=== PATIENT | female | born 1940 | race Caucasian/White ===

== ENCOUNTER 2016-03-08 14:07 | Emergency (ER) | payer OTHER, MEDICARE ==
[2016-03-08 14:13] VITALS: TEMP 97.4; BMI 22.3
--- NOTE | 2016-03-08 14:39 | PDOC ---
History of Present Illness - General History Source: Spouse, Old Records, Primary Care Provider Exam Limitations: Dementia - History of Present Illness Initial Comments: 03/08/16 17:55 The patient is a 76 year old female, with a significant past medical history of HTN, hyperlipidemia, CAD s/p stents and dementia, who presents to the emergency department sent in by Dr. Blas with abdominal pain and constipation for the past 3 days. The patients is with her in the ED. The patients reports that the patient started a new medication Rivastigmine approximately 10 days ago. states that her doctor reduced the dose of Rivastigmine due to the abdominal pain and constipation the patient was experiencing. reports that the patient took Miralax today, with no relief. reports a bowel movement yesterday which was particularly painful. reports that over the past couple of months, the patients dementia has progressed significantly. HPI is entirely provided by due to patients baseline dementia. Allergies: Aspirin, Penicillins Past Surgical History: Defibrillator, Stents Social History: Former smoker. Denies alcohol or drug use. PCP: Dr. Blas <Mariel Yao - Last Filed: 03/08/16 17:58> <Raji Markham - Last Filed: 03/08/16 18:38> - General Chief Complaint: Constipation Stated Complaint: PAIN Time Seen by Provider: 03/08/16 14:34 Past History <Mariel Yao - Last Filed: 03/08/16 17:58> - Past Medical History Anemia: No Asthma: No Cancer: No Cardiac Disorders: Yes COPD: No CHF: No Dementia: Yes HTN: Yes Hypercholesterolemia: Yes - Surgical History Cardiac Surgery: Yes (STENTS, DEFIB) - Immunization History Immunization Up to Date: No - Psycho/Social/Smoking Cessation Hx Anxiety: No Suicidal Ideation: No Smoking History: Former smoker Have you smoked in the past 12 months: No Information on smoking cessation initiated: No Hx Alcohol Use: No Drug/Substance Use Hx: No Substance Use Type: None <Raji Markham - Last Filed: 03/08/16 18:38> - Past Medical History Allergies/Adverse Reactions: Allergies Allergy/AdvReac Type Severity Reaction Status Date / Time aspirin Allergy Verified 03/08/16 14:09 Penicillins Allergy Verified 03/08/16 14:09 Home Medications: Ambulatory Orders Atorvastatin Ca [Lipitor] 20 mg PO HS 03/08/16 Clopidogrel Bisulfate [Plavix -] 75 mg PO DAILY 03/08/16 Metoprolol Succinate [Toprol Xl -] 25 mg PO DAILY 03/08/16 Psyllium Husk [Metamucil] 660 gm PO BID #1 bottle 03/08/16 Quetiapine Fumarate "Xr" [Seroquel Xr -] 150 mg PO HS 03/08/16 Quetiapine Fumarate [Seroquel -] 50 mg PO AM 03/08/16 Quetiapine Fumarate [Seroquel] 100 mg PO DAILY 03/08/16 Rivastigmine Tartrate [Rivastigmine] 1.5 mg PO DAILY 03/08/16 Valsartan [Diovan] 160 mg PO DAILY 03/08/16 Review of Systems - Review of Systems Able to Perform ROS?: No Comments:: 03/08/16 17:57 Unable to perform ROS due to patients baseline dementia. <Mariel Yao - Last Filed: 03/08/16 17:58> *Physical Exam - Vital Signs Last Vital Signs Temp Pulse Resp BP Pulse Ox 97.4 F L 99 H 19 152/95 98 03/08/16 14:09 03/08/16 14:09 03/08/16 14:09 03/08/16 14:09 03/08/16 14:09 - Physical Exam Comments: 03/08/16 17:58 GENERAL: The patient is awake, alert, and but confused/demented, nontoxic - in no acute distress. HEAD: Normocephalic, atraumatic. EYES: Extraocular movements intact, sclera anicteric, conjunctiva clear. ENT: Normal voice, moist mucous membranes. NECK: Normal range of motion, supple. LUNGS: Breath sounds equal, clear to auscultation bilaterally. No wheezes, no rhonchi, no rales. HEART: Regular rate and rhythm, without murmur, rub or gallop. ABDOMEN: Soft, nontender, normoactive bowel sounds. No guarding, no rebound. No CVA tenderness. EXTREMITIES: Normal range of motion, no edema. No clubbing or cyanosis. No cords , erythema, or tenderness. NEUROLOGICAL: No facial asymmetry. Normal speech. PSYCH: Normal mood, normal affect. SKIN: Warm, dry, normal turgor. <Mariel Yao - Last Filed: 03/08/16 17:58> - Vital Signs Last Vital Signs Temp Pulse Resp BP Pulse Ox 97.4 F L 99 H 19 152/95 98 03/08/16 14:09 03/08/16 14:09 03/08/16 14:09 03/08/16 14:09 03/08/16 14:09 <Raji Markham - Last Filed: 03/08/16 18:38> ED Treatment Course - LABORATORY CBC & Chemistry Diagram: 03/08/16 15:40 03/08/16 15:40 <Mariel Yao - Last Filed: 03/08/16 17:58> - LABORATORY CBC & Chemistry Diagram: 03/08/16 15:40 03/08/16 15:40 <Raji Markham - Last Filed: 03/08/16 18:38> Medical Decision Making - Medical Decision Making 03/08/16 15:44 EXAM: RAD/ABDOMEN FLAT & UPRIGHT Reviewed By: Dr. Andry Harkins IMPRESSION: No evidence of intestinal obstruction, or pneumoperitoneum. <Mariel Yao - Last Filed: 03/08/16 17:58> - Medical Decision Making 03/08/16 18:34 76y F hx of dementia presents with intermittent abd pain and difficulty with BM that is painful exam unremarkable pt in no distress, abd soft nontender. labs reviewed unreamrakble ua inconsistent with uti abd xray shows some stool in colon pt feeling improved after enema and had a large BM will dc with metamucil returnprecautions were discussed I discussed the physical exam findings, ancillary test results and final diagnoses with the patient. I answered all of the patient's questions. The patient was satisfied with the care received and felt comfortable with the discharge plan and treatment plan. The patient will call their primary care physician within 24 hours to arrange follow-up and will return to the Emergency Department with any new, persistent or worsening symptoms. A portion of this note was documented by scribe services under my direction. I have reviewed the details of the note, within reason, and agree with the documentation with the following case summary and management plan written by me <Raji Markham - Last Filed: 03/08/16 18:38> *DC/Admit/Observation/Transfer - Attestations Scribe Attestion: 03/08/16 15:43 Documentation prepared by Mariel Yao, acting as senior medical billing specialist for Raji Markham MD. <Mariel Yao - Last Filed: 03/08/16 17:58> - Discharge Dispostion Admit: No <Raji Markham - Last Filed: 03/08/16 18:38> Diagnosis at time of Disposition: Constipation Qualifiers: Constipation type: other constipation type Qualified Code(s): K59.09 - Other constipation Dementia Qualifiers: Dementia type: Alzheimer's disease Alzheimer's disease onset: other onset Dementia behavioral disturbance: without behavioral disturbance Qualified Code(s ): G30.8 - Other Alzheimer's disease - Discharge Dispostion Disposition: HOME Condition at time of disposition: Improved - Prescriptions Prescriptions: Psyllium Husk [Metamucil] 660 gm PO BID #1 bottle - Referrals Referrals: Ashish Blas MD [Primary Care Provider] - - Patient Instructions Printed Discharge Instructions: DI for Constipation Additional Instructions: Return to the emergency department immediately with ANY new, persistent or worsening symptoms including worsening abdominal pain, fevers, chills, inability to tolerate oral intake or any other concerns. Please increase your water intake, increasing physical activity and increase her fiber intake You MUST call and follow up with your doctor tomorrow for further evaluation of your symptoms. Results were discussed with you. Please make sure your doctor reviews the results of your emergency evaluation. Print Language: SAMOAN
[2016-03-08] MEDS ORDERED: SODIUM PHOSPHATE/NA BIPHOS 133 ML ENEMA PR ONE (15:42)
[2016-03-08 16:20] LABS: BASOPHIL 0.7 % (0-2.0); EOSINOPHIL 1.1 % (0-4.5); MCH 30.7 pg (25.7-33.7); MCHC 33.4 g/dl (32.0-36.0); MEAN CELL VOLUME 91.8 fl (80-96); MEAN PLT VOLUME 9.1 fl (7.5-11.1); NEUTROPHILS 77.6 % (42.8-82.8); PLATELET COUNT 279 K/MM3 (134-434); RDW 13.9 % (11.6-15.6); WHITE BLOOD COUNT 8.1 K/mm3 (4.0-10.0)
[2016-03-08 16:47] LABS: ALBUMIN 3.5 g/dl (3.4-5.0); BILIRUBIN,TOTAL 0.5 mg/dL (0.2-1.0); CALCIUM 9.2 mg/dL (8.5-10.1); TOT PROT 7.1 g/dl (6.4-8.2)
[2016-03-08 18:21] LABS: URINE APPEARANCE CLEAR; URINE BILIRUBIN NEGATIVE (NEGATIVE); URINE BLOOD 2+ (NEGATIVE); URINE COLOR DKYELLOW; URINE GLUCOSE (UA) NEGATIVE (NEGATIVE); URINE KETONE NEGATIVE (NEGATIVE); URINE LEUK ESTERASE NEGATIVE (NEGATIVE); URINE NITRITE NEGATIVE (NEGATIVE); URINE PROTEIN 1+ (NEGATIVE); URINE UROBILINOGEN 2.0 E.U/dl E.U./dl (0.2-1.0)
[2016-03-08 18:22] LABS: GRANULAR CASTS 1 /lpf; URINE HYALINE CAST 6 /lpf; URINE MUCUS RARE; URINE RBC 2 /hpf (0-3); URINE WBC 4 /hpf (3-5)
[2016-03-08 19:16] VITALS: BP 156/80; PULSE 78
== END 2016-03-08 19:14 | disposition home or self-care (01) ==
LOC: JER 14:07
DX: K59.09 Other constipation (principal); G30.8 Other Alzheimer's disease; F02.80 Dementia in other diseases classified elsewhere, unspecified severity, without behavioral disturbance, psychotic disturbance, mood disturbance, and anxiety; I10 Essential (primary) hypertension; E78.00 Pure hypercholesterolemia, unspecified; I25.10 Atherosclerotic heart disease of native coronary artery without angina pectoris; Z95.5 Presence of coronary angioplasty implant and graft; Z95.810 Presence of automatic (implantable) cardiac defibrillator
CPT/HCPCS: 36415; 74020-TC; 80053; 81003; 81015; 83690; 85025; 99283-25

== ENCOUNTER 2016-08-02 08:54 | Emergency (ER) | payer OTHER ==
[2016-08-02 09:16] VITALS: BMI 24.0
--- NOTE | 2016-08-02 09:19 | PDOC ---
History of Present Illness - General History Source: Patient Exam Limitations: Dementia - History of Present Illness Initial Comments: CHIEF COMPLAINT: 76 y/o afebrile female with PMH HTN, HLD, Alzheimer's, defibrillator on Plavix BIB for complaints of low back and left leg pain. HISTORY OF PRESENT ILLNESS: The patient's states every morning he has to give the patient tylenol because of her left leg pain. He states it's starting from her low back. She has had xrays of her back and leg which are negative. The patient is related to Dr. Mauro, who also informs me she has recurrent UTIs and he would like to make sure she does not have a UTI. The patient's denies f/c, n/v/d, CP, SOB, abd pain, change in mental status. Vital signs on arrival are BP of 171/101. REVIEW OF SYSTEMS: (provided by ) GENERAL/CONSTITUTIONAL: No fever/chills. CARDIOVASCULAR: No chest pain or shortness of breath. RESPIRATORY: No cough, wheezing, or hemoptysis. GASTROINTESTINAL: No vomiting, diarrhea, constipation. GENITOURINARY: No change in urination. MUSCULOSKELETAL: +left low back pain and left leg pain. SKIN: No rash or easy bruising. NEUROLOGIC: No headache. PHYSICAL EXAM: VITAL_SIGNS: within normal limits GENERAL_APPEARANCE: alert, cooperative, no obvious discomfort. MENTAL_STATUS: speech clear, oriented to person, does not answer questions appropriately. Appears to be speaking about events that happened many many years ago. The patient's states this is her baseline. NEURO: motor intact and sensory intact in injured extremity. BACK: No midline lumbar spine TTP or step offs. Pain elicited with palpation of b/l lumbar paravertebral muscles. EXTREMITIES: No pain with palpation of b/l hips or pelvis. No LE edema. No warmth, cyanosis, erythema, edema or TTP of b/l LEs. No calf pain with palpation b/l. SKIN: warm, dry, good color. <Amparo Amezcua - Last Filed: 08/02/16 13:05> <Jazmyne Kelley - Last Filed: 08/04/16 14:17> - General Chief Complaint: Pain Stated Complaint: LEFT LEG PAIN Time Seen by Provider: 08/02/16 09:15 Past History - Past Medical History Anemia: No Asthma: No Cancer: No Cardiac Disorders: Yes COPD: No CHF: No Dementia: Yes HTN: Yes Hypercholesterolemia: Yes - Surgical History Cardiac Surgery: Yes (STENTS, DEFIB) - Immunization History Immunization Up to Date: No - Psycho/Social/Smoking Cessation Hx Anxiety: No Suicidal Ideation: No Smoking History: Former smoker Have you smoked in the past 12 months: No Hx Alcohol Use: No Drug/Substance Use Hx: No Substance Use Type: None <Amparo Amezcua - Last Filed: 08/02/16 13:05> <Jazmyne Kelley - Last Filed: 08/04/16 14:17> - Past Medical History Allergies/Adverse Reactions: Allergies Allergy/AdvReac Type Severity Reaction Status Date / Time aspirin Allergy Verified 08/02/16 09:16 Penicillins Allergy Verified 08/02/16 09:16 Home Medications: Ambulatory Orders Atorvastatin Ca [Lipitor] 20 mg PO HS 03/08/16 Clopidogrel Bisulfate [Plavix -] 75 mg PO DAILY 03/08/16 Metoprolol Succinate [Toprol Xl -] 25 mg PO DAILY 03/08/16 Psyllium Husk [Metamucil] 660 gm PO BID #1 bottle 03/08/16 Quetiapine Fumarate "Xr" [Seroquel Xr -] 150 mg PO HS 03/08/16 Quetiapine Fumarate [Seroquel -] 50 mg PO AM 03/08/16 Quetiapine Fumarate [Seroquel] 100 mg PO DAILY 03/08/16 Rivastigmine Tartrate [Rivastigmine] 1.5 mg PO DAILY 03/08/16 Valsartan [Diovan] 160 mg PO DAILY 03/08/16 *Physical Exam - Vital Signs Last Vital Signs Temp Pulse Resp BP Pulse Ox 97.9 F 63 14 159/89 100 08/02/16 13:25 08/02/16 13:25 08/02/16 13:25 08/02/16 13:25 08/02/16 13:25 <Jazmyne Kelley - Last Filed: 08/04/16 14:17> ED Treatment Course - ADDITIONAL ORDERS Additional order review: 08/02/16 10:24 Urine Culture - Final Urine - Urine Clean Catch NO GROWTH OBTAINED <Jazmyne Kelley - Last Filed: 08/04/16 14:17> Medical Decision Making - Medical Decision Making A/P: 76 y/o female with low back pain and left leg pain who has had negative xrays. Plan is as follows: 1. UA/culture 2. CT scan lumbar spine and left LE CT lumbar spine IMPRESSION: No significant interval change in comparison to xrays of lumbosacral spine of February 20, 2015. CT left LE IMPRESSION: Normal CT of left lower leg. UA negative for UTI. Explained all results to the family. Will discharge to home with instructions to f/u with her PCP and return to the ER with any worsening or concerning symptoms. The patient's verbalizes understanding of all instructions, has no further questions and is awaiting discharge. <Amparo Amezcua - Last Filed: 08/02/16 13:05> - Medical Decision Making 08/04/16 14:16 Pt seen and examined by me. Agree with above history and physical, assessment and plan. Patient presents to the ED with exacerbation of her chronic leg pain. CT shows chronic spinal stenosis. Will discharge. <Jazmyne Kelley - Last Filed: 08/04/16 14:17> *DC/Admit/Observation/Transfer <Amparo Amezcua - Last Filed: 08/02/16 13:05> <Jazmyne Kelley - Last Filed: 08/04/16 14:17> Diagnosis at time of Disposition: Low back pain, Leg pain, left, Spinal stenosis - Discharge Dispostion Disposition: HOME Condition at time of disposition: Good - Referrals Referrals: Ashish Blas MD [Primary Care Provider] - Eduardo Dye MD [Staff Physician] - - Patient Instructions Printed Discharge Instructions: Spinal Stenosis, DI for Leg Pain, DI for Low Back Pain Additional Instructions: Discharge instructions: -The CT scans of your lower back and left leg showed spinal stenosis, worse on the left side -Please follow up with Dr. Dye for possible physical therapy for spinal stenosis. -You can continue taking Tylenol for pain -Please follow up with your primary care physican within 1 week. -Return to the ER with any worsening or concerning symptoms
[2016-08-02 10:35] LABS: URINE APPEARANCE CLEAR; URINE BILIRUBIN NEGATIVE (NEGATIVE); URINE COLOR LTYELLOW; URINE GLUCOSE (UA) NEGATIVE (NEGATIVE); URINE KETONE NEGATIVE (NEGATIVE); URINE NITRITE NEGATIVE (NEGATIVE); URINE PROTEIN NEGATIVE (NEGATIVE); URINE UROBILINOGEN NEGATIVE E.U./dl (0.2-1.0)
[2016-08-02 11:14] LABS: URINE BLOOD 1+ (NEGATIVE); URINE LEUK ESTERASE TRACE (NEGATIVE)
[2016-08-02 11:22] LABS: URINE MUCUS RARE; URINE RBC 4 /hpf (0-3); URINE WBC 4 /hpf (3-5)
[2016-08-02 13:28] VITALS: BP 159/89; PULSE 63; TEMP 97.9
== END 2016-08-02 13:28 | disposition home or self-care (01) ==
LOC: JER 08:54
DX: M48.06 Spinal stenosis, lumbar region (principal); I25.10 Atherosclerotic heart disease of native coronary artery without angina pectoris; I25.83 Coronary atherosclerosis due to lipid rich plaque; I10 Essential (primary) hypertension; Z95.5 Presence of coronary angioplasty implant and graft; Z95.810 Presence of automatic (implantable) cardiac defibrillator; E78.00 Pure hypercholesterolemia, unspecified; G30.9 Alzheimer's disease, unspecified; F02.80 Dementia in other diseases classified elsewhere, unspecified severity, without behavioral disturbance, psychotic disturbance, mood disturbance, and anxiety
CPT/HCPCS: 72131-TC; 73700-TC-RT; 81003; 81015; 87086; 99284-25

== ENCOUNTER 2016-09-25 11:08 | Emergency (ER) | payer OTHER ==
--- NOTE | 2016-09-25 11:17 | PDOC ---
History of Present Illness - General Chief Complaint: Chest Pain Stated Complaint: LEFT CHEST PAIN Time Seen by Provider: 09/25/16 11:17 History Source: Patient, Care Provider Exam Limitations: Dementia - History of Present Illness Initial Comments: 09/25/16 12:18 Pt presents to the ED because she was reporting pain in her left axilla and chest wall to her . Patient now denies pain. Denies shortness of breath , nausea or vomiting or diaphoresis. History is very limited secondary to the patient's dementia. Past History - Past Medical History Allergies/Adverse Reactions: Allergies Allergy/AdvReac Type Severity Reaction Status Date / Time aspirin Allergy Verified 09/25/16 11:09 Penicillins Allergy Verified 09/25/16 11:09 Home Medications: Ambulatory Orders Atorvastatin Ca [Lipitor] 20 mg PO HS 03/08/16 Clopidogrel Bisulfate [Plavix -] 75 mg PO DAILY 03/08/16 Metoprolol Succinate [Toprol Xl -] 25 mg PO DAILY 03/08/16 Quetiapine Fumarate "Xr" [Seroquel Xr -] 200 mg PO HS 03/08/16 Quetiapine Fumarate [Seroquel -] 100 mg PO AM 03/08/16 Quetiapine Fumarate [Seroquel] 150 mg PO ASDIR 03/08/16 Rivastigmine Tartrate [Rivastigmine] 3 mg PO DAILY 03/08/16 Valsartan [Diovan] 160 mg PO DAILY 03/08/16 Nitroglycerin [Nitrostat] 0.4 mg SL PRN PRN 09/25/16 Quetiapine Fumarate [Seroquel] 100 mg PO PRN PRN 09/25/16 Anemia: No Asthma: No Cancer: No Cardiac Disorders: Yes COPD: No CHF: No Dementia: Yes HTN: Yes Hypercholesterolemia: Yes Comment:: 09/25/16 12:30 history of A fib with pacer/defibrilator and HTN - Surgical History Cardiac Surgery: Yes (STENTS, DEFIB) - Immunization History Immunization Up to Date: No - Psycho/Social/Smoking Cessation Hx Anxiety: No Suicidal Ideation: No Smoking History: Former smoker Have you smoked in the past 12 months: No Hx Alcohol Use: No Drug/Substance Use Hx: No Substance Use Type: None Review of Systems - Review of Systems Able to Perform ROS?: Yes Is the patient limited Swedish proficient: No Constitutional: No: Symptoms Reported, See HPI, Chills, Diaphoresis, Fever Respiratory: No: Orthopnea, Shortness of Breath Cardiac (ROS): Yes: Symptoms Reported, Chest Pain. No: See HPI, Edema, Irregular Heart Rate, Lightheadedness, Palpitations, Syncope, Chest Tightness ABD/GI: No: Symptoms Reported, See HPI, Constipated, Diarrhea, Nausea, Vomiting , Indigestion, Abdominal cramping All Other Systems: Reviewed and Negative *Physical Exam - Physical Exam General Appearance: Yes: Nourished, Appropriately Dressed. No: Apparent Distress HEENT: positive: EOMI, Normal ENT Inspection Neck: positive: Trachea midline, Supple Respiratory/Chest: positive: Lungs Clear, Normal Breath Sounds, Paradoxal Breathing. negative: Chest Tender, Respiratory Distress, Accessory Muscle Use, Rales, Wheezing Cardiovascular: positive: Regular Rhythm, Regular Rate Gastrointestinal/Abdominal: positive: Normal Bowel Sounds, Flat, Soft, Pulsatile Mass. negative: Tender, Distended, Guarding, Rebound, Tenderness Musculoskeletal: positive: Normal Inspection Extremity: positive: Normal Capillary Refill Integumentary: positive: Normal Color Neurologic: positive: rehabilitation therapy aide II-XII NML intact, Alert, Normal Mood/Affect ED Treatment Course - LABORATORY CBC & Chemistry Diagram: 09/25/16 11:55 09/25/16 11:55 Medical Decision Making - Medical Decision Making 09/25/16 12:41 Pt presents to the ED with a vague complaint of chest pain. Patient is demented and unable to give complete history. Currently denies complaints. EKG shows a fib with slight ST depression in v 5 and V 6. Will check labs and reassess, likely discharge home if labs are negative. 09/25/16 13:17 First troponin is consistent with prior troponins in the past. Patient remains pain free. Medical Center Director advises that patient can go home and he will evaluate her this week. Will discharge home. *DC/Admit/Observation/Transfer Diagnosis at time of Disposition: Chest pain in adult - Discharge Dispostion Disposition: HOME Condition at time of disposition: Good Admit: No - Patient Instructions Printed Discharge Instructions: DI for Atypical Chest Pain Additional Instructions: return immediately to the ED for severe chest pain or shortness of breath, passing out, nausea and vomiting or fever, other new or worsening symptoms.
[2016-09-25 11:24] VITALS: BP 145/87; PULSE 85; TEMP 98.1; BMI 22.2
[2016-09-25 12:03] LABS: BASOPHIL 1.1 % (0-2.0); EOSINOPHIL 3.4 % (0-4.5); MCH 31.1 pg (25.7-33.7); MCHC 34.2 g/dl (32.0-36.0); MEAN CELL VOLUME 90.9 fl (80-96); MEAN PLT VOLUME 8.3 fl (7.5-11.1); NEUTROPHILS 65.6 % (42.8-82.8); PLATELET COUNT 303 K/MM3 (134-434); WHITE BLOOD COUNT 4.8 K/mm3 (4.0-10.8)
[2016-09-25 12:15] LABS: ALBUMIN 3.6 g/dl (3.5-5.0); ALK PHOS 124 U/L (32-92); ANION GAP 9 (8-16); BILIRUBIN,TOTAL 0.5 mg/dl (0.2-1.0); CALCIUM 9.1 mg/dl (8.4-10.2); CO2 24 mmol/L (22-28); CPK 42 IU/L (26-192); GLUCOSE,RANDOM 112 mg/dl (74-106); SGOT/AST 26 U/L (10-42); SGPT/ALT 19 U/L (10-40); TOT PROT 7.5 g/dl (6.4-8.3)
[2016-09-25 12:36] LABS: TROPONIN I (DFP) 0.13 ng/ml (0.03-0.50)
[2016-09-25] MEDS ORDERED: POTASSIUM CHLORIDE TABS 20 MEQ TABLET.ER (FP) PO ONE ×2 (12:47→13:34)
--- NOTE | 2016-09-28 14:14 | EKG ---
Test Reason : Blood Pressure : / mmHG Vent. Rate : 084 BPM Atrial Rate : 111 BPM P-R Int : 000 ms QRS Dur : 092 ms QT Int : 376 ms P-R-T Axes : 000 009 187 degrees QTc Int : 444 ms ATRIAL FIBRILLATION WITH CONTROLLED VENTRICULAR RESPONSE INFERIOR INFARCT (CITED ON OR BEFORE 23-OCT-1999) ABNORMAL ECG WHEN COMPARED WITH ECG OF 04-JAN-2016 15:16, PREMATURE VENTRICULAR AND FUSION COMPLEXES ARE NO LONGER PRESENT NONSPECIFIC T WAVE ABNORMALITY HAS REPLACED INVERTED T WAVES IN INFERIOR LEADS BASE LINE ARTIFACTS,CLINICAL CORRELATION AND REPEAT INDICATED Confirmed by LISS RIVERA MD ([id number]) on 09/28/2016 2:14:16 PM Referred By: TEO Confirmed By:LISS RIVERA MD
== END 2016-09-25 13:56 | disposition home or self-care (01) ==
LOC: FER 11:08
DX: R07.89 Other chest pain (principal); I48.91 Unspecified atrial fibrillation; I10 Essential (primary) hypertension; Z95.5 Presence of coronary angioplasty implant and graft; Z95.810 Presence of automatic (implantable) cardiac defibrillator; F03.90 Unspecified dementia, unspecified severity, without behavioral disturbance, psychotic disturbance, mood disturbance, and anxiety
CPT/HCPCS: 36415; 80053; 84484; 85025; 93005; 93010; 99282-25

== ENCOUNTER 2016-11-08 13:44 | Emergency (ER) | payer OTHER ==
--- NOTE | 2016-11-08 14:24 | PDOC ---
History of Present Illness - General Stated Complaint: WEAKNESS Time Seen by Provider: 11/08/16 14:23 History Source: Family - History of Present Illness Initial Comments: 11/08/16 14:42 CC: Isolated episode of non-responsiveness, resolved HPI obtained from patient's @ bedside as patient has dementia @ baseline Patient is a 76 y.o. female with a PMH of Afib (not on AC), VT arrest (s/p AICD) , HLD, and Dementia who presents today with after patient became unresponsive for 1-2 minutes. As per patient's , patient was at baseline today (ambulating, completing ADL's with assistance) when patient complained of being tired, patient's placed patient in chair after which time she closed her eyes and did not respond to 's voice or gentle slapping. Patient instantaneously became alert while being evaluated by EMS and as per patient became alert and immediately was @ baseline mental status. Patient's notes patient is followed by Dr. Nunez for her dementia and he recently (10 days previous) increased patient's Seroquel dose from 250 mg QD to 450 mg QD. ROS is unable to be obtained given patient's baseline dementia. Past History - Past Medical History Allergies/Adverse Reactions: Allergies Allergy/AdvReac Type Severity Reaction Status Date / Time aspirin Allergy Verified 11/08/16 14:19 Penicillins Allergy Verified 11/08/16 14:19 Home Medications: Ambulatory Orders Atorvastatin Ca [Lipitor] 20 mg PO HS 03/08/16 Clopidogrel Bisulfate [Plavix -] 75 mg PO DAILY 03/08/16 Metoprolol Succinate [Toprol Xl -] 25 mg PO DAILY 03/08/16 Quetiapine Fumarate "Xr" [Seroquel Xr -] 200 mg PO HS 03/08/16 Quetiapine Fumarate [Seroquel -] 100 mg PO AM 03/08/16 Quetiapine Fumarate [Seroquel] 150 mg PO ASDIR 03/08/16 Rivastigmine Tartrate [Rivastigmine] 3 mg PO DAILY 03/08/16 Valsartan [Diovan] 160 mg PO DAILY 03/08/16 Nitroglycerin [Nitrostat] 0.4 mg SL PRN PRN 09/25/16 Quetiapine Fumarate [Seroquel] 100 mg PO PRN PRN 09/25/16 Anemia: No Asthma: No Cancer: No Cardiac Disorders: Yes COPD: No CHF: No Dementia: Yes HTN: Yes Hypercholesterolemia: Yes - Surgical History Cardiac Surgery: Yes (STENTS, DEFIB) - Immunization History Immunization Up to Date: No - Suicide/Smoking/Psychosocial Hx Smoking History: Former smoker Have you smoked in the past 12 months: No Hx Alcohol Use: No Drug/Substance Use Hx: No Substance Use Type: None Review of Systems - Review of Systems Able to Perform ROS?: No *Physical Exam - Physical Exam General Appearance: Yes: Appropriately Dressed, Thin HEENT: positive: EOMI, IVA Neck: positive: Trachea midline, Supple Respiratory/Chest: positive: Lungs Clear, Normal Breath Sounds Cardiovascular: positive: Regular Rhythm, Regular Rate, S1, S2 Gastrointestinal/Abdominal: positive: Normal Bowel Sounds, Soft Extremity: positive: Normal Capillary Refill, Normal Inspection Integumentary: positive: Normal Color, Dry, Warm Neurologic: positive: Alert (Patient is oriented x1 - can self-identify, is unable to identify location or date), Confused, Disoriented ED Treatment Course - LABORATORY CBC & Chemistry Diagram: 11/08/16 15:05 11/08/16 15:05 Medical Decision Making - Medical Decision Making 11/08/16 14:54 Patient is a 76 y.o. female with a PMH of dementia, AFib (not on A/C 2/2 to GI bleed) VT arrest, and DLD who presents with an isolated episode of unresponsiveness. Immediate DDx is cardiac vs. infectious vs. pharmacologic ( patient recently had an increase in her Seroquel dosage). PLAN: 1. EKG 2. CBC, CMP 3. UA 11/08/16 15:[address] Nunez who advises outpatient follow-up for Seroquel dosing readjustment. 11/08/16 17:35 UA showed 1+ blood and 1+ protein, nitrite (-) and leukocyte esterase (-). Patient's counseled on proper follow-up care and affirmed desire for discharge. Patient discharged home with instruction to follow-up with Dr. Nunez. *DC/Admit/Observation/Transfer Diagnosis at time of Disposition: Weakness - Discharge Dispostion Disposition: HOME Condition at time of disposition: Fair Admit: No - Referrals Referrals: Ashish Blas MD [Primary Care Provider] - Jackson Nunez MD [Staff Physician] - - Patient Instructions Printed Discharge Instructions: DI for Syncope in Adults (Fainting) Additional Instructions: Please follow-up with Dr. Nunez in the next 2-3 days for adjustment of Seroquel dosing. Please return to the Emergency Department should patient experience repeat episode of non-responsiveness or severe discomfort.
--- NOTE | 2016-11-08 14:24 | PDOC ---
Attending Attestation - Resident Resident Name: Hermila Carmona - HPI HPI: 11/12/16 00:48 Pt presents to the ED after found in a chair by her , not responding to voice. Patient never fell from the chair. Patient was awake and responding to voice on arrival of EMS. Of note, her seroquel dose was recently increased. - Physicial Exam PE: 11/12/16 00:49 agree with resident's exam. PAtient is mildly confused but otherwise neurologically intact and is at baseline as per . - Medical Decision Making 11/12/16 00:54 Pt presents to the Ed after found by her not responsive to voice. Now is neurologically intact with normal blood work. Case discussed with Dr. Nunez, who feels that the patient may just have been overly sleepy secondary to her increased seroquel dose. Will discharge home with medical follow up;
[2016-11-08 15:05] VITALS: TEMP 98.1; BMI 20.9
[2016-11-08 15:21] LABS: BASOPHIL 0.8 % (0-2.0); EOSINOPHIL 2.2 % (0-4.5); MCH 31.7 pg (25.7-33.7); MCHC 33.7 g/dl (32.0-36.0); MEAN CELL VOLUME 93.9 fl (80-96); MEAN PLT VOLUME 9.4 fl (7.5-11.1); NEUTROPHILS 67.3 % (42.8-82.8); PLATELET COUNT 231 K/MM3 (134-434); WHITE BLOOD COUNT 5.2 K/mm3 (4.0-10.0)
[2016-11-08 15:34] LABS: ALBUMIN 3.2 g/dl (3.4-5.0); ALK PHOS 124 U/L (45-117); ANION GAP 5 (8-16); BILIRUBIN,TOTAL 0.4 mg/dL (0.2-1.0); CALCIUM 8.9 mg/dL (8.5-10.1); CO2 27 mmol/L (21-32); CREATININE 1.1 mg/dL (0.55-1.02); GLUCOSE,RANDOM 109 mg/dL (74-106); SGPT/ALT 17 U/L (12-78); TOT PROT 7.4 g/dl (6.4-8.2)
[2016-11-08 15:42] LABS: SGOT/AST 31 U/L (15-37)
[2016-11-08 15:54] LABS: URINE APPEARANCE SLCLOUDY; URINE BILIRUBIN NEGATIVE (NEGATIVE); URINE BLOOD 1+ (NEGATIVE); URINE COLOR YELLOW; URINE GLUCOSE (UA) NEGATIVE (NEGATIVE); URINE KETONE NEGATIVE (NEGATIVE); URINE NITRITE NEGATIVE (NEGATIVE); URINE UROBILINOGEN NEGATIVE mg/dL (0.2-1.0)
[2016-11-08 15:55] LABS: URINE LEUK ESTERASE 1+ (NEGATIVE); URINE PROTEIN 1+ (NEGATIVE)
[2016-11-08 15:58] LABS: URINE HYALINE CAST 25 /lpf; URINE MUCUS MANY; URINE RBC 2 /hpf (0-3); URINE WBC 8 /hpf (3-5)
[2016-11-08 16:39] VITALS: BP 101/58; PULSE 72
--- NOTE | 2016-11-09 09:37 | EKG ---
Test Reason : Blood Pressure : / mmHG Vent. Rate : 080 BPM Atrial Rate : 326 BPM P-R Int : 000 ms QRS Dur : 102 ms QT Int : 374 ms P-R-T Axes : 000 005 179 degrees QTc Int : 431 ms ATRIAL FIBRILLATION POSSIBLE INFERIOR INFARCT (CITED ON OR BEFORE 23-OCT-1999) ABNORMAL ECG WHEN COMPARED WITH ECG OF 25-SEP-2016 10:55, NO SIGNIFICANT CHANGE WAS FOUND Confirmed by GARY VILLAVICENCIO MD ([id number]) on 11/09/2016 9:37:28 AM Referred By: Confirmed By:GARY VILLAVICENCIO MD
== END 2016-11-08 16:41 | disposition home or self-care (01) ==
LOC: JER 13:44
DX: R53.1 Weakness (principal); I48.91 Unspecified atrial fibrillation; I10 Essential (primary) hypertension; Z95.5 Presence of coronary angioplasty implant and graft; F03.90 Unspecified dementia, unspecified severity, without behavioral disturbance, psychotic disturbance, mood disturbance, and anxiety; Z95.810 Presence of automatic (implantable) cardiac defibrillator; Z87.891 Personal history of nicotine dependence
CPT/HCPCS: 36415; 80053; 81003; 81015; 85025; 93005; 93010; 99283-25

== ENCOUNTER 2017-01-04 09:02 | Emergency (ER) | payer OTHER ==
[2017-01-04 09:10] VITALS: BP 114/77; PULSE 91; TEMP 98; BMI 21.6
[2017-01-04] MEDS ORDERED: CLINDAMYCIN 600MG PREMIX IVPB 600 MG/50 ML BAG IVPB ONE (09:14)
[2017-01-04] MEDS ORDERED: CLINDAMYCIN PHOSPHATE 600 MG/4 ML VIAL ONE (09:39)
--- NOTE | 2017-01-04 09:42 | PDOC ---
History of Present Illness - General Chief Complaint: Redness To Affected Area Stated Complaint: RT HAND REDNESS, R/T CAT SCRATCH Time Seen by Provider: 01/04/17 09:05 History Source: Care Provider, Family Exam Limitations: Dementia - History of Present Illness Initial Comments: 01/04/17 09:37 77-year-old female history of Alzheimer's dementia here with her family for a recent cat bite. Patient states she was bit by a cat on Tuesday, and started on antibiotics yesterday. Had been started on azithromycin however pain and swelling in her hand is gotten worse no fevers or chills. felt redness was worsening. no exudate from wound. No moderating factors. 01/04/17 10:25 Past History - Past Medical History Allergies/Adverse Reactions: Allergies Allergy/AdvReac Type Severity Reaction Status Date / Time aspirin Allergy Verified 01/04/17 09:04 Penicillins Allergy Verified 01/04/17 09:04 Home Medications: Ambulatory Orders Atorvastatin Ca [Lipitor] 20 mg PO HS 03/08/16 Clopidogrel Bisulfate [Plavix -] 75 mg PO DAILY 03/08/16 Metoprolol Succinate [Toprol Xl -] 25 mg PO DAILY 03/08/16 Quetiapine Fumarate "Xr" [Seroquel Xr -] 200 mg PO HS 03/08/16 Quetiapine Fumarate [Seroquel -] 100 mg PO AM 03/08/16 Quetiapine Fumarate [Seroquel] 100 mg PO ASDIR 03/08/16 Rivastigmine Tartrate [Rivastigmine] 3 mg PO DAILY 03/08/16 Valsartan [Diovan] 160 mg PO DAILY 03/08/16 Nitroglycerin [Nitrostat] 0.4 mg SL PRN PRN 09/25/16 Quetiapine Fumarate [Seroquel] 100 mg PO PRN PRN 09/25/16 Clindamycin [Cleocin -] 450 mg PO Q8H #63 capsule 01/04/17 Doxycycline Hyclate 100 mg PO BID #14 capsule 01/04/17 Anemia: No Asthma: No Cancer: No Cardiac Disorders: Yes COPD: No CHF: No Dementia: Yes HTN: Yes Hypercholesterolemia: Yes - Surgical History Cardiac Surgery: Yes (STENTS, DEFIB) - Immunization History Immunization Up to Date: No - Suicide/Smoking/Psychosocial Hx Smoking History: Unknown if ever smoked Have you smoked in the past 12 months: No Information on smoking cessation initiated: No Hx Alcohol Use: No Drug/Substance Use Hx: No Substance Use Type: None Review of Systems - Review of Systems Constitutional: No: Chills, Diaphoresis HEENTM: No: Eye Pain Respiratory: No: Cough, Orthopnea Cardiac (ROS): No: Chest Pain, Edema ABD/GI: No: Abdominal Distended : No: Burning Musculoskeletal: No: Back Pain, Gout Integumentary: Yes: Rash, Other (redness). No: Bruising Neurological: No: Headache, Numbness Endocrine: No: Excessive Sweating All Other Systems: Reviewed and Negative *Physical Exam - Vital Signs Last Vital Signs Temp Pulse Resp BP Pulse Ox 98 F 91 H 18 114/77 98 01/04/17 09:02 01/04/17 09:02 01/04/17 09:02 01/04/17 09:02 01/04/17 09:02 - Physical Exam General Appearance: No: Appropriately Dressed, Apparent Distress HEENT: negative: Normal ENT Inspection Respiratory/Chest: positive: Lungs Clear, Normal Breath Sounds Cardiovascular: positive: Regular Rhythm, Regular Rate, S1, S2 Gastrointestinal/Abdominal: positive: Normal Bowel Sounds, Soft Musculoskeletal: positive: Normal Inspection Extremity: positive: Swelling, Erythema, Other (Right hand swelling, erythema, and warmth. No crepitus. No streaking. Small punctate wound 2 on the dorsum of the hand. No exudate) Integumentary: positive: Erythema Neurologic: positive: Alert, Normal Mood/Affect ED Treatment Course - LABORATORY CBC & Chemistry Diagram: 01/04/17 09:30 01/04/17 09:59 - RADIOLOGY Radiology Studies Ordered: Category Date Time Status HAND- RIGHT [RAD] Stat Radiology 01/04/17 09:10 Ordered Medical Decision Making - Medical Decision Making 01/04/17 09:41 77-year-old female with current Bite to the right hand, has been on azithromycin for 24 hours no response. At this point will switch antibiotics for coverage of Pasteurella multocida, and staff. Discussion with patient's and primary care physician Dr. Blas patient is better treated as an outpatient due to severe dementia. After an IV dose requesting patient be discharged home and will follow up with PCP tomorrow. Should they have any problems with follow-up patient will be encouraged to return to the ED for repeat evaluation on the day following workup will include x-ray of the hand to rule out foreign body, CBC, CMP, blood cultures, ESR and CRP *DC/Admit/Observation/Transfer Diagnosis at time of Disposition: Cat bite - Discharge Dispostion Condition at time of disposition: Improved - Prescriptions Prescriptions: Clindamycin [Cleocin -] 450 mg PO Q8H #63 capsule Doxycycline Hyclate 100 mg PO BID #14 capsule - Referrals Referrals: Ashish Blas MD [Primary Care Provider] - - Patient Instructions Printed Discharge Instructions: DI for Animal Bites Additional Instructions: Take clindamycin 450 mg (or 3150 mg capsules (3 times a day for 7 days. Capsules can be emptied into food. Take doxycycline 100 mg capsule, also emptied into food twice daily 7 days. He should follow-up with your primary doctor tomorrow. Any inability to follow-up he should return to the ER for repeat evaluation. For worsening redness high fevers or any concerns return immediately. He can take Tylenol 500 mg every 6 hours as needed for pain - Post Discharge Activity
[2017-01-04 09:45] LABS: BASOPHIL 3.7 % (0-2.0); EOSINOPHIL 0.7 % (0-4.5); MCH 31.3 pg (25.7-33.7); MEAN CELL VOLUME 94.8 fl (80-96); NEUTROPHILS 73.6 % (42.8-82.8); PLATELET COUNT 245 K/MM3 (134-434); RDW 14.1 % (11.6-15.6); WHITE BLOOD COUNT 9.5 K/mm3 (4.0-10.8)
[2017-01-04] MEDS ORDERED: DOXYCYCLINE INJECTION 100 MG in DEXTROSE 5%-WATER - 100 ML IVPB ONE (09:51)
[2017-01-04] MEDS ORDERED: DOXYCYCLINE HYCLATE 100 MG VIAL ONE (10:01)
[2017-01-04 10:22] LABS: ALBUMIN 3.2 g/dl (3.5-5.0); ALK PHOS 114 U/L (32-92); ANION GAP 9 (8-16); BILIRUBIN,TOTAL 0.6 mg/dl (0.2-1.0); CALCIUM 8.9 mg/dl (8.4-10.2); CO2 21 mmol/L (22-28); GLUCOSE,RANDOM 104 mg/dl (74-106); SGOT/AST 18 U/L (10-42); SGPT/ALT 10 U/L (10-40); TOT PROT 6.8 g/dl (6.4-8.3)
[2017-01-04 12:29] LABS: C-REACTIVE PROTEIN 8.2 MG/DL (0.00-0.3)
--- NOTE | 2017-01-05 19:02 | PDOC ---
Patient Follow-up (Call Back) - Post ED Follow - Up Condition at time of discharge: Improved Disposition at time of original discharge: HOME Reason for Call Back: Abnwl. Microbiology Signs/Symptoms Improved: Yes (spoke to Dr. Blas and her ) - Disposition Rx Needed: No Additional Instructions/Notes: reeceived call from micro-today that patient had a positive blood culture in her anaerobic bottle for cocci in clusters from 12/25/2016. Patient had been discharged on doxycycline 100 mg twice a day and clindamycin 453 times a day for 7 days. Patient was followed by today and results were given to him. I also spoke with patient's and he reports that her right hand is less swollen and she is feeling slightly better.Dr. Blas will follow up with pt, he had seen here today.
== END 2017-01-04 11:35 | disposition home or self-care (01) ==
LOC: FER 09:02
DX: S60.571A Other superficial bite of hand of right hand, initial encounter (principal); I10 Essential (primary) hypertension; E78.00 Pure hypercholesterolemia, unspecified; I51.9 Heart disease, unspecified; F03.90 Unspecified dementia, unspecified severity, without behavioral disturbance, psychotic disturbance, mood disturbance, and anxiety; Z95.5 Presence of coronary angioplasty implant and graft
CPT/HCPCS: 36415; 73130-TC-RT; 80053; 85025; 85651; 86140; 87040; 87186; 96365; 96367; 99284-25

== ENCOUNTER 2017-03-08 08:57 | Observation (INO) | payer OTHER ==
--- NOTE | 2017-03-08 09:34 | PDOC ---
History of Present Illness - General Chief Complaint: Injury Stated Complaint: FALL Time Seen by Provider: 03/08/17 09:05 History Source: Care Provider, Family - History of Present Illness Initial Comments: 03/08/17 10:07 76 y.o. female PMH of Afib (not on AC), VT arrest (s/p AICD), HTN, HLD, and Dementia BIBEMS who presents following a fall and subsequent 5-15 minute period of unresponsiveness without any seizure activity. As per patient's and camp head counselor @ bedside patient had just walked down a flight of 5 stairs when she suddenly fell backward and hit head and was unresponsive for 5 minutes as per camp head counselor and 20 minutes as per . Patient's family denies any loss of bladder control or tongue biting. Patient is limited historian 2/2 to dementia however denies any pre syncopal chest pain, shortness of breath. Family notes patient has had multiple episodes of falls this month, however LOC < 1 minute and no head trauma. Allergy (as per EMR): ASA, Pencillin Surgical: s/p Stent PMD: Dr. Blas (family member - first leveler who provides primary care) Past History - Past Medical History Allergies/Adverse Reactions: Allergies Allergy/AdvReac Type Severity Reaction Status Date / Time aspirin Allergy Verified 03/08/17 09:13 Penicillins Allergy Verified 03/08/17 09:13 Home Medications: Ambulatory Orders Atorvastatin Ca [Lipitor] 20 mg PO HS 03/08/16 Clopidogrel Bisulfate [Plavix -] 75 mg PO DAILY 03/08/16 Metoprolol Succinate [Toprol Xl -] 25 mg PO DAILY 03/08/16 Quetiapine Fumarate "Xr" [Seroquel Xr -] 200 mg PO HS 03/08/16 Quetiapine Fumarate [Seroquel -] 100 mg PO TID 03/08/16 Rivastigmine Tartrate [Rivastigmine] 3 mg PO DAILY 03/08/16 Valsartan [Diovan] 160 mg PO DAILY 03/08/16 Nitroglycerin [Nitrostat] 0.4 mg SL PRN PRN 09/25/16 Clindamycin [Cleocin -] 450 mg PO Q8H #63 capsule 01/04/17 Doxycycline Hyclate 100 mg PO BID #14 capsule 01/04/17 Anemia: No Asthma: No Cancer: No Cardiac Disorders: Yes COPD: No CHF: No Dementia: Yes HTN: Yes Hypercholesterolemia: Yes - Surgical History Cardiac Surgery: Yes (STENTS, DEFIB) - Immunization History Immunization Up to Date: No - Suicide/Smoking/Psychosocial Hx Smoking History: Unknown if ever smoked Have you smoked in the past 12 months: No Information on smoking cessation initiated: No Hx Alcohol Use: No Drug/Substance Use Hx: No Substance Use Type: None Review of Systems - Review of Systems Able to Perform ROS?: No *Physical Exam - Vital Signs Last Vital Signs Temp Pulse Resp BP Pulse Ox 97 F L 102 H 18 169/78 100 03/08/17 09:01 03/08/17 09:01 03/08/17 09:01 03/08/17 09:01 03/08/17 09:01 - Physical Exam General Appearance: Yes: Appropriately Dressed, Thin HEENT: positive: EOMI, Other ((-) Peralta sign, (-) Head laceration, ) Respiratory/Chest: positive: Lungs Clear Cardiovascular: positive: S1, S2 Gastrointestinal/Abdominal: positive: Normal Bowel Sounds, Soft Musculoskeletal: negative: CVA Tenderness (R), CVA Tenderness (L) Extremity: positive: Normal Capillary Refill, Normal Inspection, Pelvis Stable Integumentary: positive: Normal Color, Dry, Warm. negative: Ecchymosis, Bruising Neurologic: positive: Fully Oriented, Alert ED Treatment Course - LABORATORY CBC & Chemistry Diagram: 03/08/17 10:59 03/08/17 10:59 - RADIOLOGY Radiology Studies Ordered: Category Date Time Status CERVICAL SPINE CT W/O CONTR [CT] Stat CT Scan 03/08/17 09:[address] WITHOUT CONTRAST [CT] Stat CT Scan 03/08/17 09:06 Taken Medical Decision Making - Medical Decision Making 03/08/17 14:25 76 y.o. female with a h/o AFib (not on A/C), V Tach (s/p arrest in 2016, AICD), CAD (s/p stent x3) and advanced Alzheimer who presents with witnessed syncope. At presentation patient tachycardic, moving all 4 extremities, no visible head laceration/hematoma and A&O x2 (baseline). Patient's cardiac history most suggestive of syncope 2/2 arrhythmia - less likely PE (non-tachcycardic, no dyspnea, no prolonged immobilization) or seizure (no bladder/bowel incontinence , tongue biting). Trauma work-up including CT head/C-spine, CXR as well as EKG. Pacemaker interrogation ([employer]) pending. CT Head/C-spine negative. Patient resisting therapeutic intervention including EKG, blood draws, will place soft restraints + Seroquel. Twelve-lead EKG shows Atrial Fibrillation (HR 85), normal axis, no ST elevations , T wave inversion in Leads II. III, avF, and T wave flattening in V4-V6. No changes from EKG dated 11/2016. Pacemaker interrogation - last event 02/25/2018, sustained VTach. Will admit patient for further evaluation under Dr. Stein. Will continue to monitor patient while in ED. *DC/Admit/Observation/Transfer Diagnosis at time of Disposition: Syncope - Discharge Dispostion Admit: Yes - Referrals - Patient Instructions - Post Discharge Activity
--- NOTE | 2017-03-08 10:10 | CON.CARD ---
Consult Consult Specialty:: Cardiology Referred by:: Dr. Carmona Reason for Consultation:: Syncope - History of Present Illness Chief Complaint: "Blacked out for 20 minutes" History of Present Illness: History obtained from family, cannot obtain from patient due to dementia. 77F HTN, HL, CAD s/p PCI s/p AZ '87, PCI x 3, ICM, moderate LV systolic dysfx, sustained VT 05/2015 requiring cardioversion, AF not on AC due to falls and rectal bleeding. +Alzheimers disease. Today presents to ER after syncopal episode at home. As per report of aid, she walked down the stairs and passed out. No complaints of chest pain, SOB or palps prior. According to family member Lon Bower she was "out for like 20 minutes." Stat head CT in ER: no acute pathology. - History Source History Provided By: Family Member - Past Medical History DISTILLERY MANAGER: Yes: Dementia Cardio/Vascular: Yes: AFIB, CAD, CHF, HTN, Hyperlipdemia, AZ, Other (episode of sustained ventricular tachycardia requiring cardioversion, s/p ICD) Gastrointestinal: Yes: Diverticulosis - Past Surgical History Past Surgical History: Yes: AICD, - Alcohol/Substance Use Hx Alcohol Use: No - Smoking History Smoking history: Unknown if ever smoked Have you smoked in the past 12 months: No - Social History ADL: Family Assistance History of Recent Travel: No Home Medications - Allergies Allergies/Adverse Reactions: Allergies Allergy/AdvReac Type Severity Reaction Status Date / Time aspirin Allergy Verified 03/08/17 09:13 Penicillins Allergy Verified 03/08/17 09:13 - Home Medications Home Medications: Ambulatory Orders Atorvastatin Ca [Lipitor] 20 mg PO HS 03/08/16 Clopidogrel Bisulfate [Plavix -] 75 mg PO DAILY 03/08/16 Metoprolol Succinate [Toprol Xl -] 25 mg PO DAILY 03/08/16 Quetiapine Fumarate "Xr" [Seroquel Xr -] 200 mg PO HS 03/08/16 Quetiapine Fumarate [Seroquel -] 100 mg PO AM 03/08/16 Rivastigmine Tartrate [Rivastigmine] 3 mg PO DAILY 03/08/16 Valsartan [Diovan] 160 mg PO DAILY 03/08/16 Nitroglycerin [Nitrostat] 0.4 mg SL PRN PRN 09/25/16 Clindamycin [Cleocin -] 450 mg PO Q8H #63 capsule 01/04/17 Doxycycline Hyclate 100 mg PO BID #14 capsule 01/04/17 Family Disease History - Family Disease History Family History: Unremarkable (no known h/o AZ or SCD) Review of Systems Findings/Remarks: see HPI - Review of Systems Constitutional: reports: No Symptoms Eyes: reports: No Symptoms HENT: reports: No Symptoms Neck: reports: No Symptoms Cardiovascular: reports: No Symptoms Respiratory: reports: No Symptoms Gastrointestinal: reports: No Symptoms Genitourinary: reports: No Symptoms Breasts: reports: No Symptoms Reported Musculoskeletal: reports: No Symptoms Integumentary: reports: No Symptoms Neurological: reports: No Symptoms Endocrine: reports: No Symptoms Hematology/Lymphatic: reports: No Symptoms Psychiatric: reports: No Symptoms - Risk Factors Known Risk Factors: Yes: Hypercholesterolemia, Hypertension, Prior AZ /Emb Stroke Vital Signs: Vital Signs Temperature 97 F L 03/08/17 09:01 Pulse Rate 102 H 03/08/17 09:01 Respiratory Rate 18 03/08/17 09:01 Blood Pressure 169/78 03/08/17 09:01 O2 Sat by Pulse Oximetry (%) 100 03/08/17 09:01 Constitutional: Yes: No Distress, Calm Eyes: Yes: Conjunctiva Clear Respiratory: Yes: CTA Bilaterally Cardiovascular: Yes: Pulse Irregular JVD: No Carotid Bruit: No PMI: Non-Displaced Edema: No Neurological: Yes: Confusion ...Motor Strength: WNL - Other Data PENDING Echo: Report Reviewed Prior Cardiac Procedures: PTCA, PTCA with Stent Imaging - Results Cat Scan: Image Reviewed EKG: Pending Problem List - Problems (1) Syncope and collapse Code(s): R55 - SYNCOPE AND COLLAPSE (2) ICD (implantable cardioverter-defibrillator) in place Code(s): Z95.810 - PRESENCE OF AUTOMATIC (IMPLANTABLE) CARDIAC DEFIBRILLATOR (3) Ischemic cardiomyopathy Code(s): I25.5 - ISCHEMIC CARDIOMYOPATHY (4) Paroxysmal atrial fibrillation Code(s): I48.0 - PAROXYSMAL ATRIAL FIBRILLATION (5) Ventricular tachyarrhythmia Code(s): I47.2 - VENTRICULAR TACHYCARDIA Assessment/Plan IMP: 77F with ICM s/p [employer] ICD, prior VT requiring cardioversion, AF, h/o AZ presents to ER with syncope. History of dementia. REC: 1. Stat bloodwork including cardiac enzymes 2. Will call [employer] to interrogate device. 3. As per family member, this has happened before and she will almost certainly refuse to be admitted. After labs and interrogation, will make further reccomendations.
[2017-03-08 11:13] LABS: BASO % 0.8 % (0-2.0); EOS % 1.3 % (0-4.5); HEMATOCRIT 37.5 % (32.4-45.2); HEMOGLOBIN 12.1 GM/dL (10.7-15.3); LYMPH % 11.9 % (8-40); MCH 31.1 pg (25.7-33.7); MCHC 32.3 g/dl (32.0-36.0); MEAN CELL VOLUME 96.1 fl (80-96); MEAN PLT VOLUME 8.6 fl (7.5-11.1); MONO % 7.1 % (3.8-10.2); NEUT % 78.9 % (42.8-82.8); PLATELET COUNT 276 K/MM3 (134-434); RDW 13.9 % (11.6-15.6); WHITE BLOOD COUNT 9.1 K/mm3 (4.0-10.0)
--- NOTE | 2017-03-08 11:17 | PDOC ---
Attending Attestation - HPI HPI: 03/08/17 11:26 The patient is a 77 year old female with a significant PMH of dementia, Alzheimers, CAD (s/p stents and defibrillator), AFIB, VT arrest, HTN, and hyperlipidemia who presents to the emergency department s/p witnessed fall at home. The patients supervisor home energy consultant and report they witnessed the patient walk down a flight of 5 stairs, then hold her head and collapse backwards from her feet at the foot of the stairs. They report the patient hit her head and was unresponsive and pale afterwards for about 5-15 minutes. The patient is a limited historian secondary to her dementia. Allergies: Aspirin, Penicillins PCP/Aircraft Engine Specialist: Dr. Blas (Dannie) #: - Physicial Exam PE: 03/08/17 11:29 GENERAL: Awake, alert, oriented to name only, in no acute distress HEAD: No signs of trauma EYES: PERRLA, EOMI, sclera anicteric, conjunctiva clear ENT: Auricles normal inspection, nares patent, Moist mucosa NECK: C-collar in place LUNGS: Breath sounds equal, clear to auscultation bilaterally. No wheezes, and no crackles HEART: irregularly irregular, rate 83 normal S1 and S2, no murmurs, rubs or gallops ABDOMEN: Soft, nontender, normoactive bowel sounds. No guarding, no rebound. No masses EXTREMITIES: Stable pelvis. Normal range of motion, no edema. No clubbing or cyanosis. No cords, erythema, or tenderness BACK: No midline spinal tenderness in cervical/thoracic/lumbar region. No step offs. NEUROLOGICAL: Normal speech, cranial nerves grossly intact, not cooperative with remainder of exam but moving all 4 extremities spontaneously SKIN: Warm, Dry, normal turgor, no rashes or lesions noted. - Medical Decision Making 03/08/17 14:01 Paged [employer] at 9:45 AM and at 1:30PM regarding interrogation of the patient 's pacemaker. Base Filler Estuardo Bragg will do. 03/08/17 15:38 [employer] ict sales representative Estuardo Bragg arrived to interrogate device. <Irineo Boss - Last Filed: 03/08/17 15:38> - Resident Resident Name: Hermila Carmona - ED Attending Attestation I have performed the following: I have examined & evaluated the patient, The case was reviewed & discussed with the resident, I agree w/resident's findings & plan, Exceptions are as noted - Medical Decision Making 03/08/17 11:13 77-year-old female with a history of V. tach arrest one year ago status post AICD, atrial fibrillation (not on anticoagulation), coronary artery disease, Alzheimer's dementia presents with a witnessed collapse 30 minutes prior to arrival in the emergency department. Vitals initially with tachycardia at 104 but otherwise unremarkable. Exam remarkable for irregularly irregular rate, but does not appear to have any traumatic injury from the fall. We'll do a full trauma workup including CT head, cervical spine and chest x-ray as well as pelvis x-ray. We'll also order labs including cardiac enzymes and keep the patient on telemetry for monitoring. We'll also interrogate the patient's pacemaker to see if she had a cardiac event. Story is highly concerning for an arrhythmia as patient was still unresponsive for a period of time. Patient will likely require admission to the hospital, will discuss with the patient's . 03/08/17 14:20 Labs unremarkable. No events in the emergency department. Chest x-ray is clear. CT head and cervical spine are negative for acute pathology. Pacemaker was interrogated by [employer] and no events were found, the last event was noted to be on February 25 and was nonsustained ventricular tachycardia. Patient has been admitted to Dr. Stein for further management. Case discussed in detail with admitting physician including history, physical exam and ancillary studies. Admitting physician has assumed care for the patient, will follow all pending diagnostics and will complete the evaluation and treatment. <Brandon Estrada - Last Filed: 03/08/17 16:12> Heart Score/ECG Review #1 03/08/17 11:15 Twelve-lead EKG was performed and reviewed by me. Atrial fibrillation, rate 85. Normal axis. No ST elevations. T wave inversions in leads 2, 3, aVF, and V4 through V6. When compared to previous EKG for 11/2016, no significant change is seen. <Brandon Estrada - Last Filed: 03/08/17 16:12>
[2017-03-08 11:23] LABS: INR 1.04 (0.82-1.09); PROTHROMBIN TIME (PATIENT) 11.8 SEC (9.98-11.88)
[2017-03-08] MEDS ORDERED: QUEtiapine FUMARATE 100 MG TABLET (FP) ONE ×2 (11:30→11:55)
[2017-03-08 11:37] LABS: ALK PHOS 166 U/L (45-117); ANION GAP 8 (8-16); BILIRUBIN,TOTAL 0.5 mg/dL (0.2-1.0); BLOOD UREA NITROGEN 14 mg/dL (7-18); CALCIUM 8.2 mg/dL (8.5-10.1); CHLORIDE 105 mmol/L (98-107); CO2 26 mmol/L (21-32); CREATININE 0.9 mg/dL (0.55-1.02); GLUCOSE,RANDOM 91 mg/dL (74-106); MAGNESIUM 2.2 mg/dL (1.8-2.4); POTASSIUM 4.1 mmol/L (3.5-5.1); SGOT/AST 22 U/L (15-37); SGPT/ALT 18 U/L (12-78); SODIUM 139 mmol/L (136-145); TOT PROT 7.3 g/dl (6.4-8.2)
--- NOTE | 2017-03-08 13:38 | EKG ---
Test Reason : Blood Pressure : / mmHG Vent. Rate : 085 BPM Atrial Rate : 073 BPM P-R Int : 000 ms QRS Dur : 098 ms QT Int : 356 ms P-R-T Axes : 000 023 -60 degrees QTc Int : 423 ms ATRIAL FIBRILLATION POSSIBLE INFERIOR INFARCT (CITED ON OR BEFORE 23-OCT-1999) ABNORMAL ECG WHEN COMPARED WITH ECG OF 08-NOV-2016 14:40, NON-SPECIFIC CHANGE IN ST SEGMENT IN LATERAL LEADS Confirmed by MD ELOISE, QI ([id number]) on 03/08/2017 1:37:36 PM Referred By: Confirmed By:QI NAVAS MD
--- NOTE | 2017-03-08 14:46 | HP ---
CHIEF COMPLAINT: "she passed out and fell" PCP: Dr Blas HISTORY OF PRESENT ILLNESS: This is a 77 yo F with PMH of AFib not on AC (falls and GI hemorrhage), sustained VT 05/2015 s/p cardioversion, ICM, HTN, HL, CAD s/p PCI s/p [place] (1986), PCI x 3, moderate LV systolic disfunction, Alzheimers dementia, who presents due to witnessed syncope/fall at 10 am today. Patient has suffered 5 syncopal episodes over the past 3 weeks, usually associated with abrupt positional change and lasting less than 1 min. Today however, she was walking across the room when she syncopized, hitting the back of her head, and was unresponsive for 20 min. At that time, she was motionless, pale with labored breathing. She woke up when EMS came and currently is at mental status baseline (occasionally answers yes/no questions, makes eye contact , ambulatory at baseline). She did not lose control of bowels or bite her tongue. She has not had pacemaker interrogation or new cardiac imaging recently. Family denies noticing evidence of infection, f/c, n/v, diarrhea, dysuria,incontinence and report that patient has been eating and drinking well. She is occasionally constipated. History obtained from family due to patients advanced dementia. ER course was notable for: (1)labs (2)EKG: no change from prior, no evidence of ACS (3)Head, cervical spine ct; no acute process (4)CXR LLL atelectasis (5)seroquel Recent Travel: denies PAST MEDICAL HISTORY: as above PAST SURGICAL HISTORY: as above Social History: lives with , has an aid Smoking: denies Alcohol:denies Drugs: denies Family History: noncontributory Allergies aspirin Allergy (Verified 03/08/17 09:13) Penicillins Allergy (Verified 03/08/17 09:13) HOME MEDICATIONS: Home Medications Medication Instructions Recorded Atorvastatin Ca [Lipitor] 20 mg PO HS 03/08/16 Clopidogrel Bisulfate [Plavix -] 75 mg PO DAILY 03/08/16 Metoprolol Succinate [Toprol Xl -] 25 mg PO DAILY 03/08/16 Quetiapine Fumarate "Xr" [Seroquel 200 mg PO HS 03/08/16 Xr -] Quetiapine Fumarate [Seroquel -] 100 mg PO AM 03/08/16 Rivastigmine Tartrate 3 mg PO DAILY 03/08/16 [Rivastigmine] Valsartan [Diovan] 160 mg PO DAILY 03/08/16 Nitroglycerin [Nitrostat] 0.4 mg SL PRN PRN 09/25/16 Clindamycin [Cleocin -] 450 mg PO Q8H #63 capsule 01/04/17 Doxycycline Hyclate 100 mg PO BID #14 capsule 01/04/17 REVIEW OF SYSTEMS unable to obtain PHYSICAL EXAMINATION Vital Signs - 24 hr 03/08/17 09:01 Temperature 97 F L Pulse Rate 102 H Respiratory 18 Rate Blood Pressure 169/78 O2 Sat by Pulse 100 Oximetry (%) GENERAL: Awake, alert, not oriented, in no acute distress. HEAD: Normal with no signs of trauma. EYES: Pupils equal, round and reactive to light, extraocular movements intact, sclera anicteric, conjunctiva clear. No lid lag. EARS, NOSE, THROAT: Moist mucous membranes. NECK: supple without JVD, or masses. b/l tender scalene muscles LUNGS: Breath sounds equal, clear to auscultation bilaterally. HEART: Regular rate and irregularly irregular rhythm, normal S1 and S2 without murmur ABDOMEN: Soft, nontender, not distended, normoactive bowel sounds, no guarding, no rebound, no masses. MUSCULOSKELETAL: No CVA tenderness. UPPER EXTREMITIES: 2+ pulses, warm, well-perfused. No peripheral edema. LOWER EXTREMITIES: 1+ pulses, warm, well-perfused. b/l calf tenderness. No peripheral edema. NEUROLOGICAL: Cranial nerves II-XII grossly intact. Normal speech. PSYCHIATRIC: calm, consused SKIN: Warm, dry, normal turgor Laboratory Results - last 24 hr 03/08/17 03/08/17 03/08/17 10:59 10:59 10:59 WBC 9.1 D RBC 3.90 Hgb 12.1 Hct 37.5 MCV 96.1 H MCH 31.1 MCHC 32.3 RDW 13.9 Plt Count 276 MPV 8.6 Neutrophils % 78.9 Lymphocytes % 11.9 D Monocytes % 7.1 Eosinophils % 1.3 Basophils % 0.8 PT with INR 11.80 INR 1.04 Sodium Potassium Chloride Carbon Dioxide Anion Gap BUN Creatinine Creat Clearance w eGFR Random Glucose Calcium Magnesium Total Bilirubin AST ALT Alkaline Phosphatase Creatine Kinase 70 Troponin I 0.13 H Total Protein Albumin Blood Type Antibody Screen 03/08/17 03/08/17 10:59 11:30 WBC RBC Hgb Hct MCV MCH MCHC RDW Plt Count MPV Neutrophils % Lymphocytes % Monocytes % Eosinophils % Basophils % PT with INR INR Sodium 139 Potassium 4.1 Chloride 105 Carbon Dioxide 26 Anion Gap 8 BUN 14 Creatinine 0.9 Creat Clearance w eGFR > 60 Random Glucose 91 Calcium 8.2 L Magnesium 2.2 Total Bilirubin 0.5 D AST 22 ALT 18 Alkaline Phosphatase 166 H Creatine Kinase Troponin I Total Protein 7.3 Albumin 3.0 L Blood Type O POSITIVE Antibody Screen Negative ASSESSMENT/PLAN: This is a 77 yo F with PMH of AFib not on AC (falls and GI hemorrhage), sustained VT 05/2015 s/p cardioversion, ICM, HTN, HL, CAD s/p PCI s/p [place] (1986), PCI x 3, moderate LV systolic disfunction, Alzheimers dementia, who presents due to witnessed syncope/fall at 10 am today. Syncope -cardiogenic vs vasovagal -EKG rate controlled a fib, no change from baseline -trop chronically elevated 0.13 -cardiac monitoring -ICM interrogation -continue home meds including beta arlene -orthostatic vitals -TTE -cardio consult -if found to have recurrent v tach, consider adding amiodarone Dispo: obs tele Problem List - Problem (1) A-fib Code(s): I48.91 - UNSPECIFIED ATRIAL FIBRILLATION (2) ICD (implantable cardioverter-defibrillator) in place Code(s): Z95.810 - PRESENCE OF AUTOMATIC (IMPLANTABLE) CARDIAC DEFIBRILLATOR (3) Ischemic cardiomyopathy Code(s): I25.5 - ISCHEMIC CARDIOMYOPATHY (4) Syncope and collapse Code(s): R55 - SYNCOPE AND COLLAPSE (5) Arrhythmia Code(s): I49.9 - CARDIAC ARRHYTHMIA, UNSPECIFIED Qualifiers: Arrhythmia type: ventricular tachycardia Qualified Code(s): I47.2 - Ventricular tachycardia (6) Chronic systolic (congestive) heart failure Code(s): I50.22 - CHRONIC SYSTOLIC (CONGESTIVE) HEART FAILURE (7) Constipation Code(s): K59.00 - CONSTIPATION, UNSPECIFIED Qualifiers: Constipation type: other constipation type Qualified Code(s): K59.09 - Other constipation (8) Dementia Code(s): F03.90 - UNSPECIFIED DEMENTIA WITHOUT BEHAVIORAL DISTURBANCE Qualifiers: Dementia type: Alzheimer's disease Alzheimer's disease onset: other onset Dementia behavioral disturbance: without behavioral disturbance Qualified Code(s): G30.8 - Other Alzheimer's disease (9) Spinal stenosis Code(s): M48.00 - SPINAL STENOSIS, SITE UNSPECIFIED Visit type - Emergency Visit Emergency Visit: Yes ED Registration Date: 03/08/17 Care time: The patient presented to the Emergency Department on the above date and was hospitalized for further evaluation of their emergent condition. - New Patient This patient is new to me today: Yes Date on this admission: 03/08/17 - Critical Care Critical Care patient: No
[2017-03-08] MEDS ORDERED: NITROGLYCERIN SUBLINGUAL 1/150 0.4 MG TAB SL PRN (14:47)
--- NOTE | 2017-03-08 15:36 | HP ---
CHIEF COMPLAINT: syncope PCP: Dr. Blas HISTORY OF PRESENT ILLNESS: History obtained from chart and career technical counselor. Patient is a 77 yo F with a PMHx of V-tach arrest (1 year ago requiring cardioversion), s/p AICD, A-fib (not on AG, GI hemmorhage and falls), CAD, alzheimers, presented to the ED after witnessed collapse at the house at 10am while going down 5 flights of stairs. As per career technical counselor, patient syncopized prior to falling. Patient fell backwards, denies head trauma. Patient lost consciousness for 5-15 minutes with LE shaking movements as per career technical counselor. Patient has experienced 5 syncopal episodes over the past 3 weeks, usually associated with abrupt positional change and lasting less than 1 min. Quality Assurance Qa Lab Analyst denies loss of bladder control, tongue biting, nausea, vomiting, fevers, diarrhea, dysuria. She has not had her pacemaker interrogated or new cardiac imaging. ER course was notable for: (1) EKG- Irregularly irregular, no st elevations, normal axis (2) Head, C-spine CT with no acute process (3) CXR with LLL atelectasis Recent Travel: n/a PAST MEDICAL HISTORY: as above PAST SURGICAL HISTORY: as above Social History: Smoking: denies Alcohol: denies Drugs: denies Family History: Allergies aspirin Allergy (Verified 03/08/17 09:13) Penicillins Allergy (Verified 03/08/17 09:13) HOME MEDICATIONS: Home Medications Medication Instructions Recorded Atorvastatin Ca [Lipitor] 20 mg PO HS 03/08/16 Clopidogrel Bisulfate [Plavix -] 75 mg PO DAILY 03/08/16 Metoprolol Succinate [Toprol Xl -] 25 mg PO DAILY 03/08/16 Quetiapine Fumarate "Xr" [Seroquel 200 mg PO HS 03/08/16 Xr -] Quetiapine Fumarate [Seroquel -] 100 mg PO AM 03/08/16 Rivastigmine Tartrate 3 mg PO DAILY 03/08/16 [Rivastigmine] Valsartan [Diovan] 160 mg PO DAILY 03/08/16 Nitroglycerin [Nitrostat] 0.4 mg SL PRN PRN 09/25/16 Clindamycin [Cleocin -] 450 mg PO Q8H #63 capsule 01/04/17 Doxycycline Hyclate 100 mg PO BID #14 capsule 01/04/17 REVIEW OF SYSTEMS unable to obtain due to advanced dementia PHYSICAL EXAMINATION Vital Signs - 24 hr 03/08/17 09:01 Temperature 97 F L Pulse Rate 102 H Respiratory 18 Rate Blood Pressure 169/78 O2 Sat by Pulse 100 Oximetry (%) GENERAL: A/o x 1, confused, demented at baseline HEAD: Normal with no signs of trauma. EYES: Pupils equal, round and reactive to light, sclera anicteric, conjunctiva clear. EARS, NOSE, THROAT: oropharynx clear without exudates. Moist mucous membranes. NECK: supple without lymphadenopathy, JVD, or masses. LUNGS: Breath sounds equal, clear to auscultation bilaterally. No wheezes, and no crackles. No accessory muscle use. HEART: Irregularly irregular. Regular rhythm ABDOMEN: Soft, nontender, not distended, normoactive bowel sounds, no guarding, no rebound, no masses. UPPER EXTREMITIES: 2+ pulses, warm, well-perfused. No cyanosis. No clubbing. No peripheral edema. LOWER EXTREMITIES: 2+ pulses, warm, well-perfused. No calf tenderness. No peripheral edema. NEUROLOGICAL: Limited neuro, uncooperative, Cn 2-12 grossly intact Laboratory Results - last 24 hr 03/08/17 03/08/17 03/08/17 10:59 10:59 10:59 WBC 9.1 D RBC 3.90 Hgb 12.1 Hct 37.5 MCV 96.1 H MCH 31.1 MCHC 32.3 RDW 13.9 Plt Count 276 MPV 8.6 Neutrophils % 78.9 Lymphocytes % 11.9 D Monocytes % 7.1 Eosinophils % 1.3 Basophils % 0.8 PT with INR 11.80 INR 1.04 Sodium Potassium Chloride Carbon Dioxide Anion Gap BUN Creatinine Creat Clearance w eGFR Random Glucose Calcium Magnesium Total Bilirubin AST ALT Alkaline Phosphatase Creatine Kinase 70 Troponin I 0.13 H Total Protein Albumin Blood Type Antibody Screen 03/08/17 03/08/17 10:59 11:30 WBC RBC Hgb Hct MCV MCH MCHC RDW Plt Count MPV Neutrophils % Lymphocytes % Monocytes % Eosinophils % Basophils % PT with INR INR Sodium 139 Potassium 4.1 Chloride 105 Carbon Dioxide 26 Anion Gap 8 BUN 14 Creatinine 0.9 Creat Clearance w eGFR > 60 Random Glucose 91 Calcium 8.2 L Magnesium 2.2 Total Bilirubin 0.5 D AST 22 ALT 18 Alkaline Phosphatase 166 H Creatine Kinase Troponin I Total Protein 7.3 Albumin 3.0 L Blood Type O POSITIVE Antibody Screen Negative ASSESSMENT/PLAN: This is a 77 yo F with PMH of AFib not on AC (falls and GI hemorrhage), sustained VT 05/2015 s/p cardioversion, HTN, HL, CAD s/p PCI s/p [place] (1986), PCI x 3, moderate LV systolic disfunction, Alzheimers dementia, who presents due to witnessed syncope/fall. #Syncope -likely secondary to Arrhythmia -History of V-tach -Hx of A-fib -cardiac monitoring -cardio on board, FU reccs -FU Echo -Trops chronically elevated, Currently .13 -Interrogate defibrillator -orthostatic vital signs -TTE -Fu AM labs, UA #Permanent A-fib -not on AG -Rate control with Metoprolol 25mg #CAD/HTN -continue Home meds -Metoprolol 25mg -Valsartan 160mg #HLD -Cont. Lipitor 20mg #Alzheimers Dementia -at baseline #FEN -No fluids at this time -WNL -Low sodium diet #PPX -SCD's Dispo: Obs-Tele Visit type - Emergency Visit Emergency Visit: Yes ED Registration Date: 03/08/17 Care time: The patient presented to the Emergency Department on the above date and was hospitalized for further evaluation of their emergent condition. - New Patient This patient is new to me today: Yes Date on this admission: 03/08/17 - Critical Care Critical Care patient: No
--- NOTE | 2017-03-08 16:14 | PN ---
Teaching Attending Note Name of Resident: Teresa Vargas ATTENDING PHYSICIAN STATEMENT I saw and evaluated the patient. I reviewed the resident's note and discussed the case with the resident. I agree with the resident's findings and plan as documented. SUBJECTIVE: This is a 77 year old woman with a history of atrial fibrillation, ventricular tachycardia, AICD, HTN, hyperlipidemia, CAD, OH, ischemic cardiomyopathy, chronic systolic heart failure, Alzheimer dementia who comes to the ER after passing out. According to family, she has passed out multiple times in the past month. These episodes seemed to occur with change in position and loss of consciousness was less than 1 minute each time. Today, after walking down a flight of stairs, she was witnessed to pass out at the bottom of the stairs, falling backwards and hitting the back of her head. Loss of consciousness lasted up to 20 minutes. There was no seizure activity, tongue biting, or incontinence. The patient is unable to provide any history secondary to dementia. OBJECTIVE: Vital Signs Period Temp Pulse Resp BP Sys/Bundy Pulse Ox Last 24 Hr 97 F 102 18 169/78 100 HEART: Irregular LUNGS: Clear ABDOMEN: Soft, non-tender, non-distended, normal BS EXTREMITIES: No edema NEUROLOGICAL: Unable to cooperate with exam Laboratory Tests 03/08/17 03/08/17 03/08/17 10:59 10:59 10:59 WBC 9.1 D RBC 3.90 Hgb 12.1 Hct 37.5 MCV 96.1 H MCH 31.1 MCHC 32.3 RDW 13.9 Plt Count 276 MPV 8.6 Neutrophils % 78.9 Lymphocytes % 11.9 D Monocytes % 7.1 Eosinophils % 1.3 Basophils % 0.8 PT with INR 11.80 INR 1.04 Sodium Potassium Chloride Carbon Dioxide Anion Gap BUN Creatinine Creat Clearance w eGFR Random Glucose Calcium Magnesium Total Bilirubin AST ALT Alkaline Phosphatase Creatine Kinase 70 Troponin I 0.13 H Total Protein Albumin Blood Type Antibody Screen 03/08/17 03/08/17 10:59 11:30 WBC RBC Hgb Hct MCV MCH MCHC RDW Plt Count MPV Neutrophils % Lymphocytes % Monocytes % Eosinophils % Basophils % PT with INR INR Sodium 139 Potassium 4.1 Chloride 105 Carbon Dioxide 26 Anion Gap 8 BUN 14 Creatinine 0.9 Creat Clearance w eGFR > 60 Random Glucose 91 Calcium 8.2 L Magnesium 2.2 Total Bilirubin 0.5 D AST 22 ALT 18 Alkaline Phosphatase 166 H Creatine Kinase Troponin I Total Protein 7.3 Albumin 3.0 L Blood Type O POSITIVE Antibody Screen Negative Home Medications Medication Instructions Recorded Atorvastatin Ca [Lipitor] 20 mg PO HS 03/08/16 Clopidogrel Bisulfate [Plavix -] 75 mg PO DAILY 03/08/16 Metoprolol Succinate [Toprol Xl -] 25 mg PO DAILY 03/08/16 Quetiapine Fumarate "Xr" [Seroquel 200 mg PO HS 03/08/16 Xr -] Quetiapine Fumarate [Seroquel -] 100 mg PO AM 03/08/16 Rivastigmine Tartrate 3 mg PO DAILY 03/08/16 [Rivastigmine] Valsartan [Diovan] 160 mg PO DAILY 03/08/16 Nitroglycerin [Nitrostat] 0.4 mg SL PRN PRN 09/25/16 Clindamycin [Cleocin -] 450 mg PO Q8H #63 capsule 01/04/17 Doxycycline Hyclate 100 mg PO BID #14 capsule 01/04/17 ASSESSMENT AND PLAN: This is a 77 year old woman with a history of atrial fibrillation, ventricular tachycardia, AICD, HTN, hyperlipidemia, CAD, OH, ischemic cardiomyopathy, chronic systolic heart failure, Alzheimer dementia who presents to the ER today after passing out after walking down a flight of stairs at home. 1. Syncope 2. History of ventricular tachycardia 3. Permanent atrial fibrillation 4. CAD, history of OH, PCI, with ischemic cardiomyopathy0 5. Chronic systolic heart failure 6. Hypertension 7. Hyperlipidemia 8. Alzheimer dementia
[2017-03-08] MEDS ORDERED: ACETAMINOPHEN 1000 MG/100 ML VIAL (NON FORMULARY) IVPB ONE (16:30)
[2017-03-08 17:41] VITALS: BMI 21.6
[2017-03-08] MEDS ORDERED: ACETAMINOPHEN INJECTION 100 ML IVPB ONE (17:48)
--- NOTE | 2017-03-08 20:41 | CONSULT ---
Consult - text type - Consultation Consultation Note: NEUROLOGY CONSULTATION is greatly appreciated: This 77 yo RH woman with h/o Chol, CHF, cardiomyopathy, V-tach and A Fib has an implanted defibrillator. On atorvastatin, clopidogrel, metoprolol, valsartan. Well-known to me with advanced Alzheimer's disease (AD) and paranoia/agitation. On Rivastigmine (3 mg BID) and Quetiapine (100m g in AM and 200 mg In PM) Her describes unsteady gait and Pt's refusal to use a walker. She has Home health aides 24x7. Over the last 4 weeks Pt has fallen 3 or 4 times. Dannie describes her "knees buckling." Saw oim architect each time and no cardiac etiology was found. Yesterday she fell at base of steps striking her head with prolonged (LOC 5-20 mins.) Dannie attributes it to the "Aide not getting there fast enough." CT of head (reviewed) severe, diffuse, atrophy without traumatic lesions. CT of C-Spine spondylytic changes without fractures or dislocations. KASIA: No external head trauma. Confused. Gibberish speech. Follows occ. simple commands. Moving all fours well and symmetrically. IMP: Non-focal exam sig for severe B/L cerebral dysfuction c/w advanced Alzheimer's Disease (AD). Recurrent fall possible due to senile gait apraxia, this last one with head trauma and LOC. Cannot r/o syncope or seizure but not fully necessary to explain the presentation. SUGGEST: Check orthostatic BP's PT to evaluate gait stability D/C exelon (rivastigmine) as it can predispose to syncope and is unlikely to be efficacious in advanced disease. May need to increase quetiapine if agitation recurs (was on 300 mg /day at home and is written for 100 qd here). Thank you very much, Jackson Nunez MD
[2017-03-08] MEDS: ATORVASTATIN CA 20 MG TABLET (FP) PO SCH (22:00)
[2017-03-09] MEDS ORDERED: QUEtiapine FUMARATE 50 MG TABLET PO SCH (07:00)
[2017-03-09 07:17] LABS: BASO % 1.1 % (0-2.0); HEMATOCRIT 37.9 % (32.4-45.2); HEMOGLOBIN 12.5 GM/dL (10.7-15.3); LYMPH % 20.2 % (8-40); MCH 31.8 pg (25.7-33.7); MEAN CELL VOLUME 96.1 fl (80-96); MONO % 9.3 % (3.8-10.2); NEUT % 65.4 % (42.8-82.8); PLATELET COUNT 273 K/MM3 (134-434); RBC 3.95 M/mm3 (3.60-5.2); WHITE BLOOD COUNT 6.7 K/mm3 (4.0-10.0)
[2017-03-09 07:34] LABS: INR 1.02 (0.82-1.09); PROTHROMBIN TIME (PATIENT) 11.5 SEC (9.98-11.88)
[2017-03-09 07:48] LABS: ALBUMIN 2.9 g/dl (3.4-5.0); ANION GAP 9 (8-16); BLOOD UREA NITROGEN 11 mg/dL (7-18); CALCIUM 8.6 mg/dL (8.5-10.1); CHLORIDE 103 mmol/L (98-107); CO2 26 mmol/L (21-32); GLUCOSE,RANDOM 101 mg/dL (74-106); PHOSPHOROUS 3.1 mg/dL (2.5-4.9); POTASSIUM 3.8 mmol/L (3.5-5.1); SODIUM 138 mmol/L (136-145)
[2017-03-09 07:50] LABS: ALK PHOS 159 U/L (45-117); BILIRUBIN,TOTAL 0.8 mg/dL (0.2-1.0); CREATININE 0.9 mg/dL (0.55-1.02); MAGNESIUM 2.3 mg/dL (1.8-2.4); SGOT/AST 25 U/L (15-37); SGPT/ALT 17 U/L (12-78); TOT PROT 7.3 g/dl (6.4-8.2)
--- NOTE | 2017-03-09 09:24 | PN ---
Progress Note, Physician Chief Complaint: TELE: AF, no V ectopy ICD inter, no VT Appreciate Neuro eval. She is more alert today and wishes to go home. History of Present Illness: Orthostatics are pending, but as outlined by neuro are not necessary as presentation can be explained by gait apraxia - Current Medication List Current Medications: Active Medications Atorvastatin Calcium (Lipitor -) 20 mg PO HS PENG Last Admin: 03/08/17 22:00 Dose: Not Given Metoprolol Succinate (Toprol Xl -) 25 mg PO DAILY PENG Nitroglycerin (Nitrostat -) 0.4 mg SL PRN PRN PRN Reason: CHEST PAIN Quetiapine Fumarate (Seroquel Xr -) 200 mg PO DAILY PENG Valsartan (Diovan -) 160 mg PO DAILY PENG - Objective Vital Signs: Vital Signs Temperature 97.5 F L 03/09/17 06:00 Pulse Rate 74 03/09/17 06:00 Respiratory Rate 18 03/09/17 06:00 Blood Pressure 134/71 03/09/17 06:00 O2 Sat by Pulse Oximetry (%) 98 03/08/17 21:00 Constitutional: Yes: Calm Eyes: Yes: Conjunctiva Clear Cardiovascular: Yes: Regular Rate and Rhythm Respiratory: Yes: CTA Bilaterally Gastrointestinal: Yes: Soft Edema: No Labs: CBC, BMP 03/09/17 06:55 03/09/17 06:55 INR, PTT INR 1.02 (0.82-1.09) 03/09/17 06:55 - ....Imaging EKG: Image Reviewed Problem List - Problems (1) Syncope and collapse Code(s): R55 - SYNCOPE AND COLLAPSE (2) ICD (implantable cardioverter-defibrillator) in place Code(s): Z95.810 - PRESENCE OF AUTOMATIC (IMPLANTABLE) CARDIAC DEFIBRILLATOR (3) Ischemic cardiomyopathy Code(s): I25.5 - ISCHEMIC CARDIOMYOPATHY (4) Paroxysmal atrial fibrillation Code(s): I48.0 - PAROXYSMAL ATRIAL FIBRILLATION (5) Ventricular tachyarrhythmia Code(s): I47.2 - VENTRICULAR TACHYCARDIA Assessment/Plan 77F with ICM s/p [employer] ICD, prior VT requiring cardioversion, AF, h/o [place] presents to ER with syncope. History of dementia. REC: ICD interrogation WNL except for known AF; head CT negative. Falls likely related to gait apraxia due to advanced Alzheimer's disease. Can check orthostatics. Plan for D/C home today.
[2017-03-09] MEDS ORDERED: RIVASTIGMINE TARTRATE 1.5 MG CAPSULE PO SCH (10:00)
[2017-03-09] MEDS ORDERED: METOPROLOL SUCCINATE 25 MG TAB.SR.24H (FP) PO SCH (10:00)
[2017-03-09] MEDS ORDERED: VALSARTAN 160 MG TABLET (UD) PO SCH (10:00)
[2017-03-09] MEDS ORDERED: PT OWN MED DRAWER 7, Y5N ONE (10:10)
[2017-03-09] MEDS ORDERED: ACETAMINOPHEN 325 MG TABLET (FP) PO ONE (12:49)
--- NOTE | 2017-03-09 13:27 | PN ---
Teaching Attending Note Name of Resident: Teresa Vargas ATTENDING PHYSICIAN STATEMENT Time of evaluation: 10:15 AM I saw and evaluated the patient. I reviewed the resident's note and discussed the case with the resident. I agree with the resident's findings and plan as documented. SUBJECTIVE: Patient seen and examined. Was awake and sitting in bed when seen. no complaints , Oriented to self only, limited ROS. OBJECTIVE: Vital Signs Period Temp Pulse Resp BP Sys/Bundy Pulse Ox Last 24 Hr 97.5 F-98.6 F 73-88 18-20 122-134/71-86 97-98 Intake & Output 03/06/17 03/07/17 03/08/17 03/09/17 23:59 23:59 23:59 23:59 Intake Total 220 310 Output Total 500 Balance 220 -190 Weight 130 lb General: sitting in bed in no acute distress CVS:S1S2 irregular Chest: CTAB, no rales or wheezing abdomen: soft, NT Extremities: no edema Neuro AAOx1, facial symmetry, moves all extremities freely, PERRLA, does not follow commands Home Medication List Medication Instructions Recorded Confirmed Type Atorvastatin Ca [Lipitor] 20 mg PO HS 03/08/16 03/08/17 History Metoprolol Succinate [Toprol XL -] 25 mg PO DAILY 03/08/16 03/08/17 History Nitroglycerin [Nitrostat] 0.4 mg SL PRN PRN 09/25/16 03/08/17 History Active Medications Generic Name Dose Route Start Last Admin Trade Name Freq PRN Reason Stop Dose Admin Atorvastatin Calcium 20 mg 03/08/17 22:00 03/08/17 22:00 Lipitor - PO Not Given HS PENG Sodium Chloride 500 mls @ 500 mls/hr 03/09/17 13:41 Normal Saline - IV 03/09/17 14:40 ASDIR STA Metoprolol Succinate 25 mg 03/09/17 10:00 03/09/17 10:17 Toprol Xl - PO 25 mg DAILY PENG Administration Nitroglycerin 0.4 mg 03/08/17 14:47 Nitrostat - SL PRN PRN CHEST PAIN Quetiapine Fumarate 200 mg 03/09/17 10:00 03/09/17 11:53 Seroquel Xr - PO 200 mg DAILY PENG Administration Valsartan 160 mg 03/09/17 10:00 03/09/17 10:16 Diovan - PO 160 mg DAILY PENG Administration Laboratory Results - last 24 hr 03/09/17 03/09/17 03/09/17 06:55 06:55 06:55 WBC 6.7 RBC 3.95 Hgb 12.5 Hct 37.9 MCV 96.1 H MCH 31.8 MCHC 33.0 RDW 14.0 Plt Count 273 MPV 9.0 Neutrophils % 65.4 Lymphocytes % 20.2 D Monocytes % 9.3 Eosinophils % 4.0 D Basophils % 1.1 PT with INR 11.50 INR 1.02 Sodium 138 Potassium 3.8 Chloride 103 Carbon Dioxide 26 Anion Gap 9 BUN 11 Creatinine 0.9 Creat Clearance w eGFR > 60 Random Glucose 101 Calcium 8.6 Phosphorus 3.1 Magnesium 2.3 Total Bilirubin 0.8 D AST 25 ALT 17 Alkaline Phosphatase 159 H Troponin I 0.15 H Total Protein 7.3 Albumin 2.9 L TSH 1.03 Free T4 0.86 03/09/17 03/09/17 06:55 06:55 WBC RBC Hgb Hct MCV MCH MCHC RDW Plt Count MPV Neutrophils % Lymphocytes % Monocytes % Eosinophils % Basophils % PT with INR INR Sodium Potassium Chloride Carbon Dioxide Anion Gap BUN Creatinine Creat Clearance w eGFR Random Glucose Calcium Phosphorus Magnesium Total Bilirubin AST ALT Alkaline Phosphatase Troponin I Cancelled Total Protein Albumin TSH Free T4 Cancelled ASSESSMENT AND PLAN: 77 yof with PMHx of Vfib Arrest s/p AICD, HTN, CAD, Afib not on AC given GI haemorrhage/Falls, severe Alzheimer's dementia admitted with syncope vs unwitnessed fall followed by LOC. -Syncope vs unwitnessed fall followed by LOC -Orthostatic hypotension -Atrial fibrillation rate controlled -Severe Alzheimer's dementia Plan: No events overnight, telemetry uneventful. ICD interrogated with no events. Refused 2D echo, Borderline tropnin elevation , known from prior, refused 2D echo, discussed with Dr. Blas, no need for additional inpatient intervention. Patient was planned for dc today, was dressed. However, got dressed, sat in chair and passed out. BP 66/41, unresponsive, was laid down in bed and SBP increased to 150s with spontaneous return of consciousness. Suggests severe orthostatic hypotension that was compounded by her anti-hypertensives and anti-psychotics. Patient likely has underlying autonomic dysfuction. Also review of records suggests her prior events likely in the setting of positional change or prolonged standing. Likely responsible for her presentation on admission as well. Will d/c valsartan, decreased toprol XL to 12.5 mg daily, 500 ml IVF bolus. Advise family to avoid sudden postural changes for patient and avoid prolonged standing. Plan was discussed with Dr. Blas. Also discussed with Dr. Nunez, will keep seroquel at her home regimen with 75 mg at 11 AM, 75 mg at 2 pm and 150 mg hs. Hold off on d/c for today. PT eval if patient agreable and dispo planning in 24 hours if no further events.
--- NOTE | 2017-03-09 13:38 | DS ---
Physical Exam: SUBJECTIVE: Patient seen and examined. No acute events overnight. Offers no new complaints. Denies chest pain, dizziness, SOB, abdominal pain, diarrhea. OBJECTIVE: Vital Signs Period Temp Pulse Resp BP Sys/Bundy Pulse Ox Last 24 Hr 97.5 F-98.6 F 73-88 18-20 122-134/71-86 97-98 PHYSICAL EXAM GENERAL: A/o x 1, confused, demented at baseline HEAD: Normal with no signs of trauma. EYES: Pupils equal, round and reactive to light, sclera anicteric, conjunctiva clear. EARS, NOSE, THROAT: oropharynx clear without exudates. Moist mucous membranes. NECK: supple without lymphadenopathy, JVD, or masses. LUNGS: Breath sounds equal, clear to auscultation bilaterally. No wheezes, and no crackles. No accessory muscle use. HEART: Irregularly irregular. Regular rhythm ABDOMEN: Soft, nontender, not distended, normoactive bowel sounds, no guarding, no rebound, no masses. UPPER EXTREMITIES: 2+ pulses, warm, well-perfused. No cyanosis. No clubbing. No peripheral edema. LOWER EXTREMITIES: 2+ pulses, warm, well-perfused. No calf tenderness. No peripheral edema. NEUROLOGICAL: Limited neuro, uncooperative, Cn 2-12 grossly intact LABS Laboratory Results - last 24 hr 03/09/17 03/09/17 03/09/17 06:55 06:55 06:55 WBC 6.7 RBC 3.95 Hgb 12.5 Hct 37.9 MCV 96.1 H MCH 31.8 MCHC 33.0 RDW 14.0 Plt Count 273 MPV 9.0 Neutrophils % 65.4 Lymphocytes % 20.2 D Monocytes % 9.3 Eosinophils % 4.0 D Basophils % 1.1 PT with INR 11.50 INR 1.02 Sodium 138 Potassium 3.8 Chloride 103 Carbon Dioxide 26 Anion Gap 9 BUN 11 Creatinine 0.9 Creat Clearance w eGFR > 60 Random Glucose 101 Calcium 8.6 Phosphorus 3.1 Magnesium 2.3 Total Bilirubin 0.8 D AST 25 ALT 17 Alkaline Phosphatase 159 H Troponin I 0.15 H Total Protein 7.3 Albumin 2.9 L TSH 1.03 Free T4 0.86 03/09/17 03/09/17 06:55 06:55 WBC RBC Hgb Hct MCV MCH MCHC RDW Plt Count MPV Neutrophils % Lymphocytes % Monocytes % Eosinophils % Basophils % PT with INR INR Sodium Potassium Chloride Carbon Dioxide Anion Gap BUN Creatinine Creat Clearance w eGFR Random Glucose Calcium Phosphorus Magnesium Total Bilirubin AST ALT Alkaline Phosphatase Troponin I Cancelled Total Protein Albumin TSH Free T4 Cancelled HOSPITAL COURSE: Date of Admission:03/08/17 This is a 77 yo F with PMH of AFib not on AC (falls and GI hemorrhage), sustained VT 05/2015 s/p cardioversion, HTN, HL, CAD s/p PCI s/p [place] (1986), PCI x 3, moderate LV systolic disfunction, Alzheimers dementia, who presents due to witnessed syncope/fall. Patient was under cardiac monitoring, labs were trended , and cardiology/neurology were consulted. ICD interrogation WNL except for known AF; head CT negative. Patient did not have another episode and remained stable throughout hospital stay. Falls likely related to gait apraxia due to advanced Alzheimer's disease. Patient medically cleared for discharge. She is to continue all home meds except rivastigmine since it may cause syncope as a side effect. Date of Discharge: 03/09/17 Discharge Summary Reason For Visit: SYNCOPE AND COLLAPSE Current Active Problems Syncope (Acute) Syncope and collapse (Acute) A-fib (Chronic) DANNA (acute kidney injury) (Chronic) Arrhythmia (Chronic) CAD (coronary artery disease) (Chronic) Chest pain (Chronic) Dementia (Chronic) Elbow pain, right (Chronic) ICD (implantable cardioverter-defibrillator) in place (Chronic) Ischemic cardiomyopathy (Chronic) Low back pain (Chronic) UTI (urinary tract infection) (Chronic) Viral URI (Chronic) Condition: Stable - Instructions Diet, Activity, Other Instructions: You will need to follow up with your primary care physician in 1 week. 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 We have made changes to your home medications. Stop your Rivastigmine as it may cause you to go unconscious. Continue everything else. If you feel your symptoms are worsening please call your doctor and go to your nearest emergency room. Referrals: Ashish Blas MD [Primary Care Provider] - 1 Week Disposition: HOME - Home Medications Comprehensive Discharge Medication List: Ambulatory Orders Atorvastatin Ca [Lipitor] 20 mg PO HS 03/08/16 Metoprolol Succinate [Toprol XL -] 25 mg PO DAILY 03/08/16 Nitroglycerin [Nitrostat] 0.4 mg SL PRN PRN 08/19/17 Haloperidol 0.5 mg PO HS #30 tablet 03/09/17 Neomycin/Polymyxn/Hc [Cortisporin *Otic Solution*-] 3 drop AD Q8H #1 drops 03/09 Quetiapine Fumarate [Seroquel -] 25 mg PO HS #30 tablet 03/09/17 Quetiapine Fumarate [Seroquel -] 50 mg PO HS #30 tablet 03/09/17
[2017-03-09] MEDS ORDERED: SODIUM CHLORIDE 500 ML IV STA (13:41)
--- NOTE | 2017-03-09 14:34 | HOSP ---
Physical Examination Vital Signs: Vital Signs Temperature 97.5 F L 03/09/17 10:00 Pulse Rate 88 03/09/17 10:00 Respiratory Rate 20 03/09/17 10:00 Blood Pressure 131/82 03/09/17 10:00 O2 Sat by Pulse Oximetry (%) 97 03/09/17 09:00 Labs: CBC, BMP 03/09/17 06:55 03/09/17 06:55 Hospitalist Encounter Assessment: Was informed that patient is unconscious this afternoon. Immediately went to assess the patient in room 418-1. Patient was sitting on a chair, sleeping , arousable. Took her vitals stat: BP was 61/41mm Hg ; HR 89 bpm, SpO2-96 %. Noticed she had some apenic episodes while she was sleeping and her saturation dropped to 88 % in RA during that time. Patient was transferred to her bed, on lying down her BP increased to 150/69 mmHg. Patient woke up as soon as she layed down. Patient had received her morning dose of Seroquel and a dose of Valsartan. Informed Dr. Blas and Dr. Nunez. A/P: Orthostatic hypotension Has h/o positional syncope. Discussed with Dr. Nunez (Will continue liquid Seroquel- 75mg at 11am, 75 mg at 2pm and 150 mg at night) Plan is to d/c her Valsartan Tele monitor Hold discharge tonight. Case discussed with Dr. Jalloh and Dr. Blas. Critical care time: 35 mins. Visit type - Emergency Visit Emergency Visit: Yes ED Registration Date: 03/08/17 Care time: The patient presented to the Emergency Department on the above date and was hospitalized for further evaluation of their emergent condition. - New Patient This patient is new to me today: No - Critical Care Critical Care patient: No
--- NOTE | 2017-03-09 14:39 | PN ---
Physical Exam: SUBJECTIVE: Patient seen and examined. No acute events overnight. Offers no new complaints. Denies chest pain, dizziness, SOB, abdominal pain, diarrhea. OBJECTIVE: Vital Signs Period Temp Pulse Resp BP Sys/Bundy Pulse Ox Last 24 Hr 97.5 F-98.6 F 73-88 18-20 122-134/71-86 97-98 GENERAL: A/o x 1, confused, demented at baseline HEAD: Normal with no signs of trauma. EYES: Pupils equal, round and reactive to light, sclera anicteric, conjunctiva clear. EARS, NOSE, THROAT: oropharynx clear without exudates. Moist mucous membranes. NECK: supple without lymphadenopathy, JVD, or masses. LUNGS: Breath sounds equal, clear to auscultation bilaterally. No wheezes, and no crackles. No accessory muscle use. HEART: Irregularly irregular. Regular rhythm ABDOMEN: Soft, nontender, not distended, normoactive bowel sounds, no guarding, no rebound, no masses. UPPER EXTREMITIES: 2+ pulses, warm, well-perfused. No cyanosis. No clubbing. No peripheral edema. LOWER EXTREMITIES: 2+ pulses, warm, well-perfused. No calf tenderness. No peripheral edema. NEUROLOGICAL: Limited neuro, uncooperative, Cn 2-12 grossly intact Laboratory Results - last 24 hr 03/09/17 03/09/17 03/09/17 06:55 06:55 06:55 WBC 6.7 RBC 3.95 Hgb 12.5 Hct 37.9 MCV 96.1 H MCH 31.8 MCHC 33.0 RDW 14.0 Plt Count 273 MPV 9.0 Neutrophils % 65.4 Lymphocytes % 20.2 D Monocytes % 9.3 Eosinophils % 4.0 D Basophils % 1.1 PT with INR 11.50 INR 1.02 Sodium 138 Potassium 3.8 Chloride 103 Carbon Dioxide 26 Anion Gap 9 BUN 11 Creatinine 0.9 Creat Clearance w eGFR > 60 Random Glucose 101 Calcium 8.6 Phosphorus 3.1 Magnesium 2.3 Total Bilirubin 0.8 D AST 25 ALT 17 Alkaline Phosphatase 159 H Troponin I 0.15 H Total Protein 7.3 Albumin 2.9 L TSH 1.03 Free T4 0.86 03/09/17 03/09/17 06:55 06:55 WBC RBC Hgb Hct MCV MCH MCHC RDW Plt Count MPV Neutrophils % Lymphocytes % Monocytes % Eosinophils % Basophils % PT with INR INR Sodium Potassium Chloride Carbon Dioxide Anion Gap BUN Creatinine Creat Clearance w eGFR Random Glucose Calcium Phosphorus Magnesium Total Bilirubin AST ALT Alkaline Phosphatase Troponin I Cancelled Total Protein Albumin TSH Free T4 Cancelled Active Medications Generic Name Dose Route Start Last Admin Trade Name Freq PRN Reason Stop Dose Admin Atorvastatin Calcium 20 mg 03/08/17 22:00 03/08/17 22:00 Lipitor - PO Not Given HS PENG Sodium Chloride 500 mls @ 500 mls/hr 03/09/17 13:41 Normal Saline - IV 03/09/17 14:40 ASDIR STA Metoprolol Succinate 12.5 mg 03/10/17 10:00 Toprol Xl - PO DAILY PENG Nitroglycerin 0.4 mg 03/08/17 14:47 Nitrostat - SL PRN PRN CHEST PAIN Quetiapine Fumarate 200 mg 03/09/17 10:00 03/09/17 11:53 Seroquel Xr - PO 200 mg DAILY PENG Administration ASSESSMENT/PLAN: This is a 77 yo F with PMH of AFib not on AC (falls and GI hemorrhage), sustained VT 05/2015 s/p cardioversion, HTN, HL, CAD s/p PCI s/p [place] (1986), PCI x 3, moderate LV systolic disfunction, Alzheimers dementia, who presents due to witnessed syncope/fall. #Syncope vs. Unwitnessed fall followed by LOC -History of V-tach -Refused echo -Discussed with Dr. Blas, no need for additional inpatient intervention. -cardiac monitoring -no events overnight. -Trops chronically elevated -ICD was interrogated with no events. -orthostatic vital signs -Fu AM labs #Orthostatic Hypotension -Patient lost conciousness today when standing up. -BP 66/41, unresponsive, was laid down in bed and SBP increased to 150s with spontaneous return of consciousness. -Likely provoked by her anti-hypertensive and anti-psychotics. -Patient likely has underlying autonomic dysfunction. -Previous records suggests history of multiple syncope in setting of positional change or prolonged standing. #Permanent A-fib -not on AG -Rate control with Metoprolol 25mg #CAD/HTN -continue Home meds -Metoprolol 25mg -d/c Valsartan 160mg #HLD -Cont. Lipitor 20mg #Alzheimers Dementia -at baseline -cont home dose of seroquel 75mg 11am, 75mg 2pm and 150 at night. #FEN -No fluids at this time -WNL -Low sodium diet #PPX -SCD's PT eval. Will likely d/c tomorrow if no further events occur. Visit type - Emergency Visit Emergency Visit: Yes ED Registration Date: 03/08/17 Care time: The patient presented to the Emergency Department on the above date and was hospitalized for further evaluation of their emergent condition. - New Patient This patient is new to me today: No - Critical Care Critical Care patient: No
[2017-03-09] MEDS: ATORVASTATIN CA 20 MG TABLET (FP) PO SCH (21:10)
[2017-03-09] MEDS ORDERED: QUEtiapine FUMARATE 50 MG TABLET PO ONE (22:00)
--- NOTE | 2017-03-10 08:56 | PN ---
Teaching Attending Note Name of Resident: Teresa Vargas ATTENDING PHYSICIAN STATEMENT Time of evaluation: I saw and evaluated the patient. I reviewed the resident's note and discussed the case with the resident. I agree with the resident's findings and plan as documented. SUBJECTIVE: Patient seen and examined. OBJECTIVE: Vital Signs Period Temp Pulse Resp BP Sys/Bundy Pulse Ox Last 24 Hr 97.5 F-99.5 F 70-92 16-20 78-145/52-98 95-97 Intake & Output 03/07/17 03/08/17 03/09/17 03/10/17 23:59 23:59 23:59 23:59 Intake Total 220 870 Output Total 500 Balance 220 370 Weight 130 lb General: Chest: Abdomen: extremities: Home Medication List Medication Instructions Recorded Confirmed Type Atorvastatin Ca [Lipitor] 20 mg PO HS 03/08/16 03/08/17 History Metoprolol Succinate [Toprol XL -] 25 mg PO DAILY 03/08/16 03/08/17 History Nitroglycerin [Nitrostat] 0.4 mg SL PRN PRN 09/25/16 03/08/17 History Active Medications Generic Name Dose Route Start Last Admin Trade Name Freq PRN Reason Stop Dose Admin Atorvastatin Calcium 20 mg 03/08/17 22:00 03/09/17 21:10 Lipitor - PO 20 mg HS [facility] Administration Metoprolol Succinate 12.5 mg 03/10/17 10:00 Toprol Xl - PO DAILY PENG Nitroglycerin 0.4 mg 03/08/17 14:47 Nitrostat - SL PRN PRN CHEST PAIN Quetiapine Fumarate 150 mg 03/10/17 22:00 Seroquel - PO HS [facility] Quetiapine Fumarate 25 mg/ 75 mg 03/10/17 11:00 Quetiapine Fumarate 50 mg PO 1100,1400 [facility] ASSESSMENT AND PLAN: 77 yof with PMHx of Vfib Arrest s/p AICD, HTN, CAD, Afib not on AC given GI haemorrhage/Falls, severe Alzheimer's dementia admitted with syncope vs unwitnessed fall followed by LOC. -Syncope vs unwitnessed fall followed by LOC -Orthostatic hypotension -Atrial fibrillation rate controlled -Severe Alzheimer's dementia Plan: No events overnight,Patient non co-operative with telemetry. ICD interrogated with no events. 2D echo noted, Borderline tropnin elevation , known from prior, discussed with Dr. Blas, no need for additional inpatient intervention. Yesterday got dressed, sat in chair and passed out. BP 66/41, unresponsive, was laid down in bed and SBP increased to 150s with spontaneous return of consciousness. Suggests severe orthostatic hypotension that was compounded by her anti-hypertensives and anti-psychotics. Patient likely has underlying autonomic dysfuction. Also review of records suggests her prior events likely in the setting of positional change or prolonged standing. Likely responsible for her presentation on admission as well. OVerall stable, toprol XL decreased. Family advised to avoid sudden postural changes and regular salt in diet. Eventually may need to address midodrine and alternative treatment if recurrent orthostatic syncope. Discussed with Dr. Nunez, patient on high doses of seroquel at home likely contributory to her current presentation, decrease to 100 mg morning,afternoon and 200 mg bedtime. Avoid prn doses. wants to take patient home. d/c home with 24 hour aide and services today. PLan discussed with Dr. Blas and Dr. Nunez.
--- NOTE | 2017-03-10 09:04 | PN ---
Progress Note, Physician Chief Complaint: orthostatic yesterday, d/c postponed TELE: some periods of LONNIE to 140s yesterda - Current Medication List Current Medications: Active Medications Atorvastatin Calcium (Lipitor -) 20 mg PO HS [facility] Last Admin: 03/09/17 21:10 Dose: 20 mg Metoprolol Succinate (Toprol Xl -) 12.5 mg PO DAILY [facility] Nitroglycerin (Nitrostat -) 0.4 mg SL PRN PRN PRN Reason: CHEST PAIN Quetiapine Fumarate (Seroquel -) 150 mg PO HS [facility] Quetiapine Fumarate 25 mg/ (Quetiapine Fumarate 50 mg) 75 mg PO 1100,1400 [facility] - Objective Vital Signs: Vital Signs Temperature 99.5 F 03/10/17 05:00 Pulse Rate 92 H 03/10/17 05:00 Respiratory Rate 16 03/10/17 05:00 Blood Pressure 128/78 03/10/17 05:00 O2 Sat by Pulse Oximetry (%) 95 03/09/17 21:00 Constitutional: Yes: No Distress Cardiovascular: Yes: Pulse Irregular Respiratory: Yes: CTA Bilaterally Gastrointestinal: Yes: Soft Edema: No ...Motor Strength: WNL Labs: CBC, BMP 03/09/17 06:55 03/09/17 06:55 INR, PTT INR 1.02 (0.82-1.09) 03/09/17 06:55 Problem List - Problems (1) Syncope and collapse Code(s): R55 - SYNCOPE AND COLLAPSE (2) ICD (implantable cardioverter-defibrillator) in place Code(s): Z95.810 - PRESENCE OF AUTOMATIC (IMPLANTABLE) CARDIAC DEFIBRILLATOR (3) Ischemic cardiomyopathy Code(s): I25.5 - ISCHEMIC CARDIOMYOPATHY (4) Paroxysmal atrial fibrillation Code(s): I48.0 - PAROXYSMAL ATRIAL FIBRILLATION (5) Ventricular tachyarrhythmia Code(s): I47.2 - VENTRICULAR TACHYCARDIA Assessment/Plan Assessment/Plan 77F with ICM s/p [employer] ICD, prior VT requiring cardioversion, AF, h/o VT presents to ER with syncope. History of dementia. REC: ICD interrogation WNL except for known AF; head CT negative. Falls likely related to gait apraxia due to advanced Alzheimer's disease, orthostasis as well. Hydration encouraged. To consider digoxin for adjunct rate control as it will not impact BP-Will d/w Dr. Blas.
[2017-03-10] MEDS: METOPROLOL SUCCINATE 25 MG TAB.SR.24H (FP) PO SCH ×2 (09:39→10:01)
[2017-03-10 10:26] VITALS: BP 110/60; PULSE 74; TEMP 98.6
[2017-03-10] MEDS ORDERED: QUETIAPINE FUMARATE 25 MG, QUETIAPINE FUMARATE 50 MG PO SCH (11:00)
[2017-03-10] MEDS ORDERED: QUEtiapine FUMARATE 50 MG TABLET PO SCH ×3 (11:00→22:00)
[2017-03-10] MEDS ORDERED: QUEtiapine FUMARATE 25 MG TABLET (FP) ONE (11:24)
[2017-03-10] MEDS ORDERED: QUEtiapine FUMARATE 50 MG TABLET ONE (11:24)
--- NOTE | 2017-03-10 12:55 | PN ---
Progress Note (short form) - Note Progress Note: NEUDROLOGY FOLLOW-UP: Events reviewed and discussed with Caridad Blas and Nikos. Pt. given 300 mg of quetiapine yesterday AM and became lethargic and hypotensive. Identified by her as "just what happens at home." Then, he produced her bottle of liquid quetiapine (50 mg/5cc) and notes that she receives 100 mg TID and 200 qHS PLUS PRN doses for agitation. Now Pt is at baseline with confusion and a non-focal exam. She is, however, unsteady on her feet, especially with turns. IMP: Lethargy and hypotension due to quetiapine. Severe OMS with senile gait dysfunction. SUGGEST: Reduce Seroquel to [id number] q 8 hrs and avoid PRN use. Observe off metoprolol as per cardiology. Do NOT resume rivastigmine at home. Walk with walker and assist. Neuro F/u as out patient. Thank you very, Jackson Nunez MD
--- NOTE | 2017-03-10 17:15 | DS ---
Physical Exam: SUBJECTIVE: Patient seen and examined. No acute events overnight. Offers no new complaints. Denies chest pain, dizziness, SOB, abdominal pain, diarrhea. OBJECTIVE: Vital Signs Period Temp Pulse Resp BP Sys/Bundy Pulse Ox Last 24 Hr 98.0 F-99.5 F 74-92 16-20 106-145/60-98 95-98 PHYSICAL EXAM GENERAL: A/o x 1, confused, demented at baseline HEAD: Normal with no signs of trauma. EYES: Pupils equal, round and reactive to light, sclera anicteric, conjunctiva clear. EARS, NOSE, THROAT: oropharynx clear without exudates. Moist mucous membranes. NECK: supple without lymphadenopathy, JVD, or masses. LUNGS: Breath sounds equal, clear to auscultation bilaterally. No wheezes, and no crackles. No accessory muscle use. HEART: Irregularly irregular. Regular rhythm ABDOMEN: Soft, nontender, not distended, normoactive bowel sounds, no guarding, no rebound, no masses. UPPER EXTREMITIES: 2+ pulses, warm, well-perfused. No cyanosis. No clubbing. No peripheral edema. LOWER EXTREMITIES: 2+ pulses, warm, well-perfused. No calf tenderness. No peripheral edema. NEUROLOGICAL: Limited neuro, uncooperative, Cn 2-12 grossly intact LABS HOSPITAL COURSE: Date of Admission:03/08/17 This is a 77 yo F with PMH of AFib not on AC (falls and GI hemorrhage), sustained VT 05/2015 s/p cardioversion, HTN, HL, CAD s/p PCI s/p [place] (1986), PCI x 3, moderate LV systolic disfunction, Alzheimers dementia, who presents due to witnessed syncope/fall. Patient was under cardiac monitoring, labs were trended , and cardiology/neurology were consulted. ICD interrogation WNL except for known AF; head CT negative. Patient did not have another episode and remained stable throughout hospital stay. Falls likely related to gait apraxia due to advanced Alzheimer's disease. Patient medically cleared for discharge. She is to continue all home meds except rivastigmine since it may cause syncope as a side effect. Seroquel was adjusted to 100mg at 8am, 100mg at 4pm, and 200mg at bedtime. Date of Discharge: 03/10/17 Minutes to complete discharge: 35 Discharge Summary Reason For Visit: SYNCOPE AND COLLAPSE Condition: Improved - Instructions Diet, Activity, Other Instructions: You will need to follow up with your primary care physician in 1 week. 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 We have made changes to your home medications. We decreased Metoprolol 25 mg PO Daily to 12.5 mg PO daily. Stop your Rivastigmine as it may cause you to go unconscious. Take 100mg of Seroquel at 8am, 100mg at 4pm, and 200mg at bedtime. NO MORE THAN 8 TEASPOONS IN A DAY IF YOU ARE TAKING IN A LIQUID FORM. Needs a strict 24 hour supervision. NO EXTRA DOSES OF SEROQUEL IN BETWEEN. Follow up with your primary care physician for dosage adjustments. Avoid sudden positional changes. If you feel your symptoms are worsening please call your doctor or go to your nearest emergency room. Referrals: Jackson Nunez MD [Staff Physician] - 1 Week Ashish Blas MD [Primary Care Provider] - 1 Week Disposition: VNS/HOME HEALTH CARE - Home Medications Comprehensive Discharge Medication List: Ambulatory Orders Atorvastatin Ca [Lipitor] 20 mg PO HS 03/08/16 Nitroglycerin [Nitrostat] 0.4 mg SL PRN PRN 09/25/16 Neomycin/Polymyxn/Hc [Cortisporin *Otic Solution*-] 3 drop AD Q8H #1 drops 03/09 Metoprolol Succinate 12.5 mg PO DAILY #30 tab.er.24h 03/10/17 Quetiapine Fumarate [Seroquel -] 200 mg PO HS #30 tab 03/10/17 Quetiapine Fumarate [Seroquel] 100 mg PO DAILY #30 tablet 03/10/17 Quetiapine Fumarate [Seroquel] 100 tab PO DAILY #30 tablet 03/10/17 This patient is new to me today: No Emergency Visit: No Critical Care patient: No - Discharge Referral Referred to [facility] No
== END 2017-03-10 13:23 | disposition home health service (06) ==
LOC: JER 08:57 → JERBED 14:17 → J4W 17:55
PROVIDERS: ADMIT Internal Medicine; ATTEND Hospitalist
PROC: 3E033GC Introduction of Other Therapeutic Substance into Peripheral Vein, Percutaneous Approach (ICD-10-PCS; principal; 2017-03-08)
DX: R55 Syncope and collapse (principal); I10 Essential (primary) hypertension; I48.2 Chronic atrial fibrillation; I25.10 Atherosclerotic heart disease of native coronary artery without angina pectoris; I50.22 Chronic systolic (congestive) heart failure; I25.2 Old myocardial infarction; I25.5 Ischemic cardiomyopathy; I47.2 Ventricular tachycardia; G30.9 Alzheimer's disease, unspecified; F02.80 Dementia in other diseases classified elsewhere, unspecified severity, without behavioral disturbance, psychotic disturbance, mood disturbance, and anxiety; E78.5 Hyperlipidemia, unspecified; K59.00 Constipation, unspecified; M48.00 Spinal stenosis, site unspecified; Z86.74 Personal history of sudden cardiac arrest; Z88.0 Allergy status to penicillin; Z88.6 Allergy status to analgesic agent; Z95.810 Presence of automatic (implantable) cardiac defibrillator; Z95.5 Presence of coronary angioplasty implant and graft; I95.1 Orthostatic hypotension; S09.90XA Unspecified injury of head, initial encounter; W18.39XA Other fall on same level, initial encounter; Z91.81 History of falling; Y93.89 Activity, other specified; Y92.008 Other place in unspecified non-institutional (private) residence as the place of occurrence of the external cause
CPT/HCPCS: 36415; 70450-TC; 71045-TC; 72125-TC; 80053; 82550; 83735; 84100; 84439; 84443; 84484; 85025; 85610; 86850; 86900; 86901; 87086; 93005; 93010; 93306-TC; 96374; 99285-25; G0378

== ENCOUNTER 2017-05-15 16:14 | Emergency (ER) | payer OTHER ==
[2017-05-15 16:34] VITALS: BP 155/87; PULSE 78; TEMP 97.9; BMI 21.2
--- NOTE | 2017-05-15 17:08 | PDOC ---
History of Present Illness <Raji Markham - Last Filed: 05/15/17 17:12> - General History Source: Spouse Exam Limitations: No Limitations - History of Present Illness Initial Comments: 05/15/17 19:15 The patient is a 77 year old female, with a significant past medical history of Afib (not on AC), VT arrest (s/p AICD), HTN, HLD, and Dementia, CAD (s/p stents) , who presents to the emergency department via EMS with, constipation. The patient is a poor historian due to her dementia. As per patients , she went to the bathroom and could not have a bowel movement for an hour then tried for another 3 hours. He reports giving her 1/4 bottle of magnesium citrate mixed with diet cola and after her bowels moved slightly. He she had a large big block of a bowel movement just before EMS showed up. He reports she moves her bowels every 3 days to once a week. Secondary to her constipation, he reports she felt pain from her rectal area describing it as a fire-like feeling when she was in the bathroom. She has taken various fiber supplements in the past, however, is not currently on one. Pt is not on any narcotic like medications. The patient is currently on Azithromycin for a UTI diagnosed last week. notes pt has been eating very well otherwise. She denies recent fevers, chills, headache or dizziness. She denies recent nausea, vomit, or diarrhea. She denies recent dysuria, frequency, urgency or hematuria. She denies recent chest pain or shortness of breath. Allergies: Aspirin, Penicillins Past Surgical History: Defibrillator, Stents Social History: Former smoker.Denies EtOH use and recreational drug use. Primary Care Physician: Dr. Blas <Verena Feliciano - Last Filed: 05/15/17 19:16> - General Chief Complaint: Constipation Stated Complaint: CONSTIPATION Time Seen by Provider: 05/15/17 16:16 Past History - Past Medical History Anemia: No Asthma: No Cancer: No Cardiac Disorders: Yes (A-FIB) COPD: No CHF: No Dementia: Yes Disorders: Yes HTN: Yes Hypercholesterolemia: Yes Other medical history: SPINAL STENOSIS - Surgical History Cardiac Surgery: Yes (STENTS, DEFIB) - Immunization History Immunization Up to Date: No - Suicide/Smoking/Psychosocial Hx Smoking History: Unknown if ever smoked Have you smoked in the past 12 months: No Hx Alcohol Use: No Drug/Substance Use Hx: No Substance Use Type: None <Raji Markham - Last Filed: 05/15/17 17:12> <Verena Feliciano - Last Filed: 05/15/17 19:16> - Past Medical History Allergies/Adverse Reactions: Allergies Allergy/AdvReac Type Severity Reaction Status Date / Time aspirin Allergy Verified 03/08/17 09:13 Penicillins Allergy Verified 03/08/17 09:13 Home Medications: Ambulatory Orders Nitroglycerin [Nitrostat] 0.4 mg SL PRN PRN 09/25/16 Metoprolol Succinate 12.5 mg PO DAILY #30 tab.er.24h 03/10/17 Quetiapine Fumarate [Seroquel -] 200 mg PO HS #30 tab 03/10/17 Quetiapine Fumarate [Seroquel] 100 mg PO DAILY #30 tablet 03/10/17 Quetiapine Fumarate [Seroquel] 100 tab PO DAILY #30 tablet 03/10/17 Azithromycin Suspension [Zithromax 200Mg/5Ml Suspension -] 400 mg PO ASDIR 05/15 Review of Systems - Review of Systems Able to Perform ROS?: Yes Comments:: 05/15/17 19:15 CONSTITUTIONAL: No reported: Fever, Chills, Diaphoresis, Generalized Weakness, Malaise, Loss of Appetite HEENT: No reported: Rhinorrhea, Nasal Congestion, Throat Pain, Throat Swelling, Difficulty Swallowing, Mouth Swelling, Ear Pain, Eye Pain, Visual Changes CARDIOVASCULAR: No reported: Chest Pain, Syncope, Palpitations, Irregular Heart Rate, Lightheadedness, Peripheral Edema RESPIRATORY: No reported: Cough, Shortness of Breath, SOB with Exertion, Orthopnea, Wheezing , Stridor, Hemoptysis GASTROINTESTINAL: +Constipation. Rectal pain. No reported: Abdominal pain, Abdominal Distension, Nausea, Vomiting, Diarrhea, Melena, Hematochezia GENITOURINARY: No reported: Dysuria, Frequency, Urgency, Hesitancy, Flank Pain, Genital Pain MUSCULOSKELETAL: No reported: Myalgia, Arthralgia, Joint Swelling, Back pain, Neck Pain SKIN: No reported: Rash, Itching, Pallor HEMEATOLOGIC/IMMUNOLOGIC: No reported: Easy Bleeding, Easy Bruising, Lymphadenopathy, Frequent infections ENDOCRINE: No reported: Unexplained Weight Gain, Unexplained Weight Loss, Heat Intolerance , Cold Intolerance NEUROLOGIC: No reported: Headache, Focal Weakness, Paresthesias, Vertigo, Lightheadedness, Unsteady Gait, Seizure, Mental Status Changes, Incontinence PSYCHIATRIC: No reported: Anxiety, Depression All Other Systems: Reviewed and Negative <Verena Feliciano - Last Filed: 05/15/17 19:16> *Physical Exam - Vital Signs Last Vital Signs Temp Pulse Resp BP Pulse Ox 97.9 F 78 18 155/87 98 05/15/17 16:15 05/15/17 16:15 05/15/17 16:15 05/15/17 16:15 05/15/17 16:15 <Raji Markham - Last Filed: 05/15/17 17:12> - Vital Signs Last Vital Signs Temp Pulse Resp BP Pulse Ox 97.9 F 78 18 155/87 98 05/15/17 16:15 05/15/17 16:15 05/15/17 16:15 05/15/17 16:15 05/15/17 16:15 - Physical Exam Comments: 05/15/17 19:16 GENERAL: The patient is awake and alert, Nontoxic - in no acute distress. HEAD: Normocephalic, atraumatic. EYES: extraocular movements intact, sclera anicteric, conjunctiva clear. ENT: Normal voice, Moist mucous membranes. NECK: Normal range of motion, supple LUNGS: Breath sounds equal, clear to auscultation bilaterally. No wheezes, no rhonchi, no rales. HEART: slightly irregular, ABDOMEN: Soft, nontender, No guarding, no rebound.No CVA tenderness RECTAL: Large stool ball within the rectal vault without any sign of bleeding. EXTREMITIES: Normal range of motion, no edema. No cyanosis. No erythema, or tenderness. NEUROLOGICAL: No facial asymmetry, Normal speech, PSYCH: Normal mood, normal affect. SKIN: Warm, Dry, normal turgor, <Verena Feliciano - Last Filed: 05/15/17 19:16> Medical Decision Making - Medical Decision Making 05/15/17 17:02 77y hx of dementia, constipation presents discomfort, constipation. Patient had a large stool balls in the rectum that was manually disempacted. pts abd soft nontender recommendatin for constipation management given return precautions were disussed <Raji Markham - Last Filed: 05/15/17 17:12> *DC/Admit/Observation/Transfer - Discharge Dispostion Admit: No <Raji Markham - Last Filed: 05/15/17 17:12> - Attestations Scribe Attestion: 05/15/17 19:16 Documentation prepared by Verena Feliciano, acting as medical staff physician for Raji Markham MD. <Verena Feliciano - Last Filed: 05/15/17 19:16> Diagnosis at time of Disposition: Constipation Qualifiers: Constipation type: slow transit constipation Qualified Code(s): K59.01 - Slow transit constipation - Discharge Dispostion Disposition: HOME Condition at time of disposition: Improved - Referrals Referrals: Ashish Blas MD [Primary Care Provider] - - Patient Instructions Printed Discharge Instructions: DI for Constipation Additional Instructions: To prevent further constipation - Increase fiber in your diet (metamucil, prune juice) Increase hydration Decrease the use of soda/caffeine as this has a dehdrating effect Return to the emergency department if you have further fever/chills, vomiting, blood in your stool, abdominal pain or other concerns. Follow up with dr. Blas in 4-5 days. Print Language: MONGOLIAN - Post Discharge Activity
== END 2017-05-15 17:18 | disposition home or self-care (01) ==
LOC: FER 16:14
DX: K59.01 Slow transit constipation (principal); I10 Essential (primary) hypertension; E78.00 Pure hypercholesterolemia, unspecified; I48.91 Unspecified atrial fibrillation; Z95.810 Presence of automatic (implantable) cardiac defibrillator
CPT/HCPCS: 99282-25

== ENCOUNTER 2017-06-23 07:44 | Inpatient (IN) | payer OTHER ==
--- NOTE | 2017-06-23 08:16 | PDOC ---
History of Present Illness - General Chief Complaint: Cold Symptoms Stated Complaint: weakness Time Seen by Provider: 06/23/17 07:55 History Source: Patient, Family, Primary Care Provider Exam Limitations: No Limitations - History of Present Illness Initial Comments: This is a 77 YOF with h/o Alzheimers, UTI, paroxysmal A-fib, CAD, AICD use, and spinal stenosis, who was BIBA for failure to thrive for the past two days at home, along with URI symptoms. Her catalyst manufacturing operator Dr. Blas called ahead to express concern about her failure to thrive and instructed the family to bring her in. The and caregiver note that she has had a URI for the past 10 days, as well as strong-smelling concentrated urine for the past several days. She has been complaining of upper and umbilical abdominal pain, has not been eating or taking any medications for the past 2-3 days, and has been vomiting brown liquid since yesterday (about 6 episodes). She additionally had one black bowel movement this morning. Over the past few days she has had episodes of collapsing while walking and generally has been having more difficulty ambulating than normal. She has not taken any medications for the symptoms. The patient lives at home with her , and they receive daily home health care. Past History - Past Medical History Allergies/Adverse Reactions: Allergies Allergy/AdvReac Type Severity Reaction Status Date / Time aspirin Allergy Verified 03/08/17 09:13 Penicillins Allergy Verified 03/08/17 09:13 Home Medications: Ambulatory Orders Nitroglycerin [Nitrostat] 0.4 mg SL PRN PRN 09/25/16 Metoprolol Succinate 12.5 mg PO DAILY #30 tab.er.24h 03/10/17 Quetiapine Fumarate [Seroquel -] 200 mg PO HS #30 tab 03/10/17 Quetiapine Fumarate [Seroquel] 100 mg PO DAILY #30 tablet 03/10/17 Quetiapine Fumarate [Seroquel] 100 tab PO DAILY #30 tablet 03/10/17 Azithromycin Suspension [Zithromax 200Mg/5Ml Suspension -] 400 mg PO ASDIR 05/15 Anemia: No Asthma: No Cancer: No Cardiac Disorders: Yes (A-FIB) COPD: No CHF: No Dementia: Yes Disorders: Yes HTN: Yes Hypercholesterolemia: Yes - Surgical History Cardiac Surgery: Yes (STENTS, DEFIB) - Immunization History Immunization Up to Date: No - Suicide/Smoking/Psychosocial Hx Smoking History: Unknown if ever smoked Have you smoked in the past 12 months: No Information on smoking cessation initiated: No Hx Alcohol Use: No Drug/Substance Use Hx: No Substance Use Type: None Review of Systems - Review of Systems Able to Perform ROS?: No (dementia) *Physical Exam - Vital Signs Last Vital Signs Temp Pulse Resp BP Pulse Ox 98.7 F 87 20 129/80 96 06/23/17 07:52 06/23/17 07:52 06/23/17 07:52 06/23/17 07:52 06/23/17 07:52 - Physical Exam General Appearance: Yes: Nourished. No: Apparent Distress HEENT: positive: EOMI, Normal Voice, Hearing Grossly Normal. negative: Scleral Icterus (R), Scleral Icterus (L), Nasal Congestion Neck: positive: Trachea midline, Supple. negative: Tender, Rigid Respiratory/Chest: positive: Lungs Clear, Normal Breath Sounds. negative: Respiratory Distress, Crackles, Rhonchi, Stridor, Wheezing Cardiovascular: positive: Tachycardia, Irregularly Irregular. negative: Edema, Murmur Gastrointestinal/Abdominal: positive: Normal Bowel Sounds, Soft. negative: Tender, Organomegaly, Pulsatile Mass, Guarding Musculoskeletal: positive: Normal Inspection. negative: Decreased Range of Motion, Vertebral Tenderness Extremity: positive: Normal Capillary Refill, Normal Inspection, Normal Range of Motion. negative: Tender, Cyanosis Integumentary: positive: Normal Color, Dry, Warm. negative: Erythema, Rash, Bruising Neurologic: positive: cap sewer II-XII NML intact, Fully Oriented, Alert, Normal Mood/ Affect, Normal Response, Motor Strength 5/5 Heart Score/ECG Review #1 A-fib with RVR, rate 107, lateral T-wave inversions, otherwise no ST-T changes. ED Treatment Course - LABORATORY CBC & Chemistry Diagram: 06/23/17 08:40 06/23/17 08:40 Medical Decision Making - Medical Decision Making Elderly female patient p/w failure to thrive. VS notable for: Exam notable for: DDX IBNLT: infection (e.g. UTI or PNA), anemia (e.g. from hemorrhage such as GIB or AAA), metabolic/electrolyte derangement, critical , PE, AD, SAH, CVA/ TIA, ACS, medication effect or toxicity, HOCM, etc W/U ordered: CBCD CMP Mg Phos Cardiac panel BNP Lactate BCx UA UCx EKG CXR FOBT Monitor TX ordered: IV, O2, NS bolus EKG: A-fib with RVR, rate 107, lateral T-wave inversions, otherwise no ST-T changes. CXR: No acute cardiopulmonary process; dilated loops of bowel. Laboratory Tests 06/23/17 06/23/17 06/23/17 08:40 08:40 08:40 WBC 9.7 D RBC 4.29 Hgb 13.2 Hct 40.0 MCV 93.2 MCH 30.7 MCHC 33.0 RDW 12.9 Plt Count 297 MPV 8.0 D Neutrophils % 89.6 H D Lymphocytes % 5.1 L D Monocytes % 5.0 Eosinophils % 0.0 D Basophils % 0.3 PT with INR Cancelled INR Cancelled PTT (Actin FS) Cancelled VBG pH 7.49 H POC VBG pCO2 30.4 L POC VBG pO2 49.6 H Mixed VBG HCO3 23.3 Sodium Potassium Chloride Carbon Dioxide Anion Gap BUN Creatinine Creat Clearance w eGFR Random Glucose Lactic Acid Calcium Total Bilirubin AST ALT Alkaline Phosphatase Creatine Kinase CK-MB (CK-2) Total Protein Albumin 06/23/17 06/23/17 08:40 08:40 WBC RBC Hgb Hct MCV MCH MCHC RDW Plt Count MPV Neutrophils % Lymphocytes % Monocytes % Eosinophils % Basophils % PT with INR INR PTT (Actin FS) VBG pH POC VBG pCO2 POC VBG pO2 Mixed VBG HCO3 Sodium 133 L Potassium 4.3 Chloride 100 Carbon Dioxide 22 Anion Gap 11 BUN 24 H Creatinine 0.9 Creat Clearance w eGFR > 60 Random Glucose 147 H Lactic Acid 1.5 Calcium 8.8 Total Bilirubin 0.6 D AST 20 ALT 14 Alkaline Phosphatase 132 H Creatine Kinase 55 CK-MB (CK-2) 1.656 Total Protein 7.6 Albumin 3.1 L notes that the patient is becoming increasingly agitated. We do not carry IM Zyprexa and thus a dose of PO seroquel will be ordered. Head CT: Generalized volume loss with moderate to marked ventricular dilatation again seen. The lateral and third ventricles remain relatively more prominent than the fourth that may be due to central atrophy. Differential diagnosis includes normal pressure hydrocephalus and aqueduct of Sylvius narrowing/stenosis. Correlate clinically for further evaluation. Otherwise, no acute intracranial pathology is seen. Chest/Ab/Pel CTA: No CT evidence of dissection or aneurysm involving the thoracic or abdominal aorta. Atherosclerotic stenoses are noted involving the right brachiocephalic artery and left subclavian artery which are probably at least moderate. If clinically indicated correlate with nonemergent dedicated CT angiography of those vessels. Cardiomegaly which has increased in comparison to a prior CT study of 05/27/2004. Probable mild interstitial pulmonary vascular congestion. Trace left pleural effusion. Possible interval left upper chest postsurgical changes. Mild to moderate centrilobular emphysema. Mild diffuse small bowel dilatation - ? mild ileus and probably less likely representing a early/ developing distal small bowel obstruction. Correlate clinically and with follow- up imaging. Large hiatal hernia. Vital Signs Temperature 98.8 F 06/23/17 08:40 Pulse Rate 89 06/23/17 08:40 Respiratory Rate 18 06/23/17 08:40 Blood Pressure 156/113 06/23/17 08:40 O2 Sat by Pulse Oximetry (%) 98 06/23/17 08:40 The patient is unsafe for discharge at this time. They require further hospital observation, workup, and treatment. Microblog sent to [facility] for admission. Spoke with [facility], in agreement patient to be admitted to: Inpatient Med/Surg. Decision to Admit order placed to [facility] covering attending Dr. Islas. *DC/Admit/Observation/Transfer Diagnosis at time of Disposition: Ileus Dementia Qualifiers: Dementia type: unspecified type Dementia behavioral disturbance: without behavioral disturbance Qualified Code(s): F03.90 - Unspecified dementia without behavioral disturbance Failure to thrive Qualifiers: Failure to thrive age range: in adult Qualified Code(s): R62.7 - Adult failure to thrive - Discharge Dispostion Condition at time of disposition: Guarded Decision to Admit order: Yes - Referrals Referrals: Ashish Blas MD [Primary Care Provider] - - Patient Instructions - Post Discharge Activity
[2017-06-23] MEDS ORDERED: SODIUM CHLORIDE 0.9% 1000 ML INFUS.BAG IV STA (08:17)
[2017-06-23] MEDS ORDERED: SODIUM CHLORIDE 0.9% 500 ML INFUS.BAG IV ONE (08:30)
[2017-06-23 08:55] LABS: VENOUS PC02 30.4 mmHg (38-52); VENOUS PH 7.49 (7.32-7.42); VENOUS PO2 49.6 mmHg (28-48)
[2017-06-23 08:56] LABS: BASO % 0.3 % (0-2.0); HEMOGLOBIN 13.2 GM/dL (10.7-15.3); LYMPH % 5.1 % (8-40); MCH 30.7 pg (25.7-33.7); MEAN CELL VOLUME 93.2 fl (80-96); NEUT % 89.6 % (42.8-82.8); PLATELET COUNT 297 K/MM3 (134-434); RBC 4.29 M/mm3 (3.60-5.2); RDW 12.9 % (11.6-15.6); WHITE BLOOD COUNT 9.7 K/mm3 (4.0-10.0)
[2017-06-23 09:18] LABS: ALBUMIN 3.1 g/dl (3.4-5.0); ANION GAP 11 (8-16); BLOOD UREA NITROGEN 24 mg/dL (7-18); CALCIUM 8.8 mg/dL (8.5-10.1); CHLORIDE 100 mmol/L (98-107); CO2 22 mmol/L (21-32); GLUCOSE,RANDOM 147 mg/dL (74-106); POTASSIUM 4.3 mmol/L (3.5-5.1); SODIUM 133 mmol/L (136-145)
[2017-06-23 09:24] LABS: ALK PHOS 132 U/L (45-117); BILIRUBIN,TOTAL 0.6 mg/dL (0.2-1.0); CREATININE 0.9 mg/dL (0.55-1.02); SGOT/AST 20 U/L (15-37); SGPT/ALT 14 U/L (12-78); TOT PROT 7.6 g/dl (6.4-8.2)
--- NOTE | 2017-06-23 09:43 | PDOC ---
Attending Attestation - Resident Resident Name: Rosangela Gao - ED Attending Attestation I have performed the following: I have examined & evaluated the patient, The case was reviewed & discussed with the resident, I agree w/resident's findings & plan, Exceptions are as noted - HPI HPI: 06/23/17 09:44 "The patient is a 77 year old female, accompanied by , with a significant past medical history CHF, AFib, CAD(s/p stents), DANNA, Alzheimers, who presents to the emergency department with failure to thrive for approximately 3 days. As per the patient has been unable to eat and has not taken her medications for the past 3 days. He reports the patient has had nausea, dark brown emesis (nonbilious), 1 episode of dark brown stool, and upper abdominal pain, but no diarrhea or constipation. He reports the patient was diagnosed with a URI over the past 10 days. He states patient also had malodorous urine, but did not complain of dysuria, hematuria, frequency, or urgency. Per , patient is usually able to ambulate with assistance, but has not been ambulatory due to generalized weakness over the past 3 days. Per , patient had recent cough, but no fever or chills. No recent travel or sick contacts. Pt denies CP/SOB. " - Physicial Exam PE: 06/23/17 09:59 "GENERAL: Awake, alert, in no acute distress. HEAD: No signs of trauma EYES: PERRLA, EOMI, sclera anicteric, conjunctiva clear ENT: Auricles normal inspection, hearing grossly normal, nares patent, oropharynx clear without exudates. Moist mucosa NECK: Nontender, no stepoffs, Normal ROM, supple, no lymphadenopathy, JVD, or masses LUNGS: Breath sounds equal, clear to auscultation bilaterally. No wheezes, and no crackles HEART: Regular rate and rhythm, normal S1 and S2, no murmurs, rubs or gallops ABDOMEN:+ epigastric TTP, normoactive bowel sounds. No guarding, no rebound. No masses EXTREMITIES: Normal range of motion, no edema. No clubbing or cyanosis. No cords, erythema, or tenderness NEUROLOGICAL: Cranial nerves II through XII intact. 5/5 strength and sensation in all extremities, Normal speech, normal gait, normal cerebellar function SKIN: Warm, Dry, normal turgor, no rashes or lesions noted. " - Medical Decision Making 06/23/17 10:00 77 F with weakness, abdominal pain, vomiting, and dark stools. Pt with epigastric tenderness on exam. Also notable was unequal BPs in each arm. 180s systolic RUE and 150s systolic LUE. Given epigastric pain, will need to r/o aortic dissection. - Labs - CXR - CTA chest/abd/pelvis
--- NOTE | 2017-06-23 11:55 | EKG ---
Test Reason : Blood Pressure : / mmHG Vent. Rate : 107 BPM Atrial Rate : 388 BPM P-R Int : 000 ms QRS Dur : 100 ms QT Int : 320 ms P-R-T Axes : 000 021 211 degrees QTc Int : 427 ms ATRIAL FLUTTER WITH VARIABLE A-V BLOCK WITH PREMATURE VENTRICULAR OR ABERRANTLY CONDUCTED COMPLEXES POSSIBLE INFERIOR INFARCT (CITED ON OR BEFORE 23-OCT-1999) CANNOT RULE OUT ANTERIOR INFARCT (CITED ON OR BEFORE 04-JAN-2016) ABNORMAL ECG WHEN COMPARED WITH ECG OF 08-MAR-2017 10:50, ATRIAL FLUTTER HAS REPLACED ATRIAL FIBRILLATION NONSPECIFIC T WAVE ABNORMALITY NO LONGER EVIDENT IN ANTERIOR LEADS Confirmed by CYRIL VELASCO MD ([id number]) on 06/23/2017 11:55:00 AM Referred By: Confirmed By:CYRIL VELASCO MD
[2017-06-23] MEDS ORDERED: QUEtiapine FUMARATE 100 MG TABLET (FP) PO ONE (11:58)
[2017-06-23] MEDS ORDERED: QUEtiapine FUMARATE 100 MG TABLET (FP) ONE (12:00)
--- NOTE | 2017-06-23 15:30 | PN ---
Progress Note (short form) - Note Progress Note: Serene is my office patient and I have been in communication with her multiple times over the past week regarding her progressively worsening alzheimers dementia. For the past 3 days Serene has been increasingly confused and essentially bedbound. She has had urinary and fecal incontinence for the past few weeks. We discussed that it was no longer safe to care for her at home and that she should be brought to the ER for evaluation, admission, and plan for chcf placement. Serene has chronic constipation. She also has known CAD prior stents, cardiomyopathy h/o VT and ICD placement. She often complains of atypical symptoms. A troponin was done in the ER and came back slightly elevated. Would not pursue any further work up for this. Would not continue to check cardiac enzymes. Would not admit to telemetry. A cardiology consult (from myself) does not need to be placed at this time. I am fully aware of her condition and will assist as needed. Please call with any questions.
[2017-06-23 16:16] LABS: URINE APPEARANCE CLEAR; URINE BILIRUBIN NEGATIVE (<2.0 mg/dL); URINE COLOR LTYELLOW; URINE GLUCOSE (UA) 2+ (NEGATIVE); URINE KETONE 1+ (NEGATIVE); URINE NITRITE NEGATIVE (NEGATIVE); URINE UROBILINOGEN NEGATIVE mg/dL (0.2-1.0)
--- NOTE | 2017-06-23 16:18 | HP ---
Admitting History and Physical - Admission Chief Complaint: failure to thrive History of Present Illness: HPI Briefly, 77 year old female with pmhx of Alzheimer's, UTI, paroxysmal A-fib, CAD , AICD use, and spinal stenosis presented to the ED for failure to thrive. Per at the bedside, in the last week he has seen a decline in her functional status requiring increased help in the home. For one week she has become incontinent, unable to tell them when she has gone until after, decreased appetite, having hard bowel movements with pain on defecation. Stopped taking seroquel this past Tuesday due to AMS. Per ED record states she c/o upper abdominal pain, now none, and hasn't been taking her medications with vomiting of brown vomitus since yesterday. She was sent in by PCP Dr. Blas, pt stated he is no longer able to care for her with aid assist. History Source: Family Member, Medical Record Limitations to Obtaining History: Clinical Condition, Dementia - Past Medical History [employer]: Yes: Dementia Cardiovascular: Yes: AFIB, CAD, CHF, HTN, Hyperlipdemia, RI, Other (episode of sustained ventricular tachycardia requiring cardioversion, s/p ICD) Gastrointestinal: Yes: Diverticulosis - Past Surgical History Past Surgical History: Yes: AICD, - Smoking History Smoking history: Unknown if ever smoked Have you smoked in the past 12 months: No - Alcohol/Substance Use Hx Alcohol Use: No - Social History Usual Living Arrangement: Yes: With Spouse ADL: Support Services History of Recent Travel: No Home Medications - Allergies Allergies/Adverse Reactions: Allergies Allergy/AdvReac Type Severity Reaction Status Date / Time aspirin Allergy Verified 03/08/17 09:13 Penicillins Allergy Verified 03/08/17 09:13 - Home Medications Home Medications: Ambulatory Orders Nitroglycerin [Nitrostat] 0.4 mg SL PRN PRN 09/25/16 Metoprolol Succinate 12.5 mg PO DAILY #30 tab.er.24h 03/10/17 Quetiapine Fumarate [Seroquel -] 200 mg PO HS #30 tab 03/10/17 Quetiapine Fumarate [Seroquel] 100 mg PO DAILY #30 tablet 03/10/17 Quetiapine Fumarate [Seroquel] 100 tab PO DAILY #30 tablet 03/10/17 Azithromycin Suspension [Zithromax 200Mg/5Ml Suspension -] 400 mg PO ASDIR 05/15 Review of Systems - Review of Systems Constitutional: reports: Lethargy, Loss of Appetite, Weakness Eyes: reports: No Symptoms HENT: reports: No Symptoms Neck: reports: No Symptoms Cardiovascular: reports: No Symptoms Respiratory: reports: No Symptoms Gastrointestinal: reports: Abdominal Pain, Vomiting Genitourinary: reports: Incontinence Integumentary: reports: No Symptoms Neurological: reports: Unsteady Gait, Weakness Endocrine: reports: No Symptoms Hematology/Lymphatic: reports: No Symptoms Psychiatric: reports: No Symptoms Physical Examination Vital Signs: Vital Signs Temperature 98.8 F 06/23/17 08:40 Pulse Rate 89 06/23/17 08:40 Respiratory Rate 18 06/23/17 08:40 Blood Pressure 156/113 06/23/17 08:40 O2 Sat by Pulse Oximetry (%) 98 06/23/17 08:40 Constitutional: Yes: Calm Eyes: Yes: Conjunctiva Clear Neck: Yes: Supple Cardiovascular: Yes: Regular Rate and Rhythm, S1, S2 Respiratory: Yes: Regular, Diminished Gastrointestinal: Yes: Normal Bowel Sounds, Soft Renal/: Yes: Incontinence Edema: No Integumentary: Yes: WNL Neurological: Yes: Alert, Pre-Existing Deficit Psychiatric: Yes: Alert, Oriented Labs: CBC, BMP 06/23/17 08:40 06/23/17 08:40 Imaging - Results Cat Scan: Report Reviewed (mild diffuse bowel distention, ?mild ileus, large hiatal hernia) Problem List - Problems (1) Failure to thrive Code(s): [id number] - Qualifiers: Failure to thrive age range: in adult Qualified Code(s): R62.7 - Adult failure to thrive (2) Ileus Code(s): K56.7 - ILEUS, UNSPECIFIED (3) Dementia Code(s): F03.90 - UNSPECIFIED DEMENTIA WITHOUT BEHAVIORAL DISTURBANCE Qualifiers: Dementia type: unspecified type Dementia behavioral disturbance: without behavioral disturbance Qualified Code(s): F03.90 - Unspecified dementia without behavioral disturbance (4) Chronic systolic (congestive) heart failure Code(s): I50.22 - CHRONIC SYSTOLIC (CONGESTIVE) HEART FAILURE (5) Paroxysmal atrial fibrillation Code(s): I48.0 - PAROXYSMAL ATRIAL FIBRILLATION (6) Weakness Code(s): R53.1 - WEAKNESS (7) CAD (coronary artery disease) Code(s): I25.10 - ATHSCL HEART DISEASE OF [place] CORONARY ARTERY W/O ANG PCTRS (8) ICD (implantable cardioverter-defibrillator) in place Code(s): Z95.810 - PRESENCE OF AUTOMATIC (IMPLANTABLE) CARDIAC DEFIBRILLATOR (9) UTI (urinary tract infection) Code(s): N39.0 - URINARY TRACT INFECTION, SITE NOT SPECIFIED Qualifiers: Urinary tract infection type: site unspecified Hematuria presence: without hematuria Qualified Code(s): N39.0 - Urinary tract infection, site not specified Assessment/Plan Assessment: 77 year old female with pmhx of Alzheimer's/dementia, UTI, paroxysmal A-fib, CAD, AICD use, and spinal stenosis presented to the ED for failure to thrive. Plan: 1. UTI - Start levaquin (day1) - Urine cx pending 2. Elevated trop - Per my discussion w cards/pcp Dr. Blas will not cycle enzymes, acs work up not needed at this time 3. Abdominal pain - Mild ileus seen on CT - NPO for now - Start gentle hydration - Abd xray in AM 4. Failure to thrive - Social work consult for NH placement - PT eval 5. Alzheimer/dementia - Seroquel recently stopped Tuesday due to AMS - x1 dose given in ED for restlessness - Can give PRN - 1:1 ordered, per pt she wanders and can propensity to fall from bed 6. Afib - Continue lopressor 7. DVT - Heparin sq Visit type - Emergency Visit Emergency Visit: Yes ED Registration Date: 06/23/17 Care time: The patient presented to the Emergency Department on the above date and was hospitalized for further evaluation of their emergent condition. - New Patient This patient is new to me today: Yes Date on this admission: 06/23/17 - Critical Care Critical Care patient: No Hospitalist Screening - Colonoscopy Questionnaire Colonoscopy Questionnaire: Colonoscopy Questionnaire - Patient: 50 - 75 years old and never had a screening colonoscopy: Unknown History of colon or rectal polyps, or CA: Unknown History of IBD, Crohn's disease or UC: Unknown History of abdominal radiation therapy as a child: Unknown - Relative: 1 with colon or rectal CA, or polyps at age 60 or younger: Unknown Colon or rectal CA diagnosed at age 45 or younger: Unknown Multiple relatives with colon or rectal CA: Unknown - Outcome: Screening Result: Negative Screen
[2017-06-23 16:20] LABS: URINE LEUK ESTERASE 2+ (NEGATIVE); URINE PROTEIN 1+ (NEGATIVE)
[2017-06-23 16:25] LABS: EPI CELLS RARE /HPF (FEW); YEAST RARE
[2017-06-23] MEDS ORDERED: morphine SULFATE 4 MG/ML VIAL IVPUSH PRN (16:28)
[2017-06-23] MEDS: SODIUM CHLORIDE 1,000 ML IV SCH ×2 (16:40→21:19)
[2017-06-23 20:25] VITALS: BMI 23.3
[2017-06-23] MEDS: HEPARIN NA (PORCINE) 5,000 UNITS/ML 1ML VIAL SQ SCH (21:17)
[2017-06-24 08:58] LABS: BASO % 0.5 % (0-2.0); HEMATOCRIT 34.2 % (32.4-45.2); HEMOGLOBIN 11.8 GM/dL (10.7-15.3); MCH 32.1 pg (25.7-33.7); MCHC 34.4 g/dl (32.0-36.0); MEAN CELL VOLUME 93.2 fl (80-96); MEAN PLT VOLUME 7.9 fl (7.5-11.1); MONO % 9.5 % (3.8-10.2); PLATELET COUNT 260 K/MM3 (134-434); RBC 3.67 M/mm3 (3.60-5.2); RDW 13.2 % (11.6-15.6); WHITE BLOOD COUNT 8.9 K/mm3 (4.0-10.0)
[2017-06-24 09:29] LABS: ALBUMIN 2.7 g/dl (3.4-5.0); ANION GAP 12 (8-16); BLOOD UREA NITROGEN 13 mg/dL (7-18); CALCIUM 8.1 mg/dL (8.5-10.1); CHLORIDE 101 mmol/L (98-107); CO2 21 mmol/L (21-32); GLUCOSE,RANDOM 95 mg/dL (74-106); MAGNESIUM 1.9 mg/dL (1.8-2.4); PHOSPHOROUS 2.3 mg/dL (2.5-4.9); POTASSIUM 3.4 mmol/L (3.5-5.1); SGOT/AST 26 U/L (15-37); SGPT/ALT 14 U/L (12-78); SODIUM 134 mmol/L (136-145)
[2017-06-24 09:32] LABS: ALK PHOS 105 U/L (45-117); BILIRUBIN,TOTAL 1.1 mg/dL (0.2-1.0); CREATININE 0.7 mg/dL (0.55-1.02); TOT PROT 6.6 g/dl (6.4-8.2)
[2017-06-24] MEDS ORDERED: metoPROLOL SUCCINATE 25 MG TAB.SR.24H (FP) PO SCH (10:00)
[2017-06-24] MEDS ORDERED: POTASSIUM CHLORIDE ORAL LIQUID 20 MEQ/15 ML PO ONE (10:15)
[2017-06-24] MEDS: HEPARIN NA (PORCINE) 5,000 UNITS/ML 1ML VIAL SQ SCH ×2 (10:30→21:14)
[2017-06-24] MEDS ORDERED: metoPROLOL SUCCINATE 25 MG TAB.SR.24H (FP) PO ONE (11:00)
--- NOTE | 2017-06-24 14:30 | PN ---
Physical Exam: SUBJECTIVE: Patient seen and examined. She denies abdominal pain, no reports of vomiting. OBJECTIVE: Vital Signs Period Temp Pulse Resp BP Sys/Bundy Pulse Ox Last 24 Hr 98 F-99.3 F 90-117 16-20 140-168/72-116 98 PE Neuro: alert, awake, oriented to self, confused Pulm: CTA anteriorly CV: s1 s2 rrr Abd: s nt nd + bs Ext: no le edema, warm Laboratory Results - last 24 hr 06/24/17 06/24/17 08:40 08:40 WBC 8.9 RBC 3.67 Hgb 11.8 D Hct 34.2 MCV 93.2 MCH 32.1 MCHC 34.4 RDW 13.2 Plt Count 260 MPV 7.9 Neutrophils % 82.0 Lymphocytes % 8.0 D Monocytes % 9.5 D Eosinophils % 0.0 Basophils % 0.5 VBG pH POC VBG pCO2 POC VBG pO2 Mixed VBG HCO3 Sodium 134 L Potassium 3.4 L Chloride 101 Carbon Dioxide 21 Anion Gap 12 BUN 13 Creatinine 0.7 Creat Clearance w eGFR > 60 Random Glucose 95 Lactic Acid Calcium 8.1 L Phosphorus 2.3 L Magnesium 1.9 Total Bilirubin 1.1 H D AST 26 ALT 14 Alkaline Phosphatase 105 Total Protein 6.6 Albumin 2.7 L Urine Color Urine Appearance Urine pH Ur Specific [place] Urine Protein Urine Glucose (UA) Urine Ketones Urine Blood Urine Nitrite Urine Bilirubin Urine Urobilinogen Ur Leukocyte Esterase Urine WBC (Auto) Urine RBC (Auto) Ur Epithelial Cells Urine Yeast Active Medications Generic Name Dose Route Start Last Admin Trade Name Freq PRN Reason Stop Dose Admin Heparin Sodium (Porcine) 5,000 unit 06/23/17 22:00 06/24/17 10:30 Heparin - SQ 5,000 unit BID PENG Administration Sodium Chloride 1,000 mls @ 50 mls/hr 06/23/17 16:30 06/23/17 21:19 Normal Saline - IV 06/24/17 16:34 50 mls/hr ASDIR PENG Administration Levofloxacin 500 mg in 100 mls @ 100 mls/hr 06/24/17 10:00 06/24/17 10:30 Levaquin 500 Mg Premixed Ivpb - IVPB 100 mls/hr DAILY PENG Administration Protocol Metoprolol Succinate 12.5 mg 06/24/17 10:00 06/24/17 10:30 Toprol Xl - PO Not Given DAILY PENG Morphine Sulfate 1 mg 06/23/17 16:28 Morphine Sulfate IVPUSH Q4H PRN PAIN LEVEL 1-5 Imaging: - Mild ileus seen on CT Assessment: 77 year old female with pmhx of Alzheimer's/dementia, UTI, paroxysmal A-fib, CAD, AICD use, and spinal stenosis admitted with failure to thrive. Plan: 1. UTI - Continue Llevaquin (day 2) - Urine cx pending 2. Elevated trop - Per my discussion w cards/pcp Dr. Blas will not cycle enzymes, acs work up not needed at this time 3. Abdominal pain - No further vomiting - Abd xray noted - Will start clears, observe 4. Failure to thrive - For [place] jennifer, possibly Tuesday discharge 5. Alzheimer/dementia - Seroquel recently stopped Tuesday due to AMS - x1 dose given in ED for restlessness - Can give PRN - 1:1 ordered, per pt she wanders and can propensity to fall from bed 6. Afib - Continue lopressor 12.5mg xl 7. HTN - Increase toprol 25mg x1 with appropriate effect 8. Hypokalemia - Replete potassium 40meq x1 9. DVT - Heparin sq Problem List - Problems (1) Failure to thrive Code(s): [id number] - Qualifiers: Failure to thrive age range: in adult Qualified Code(s): R62.7 - Adult failure to thrive (2) Ileus Code(s): K56.7 - ILEUS, UNSPECIFIED (3) Dementia Code(s): F03.90 - UNSPECIFIED DEMENTIA WITHOUT BEHAVIORAL DISTURBANCE Qualifiers: Dementia type: unspecified type Dementia behavioral disturbance: without behavioral disturbance Qualified Code(s): F03.90 - Unspecified dementia without behavioral disturbance (4) Chronic systolic (congestive) heart failure Code(s): I50.22 - CHRONIC SYSTOLIC (CONGESTIVE) HEART FAILURE (5) Paroxysmal atrial fibrillation Code(s): I48.0 - PAROXYSMAL ATRIAL FIBRILLATION (6) Weakness Code(s): R53.1 - WEAKNESS (7) CAD (coronary artery disease) Code(s): I25.10 - ATHSCL HEART DISEASE OF [place] CORONARY ARTERY W/O ANG PCTRS (8) ICD (implantable cardioverter-defibrillator) in place Code(s): Z95.810 - PRESENCE OF AUTOMATIC (IMPLANTABLE) CARDIAC DEFIBRILLATOR (9) UTI (urinary tract infection) Code(s): N39.0 - URINARY TRACT INFECTION, SITE NOT SPECIFIED Qualifiers: Urinary tract infection type: site unspecified Hematuria presence: without hematuria Qualified Code(s): N39.0 - Urinary tract infection, site not specified Visit type - Emergency Visit Emergency Visit: Yes ED Registration Date: 06/23/17 Care time: The patient presented to the Emergency Department on the above date and was hospitalized for further evaluation of their emergent condition. - New Patient This patient is new to me today: No - Critical Care Critical Care patient: No
[2017-06-24] MEDS ORDERED: QUEtiapine FUMARATE 25 MG TABLET (FP) PO ONE (19:15)
[2017-06-24] MEDS: SODIUM CHLORIDE 1,000 ML IV SCH ×2 (19:25→21:15)
[2017-06-25 08:37] LABS: ANION GAP 7 (8-16); BLOOD UREA NITROGEN 11 mg/dL (7-18); CALCIUM 7.7 mg/dL (8.5-10.1); CHLORIDE 100 mmol/L (98-107); CO2 24 mmol/L (21-32); CREATININE 0.7 mg/dL (0.55-1.02); GLUCOSE,RANDOM 90 mg/dL (74-106); POTASSIUM 3.3 mmol/L (3.5-5.1); SODIUM 131 mmol/L (136-145)
[2017-06-25] MEDS ORDERED: POTASSIUM CHLORIDE ORAL LIQUID 20 MEQ/15 ML PO ONE (09:01)
[2017-06-25] MEDS: SODIUM CHLORIDE 1,000 ML IV SCH ×2 (09:29→19:40)
[2017-06-25] MEDS: HEPARIN NA (PORCINE) 5,000 UNITS/ML 1ML VIAL SQ SCH ×2 (09:30→21:34)
[2017-06-25] MEDS: metoPROLOL SUCCINATE 25 MG TAB.SR.24H (FP) PO SCH (09:31)
--- NOTE | 2017-06-25 11:44 | PN ---
Physical Exam: SUBJECTIVE: Patient seen and examined. She ate all of her breakfast. No issues noted overnight OBJECTIVE: Vital Signs Period Temp Pulse Resp BP Sys/Bundy Pulse Ox Last 24 Hr 97.6 F-99.4 F 88-90 20-126 115-140/66-87 PE Neuro: alert, awake, oriented to self, confused Pulm: CTA anteriorly CV: s1 s2 rrr Abd: s nt nd + bs Ext: no le edema, warm Laboratory Results - last 24 hr 06/25/17 07:30 Sodium 131 L Potassium 3.3 L Chloride 100 Carbon Dioxide 24 Anion Gap 7 L BUN 11 Creatinine 0.7 Random Glucose 90 Calcium 7.7 L Active Medications Generic Name Dose Route Start Last Admin Trade Name Freq PRN Reason Stop Dose Admin Heparin Sodium (Porcine) 5,000 unit 06/23/17 22:00 06/25/17 09:30 Heparin - SQ 5,000 unit BID PENG Administration Levofloxacin 500 mg in 100 mls @ 100 mls/hr 06/24/17 10:00 06/25/17 09:30 Levaquin 500 Mg Premixed Ivpb - IVPB 100 mls/hr DAILY PENG Administration Protocol Sodium Chloride 1,000 mls @ 50 mls/hr 06/25/17 09:15 06/25/17 09:29 Normal Saline - IV 06/26/17 09:06 50 mls/hr ASDIR PENG Administration Metoprolol Succinate 25 mg 06/24/17 14:36 06/25/17 09:31 Toprol Xl - PO 25 mg DAILY PENG Administration Morphine Sulfate 1 mg 06/23/17 16:28 Morphine Sulfate IVPUSH Q4H PRN PAIN LEVEL 1-5 Imaging: - Mild ileus seen on CT Assessment: 77 year old female with pmhx of Alzheimer's/dementia, UTI, paroxysmal A-fib, CAD, AICD use, and spinal stenosis admitted with failure to thrive. Plan: 1. UTI - Continue levaquin (day 3) - Urine cx pending 2. Elevated trop - Per my discussion w cards/pcp Dr. Blas will not cycle enzymes, acs work up not needed at this time 3. Abdominal pain - No further vomiting - Advance to soft diet, ensure 4. Failure to thrive - For [place] jennifer, possibly Tuesday discharge 5. Alzheimer/dementia - Seroquel recently stopped Tuesday due to AMS - x1 dose given in ED for restlessness - Can give PRN - 1:1 ordered, per pt she wanders and can propensity to fall from bed 6. Afib - toprol 25mg xl 7. HTN - Improved with increased toprol 25mg 8. Hypokalemia - Replete potassium 40meq x1 9. Hyponatremia - IVF NS 50cc/hr x24hr 10. DVT - Heparin sq Problem List - Problems (1) Failure to thrive Code(s): [id number] - Qualifiers: Failure to thrive age range: in adult Qualified Code(s): R62.7 - Adult failure to thrive (2) Ileus Code(s): K56.7 - ILEUS, UNSPECIFIED (3) Dementia Code(s): F03.90 - UNSPECIFIED DEMENTIA WITHOUT BEHAVIORAL DISTURBANCE Qualifiers: Dementia type: unspecified type Dementia behavioral disturbance: without behavioral disturbance Qualified Code(s): F03.90 - Unspecified dementia without behavioral disturbance (4) Chronic systolic (congestive) heart failure Code(s): I50.22 - CHRONIC SYSTOLIC (CONGESTIVE) HEART FAILURE (5) Paroxysmal atrial fibrillation Code(s): I48.0 - PAROXYSMAL ATRIAL FIBRILLATION (6) Weakness Code(s): R53.1 - WEAKNESS (7) CAD (coronary artery disease) Code(s): I25.10 - ATHSCL HEART DISEASE OF [place] CORONARY ARTERY W/O ANG PCTRS (8) ICD (implantable cardioverter-defibrillator) in place Code(s): Z95.810 - PRESENCE OF AUTOMATIC (IMPLANTABLE) CARDIAC DEFIBRILLATOR (9) UTI (urinary tract infection) Code(s): N39.0 - URINARY TRACT INFECTION, SITE NOT SPECIFIED Qualifiers: Urinary tract infection type: site unspecified Hematuria presence: without hematuria Qualified Code(s): N39.0 - Urinary tract infection, site not specified Visit type - Emergency Visit Emergency Visit: Yes ED Registration Date: 06/23/17 Care time: The patient presented to the Emergency Department on the above date and was hospitalized for further evaluation of their emergent condition. - New Patient This patient is new to me today: No - Critical Care Critical Care patient: No
[2017-06-26 07:51] LABS: ANION GAP 7 (8-16); BLOOD UREA NITROGEN 11 mg/dL (7-18); CALCIUM 7.8 mg/dL (8.5-10.1); CHLORIDE 102 mmol/L (98-107); CO2 24 mmol/L (21-32); GLUCOSE,RANDOM 85 mg/dL (74-106); POTASSIUM 3.7 mmol/L (3.5-5.1); SODIUM 133 mmol/L (136-145)
[2017-06-26 07:52] LABS: CREATININE 0.8 mg/dL (0.55-1.02)
[2017-06-26] MEDS: metoPROLOL SUCCINATE 25 MG TAB.SR.24H (FP) PO SCH (10:23)
[2017-06-26] MEDS: HEPARIN NA (PORCINE) 5,000 UNITS/ML 1ML VIAL SQ SCH ×2 (10:23→21:18)
--- NOTE | 2017-06-26 10:43 | PN ---
Physical Exam: SUBJECTIVE: Patient seen and examined. No acute issues, small BM yesterday per staff OBJECTIVE: Vital Signs Period Temp Pulse Resp BP Sys/Bundy Pulse Ox Last 24 Hr 98.3 F-99.0 F 76-88 18-20 116-122/70-92 PE Neuro: alert, awake, oriented to self, confused Pulm: CTA anteriorly CV: s1 s2 rrr Abd: s nt nd + bs Ext: no le edema, warm Laboratory Results - last 24 hr 06/26/17 06:00 Sodium 133 L Potassium 3.7 Chloride 102 Carbon Dioxide 24 Anion Gap 7 L BUN 11 Creatinine 0.8 Random Glucose 85 Calcium 7.8 L Active Medications Generic Name Dose Route Start Last Admin Trade Name Freq PRN Reason Stop Dose Admin Heparin Sodium (Porcine) 5,000 unit 06/23/17 22:00 06/26/17 10:23 Heparin - SQ 5,000 unit BID PENG Administration Levofloxacin 500 mg in 100 mls @ 100 mls/hr 06/24/17 10:00 06/26/17 09:31 Levaquin 500 Mg Premixed Ivpb - IVPB 100 mls/hr DAILY PENG Administration Protocol Metoprolol Succinate 25 mg 06/24/17 14:36 06/26/17 10:23 Toprol Xl - PO 25 mg DAILY PENG Administration Morphine Sulfate 1 mg 06/23/17 16:28 06/25/17 23:29 Morphine Sulfate IVPUSH 1 mg Q4H PRN Administration PAIN LEVEL 1-5 Quetiapine Fumarate 100 mg 06/26/17 22:00 Seroquel - PO HS PENG Microbiology 06/23/17 08:40 Blood Culture - Preliminary Blood - Peripheral Venous NO GROWTH OBTAINED AFTER 72 HOURS, INCUBATION TO CONTINUE FOR 2 DAYS. 06/23/17 08:40 Blood Culture - Preliminary Blood - Peripheral Venous NO GROWTH OBTAINED AFTER 72 HOURS, INCUBATION TO CONTINUE FOR 2 DAYS. 06/23/17 15:51 Urine Culture - Preliminary Urine - Urine Clean Catch Proteus Species Imaging: - Mild ileus seen on CT Assessment: 77 year old female with pmhx of Alzheimer's/dementia, UTI, paroxysmal A-fib, CAD, AICD use, and spinal stenosis admitted with failure to thrive. Plan: 1. UTI - Continue levaquin (day 4) - Urine cx pre garcia prteus 2. Elevated trop - Per my discussion w cards/pcp Dr. Blas will not cycle enzymes, acs work up not needed at this time 3. Abdominal pain - Resolved - Soft diet 4. Failure to thrive - For NH jennifer vs cabrini 5. Alzheimer/dementia - Seroquel 100mg HS - NH will not take pt d/t 1:1 sitter, will discontinue today and monitor closely 6. Afib - Toprol 25mg xl 7. HTN - Improved with increased toprol 25mg 8. Hypokalemia - Resolved 9. Hyponatremia - Improved, can stop fluids 10. DVT - Heparin sq Problem List - Problems (1) Failure to thrive Code(s): [id number] - Qualifiers: Failure to thrive age range: in adult Qualified Code(s): R62.7 - Adult failure to thrive (2) Ileus Code(s): K56.7 - ILEUS, UNSPECIFIED (3) Dementia Code(s): F03.90 - UNSPECIFIED DEMENTIA WITHOUT BEHAVIORAL DISTURBANCE Qualifiers: Dementia type: unspecified type Dementia behavioral disturbance: without behavioral disturbance Qualified Code(s): F03.90 - Unspecified dementia without behavioral disturbance (4) Chronic systolic (congestive) heart failure Code(s): I50.22 - CHRONIC SYSTOLIC (CONGESTIVE) HEART FAILURE (5) Paroxysmal atrial fibrillation Code(s): I48.0 - PAROXYSMAL ATRIAL FIBRILLATION (6) Weakness Code(s): R53.1 - WEAKNESS (7) CAD (coronary artery disease) Code(s): I25.10 - ATHSCL HEART DISEASE OF [place] CORONARY ARTERY W/O ANG PCTRS (8) ICD (implantable cardioverter-defibrillator) in place Code(s): Z95.810 - PRESENCE OF AUTOMATIC (IMPLANTABLE) CARDIAC DEFIBRILLATOR (9) UTI (urinary tract infection) Code(s): N39.0 - URINARY TRACT INFECTION, SITE NOT SPECIFIED Qualifiers: Urinary tract infection type: site unspecified Hematuria presence: without hematuria Qualified Code(s): N39.0 - Urinary tract infection, site not specified Visit type - Emergency Visit Emergency Visit: Yes ED Registration Date: 06/23/17 Care time: The patient presented to the Emergency Department on the above date and was hospitalized for further evaluation of their emergent condition. - New Patient This patient is new to me today: No - Critical Care Critical Care patient: No
[2017-06-26] MEDS: QUEtiapine FUMARATE 100 MG TABLET (FP) PO SCH (13:16)
[2017-06-26] MEDS ORDERED: PT OWN MED DRAWER 7, Y5N ONE (13:23)
[2017-06-26] MEDS ORDERED: QUEtiapine FUMARATE 100 MG TABLET (FP) PO SCH (22:00)
[2017-06-27] MEDS: QUEtiapine FUMARATE 100 MG TABLET (FP) PO SCH (10:00)
[2017-06-27] MEDS ORDERED: PT OWN MED DRAWER 7, Y5N ONE (11:32)
[2017-06-27] MEDS: HEPARIN NA (PORCINE) 5,000 UNITS/ML 1ML VIAL SQ SCH (11:35)
[2017-06-27] MEDS: metoPROLOL SUCCINATE 25 MG TAB.SR.24H (FP) PO SCH (11:37)
--- NOTE | 2017-06-27 12:19 | DS ---
Physical Examination Vital Signs: Vital Signs Temperature 98.8 F 06/27/17 06:00 Pulse Rate 84 06/27/17 06:00 Respiratory Rate 18 06/27/17 02:00 Blood Pressure 102/73 06/27/17 06:00 O2 Sat by Pulse Oximetry (%) 98 06/23/17 18:34 Labs: CBC, BMP 06/24/17 08:40 06/26/17 06:00 Discharge Summary Reason For Visit: DEMENTIA,FAILURE TO THRIVE,ILEUS Current Active Problems Failure to thrive (Acute) Ileus (Acute) Dementia (Chronic) Condition: Improved - Instructions Diet, Activity, Other Instructions: Please return to the ED with new, persistent, or worsening symptoms. Please follow-up with your primary care provider within 1 week for further management of your high blood pressure and to have your sodium level checked. Referrals: Ashish Blas MD [Primary Care Provider] - 1 Week Disposition: ALF FACILITY - Home Medications Comprehensive Discharge Medication List: Ambulatory Orders Nitroglycerin [Nitrostat] 0.4 mg SL PRN PRN 09/25/16 Metoprolol Succinate 12.5 mg PO DAILY #30 tab.er.24h 03/10/17 Quetiapine Fumarate [Seroquel] 100 mg PO DAILY #30 tablet 03/10/17 Quetiapine Fumarate [Seroquel -] 100 mg PO HS #30 tab 06/27/17
[2017-06-27 14:45] VITALS: BP 112/74; PULSE 81; TEMP 98.4
== END 2017-06-27 14:52 | DRG 690 ==
LOC: JER 07:44 → JERBED 15:00 → J6S 18:55
PROVIDERS: ADMIT Internal Medicine; ATTEND Registered Nurse
DX: N39.0 Urinary tract infection, site not specified (principal); I42.8 Other cardiomyopathies; I50.22 Chronic systolic (congestive) heart failure; K56.7 Ileus, unspecified; E87.1 Hypo-osmolality and hyponatremia; R62.7 Adult failure to thrive; I11.0 Hypertensive heart disease with heart failure; G30.9 Alzheimer's disease, unspecified; F02.80 Dementia in other diseases classified elsewhere, unspecified severity, without behavioral disturbance, psychotic disturbance, mood disturbance, and anxiety; I25.10 Atherosclerotic heart disease of native coronary artery without angina pectoris; I48.0 Paroxysmal atrial fibrillation; E87.6 Hypokalemia; B96.4 Proteus (mirabilis) (morganii) as the cause of diseases classified elsewhere; E78.00 Pure hypercholesterolemia, unspecified; R32 Unspecified urinary incontinence; R15.9 Full incontinence of feces; M48.00 Spinal stenosis, site unspecified; I25.2 Old myocardial infarction; K44.9 Diaphragmatic hernia without obstruction or gangrene; Z74.01 Bed confinement status; Z95.5 Presence of coronary angioplasty implant and graft; Z95.810 Presence of automatic (implantable) cardiac defibrillator; Z88.0 Allergy status to penicillin
CPT/HCPCS: 36415; 70450-TC; 71045-TC-FY; 71275-TC; 74018-TC-FY; 74174-TC; 80048; 80053; 81003; 81015; 82272; 82550; 82553; 82803; 83605; 83735; 84100; 84484; 85025; 86850; 86900; 86901; 87040; 87086; 87186; 93005; 93010; 97116-GP; 97161-GP; 99285-25; J1644; J7030

== ENCOUNTER 2017-06-28 11:46 | Inpatient (IN) | payer OTHER ==
[2017-06-28] MEDS ORDERED: SODIUM CHLORIDE 1,000 ML IV ONE (12:07)
[2017-06-28 12:23] VITALS: BMI 22.3
--- NOTE | 2017-06-28 12:33 | PDOC ---
History of Present Illness - General Chief Complaint: Overdose Stated Complaint: possible overdose? Time Seen by Provider: 06/28/17 12:02 History Source: Spouse, Old Records Exam Limitations: Dementia - History of Present Illness Initial Comments: 06/28/17 12:23 77y/o F with advanced dementia, p-afib recently discharged to [facility] after admission for UTI, electrolyte abnormalities, and elevated trops now presents with somnolence/altered mental status. Pt was apparently ambulating and talking this morning en route to the dining area, next reported to be found by her alone and asleep in the chair, borderline unresponsive. They moved her to a bed and noted she was hypotensive to 70s, EMS activated and brought to ED. no falls, somnolent but intermittently mentating per at her usual baseline. Per [place] records, pt was given seroquel last night and apparently again this morning(?), she has been given her toprol 25mg which was recently started 2 /2 rapid afib. pt is able to follow commands and answer some yes/no questions. she is denying any pain. Past History - Past Medical History Allergies/Adverse Reactions: Allergies Allergy/AdvReac Type Severity Reaction Status Date / Time aspirin Allergy Verified 06/28/17 12:55 Penicillins Allergy Verified 06/28/17 12:55 Home Medications: Ambulatory Orders Quetiapine Fumarate [Seroquel] 100 mg PO DAILY #30 tablet 03/10/17 Quetiapine Fumarate [Seroquel -] 100 mg PO HS #30 tab 06/27/17 Metoprolol Succinate 25 mg PO DAILY 06/28/17 Sennosides [Senna] 8.6 mg PO HS 06/28/17 Anemia: No Asthma: No Cancer: No Cardiac Disorders: Yes (A-FIB) COPD: No CHF: No Dementia: Yes Disorders: Yes HTN: Yes Hypercholesterolemia: Yes - Surgical History Cardiac Surgery: Yes (STENTS, DEFIB) - Immunization History Immunization Up to Date: No - Suicide/Smoking/Psychosocial Hx Smoking History: Unknown if ever smoked Have you smoked in the past 12 months: No Hx Alcohol Use: No Drug/Substance Use Hx: No Substance Use Type: None Hx Substance Use Treatment: No Review of Systems - Review of Systems Able to Perform ROS?: No (dementia) *Physical Exam - Physical Exam Comments: 06/28/17 12:33 hypotensive at 75 systolic, improved to 96 systolic after about 500cc fluid resuscitation. somnolent but arousable to voice and touch, following commands quite easily and moving all 4 extremities purposefully. GENERAL: The patient is asleep and baseline demented, generally weak appearing. HEAD: Normal with no signs of trauma. EYES: PERRL, EOMI, sclera anicteric, conjunctiva clear with no pallor. ENT: oropharynx clear without exudates. edentulous but facial muscles symmetric , dry mucous membranes. NECK: Normal range of motion, supple without lymphadenopathy, JVD, or masses. LUNGS: Breath sounds equal, clear to auscultation bilaterally. No wheeze/ crackles. HEART: irregular with normal rare. ABDOMEN: Soft/nontender/nondistended. BS wnl. No guarding or rebound. No palpable masses. No hepatosplenomegaly. EXTREMITIES: Normal range of motion, no edema. 2+ distal pulses. No cords, erythema, or tenderness. NEUROLOGICAL: Cranial nerves II through XII grossly intact. Normal speech, gait deferred. PSYCH: UTO SKIN: Warm, Dry, no rashes or lesions noted. Heart Score/ECG Review #1 06/28/17 12:40 afib at 87, QRS 94, QTC 442, poor baseline lateral leads but no acute ST changes ED Treatment Course - LABORATORY CBC & Chemistry Diagram: 06/28/17 12:28 06/28/17 12:28 - RADIOLOGY Radiology Studies Ordered: Category Date Time Status CHEST X-RAY PORTABLE* [RAD] Stat Radiology 06/28/17 12:07 Ordered Medical Decision Making - Critical Care Time Total Critical Care Time (minutes): 65 Critical Care Statement: The care of this patient involved high complexity decision making to prevent further life threatening deterioration of the patient 's condition and/or to evaluate & treat vital organ system(s) failure or risk of failure. - Medical Decision Making 06/28/17 12:41 77y/o F advanced dementia, afib with pacemaker, recent hospitalization for UTI/ abnormal electrolytes and discharged to [place] yesterday now p/w acute generalized weakness/AMS with hypotension. shock ddx, ? sepsis, ? polypharmacy or additional seroquel, new b-arlene but HR regular/tachy so unlikely BB overdose. no evidence for focal aviation consultant process. sepsis protocol initiated pt BP responded to initial IV fluid resuscitation. will continue ekg without acute ischemia labs, ua cxr reassess and readmit. 06/28/17 13:03 markedly improved mental status after 1.5L IV fluids. now alert, smiling, and still without complaints. cbc wnl, wbc 11.5 with normal diff, no bands. Temp 97.8 rectally. pending chemistries. will discuss dispo plan with PCP Dr. Blas. 06/28/17 13:23 mild hypoNa, hypoK, hypoCa. Ca repleted, receiving IVF. Trop 0.04. T 97.8 CXR, on my prelim read, appears unchanged. BP returning to 90s systolic so fluids restarted. Discussed with Dr. Blas, we 'll watch overnight in hospital given borderline BP. 06/28/17 13:40 Accepted for obs tele by Dr. Jalloh. Awaiting UA, but has been on levaquin for proteus UTI. *DC/Admit/Observation/Transfer Diagnosis at time of Disposition: Weakness Hypotension Qualifiers: Hypotension type: unspecified hypotension type Qualified Code(s): I95.9 - Hypotension, unspecified - Discharge Dispostion Condition at time of disposition: Guarded Decision to Admit order: Yes - Referrals - Patient Instructions - Post Discharge Activity
[2017-06-28 12:47] LABS: BASO % 3.5 % (0-2.0); EOS % 0.2 % (0-4.5); HEMATOCRIT 32.7 % (32.4-45.2); HEMOGLOBIN 10.9 GM/dl (10.7-15.3); LYMPH % 6.3 % (8-40); MCH 30.9 pg (25.7-33.7); MCHC 33.3 g/dl (32.0-36.0); MEAN CELL VOLUME 92.7 fl (80-96); MEAN PLT VOLUME 7.4 fl (7.5-11.1); MONO % 10.6 % (3.8-10.2); NEUT % 79.4 % (42.8-82.8); PLATELET COUNT 306 K/MM3 (134-434); RBC 3.52 M/mm3 (3.60-5.2); RDW 12.4 % (11.6-15.6); WHITE BLOOD COUNT 11.5 K/mm3 (4.0-10.8)
[2017-06-28 13:08] LABS: ALBUMIN 2.3 g/dl (3.5-5.0); ALK PHOS 81 U/L (32-92); ANION GAP 10 (8-16); BILIRUBIN,TOTAL 0.5 mg/dl (0.2-1.0); BLOOD UREA NITROGEN 15 mg/dl (7-18); CALCIUM 7.3 mg/dl (8.4-10.2); CHLORIDE 97 mmol/L (98-107); CO2 23 mmol/L (22-28); GLUCOSE,RANDOM 106 mg/dl (74-106); POTASSIUM 3.4 mmol/L (3.5-5.1); SGOT/AST 35 U/L (10-42); SGPT/ALT 28 U/L (10-40); SODIUM 130 mmol/L (136-145); TOT PROT 5.3 g/dl (6.4-8.3)
[2017-06-28] MEDS ORDERED: CALCIUM GLUCONATE 10% - 1,000 MG/10 ML VIAL IVPB ONE (13:18)
[2017-06-28 13:23] LABS: ACTIVATED PTT 26.1 SECONDS (24.0-38.9)
[2017-06-28 13:27] LABS: VENOUS PC02 44.9 mmHg (38-52); VENOUS PH 7.38 (7.32-7.42); VENOUS PO2 22.2 mmHg (28-48)
[2017-06-28] MEDS ORDERED: CALCIUM GLUCONATE 10% - 1,000 MG/10 ML VIAL ONE (13:28)
[2017-06-28 13:31] LABS: INR 1.26 (0.82-1.09)
[2017-06-28 14:56] LABS: URINE APPEARANCE Clear; URINE BILIRUBIN Negative (NEGATIVE); URINE COLOR AMBER; URINE GLUCOSE (UA) Negative (NEGATIVE); URINE KETONE Negative (NEGATIVE); URINE LEUK ESTERASE 2+ (NEGATIVE); URINE NITRITE Negative (NEGATIVE); URINE PROTEIN Trace (NEGATIVE); URINE UROBILINOGEN 0.2 (0.2-1.0)
[2017-06-28] MEDS ORDERED: SODIUM CHLORIDE 0.9% 500 ML INFUS.BAG IV ONE (14:57)
[2017-06-28] MEDS ORDERED: SODIUM CHLORIDE 1,000 ML IV STA (15:00)
[2017-06-28 15:12] LABS: EPI CELLS FEW /HPF
--- NOTE | 2017-06-28 16:20 | EKG ---
Test Reason : Blood Pressure : / mmHG Vent. Rate : 090 BPM Atrial Rate : 144 BPM P-R Int : 000 ms QRS Dur : 104 ms QT Int : 372 ms P-R-T Axes : 000 003 139 degrees QTc Int : 455 ms ATRIAL FIBRILLATION INFERIOR INFARCT (CITED ON OR BEFORE 23-OCT-1999) ABNORMAL ECG WHEN COMPARED WITH ECG OF 23-JUN-2017 07:51, ATRIAL FIBRILLATION HAS REPLACED ATRIAL FLUTTER Confirmed by MD Prabhjot, Uvaldo ([id number]) on 06/28/2017 4:20:24 PM Referred By: HANK RITCHIE Confirmed By:Uvaldo Rick MD
[2017-06-28] MEDS ORDERED: TOBRAMYCIN SULFATE 120 MG in SODIUM CHLORIDE 100 ML IVPB ONE (16:31)
[2017-06-28] MEDS ORDERED: POTASSIUM CHLORIDE TABS 20 MEQ TABLET.ER (FP) PO ONE ×2 (16:34→17:05)
--- NOTE | 2017-06-28 17:13 | PDOC ---
*Physical Exam - Vital Signs Last Vital Signs Temp Pulse Resp BP Pulse Ox 97.8 F 85 18 106/70 97 06/28/17 12:44 06/28/17 16:55 06/28/17 16:13 06/28/17 16:55 06/28/17 16:13 <Danish Gay - Last Filed: 06/28/17 17:31> - Vital Signs Last Vital Signs Temp Pulse Resp BP Pulse Ox 97.8 F 85 18 106/70 97 06/28/17 12:44 06/28/17 16:55 06/28/17 16:13 06/28/17 16:55 06/28/17 16:13 <Umberto Russell - Last Filed: 06/28/17 19:25> ED Treatment Course - LABORATORY CBC & Chemistry Diagram: 06/28/17 12:28 06/28/17 12:28 - ADDITIONAL ORDERS Additional order review: Laboratory Results 06/28/17 06/28/17 06/28/17 14:28 12:50 12:30 PT with INR INR PTT (Actin FS) VBG pH 7.38 POC VBG pCO2 44.9 D POC VBG pO2 22.2 L D Mixed VBG HCO3 26.1 H Sodium Potassium Chloride Carbon Dioxide Anion Gap BUN Creatinine Creat Clearance w eGFR Random Glucose Lactic Acid Calcium Total Bilirubin AST ALT Alkaline Phosphatase Troponin I 0.04 Total Protein Albumin Urine Color [place] Urine Appearance Clear Urine pH 7.0 Ur Specific [place] 1.010 Urine Protein Trace Urine Glucose (UA) Negative Urine Ketones Negative Urine Blood 2+ H Urine Nitrite Negative Urine Bilirubin Negative Urine Urobilinogen 0.2 Ur Leukocyte Esterase 2+ H Urine RBC 5-8 Urine WBC 10-20 Ur Epithelial Cells Few 06/28/17 06/28/17 06/28/17 12:28 12:28 12:28 PT with INR INR PTT (Actin FS) VBG pH POC VBG pCO2 POC VBG pO2 Mixed VBG HCO3 Sodium 130 L Potassium 3.4 L Chloride 97 L Carbon Dioxide 23 Anion Gap 10 BUN 15 D Creatinine 1.0 Creat Clearance w eGFR 53.48 Random Glucose 106 Lactic Acid 1.5 Calcium 7.3 L Total Bilirubin 0.5 AST 35 D ALT 28 D Alkaline Phosphatase 81 D Troponin I Cancelled Total Protein 5.3 L D Albumin 2.3 L D Urine Color Urine Appearance Urine pH Ur Specific [place] Urine Protein Urine Glucose (UA) Urine Ketones Urine Blood Urine Nitrite Urine Bilirubin Urine Urobilinogen Ur Leukocyte Esterase Urine RBC Urine WBC Ur Epithelial Cells 06/28/17 12:28 PT with INR 14.0 H INR 1.26 H PTT (Actin FS) 26.1 L VBG pH POC VBG pCO2 POC VBG pO2 Mixed VBG HCO3 Sodium Potassium Chloride Carbon Dioxide Anion Gap BUN Creatinine Creat Clearance w eGFR Random Glucose Lactic Acid Calcium Total Bilirubin AST ALT Alkaline Phosphatase Troponin I Total Protein Albumin Urine Color Urine Appearance Urine pH Ur Specific [place] Urine Protein Urine Glucose (UA) Urine Ketones Urine Blood Urine Nitrite Urine Bilirubin Urine Urobilinogen Ur Leukocyte Esterase Urine RBC Urine WBC Ur Epithelial Cells 06/28/17 12:28 RBC 3.52 L MCV 92.7 MCHC 33.3 RDW 12.4 D MPV 7.4 L Neutrophils % 79.4 Lymphocytes % 6.3 L Monocytes % 10.6 H Eosinophils % 0.2 Basophils % 3.5 H - Medications Given in the ED: ED Medications Discontinued Medications Generic Name Dose Route Start Last Admin Trade Name Freq PRN Reason Stop Dose Admin Calcium Gluconate 1,000 mg 06/28/17 13:18 06/28/17 13:37 Calcium Gluconate 10% - IVPB 06/28/17 13:19 1,000 mg ONCE ONE Administration Sodium Chloride 1,000 mls @ 1,000 mls/hr 06/28/17 12:07 06/28/17 12:08 Normal Saline - IV 06/28/17 13:06 1,000 mls/hr ONCE ONE Administration Sodium Chloride 1,000 mls @ 1,000 mls/hr 06/28/17 15:00 06/28/17 15:05 Normal Saline - IV 06/28/17 15:59 1,000 mls/hr ASDIR STA Administration Levofloxacin 750 mg in 150 mls @ 100 mls/hr 06/28/17 15:53 06/28/17 15:57 Levaquin 750 Mg Premixed Ivpb - IVPB 06/28/17 17:22 100 mls/hr ONCE ONE Administration Protocol Tobramycin Sulfate 120 mg/ 103 mls @ 100 mls/hr 06/28/17 16:31 06/28/17 17:18 Sodium Chloride IVPB 06/28/17 17:30 100 mls/hr ONCE ONE Administration Protocol Potassium Chloride 20 meq 06/28/17 16:34 06/28/17 17:26 K-Dur - PO 06/28/17 16:35 20 meq ONCE ONE Administration Sodium Chloride 1,000 ml 06/28/17 14:57 06/28/17 12:45 Normal Saline - IV 06/28/17 14:58 1,000 ml NOW ONE Administration <Danish Gay - Last Filed: 06/28/17 17:31> - LABORATORY CBC & Chemistry Diagram: 06/28/17 12:28 06/28/17 12:28 - ADDITIONAL ORDERS Additional order review: Laboratory Results 06/28/17 06/28/17 06/28/17 14:28 12:50 12:30 PT with INR INR PTT (Actin FS) VBG pH 7.38 POC VBG pCO2 44.9 D POC VBG pO2 22.2 L D Mixed VBG HCO3 26.1 H Sodium Potassium Chloride Carbon Dioxide Anion Gap BUN Creatinine Creat Clearance w eGFR Random Glucose Lactic Acid Calcium Total Bilirubin AST ALT Alkaline Phosphatase Troponin I 0.04 Total Protein Albumin Urine Color [place] Urine Appearance Clear Urine pH 7.0 Ur Specific [place] 1.010 Urine Protein Trace Urine Glucose (UA) Negative Urine Ketones Negative Urine Blood 2+ H Urine Nitrite Negative Urine Bilirubin Negative Urine Urobilinogen 0.2 Ur Leukocyte Esterase 2+ H Urine RBC 5-8 Urine WBC 10-20 Ur Epithelial Cells Few 06/28/17 06/28/17 06/28/17 12:28 12:28 12:28 PT with INR INR PTT (Actin FS) VBG pH POC VBG pCO2 POC VBG pO2 Mixed VBG HCO3 Sodium 130 L Potassium 3.4 L Chloride 97 L Carbon Dioxide 23 Anion Gap 10 BUN 15 D Creatinine 1.0 Creat Clearance w eGFR 53.48 Random Glucose 106 Lactic Acid 1.5 Calcium 7.3 L Total Bilirubin 0.5 AST 35 D ALT 28 D Alkaline Phosphatase 81 D Troponin I Cancelled Total Protein 5.3 L D Albumin 2.3 L D Urine Color Urine Appearance Urine pH Ur Specific [place] Urine Protein Urine Glucose (UA) Urine Ketones Urine Blood Urine Nitrite Urine Bilirubin Urine Urobilinogen Ur Leukocyte Esterase Urine RBC Urine WBC Ur Epithelial Cells 06/28/17 12:28 PT with INR 14.0 H INR 1.26 H PTT (Actin FS) 26.1 L VBG pH POC VBG pCO2 POC VBG pO2 Mixed VBG HCO3 Sodium Potassium Chloride Carbon Dioxide Anion Gap BUN Creatinine Creat Clearance w eGFR Random Glucose Lactic Acid Calcium Total Bilirubin AST ALT Alkaline Phosphatase Troponin I Total Protein Albumin Urine Color Urine Appearance Urine pH Ur Specific [place] Urine Protein Urine Glucose (UA) Urine Ketones Urine Blood Urine Nitrite Urine Bilirubin Urine Urobilinogen Ur Leukocyte Esterase Urine RBC Urine WBC Ur Epithelial Cells 06/28/17 12:28 RBC 3.52 L MCV 92.7 MCHC 33.3 RDW 12.4 D MPV 7.4 L Neutrophils % 79.4 Lymphocytes % 6.3 L Monocytes % 10.6 H Eosinophils % 0.2 Basophils % 3.5 H - Medications Given in the ED: ED Medications Discontinued Medications Generic Name Dose Route Start Last Admin Trade Name Jorgeq PRN Reason Stop Dose Admin Calcium Gluconate 1,000 mg 06/28/17 13:18 06/28/17 13:37 Calcium Gluconate 10% - IVPB 06/28/17 13:19 1,000 mg ONCE ONE Administration Sodium Chloride 1,000 mls @ 1,000 mls/hr 06/28/17 12:07 06/28/17 12:08 Normal Saline - IV 06/28/17 13:06 1,000 mls/hr ONCE ONE Administration Sodium Chloride 1,000 mls @ 1,000 mls/hr 06/28/17 15:00 06/28/17 15:05 Normal Saline - IV 06/28/17 15:59 1,000 mls/hr ASDIR STA Administration Sodium Chloride 1,000 ml 06/28/17 14:57 06/28/17 12:45 Normal Saline - IV 06/28/17 14:58 1,000 ml NOW ONE Administration <Umberto Russell - Last Filed: 06/28/17 19:25> Medical Decision Making - Medical Decision Making 06/28/17 17:08 Patient presented with altered mental status and hypotension. She got 3 L of normal saline. She responded well to each liter, but then again had transient mild hypotension after completing the liter. Most recently, her blood pressure dropped to 89/60 with a map of 70. She remains awake and responsive. She appears well. Her lactate was 1.5. Her troponin was negative. Her chest x- ray was clear. Her white blood cell count was mildly elevated to 11. Her urinalysis shows positive leukocyte esterase and modest pyuria. Differential diagnosis of her mild hypotension is possible urinary tract infection with sepsis, but more likely dehydration. Given the recurrent episodes of hypotension, patient will be monitored in the ICU. ICU admission has been approved by Dr. Giorgi Kaur. Patient had been on Levaquin in the hospital for several days for Proteus urinary tract infection. She was restarted on Levaquin here today given her hypotension and abnormal urinalysis. However, the possibility of resistance also exists. Given her penicillin ALLERGY of unknown severity, a single dose of tobramycin, 2 mg/kg was given. Impression: Hypotension, possibly dehydration, possibly urosepsis. Admit to ICU Continue hydration, no signs of volume overload and no edema on physical examination including legs, arms, flanks, and buttocks. Potassium repleted. Calcium repleted. Mild hyponatremia treated with normal saline. 06/28/17 17:30 Patient was presented to [facility], [facility] hospitalist team, endorsed for admission. Patient going to ICU given episodes of hypotension, although now it has resolved. Vital Signs - 24 hr 06/28/17 06/28/17 06/28/17 11:55 12:06 12:07 Temperature Pulse Rate 93 H Pulse Rate [ 88 95 H Right] Respiratory 17 Rate Blood Pressure 79/45 Blood Pressure 84/56 97/69 [Left Arm] O2 Sat by Pulse 95 Oximetry (%) 06/28/17 06/28/17 06/28/17 12:44 12:46 14:56 Temperature 97.8 F Pulse Rate Pulse Rate [ 90 73 Right] Respiratory 18 Rate Blood Pressure Blood Pressure 110/76 83/56 [Left Arm] O2 Sat by Pulse Oximetry (%) 06/28/17 06/28/17 06/28/17 15:31 16:13 16:34 Temperature Pulse Rate Pulse Rate [ 88 79 82 Right] Respiratory 18 18 Rate Blood Pressure Blood Pressure 122/70 83/53 89/60 [Left Arm] O2 Sat by Pulse 99 97 Oximetry (%) 06/28/17 16:55 Temperature Pulse Rate Pulse Rate [ 85 Right] Respiratory Rate Blood Pressure Blood Pressure 106/70 [Left Arm] O2 Sat by Pulse Oximetry (%) 06/28/17 19:23 Patient transferred to [place] ICU at 7 PM with stable vital signs. Last Vital Signs Temp Pulse Resp BP Pulse Ox 97.8 F 102 H 17 105/58 97 06/28/17 12:44 06/28/17 19:03 06/28/17 17:56 06/28/17 19:03 06/28/17 17:56 <Umberto Russell - Last Filed: 06/28/17 19:25> *DC/Admit/Observation/Transfer - Attestations Scribe Attestion: 06/28/17 17:32 Documentation prepared by Danish Gay, acting as medical illustrator for Umberto Russell MD. <Danish Gay - Last Filed: 06/28/17 17:31> - Discharge Dispostion Decision to Admit order: Yes <Umberto Russell - Last Filed: 06/28/17 19:25> Diagnosis at time of Disposition: Weakness Hypotension Qualifiers: Hypotension type: unspecified hypotension type Qualified Code(s): I95.9 - Hypotension, unspecified UTI (urinary tract infection) Qualifiers: Urinary tract infection type: acute cystitis Hematuria presence: without hematuria Qualified Code(s): N30.00 - Acute cystitis without hematuria - Discharge Dispostion Condition at time of disposition: Guarded
[2017-06-28] MEDS ORDERED: SODIUM CHLORIDE 1,000 ML IV SCH (19:45)
--- NOTE | 2017-06-28 19:53 | PN ---
Teaching Attending Note Name of Resident: Edmond Jones ATTENDING PHYSICIAN STATEMENT I saw and evaluated the patient. I reviewed the resident's note and discussed the case with the resident. I agree with the resident's findings and plan as documented. SUBJECTIVE: Patient is a 77 year old woman with chief complaint of altered mental status and unresponsiveness. She has history of advanced dementia, paroxysmal Afib and was recently discharged to [facility] after admission for Proteus mirabilis. [facility] the jail was sudden and there was associated severe hypotension - which responded to 3 liters of IV NS. jail records a high dose of seroquel which may be contributing to her AMS. She has been given one dose of Levaquin and oned dose of tobramycin. OBJECTIVE: Alert and in no acute distress. Unable to follow commands. Confused. Vital Signs Period Temp Pulse Resp BP Sys/Bundy Pulse Ox Last 24 Hr 97.8 F 73-102 17-18 79-122/45-76 95-99 HEENT: No Jaundice, eye redness or discharge, PERRLA, EOMI. Edentulous and doesnt like to use her dentures. External ears are normal and hearing is grossly intact. No nasal discharge. Neck: Supple, nontender. No palpable adenopathy or thyromegaly. No JVD Chest: Good effort. Clear to auscultation and percussion. Heart: Regular with ectopics. No S3, rub or murmur Abdomen: Not distended, soft, nontender and no HSM. No rebound or guarding. Normoactive bowel sounds. Ext: Peripheral pulses intact. No leg edema. Skin: Warm and dry. No petechiae, rash or ecchymosis. Neuro: Alert. Oriented to person, but confused and unable to follow commands. Moves all limbs. No over focal deficits. Current Medications Generic Name Dose Route Start Last Admin Trade Name Freq PRN Reason Stop Dose Admin Chlorhexidine Gluconate 1 applic 06/28/17 22:00 Hibiclens For Decolonization - TP HS PENG Heparin Sodium (Porcine) 5,000 unit 06/28/17 22:00 Heparin - SQ TID PENG Sodium Chloride 1,000 mls @ 50 mls/hr 06/28/17 19:45 Normal Saline - IV 06/29/17 19:36 ASDIR PENG Mupirocin 1 applic 06/28/17 22:00 Bactroban Ointment (For Decolonization) - NS 07/03/17 21:59 BID [facility] Senna 1 tab 06/28/17 22:00 Senna - PO [facility] Home Medications Medication Instructions Recorded Quetiapine Fumarate [Seroquel] 100 mg PO DAILY #30 tablet 03/10/17 Quetiapine Fumarate [Seroquel -] 100 mg PO HS #30 tab 06/27/17 Metoprolol Succinate 25 mg PO DAILY 06/28/17 Sennosides [Senna] 8.6 mg PO HS 06/28/17 Laboratory Results - last 24 hr 06/28/17 06/28/17 06/28/17 12:28 12:28 12:28 WBC 11.5 H RBC 3.52 L Hgb 10.9 D Hct 32.7 D MCV 92.7 MCH 30.9 MCHC 33.3 RDW 12.4 D Plt Count 306 MPV 7.4 L Neutrophils % 79.4 Lymphocytes % 6.3 L Monocytes % 10.6 H Eosinophils % 0.2 Basophils % 3.5 H PT with INR 14.0 H INR 1.26 H PTT (Actin FS) 26.1 L VBG pH POC VBG pCO2 POC VBG pO2 Mixed VBG HCO3 Sodium 130 L Potassium 3.4 L Chloride 97 L Carbon Dioxide 23 Anion Gap 10 BUN 15 D Creatinine 1.0 Creat Clearance w eGFR 53.48 Random Glucose 106 Lactic Acid Calcium 7.3 L Total Bilirubin 0.5 AST 35 D ALT 28 D Alkaline Phosphatase 81 D Troponin I Total Protein 5.3 L D Albumin 2.3 L D Urine Color Urine Appearance Urine pH Ur Specific [place] Urine Protein Urine Glucose (UA) Urine Ketones Urine Blood Urine Nitrite Urine Bilirubin Urine Urobilinogen Ur Leukocyte Esterase Urine RBC Urine WBC Ur Epithelial Cells 06/28/17 06/28/17 06/28/17 12:28 12:28 12:30 WBC RBC Hgb Hct MCV MCH MCHC RDW Plt Count MPV Neutrophils % Lymphocytes % Monocytes % Eosinophils % Basophils % PT with INR INR PTT (Actin FS) VBG pH 7.38 POC VBG pCO2 44.9 D POC VBG pO2 22.2 L D Mixed VBG HCO3 26.1 H Sodium Potassium Chloride Carbon Dioxide Anion Gap BUN Creatinine Creat Clearance w eGFR Random Glucose Lactic Acid 1.5 Calcium Total Bilirubin AST ALT Alkaline Phosphatase Troponin I Cancelled Total Protein Albumin Urine Color Urine Appearance Urine pH Ur Specific [place] Urine Protein Urine Glucose (UA) Urine Ketones Urine Blood Urine Nitrite Urine Bilirubin Urine Urobilinogen Ur Leukocyte Esterase Urine RBC Urine WBC Ur Epithelial Cells 06/28/17 06/28/17 12:50 14:28 WBC RBC Hgb Hct MCV MCH MCHC RDW Plt Count MPV Neutrophils % Lymphocytes % Monocytes % Eosinophils % Basophils % PT with INR INR PTT (Actin FS) VBG pH POC VBG pCO2 POC VBG pO2 Mixed VBG HCO3 Sodium Potassium Chloride Carbon Dioxide Anion Gap BUN Creatinine Creat Clearance w eGFR Random Glucose Lactic Acid Calcium Total Bilirubin AST ALT Alkaline Phosphatase Troponin I 0.04 Total Protein Albumin Urine Color [place] Urine Appearance Clear Urine pH 7.0 Ur Specific [place] 1.010 Urine Protein Trace Urine Glucose (UA) Negative Urine Ketones Negative Urine Blood 2+ H Urine Nitrite Negative Urine Bilirubin Negative Urine Urobilinogen 0.2 Ur Leukocyte Esterase 2+ H Urine RBC 5-8 Urine WBC 10-20 Ur Epithelial Cells Few ASSESSMENT AND PLAN: 1. AMS/Incompletely treated UTI/Hypotension - Patient has been admitted to the ICU as an inpatient and is currently being managed as a case of severe sepsis. Will continue IV levaquin and IV NS, hold seroquel and consult ID about need to continue tobramycin pending repeat urine culture. Her head CT scan does not show any acute pathology but CXR shows possible left base atelectasis/ infiltrate. Will repeat CXR in 24 hours since she is at risk for aspiration - depending on result, may get chest CT scan. 2. Hypokalemia - Likely due to poor intake with ongoing losses. Will check magnesium level and give IV KCL. 3. Afib - Not on anticoagulation. Will hold metoprolol for now in view of hypotension. 4. Nutrition - Low albumin is concerning. Needs intense nutritional support - takes puree diet. 5. Dementia - Continue comprehensive care, fall precautions and frequent repositioning. 6. DVT prophylaxis - Heparin 5000u sq tid 7. Advance directives - Full code
--- NOTE | 2017-06-28 19:57 | CONSULT ---
Consult - text type - Consultation Consultation Note: [facility] Pt seen and examined in ICU CC: weakness HPI: (obtained from medical record) Mrs Shaffer is a 77 y/o woman with advanced dementia, resides in NH, paroxysmal afib, recent admission for UTI now admitted for same. Pt was more somulent and altered, with generalized weakness, poorly responsive in NH, Systolic BP in [facility] was 70s prompting 911 activation. Pt unable to provide localizing symptoms but no reported new cough, no fevers, no sick contacts, no chest pain or SOB. She was recently started on toprol 25 but has tolerated it prior to today. Pt was seen in ED, was borderline hypotensive but responded well to fluids. UA was + LE, 10-20 wbc. She was given IV levaquin and tobramycin. She has hx of proteus UTI but no significant resistance. Pt was transferred to ICU for further care. On arrival in ICU pt normtensive 130/80, HR 80s in afib, and without distress. Plan had been for observation but was tx to ICU. 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 Dementia Cardio/Vascular AFIB,CAD,CHF,HTN,Hyperlipdemia,AL,Other Gastrointestinal Diverticulosis Past Surgical History Past Surgical History AICD, Smoking History Smoking history Unknown if ever smoked Alcohol/Substance Use Hx Alcohol Use No Social History ADL Support Services History of Recent Travel No Ambulatory Orders Quetiapine Fumarate [Seroquel] 100 mg PO DAILY #30 tablet 03/10/17 Quetiapine Fumarate [Seroquel -] 100 mg PO HS #30 tab 06/27/17 Metoprolol Succinate 25 mg PO DAILY 06/28/17 Sennosides [Senna] 8.6 mg PO HS 06/28/17 Active Medications Chlorhexidine Gluconate (Hibiclens For Decolonization -) 1 applic TP HS PENG Heparin Sodium (Porcine) (Heparin -) 5,000 unit SQ TID PENG Sodium Chloride (Normal Saline -) 1,000 mls @ 50 mls/hr IV ASDIR PENG Stop: 06/29/17 19:36 Levofloxacin (Levaquin) 750 mg PO DAILY PENG Mupirocin (Bactroban Ointment (For Decolonization) -) 1 applic NS BID PENG Stop: 07/03/17 21:59 Senna (Senna -) 1 tab PO HS [facility] Vital Signs Temp 97.8 F 06/28/17 12:44 Pulse 102 H 06/28/17 19:03 Resp 17 06/28/17 17:56 BP 105/58 06/28/17 19:03 Pulse Ox 97 06/28/17 17:56 Intake & Output 06/27/17 06/28/17 06/28/17 23:59 11:59 23:59 Intake Total 1999 Balance 1999 Weight 58.967 kg Intake: IV 2000 Normal Saline - 1,000 ml 2000 @ 1000 mls/hr IV ONCE ONE Rx#:[id number] Other: Height 5 ft 4 in Body Mass Index (BMI) 22.3 Weight Measurement Method Estimated by Staff WBC 11.5 K/mm3 (4.0-10.8) H 06/28/17 12:28 RBC 3.52 M/mm3 (3.60-5.2) L 06/28/17 12:28 Hgb 10.9 GM/dl (10.7-15.3) D 06/28/17 12:28 Hct 32.7 % (32.4-45.2) D 06/28/17 12:28 MCV 92.7 fl (80-96) 06/28/17 12:28 MCHC 33.3 g/dl (32.0-36.0) 06/28/17 12:28 RDW 12.4 % (11.6-15.6) D 06/28/17 12:28 Plt Count 306 K/MM3 (134-434) 06/28/17 12:28 MPV 7.4 fl (7.5-11.1) L 06/28/17 12:28 CMP Sodium 130 mmol/L (136-145) L 06/28/17 12:28 Potassium 3.4 mmol/L (3.5-5.1) L 06/28/17 12:28 Chloride 97 mmol/L (98-107) L 06/28/17 12:28 Carbon Dioxide 23 mmol/L (22-28) 06/28/17 12:28 Anion Gap 10 (8-16) 06/28/17 12:28 BUN 15 mg/dl (7-18) D 06/28/17 12:28 Creatinine 1.0 mg/dl (0.6-1.3) 06/28/17 12:28 Creat Clearance w eGFR 53.48 (>60) 06/28/17 12:28 Random Glucose 106 mg/dl (74-106) 06/28/17 12:28 Calcium 7.3 mg/dl (8.4-10.2) L 06/28/17 12:28 Total Bilirubin 0.5 mg/dl (0.2-1.0) 06/28/17 12:28 AST 35 U/L (10-42) D 06/28/17 12:28 ALT 28 U/L (10-40) D 06/28/17 12:28 Alkaline Phosphatase 81 U/L (32-92) D 06/28/17 12:28 Total Protein 5.3 g/dl (6.4-8.3) L D 06/28/17 12:28 Albumin 2.3 g/dl (3.5-5.0) L D 06/28/17 12:28 CARDIAC ENZYMES Troponin I 0.04 ng/ml (0.00-0.06) 06/28/17 12:50 Urine Test Results Urine Color [place] 06/28/17 14:28 Urine Appearance Clear 06/28/17 14:28 Urine pH 7.0 (4.5-8) 06/28/17 14:28 Ur Specific [place] 1.010 (1.005-1.025) 06/28/17 14:28 Urine Protein Trace (NEGATIVE) 06/28/17 14:28 Urine Glucose (UA) Negative (NEGATIVE) 06/28/17 14:28 Urine Ketones Negative (NEGATIVE) 06/28/17 14:28 Urine Blood 2+ (NEGATIVE) H 06/28/17 14:28 Urine Nitrite Negative (NEGATIVE) 06/28/17 14:28 Urine Bilirubin Negative (NEGATIVE) 06/28/17 14:28 Ur Leukocyte Esterase 2+ (NEGATIVE) H 06/28/17 14:28 Urine RBC 5-8 /hpf (0-3) 06/28/17 14:28 Urine WBC 10-20 (0-5) 06/28/17 14:28 Ur Epithelial Cells Few /HPF 06/28/17 14:28 ROS: unable due to pt condition/dementia PE: Gen: non toxic appearing eld woman HENT: NCAT, PERRL PULM: clear anterior, no wheezes CV: irreg, non displaced pmi, CANDIE ABD; Soft, NT, ND EXT; trace edema Neuro: confused, responds to questions intermittently, non focal exam A/ 77 y/o woman with advanced dementia, recent UTI, now returning with sepsis s/ s UTI P/ -cont LVQ daily (would monitor qTC daily given seroquel) -can d/c tobra as no hx of pseudomas -hold BB today, can restart tomorrow if stable -minimize seroquel dosing as able -SQH, no indication for GI prophy -Ok for floor vs d/c directly to [facility] ACNP
--- NOTE | 2017-06-28 20:26 | HP ---
CHIEF COMPLAINT: altered mental status HISTORY OF PRESENT ILLNESS: 77 year old female with a history of advanced dementia, atrial fibrillation ( not on anticoagulation) presented to the ED for somnolence and altered mental status. The patient's states that she was discharged yesterday from the hospital to [facility] after a stay for sepsis 2/2 UTI (proteus in urine) for which she was on levaquin. He states that he found her slouched on her wheelchair and not responding to commands like he normally does. They called EMS, who found her hypotensive and brought her to the emergency department. She was transferred to the ICU for intense BP monitoring. Her blood pressure improved after 3L NS administration. On my examination, patient is awake, not alert or oriented, and the reports that she appears much better than when she was first in the emergency department. ER course was notable for: (1)Na 130 (2)K 3.4 (3)UA 2+ LE, 10-20 WBC PAST MEDICAL HISTORY: as stated above Social History: Smoking: none Alcohol: none Drugs: none Allergies aspirin Allergy (Verified 06/28/17 12:55) Penicillins Allergy (Verified 06/28/17 12:55) HOME MEDICATIONS: Home Medications Medication Instructions Recorded Quetiapine Fumarate [Seroquel] 100 mg PO DAILY #30 tablet 03/10/17 Quetiapine Fumarate [Seroquel -] 100 mg PO HS #30 tab 06/27/17 Metoprolol Succinate 25 mg PO DAILY 06/28/17 Sennosides [Senna] 8.6 mg PO HS 06/28/17 REVIEW OF SYSTEMS CONSTITUTIONAL: Absent: fever, chills, diaphoresis, generalized weakness, malaise, loss of appetite, weight change HEENT: Absent: rhinorrhea, nasal congestion, throat pain, throat swelling, difficulty swallowing, mouth swelling, ear pain, eye pain, visual changes CARDIOVASCULAR: Absent: chest pain, syncope, palpitations, irregular heart rate, lightheadedness , peripheral edema RESPIRATORY: Absent: cough, shortness of breath, dyspnea with exertion, orthopnea, wheezing, stridor, hemoptysis GASTROINTESTINAL: Absent: abdominal pain, abdominal distension, nausea, vomiting, diarrhea, constipation, melena, hematochezia GENITOURINARY: Absent: dysuria, frequency, urgency, hesitancy, hematuria, flank pain, genital pain MUSCULOSKELETAL: Absent: myalgia, arthralgia, joint swelling, back pain, neck pain SKIN: Absent: rash, itching, pallor HEMATOLOGIC/IMMUNOLOGIC: Absent: easy bleeding, easy bruising, lymphadenopathy, frequent infections ENDOCRINE: Absent: unexplained weight gain, unexplained weight loss, heat intolerance, cold intolerance NEUROLOGIC: Absent: headache, focal weakness or paresthesias, dizziness, unsteady gait, seizure, mental status changes, bladder or bowel incontinence PSYCHIATRIC: Absent: anxiety, depression, suicidal or homicidal ideation, hallucinations. PHYSICAL EXAMINATION Vital Signs - 24 hr 06/28/17 06/28/17 06/28/17 11:55 12:06 12:07 Temperature Pulse Rate 93 H Pulse Rate [ 88 95 H Right] Respiratory 17 Rate Blood Pressure 79/45 Blood Pressure 84/56 97/69 [Left Arm] O2 Sat by Pulse 95 Oximetry (%) 06/28/17 06/28/17 06/28/17 12:44 12:46 14:56 Temperature 97.8 F Pulse Rate Pulse Rate [ 90 73 Right] Respiratory 18 Rate Blood Pressure Blood Pressure 110/76 83/56 [Left Arm] O2 Sat by Pulse Oximetry (%) 06/28/17 06/28/17 06/28/17 15:31 16:13 16:34 Temperature Pulse Rate Pulse Rate [ 88 79 82 Right] Respiratory 18 18 Rate Blood Pressure Blood Pressure 122/70 83/53 89/60 [Left Arm] O2 Sat by Pulse 99 97 Oximetry (%) 06/28/17 06/28/17 06/28/17 16:55 17:56 19:03 Temperature Pulse Rate Pulse Rate [ 85 83 102 H Right] Respiratory 17 Rate Blood Pressure Blood Pressure 106/70 106/59 105/58 [Left Arm] O2 Sat by Pulse 97 Oximetry (%) GENERAL: Alert but NOT oriented, no acute distress but patient is agitated EYES: PERRLA, EOMI ENT: Moist mucus membranes NECK: No JVD LUNGS: CTA, no wheezes HEART: irregularly irregular rate, no murmurs ABDOMEN: Soft, nontender, BS present MUSCULOSKELETAL: No CVA Tenderness EXTREMITIES: 2+ pulses, no edema. NEUROLOGICAL: Unable to assess due to mental status Laboratory Results - last 24 hr 06/28/17 06/28/17 06/28/17 12:28 12:28 12:28 WBC 11.5 H RBC 3.52 L Hgb 10.9 D Hct 32.7 D MCV 92.7 MCH 30.9 MCHC 33.3 RDW 12.4 D Plt Count 306 MPV 7.4 L Neutrophils % 79.4 Lymphocytes % 6.3 L Monocytes % 10.6 H Eosinophils % 0.2 Basophils % 3.5 H PT with INR 14.0 H INR 1.26 H PTT (Actin FS) 26.1 L VBG pH POC VBG pCO2 POC VBG pO2 Mixed VBG HCO3 Sodium 130 L Potassium 3.4 L Chloride 97 L Carbon Dioxide 23 Anion Gap 10 BUN 15 D Creatinine 1.0 Creat Clearance w eGFR 53.48 Random Glucose 106 Lactic Acid Calcium 7.3 L Total Bilirubin 0.5 AST 35 D ALT 28 D Alkaline Phosphatase 81 D Troponin I Total Protein 5.3 L D Albumin 2.3 L D Urine Color Urine Appearance Urine pH Ur Specific [place] Urine Protein Urine Glucose (UA) Urine Ketones Urine Blood Urine Nitrite Urine Bilirubin Urine Urobilinogen Ur Leukocyte Esterase Urine RBC Urine WBC Ur Epithelial Cells 06/28/17 06/28/17 06/28/17 12:28 12:28 12:30 WBC RBC Hgb Hct MCV MCH MCHC RDW Plt Count MPV Neutrophils % Lymphocytes % Monocytes % Eosinophils % Basophils % PT with INR INR PTT (Actin FS) VBG pH 7.38 POC VBG pCO2 44.9 D POC VBG pO2 22.2 L D Mixed VBG HCO3 26.1 H Sodium Potassium Chloride Carbon Dioxide Anion Gap BUN Creatinine Creat Clearance w eGFR Random Glucose Lactic Acid 1.5 Calcium Total Bilirubin AST ALT Alkaline Phosphatase Troponin I Cancelled Total Protein Albumin Urine Color Urine Appearance Urine pH Ur Specific [place] Urine Protein Urine Glucose (UA) Urine Ketones Urine Blood Urine Nitrite Urine Bilirubin Urine Urobilinogen Ur Leukocyte Esterase Urine RBC Urine WBC Ur Epithelial Cells 06/28/17 06/28/17 12:50 14:28 WBC RBC Hgb Hct MCV MCH MCHC RDW Plt Count MPV Neutrophils % Lymphocytes % Monocytes % Eosinophils % Basophils % PT with INR INR PTT (Actin FS) VBG pH POC VBG pCO2 POC VBG pO2 Mixed VBG HCO3 Sodium Potassium Chloride Carbon Dioxide Anion Gap BUN Creatinine Creat Clearance w eGFR Random Glucose Lactic Acid Calcium Total Bilirubin AST ALT Alkaline Phosphatase Troponin I 0.04 Total Protein Albumin Urine Color [place] Urine Appearance Clear Urine pH 7.0 Ur Specific [place] 1.010 Urine Protein Trace Urine Glucose (UA) Negative Urine Ketones Negative Urine Blood 2+ H Urine Nitrite Negative Urine Bilirubin Negative Urine Urobilinogen 0.2 Ur Leukocyte Esterase 2+ H Urine RBC 5-8 Urine WBC 10-20 Ur Epithelial Cells Few ASSESSMENT/PLAN: 77 year old female with a history of advanced dementia, atrial fibrillation ( not on anticoagulation) presents to the hospital for altered mental status possibly 2/2 urinary tract infection #Altered Mental Status: likely 2/2 sepsis/UTI vs electrolyte imbalances -UA positive for LE and WBCs -blood culture sent -EKG shows afib, 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 Nunez appreciated -hold seroquel for now -levaquin and tobramycin given by ED -continue levaquin for now -physical therapy #Hyponatremia: sodium 130 -continue NS @ 50cc/hr -repeat BMP in AM #Hypokalemia: potassium 3.4 -give a dose of Kdur, repeat BMP in AM #Atrial Fibrillation: patient is rate controlled but not on anticoagulation -Dr. Blas consult appreciated -hold metoprolol for now in the setting of hypotension -once hypotension resolves, can resume metoprolol in AM #FEN -NS @ 50cc/hr -replete lytes as necessary in AM -low sodium diet #Prophylaxis -heparin subq 5000 TID #Disposition -Admit to ICU, can likely be transferred to med-surg tomorrow Visit type - Emergency Visit Emergency Visit: Yes ED Registration Date: 06/28/17 Care time: The patient presented to the Emergency Department on the above date and was hospitalized for further evaluation of their emergent condition. - New Patient This patient is new to me today: Yes Date on this admission: 06/28/17 - Critical Care Critical Care patient: Yes Total Critical Care Time (in minutes): 35 Critical Care Statement: The care of this patient involved high complexity decision making to prevent further life threatening deterioration of the patient 's condition and/or to evaluate & treat vital organ system(s) failure or risk of failure. Hospitalist Screening - Colonoscopy Questionnaire Colonoscopy Questionnaire: Colonoscopy Questionnaire - Patient: 50 - 75 years old and never had a screening colonoscopy: Unknown History of colon or rectal polyps, or CA: Unknown History of IBD, Crohn's disease or UC: Unknown History of abdominal radiation therapy as a child: Unknown - Relative: 1 with colon or rectal CA, or polyps at age 60 or younger: Unknown Colon or rectal CA diagnosed at age 45 or younger: Unknown Multiple relatives with colon or rectal CA: Unknown - Outcome: Screening Result: Negative Screen
--- NOTE | 2017-06-28 22:14 | CONSULT ---
Consult - text type - Consultation Consultation Note: NEUROLOGY CONSULTATION is greatly appreciated: This 77 yo woman with h/o tachyarrythmia and advanced dementia with behavioral disturbance is well-known to me. On metoprolol for tachycardia and quetiapine (100 mg BID) for agitation. S/P PPM /defibrillator Two recent [facility] admissions: the first was for recurrent hypotension attributed to high-doses of quetiapine administered by her . More recently here for UTI transferred to [facility]. Now returns with depressed LOC (found sleeping in chair, poorly responsive) with hypotension, leukocytosis (11k) and UTI (WBC=10-20). CT of head (reviewed): severe atrophy and ex vacuo hydocephalus. Now on Levaquin. KASIA: No evidence of external head trauma. No bruits. Neck supple. S/P PPM NEURO: Awake, alert, cooperative but confused. Cannot give her age, , SJ, month or year. Speech sl dysarthric but fluent. CN: Full chakraborty, full EOM's, No facial. Gag OK Moves al fours well. Sl increased tone. Normal reflexes. Toes downgoing No obvious dystaxia. Withdraws all 4's. IMP: Severe, B/L, cerebral dysfunction (OMS/Chronic) most consistent with advanced Alzheimer's Disease (AD). Syncope due to hypotension Toxic-metabolic encephalopathy (TME) due to UTI. SUGGEST: Agree completely with current management: Continue antibiotics, fluids, cardiac monitoring. Try not to exceed 200mg/day of quetiapine Thank you very much, Jackson Nunez MD
[2017-06-28] MEDS: MUPIROCIN 2% TOPICAL OINTMENT FOR DECOLONIZATION NS SCH (22:31)
[2017-06-28] MEDS: CHLORHEXIDINE GLUCONATE 4% CLEANSER FOR DECOLONIZATION TP SCH (22:32)
[2017-06-28] MEDS: HEPARIN NA (PORCINE) 5,000 UNITS/ML 1ML VIAL SQ SCH (22:38)
[2017-06-28] MEDS: SENNOSIDES 8.6MG TABLET (FP) PO SCH (22:40)
[2017-06-29 06:39] LABS: HEMOGLOBIN 10.9 GM/dL (10.7-15.3); MCH 31.8 pg (25.7-33.7); MCHC 34.2 g/dl (32.0-36.0); MEAN CELL VOLUME 93.1 fl (80-96); RBC 3.43 M/mm3 (3.60-5.2); WHITE BLOOD COUNT 8.5 K/mm3 (4.0-10.0)
[2017-06-29 06:40] LABS: BASO % 0.3 % (0-2.0); EOS % 0.7 % (0-4.5); INR 1.17 (0.82-1.09); LYMPH % 12.4 % (8-40); MEAN PLT VOLUME 7.8 fl (7.5-11.1); MONO % 11.8 % (3.8-10.2); NEUT % 74.8 % (42.8-82.8); PLATELET COUNT 296 K/MM3 (134-434); PROTHROMBIN TIME (PATIENT) 13.2 SEC (9.7-13.0); RDW 13.5 % (11.6-15.6)
[2017-06-29] MEDS: HEPARIN NA (PORCINE) 5,000 UNITS/ML 1ML VIAL SQ SCH ×3 (07:00→22:13)
[2017-06-29 07:20] LABS: ALBUMIN 2.3 g/dl (3.4-5.0); ALK PHOS 97 U/L (45-117); ANION GAP 8 (8-16); BILIRUBIN,TOTAL 0.6 mg/dL (0.2-1.0); BLOOD UREA NITROGEN 13 mg/dL (7-18); CALCIUM 7.6 mg/dL (8.5-10.1); CHLORIDE 104 mmol/L (98-107); CO2 24 mmol/L (21-32); CREATININE 0.7 mg/dL (0.55-1.02); GLUCOSE,RANDOM 92 mg/dL (74-106); MAGNESIUM 1.9 mg/dL (1.8-2.4); PHOSPHOROUS 2.5 mg/dL (2.5-4.9); POTASSIUM 3.7 mmol/L (3.5-5.1); SGOT/AST 32 U/L (15-37); SGPT/ALT 26 U/L (12-78); SODIUM 136 mmol/L (136-145); TOT PROT 5.8 g/dl (6.4-8.2)
--- NOTE | 2017-06-29 09:25 | CON.CARD ---
Consult Consult Specialty:: Cardiology Referred by:: Hospitalist Reason for Consultation:: cad, afib, cardiomyopathy - History of Present Illness Chief Complaint: unresponsiveness, hypotension History of Present Illness: 77 year old woman with a history of CAD s/p AK 1986 s/p PCI x 3 in past (RCA) likely ischemic cardiomyopathy, progressive Alzheimers dementia, h/o sustained VT that required Cardioversion by EMS, then transferred to [facility] where she underwent a cardiac cath showing diffuse RCA disease that did not require revascularization and moderate mLAD disease that was not significant on FFR thus no revascularization was performed. She was felt to have Vt from old inferior scar and due to sustained VT and moderate LV dysfunction underwent ICD implantation (medtronic). Also, after cardioversion for her VT she was in atrial fibrillation thus underwent an elective cardioversion after cardiac cath that restored NSR. She was thus discharged on eliquis. She subsequently went back into afib which has been chronic now and she was taken off anticoagulation in the past due to GI and bleeding. At this point the main issue has been the progression of her Alzheimers and proper medication dosing. She has been on seroquel as outpatient but has had a recent admission with unresponsiveness and hypotension in setting of too much seroquel in addition to Toprol 25. She was admitted last week due to progression of dementia and inability for her to be cared for at home. she went to rehab 2 days ago and while there developed again unresponsiveness and hypotension after receiving 100mg seroquel and Toprol 25, now readmitted. seen and examined today in nad. calm, awake, alert, confused. - History Source History Provided By: Patient, Family Member Limitations to Obtaining History: Dementia - Past Medical History UNDERWRITING SPECIALIST: Yes: Dementia Cardio/Vascular: Yes: AFIB, CAD, CHF, HTN, Hyperlipdemia, AK, Other (episode of sustained ventricular tachycardia requiring cardioversion, s/p ICD) Gastrointestinal: Yes: Diverticulosis - Past Surgical History Past Surgical History: Yes: AICD, - Alcohol/Substance Use Hx Alcohol Use: No - Smoking History Smoking history: Unknown if ever smoked Have you smoked in the past 12 months: No - Social History ADL: Support Services History of Recent Travel: No Home Medications - Allergies Allergies/Adverse Reactions: Allergies Allergy/AdvReac Type Severity Reaction Status Date / Time aspirin Allergy Verified 05/22/18 12:55 Penicillins Allergy Verified 06/28/17 12:55 - Home Medications Home Medications: Ambulatory Orders Quetiapine Fumarate [Seroquel] 100 mg PO DAILY #30 tablet 03/10/17 Quetiapine Fumarate [Seroquel -] 100 mg PO HS #30 tab 06/27/17 Metoprolol Succinate 25 mg PO DAILY 06/28/17 Sennosides [Senna] 8.6 mg PO HS 06/28/17 Family Disease History - Family Disease History Family History: Denies Review of Systems - Review of Systems Constitutional: reports: Loss of Appetite, Weakness. denies: No Symptoms, Chills, Diaphoresis, Fever, Lethargy, Malaise, Night Sweats, Unintentional Wgt. Loss, Other Eyes: denies: No Symptoms, Blind Spots, Blurred Vision, Double Vision, Eye Pain , Floaters, Photophobia, Recent Change in Vision, Other HENT: denies: No Symptoms, Difficult Swallowing, Ear Discharge, Ear Pain, Epistaxis, Gingival Bleeding, Hearing Loss, Mouth Swelling, Nasal Congestion, Ocular Prosthesis, Throat Pain, Toothache, Ringing in Ears, Other Neck: denies: No Symptoms, Decreased ROM, Lumps, Pain on Movement, Stiffness, Swollen Glands, Tenderness, Other Cardiovascular: denies: No Symptoms, Chest Pain, Edema, Palpitations, Shortness of Breath, Other Respiratory: denies: No Symptoms, Cough, Exercise Intolerance, Hemoptysis, Orthopnea, PND, Snoring, SOB, SOB on Exertion, Wheezing, Other Gastrointestinal: denies: No Symptoms, Abdominal Pain, Bloating, Constipation, Diarrhea, Dysphagia, Indigestion, Melena, Nausea, Rectal Bleeding, Vomiting, Vomiting Blood, Other Genitourinary: denies: No Symptoms, Burning, Discharge, Dysuria, Flank Pain, Frequency, Hematuria, Incontinence, Lesions, Menses, Pain, Testicular Mass, Testicular Pain, Testicular Swelling, Urgency, Vaginal Bleeding, Other Breasts: denies: No Symptoms Reported, See HPI, Breast Implants, Discharge from Nipple, Lumps, Pain, Skin Changes, Other Musculoskeletal: reports: Extremity Pain, Muscle Weakness. denies: No Symptoms , Back Pain, Crepitus, Decreased ROM, Joint Pain, Joint Swelling, Muscle Pain, Muscle Cramps, Other Integumentary: denies: No Symptoms, Blister, Bruising, Change in Color, Eczema, Erythema, Incision, Lesions, Lump, Pallor, Pruritis, Rash, Wound, Other Neurological: reports: Change in LOC, Confusion, Pre-Existing Deficit, Weakness. denies: No Symptoms, Change in Speech, Dizziness, Headache, Incoordination, Numbness, Parasthesia, Seizure, Syncope, Tremors, Unsteady Gait , Other Endocrine: denies: No Symptoms, Excessive Sweating, Flushing, Increased Hunger, Increased Thirst, Intolerance to Cold, Intolerance to Heat, Unexplained Weight Gain, Unexplained Weight Loss, Other Hematology/Lymphatic: denies: No Symptoms, Easily Bruised, Excessive Bleeding, Swollen Glands, Other Psychiatric: reports: Altered Sleep Pattern, Anxiety, Hallucinations, Paranoia. denies: No Symptoms, Depression, Panic, Suicidal, Other - Risk Factors Known Risk Factors: Yes: Age, Hypercholesterolemia, Hypertension, Prior AK /Emb Stroke, Smoking Vital Signs: Vital Signs Temperature 97.5 F L 06/29/17 02:00 Pulse Rate 91 H 06/29/17 08:00 Respiratory Rate 20 06/29/17 08:00 Blood Pressure 142/79 06/29/17 08:00 O2 Sat by Pulse Oximetry (%) 97 06/29/17 00:00 Constitutional: Yes: Well Nourished, No Distress, Calm Eyes: Yes: WNL, Conjunctiva Clear, EOM Intact, PERRL HENT: Yes: WNL, Atraumatic, Normocephalic Neck: Yes: WNL, Supple, Trachea Midline Respiratory: Yes: Regular, CTA Bilaterally. No: Rales, Rhonchi, Wheezes Gastrointestinal: Yes: WNL, Normal Bowel Sounds, Soft. No: Distention, Tenderness Renal/: Yes: WNL Cardiovascular: Yes: Pulse Irregular. No: Regular Rate and Rhythm, Bradycardia , Tachycardia, Gallop, Rub, Varicosities JVD: No Carotid Bruit: No PMI: Non-Displaced Heart Sounds: Yes: S1, S2. No: Split S2, S3, S4, Clicks, Gallop, Rub, Bruit Murmur: Yes: Systolic Murmur. No: Diastolic Murmur Musculoskeletal: Yes: Muscle Weakness Extremities: Yes: WNL Edema: No Peripheral Pulses WNL: Yes Neurological: Yes: Alert. No: Oriented Psychiatric: Yes: Alert. No: Oriented - Other Data Labs, Other Data: CBC, BMP 06/29/17 05:00 06/29/17 05:00 INR, PTT INR 1.17 (0.82-1.09) H 06/29/17 05:00 Troponin, BNP 06/28/17 06/28/17 12:28 12:50 Troponin I Cancelled 0.04 Troponin, BNP 06/28/17 06/28/17 12:28 12:50 Troponin I Cancelled 0.04 ekg-afib no sig changes Echo: Report Reviewed Prior Cardiac Procedures: PTCA Imaging - Results Chest X-ray: Report Reviewed, Image Reviewed EKG: Report Reviewed, Image Reviewed Other: Report Reviewed, Image Reviewed (tele-afib hr controlled) Assessment/Plan 77 year old woman with a history of CAD s/p AK 1987 s/p PCI x 3 in past (RCA) likely ischemic cardiomyopathy, progressive Alzheimers dementia, h/o sustained VT that required Cardioversion by EMS, then transferred to [facility] where she underwent a cardiac cath showing diffuse RCA disease that did not require revascularization and moderate mLAD disease that was not significant on FFR thus no revascularization was performed. She was felt to have Vt from old inferior scar and due to sustained VT and moderate LV dysfunction underwent ICD implantation (medtronic). Also, after cardioversion for her VT she was in atrial fibrillation thus underwent an elective cardioversion after cardiac cath that restored NSR. She was thus discharged on eliquis. She subsequently went back into afib which has been chronic now and she was taken off anticoagulation in the past due to GI and bleeding. At this point the main issue has been the progression of her Alzheimers and proper medication dosing. She has been on seroquel as outpatient but has had a recent admission with unresponsiveness and hypotension in setting of too much seroquel in addition to Toprol 25. She was admitted last week due to progression of dementia and inability for her to be cared for at home. she went to rehab 2 days ago and while there developed again unresponsiveness and hypotension after receiving 100mg seroquel and Toprol 25, now readmitted. seen and examined today in nad. calm, awake, alert, confused. Unresponsiveness/hypotension -likely secondary to seroquel and toprol 25 -will change seroquel to lower dose 25mg prn tid and stop standing dose -will change to zyprexa 2.5mg qhs -hopefully will not require seroquel if controlled with zyprexa -d/w Dr. Nunez -reduce Toprol to 12.5mg daily -monitor overnight and if stable on this regimen can go back to rehab -on Abx for recurrent UTI Afib-HR adequate -toprol as above -not on AC due to bleeding CAD/VT ICD cardiomyopathy -d/w pts , would recc DNR status and to turn off ICD shock therapy at this point as the benefit is low and would lead to further discomfort. He wishes to think about this further. Pt can be transferred out of ICU from medical standpoing
[2017-06-29] MEDS: MUPIROCIN 2% TOPICAL OINTMENT FOR DECOLONIZATION NS SCH (10:00)
[2017-06-29] MEDS ORDERED: QUEtiapine FUMARATE 25 MG TABLET (FP) PO PRN ×2 (11:07→12:03)
[2017-06-29] MEDS ORDERED: metoPROLOL SUCCINATE 25 MG TAB.SR.24H (FP) PO SCH (11:15)
--- NOTE | 2017-06-29 11:48 | PN ---
Teaching Attending Note Name of Resident: Liss Song ATTENDING PHYSICIAN STATEMENT I saw and evaluated the patient. I reviewed the resident's note and discussed the case with the resident. I agree with the resident's findings and plan as documented. SUBJECTIVE: Pt seen and examined in the ICU. Confused but without complaints. No fevers recorded. OBJECTIVE: Last Vital Signs Temp Pulse Resp BP Pulse Ox 98.3 F 88 22 137/82 97 06/29/17 10:00 06/29/17 10:00 06/29/17 10:00 06/29/17 10:00 06/29/17 00:00 Intake & Output 06/26/17 06/27/17 06/28/17 06/29/17 23:59 23:59 23:59 23:59 Intake Total 2200 600 Balance 2200 600 Weight 58.967 kg Gen: NAD at rest Heart: RRR Lung: decreased breath sounds at the bases Abd: soft, nontender Ext: no edema CBC, BMP 06/29/17 05:00 06/29/17 05:00 Active Medications Chlorhexidine Gluconate (Hibiclens For Decolonization -) 1 applic TP HS [facility] Last Admin: 06/28/17 22:32 Dose: 1 applic Heparin Sodium (Porcine) (Heparin -) 5,000 unit SQ TID [facility] Last Admin: 06/28/17 22:38 Dose: 5,000 unit Levofloxacin (Levaquin -) 750 mg PO DAILY@0600 [facility] Metoprolol Succinate (Toprol Xl -) 12.5 mg PO DAILY [facility] Mupirocin (Bactroban Ointment (For Decolonization) -) 1 applic NS BID [facility] Stop: 07/03/17 21:59 Last Admin: 06/28/17 22:31 Dose: 1 applic Quetiapine Fumarate (Seroquel -) 100 mg PO [facility] Quetiapine Fumarate (Seroquel -) 25 mg PO Q6H PRN PRN Reason: AGITATION Last Admin: 06/29/17 11:46 Dose: 25 mg Senna (Senna -) 1 tab PO [facility] Last Admin: 06/28/17 22:40 Dose: 1 tab ASSESSMENT AND PLAN: UTI Paroxysmal Atrial Fibrillation Hyponatremia resolving Advanced Dementia - continue antibiotics - f/u cultures - PO as tolerated - DVT prophylaxis - can monitor on floor
--- NOTE | 2017-06-29 14:23 | EKG ---
Test Reason : Blood Pressure : / mmHG Vent. Rate : 096 BPM Atrial Rate : 108 BPM P-R Int : 000 ms QRS Dur : 102 ms QT Int : 348 ms P-R-T Axes : 000 014 157 degrees QTc Int : 439 ms ATRIAL FIBRILLATION WITH PREMATURE VENTRICULAR OR ABERRANTLY CONDUCTED COMPLEXES CANNOT RULE OUT INFERIOR INFARCT (CITED ON OR BEFORE 23-OCT-1999) ABNORMAL ECG WHEN COMPARED WITH ECG OF 28-JUN-2017 12:05, NO SIGNIFICANT CHANGE WAS FOUND Confirmed by ANGELIKA ARELLANO MD ([id number]) on 06/29/2017 2:23:38 PM Referred By: YUDITH SHULTZ DR Confirmed By:ANGELIKA ARELLANO MD
--- NOTE | 2017-06-29 15:20 | PN ---
Physical Exam: SUBJECTIVE: Patient seen and examined ; pleasantly confused OBJECTIVE: Vital Signs Period Temp Pulse Resp BP Sys/Bundy Pulse Ox Last 24 Hr 97.2 F-98.3 F 79-102 17-22 83-154/53-99 97-99 GENERAL: The patient is awake, alert, not oriented; pleasantly confused LUNGS: Breath sounds equal, clear to auscultation bilaterally, no wheezes, no crackles, no accessory muscle use. HEART: Regular rate and rhythm, S1, S2 without murmur, rub or gallop. ABDOMEN: Soft, nontender, nondistended, normoactive bowel sounds, no guarding, no rebound, no hepatosplenomegaly, no masses. EXTREMITIES: 2+ pulses, warm, well-perfused, no edema. NEUROLOGICAL:confused Laboratory Results - last 24 hr 06/29/17 06/29/17 06/29/17 05:00 05:00 05:00 WBC 8.5 RBC 3.43 L Hgb 10.9 Hct 32.0 L MCV 93.1 MCH 31.8 MCHC 34.2 RDW 13.5 Plt Count 296 MPV 7.8 Neutrophils % 74.8 Lymphocytes % 12.4 D Monocytes % 11.8 H Eosinophils % 0.7 D Basophils % 0.3 Nucleated RBC % 0 PT with INR 13.20 H INR 1.17 H Sodium 136 Potassium 3.7 Chloride 104 Carbon Dioxide 24 Anion Gap 8 BUN 13 Creatinine 0.7 Creat Clearance w eGFR > 60 Random Glucose 92 Calcium 7.6 L Phosphorus 2.5 Magnesium 1.9 Total Bilirubin 0.6 D AST 32 ALT 26 Alkaline Phosphatase 97 Total Protein 5.8 L Albumin 2.3 L Active Medications Generic Name Dose Route Start Last Admin Trade Name Freq PRN Reason Stop Dose Admin Chlorhexidine Gluconate 1 applic 06/28/17 22:00 06/28/17 22:32 Hibiclens For Decolonization - TP 1 applic HS PENG Administration Heparin Sodium (Porcine) 5,000 unit 06/28/17 22:00 06/29/17 13:36 Heparin - SQ 5,000 unit TID PENG Administration Levofloxacin 750 mg 06/29/17 06:00 06/29/17 07:00 Levaquin - PO Not Given DAILY@0600 PENG Metoprolol Succinate 12.5 mg 06/29/17 11:15 06/29/17 13:00 Toprol Xl - PO 12.5 mg DAILY PENG Administration Mupirocin 1 applic 06/28/17 22:00 06/29/17 10:00 Bactroban Ointment (For Decolonization) - NS 07/03/17 21:59 1 applic BID PENG Administration Olanzapine 2.5 mg 06/29/17 22:00 Zyprexa - PO HS PENG Quetiapine Fumarate 25 mg 06/29/17 12:03 Seroquel - PO Q8H PRN AGITATION Senna 1 tab 06/28/17 22:00 06/28/17 22:40 Senna - PO 1 tab HS PENG Administration ASSESSMENT/PLAN: This is a 77 year old female with severe dementia, with paroxysmal atrial fibrillation, currently being treated for urinary tract infection, on levaquin, who was found hypotensive and lethargic at [facility]. #lethargy;hypotensive; secondary to sepsis from UTI vs polypharmacy -sepsis protocol initiated due to hypotension and UTI; -received 3L fluids before getting to ICU last night; with adequate BP response -continue levaquin for UTI; f/u cultures -decrease metoprolol to 12.5 po daily -as per neuro do not exceed 200mg of seroquel daily; -currently getting 25mg q8h prn ; will calculate 24hr requirement before returning to [place], to not over medicate #UTI -cont levaquin #paraxysmal atrial fibrillation: -rate control with metoprolol 12.5 mg po daily #hyponatremia: resolveing Dvt ppl; sq heparin physical therapy stable to transfer to floors Visit type - Emergency Visit Emergency Visit: Yes ED Registration Date: 06/28/17 Care time: The patient presented to the Emergency Department on the above date and was hospitalized for further evaluation of their emergent condition. - New Patient This patient is new to me today: Yes Date on this admission: 06/29/17 - Critical Care Critical Care patient: Yes Total Critical Care Time (in minutes): 35 Critical Care Statement: The care of this patient involved high complexity decision making to prevent further life threatening deterioration of the patient 's condition and/or to evaluate & treat vital organ system(s) failure or risk of failure.
--- NOTE | 2017-06-29 19:03 | PN ---
Progress Note (short form) - Note Progress Note: Subjective: The patient was seen and examined at the bedside, she is pleasantly confused today. She has no complaints at this time. Current Medications Generic Name Dose Route Start Last Admin Trade Name Freantoinette PRN Reason Stop Dose Admin Chlorhexidine Gluconate 1 applic 06/28/17 22:00 06/28/17 22:32 Hibiclens For Decolonization - TP 1 applic HS PENG Administration Heparin Sodium (Porcine) 5,000 unit 06/28/17 22:00 06/29/17 13:36 Heparin - SQ 5,000 unit TID PENG Administration Levofloxacin 750 mg 06/29/17 06:00 06/29/17 07:00 Levaquin - PO Not Given DAILY@0600 PENG Metoprolol Succinate 12.5 mg 06/29/17 11:15 06/29/17 13:00 Toprol Xl - PO 12.5 mg DAILY PENG Administration Mupirocin 1 applic 06/28/17 22:00 06/29/17 10:00 Bactroban Ointment (For Decolonization) - NS 07/03/17 21:59 1 applic BID PENG Administration Olanzapine 2.5 mg 06/29/17 22:00 Zyprexa - PO HS PENG Quetiapine Fumarate 25 mg 06/29/17 12:03 Seroquel - PO Q8H PRN AGITATION Senna 1 tab 06/28/17 22:00 06/28/17 22:40 Senna - PO 1 tab HS PENG Administration Objective: Vital Signs Period Temp Pulse Resp BP Sys/Bundy Pulse Ox Last 24 Hr 97.2 F-98.3 F 79-102 17-22 105-154/57-99 97-97 Physical Exam: General: NAD Lungs: Decreased breath sounds at the bases Heart: pulse irregular, S1S2 Abd: Soft, non-tender, non-distended. Normoactive bowel sounds Ext: No edema CBCD WBC 8.5 K/mm3 (4.0-10.0) 06/29/17 05:00 RBC 3.43 M/mm3 (3.60-5.2) L 06/29/17 05:00 Hgb 10.9 GM/dL (10.7-15.3) 06/29/17 05:00 Hct 32.0 % (32.4-45.2) L 06/29/17 05:00 MCV 93.1 fl (80-96) 06/29/17 05:00 MCHC 34.2 g/dl (32.0-36.0) 06/29/17 05:00 RDW 13.5 % (11.6-15.6) 06/29/17 05:00 Plt Count 296 K/MM3 (134-434) 06/29/17 05:00 MPV 7.8 fl (7.5-11.1) 06/29/17 05:00 CMP Sodium 136 mmol/L (136-145) 06/29/17 05:00 Potassium 3.7 mmol/L (3.5-5.1) 06/29/17 05:00 Chloride 104 mmol/L (98-107) 06/29/17 05:00 Carbon Dioxide 24 mmol/L (21-32) 06/29/17 05:00 Anion Gap 8 (8-16) 06/29/17 05:00 BUN 13 mg/dL (7-18) 06/29/17 05:00 Creatinine 0.7 mg/dL (0.55-1.02) 06/29/17 05:00 Creat Clearance w eGFR > 60 (>60) 06/29/17 05:00 Random Glucose 92 mg/dL (74-106) 06/29/17 05:00 Calcium 7.6 mg/dL (8.5-10.1) L 06/29/17 05:00 Total Bilirubin 0.6 mg/dL (0.2-1.0) D 06/29/17 05:00 AST 32 U/L (15-37) 06/29/17 05:00 ALT 26 U/L (12-78) 06/29/17 05:00 Alkaline Phosphatase 97 U/L (45-117) 06/29/17 05:00 Total Protein 5.8 g/dl (6.4-8.2) L 06/29/17 05:00 Albumin 2.3 g/dl (3.4-5.0) L 06/29/17 05:00 CARDIAC ENZYMES Troponin I 0.04 ng/ml (0.00-0.06) 06/28/17 12:50 Microbiology 06/28/17 15:05 Blood - Peripheral Venous Blood Culture - Preliminary NO GROWTH OBTAINED AFTER 24 HOURS, INCUBATION TO CONTINUE FOR 4 DAYS. 05/22/18 15:16 Blood - Peripheral Venous Blood Culture - Preliminary NO GROWTH OBTAINED AFTER 24 HOURS, INCUBATION TO CONTINUE FOR 4 DAYS. Assessment: This is a 77 year old female with PMHx of Alzheimer's/dementia, UTI , paroxysmal a.fib, CAD, AICD, spinal stenosis, who presented to the ED with altered mental status after being [facility]. Plan: 1) Altered mental status/hypotension - Likely 2/2 metoprolol and seroquel - Seroquel dose decreased to 25mg po q8h prn - Start Zyprex 2.5mg po qhs - Decreased Toprol XL to 12.5mg po daily - Continue to monitor - No further episodes of hypotension - Appreciate cardiology consult - Appreciate neuro consult 2) UTI - Discharged on 06/27/17 after 5 day treatment with Levaquin for Proteus mirabilis UTI - UA now with 2+ leuks - Continue Levaquin (received 1 dose of Tobramycin in the ED) - F/u urine culture 3) A.fib - Not on anticoagulation 2/2 bleeding - Continue Toprol XL for rate control 4) CAD/VT, ICD, cardiomyopathy 5) F/E/N: - Sodium controlled diet - Monitor electrolytes 6) Prophylaxis: - Heparin 5,000u sq tid 7) Dispo: - Likely dispo back to [facility] tomorrow if remains stable CODE STATUS: FULL CODE Visit type - Emergency Visit Emergency Visit: Yes ED Registration Date: 06/28/17 Care time: The patient presented to the Emergency Department on the above date and was hospitalized for further evaluation of their emergent condition. - New Patient This patient is new to me today: Yes Date on this admission: 06/29/17 - Critical Care Critical Care patient: No
[2017-06-29] MEDS ORDERED: QUEtiapine FUMARATE 100 MG TABLET (FP) PO SCH (22:00)
[2017-06-29] MEDS ORDERED: OLANZapine 2.5 MG TABLET PO SCH (22:00)
[2017-06-29] MEDS: SENNOSIDES 8.6MG TABLET (FP) PO SCH (22:15)
[2017-06-30] MEDS: HEPARIN NA (PORCINE) 5,000 UNITS/ML 1ML VIAL SQ SCH ×3 (06:11→21:49)
[2017-06-30] MEDS: CHLORHEXIDINE GLUCONATE 4% CLEANSER FOR DECOLONIZATION TP SCH (08:16)
[2017-06-30] MEDS: MUPIROCIN 2% TOPICAL OINTMENT FOR DECOLONIZATION NS SCH (08:16)
[2017-06-30 08:38] LABS: BASO % 1.4 % (0-2.0); EOS % 2.4 % (0-4.5); HEMATOCRIT 31.8 % (32.4-45.2); HEMOGLOBIN 10.8 GM/dL (10.7-15.3); LYMPH % 12.3 % (8-40); MCH 31.5 pg (25.7-33.7); MCHC 33.9 g/dl (32.0-36.0); MEAN CELL VOLUME 93.1 fl (80-96); MONO % 15.7 % (3.8-10.2); NEUT % 68.2 % (42.8-82.8); PLATELET COUNT 261 K/MM3 (134-434); RBC 3.41 M/mm3 (3.60-5.2); RDW 13.7 % (11.6-15.6); WHITE BLOOD COUNT 6.8 K/mm3 (4.0-10.0)
[2017-06-30 08:51] LABS: CHLORIDE 99 mmol/L (98-107); POTASSIUM 3.3 mmol/L (3.5-5.1); SODIUM 134 mmol/L (136-145)
[2017-06-30 09:07] LABS: ANION GAP 12 (8-16); BLOOD UREA NITROGEN 8 mg/dL (7-18); CALCIUM 8.1 mg/dL (8.5-10.1); CO2 23 mmol/L (21-32); CREATININE 0.7 mg/dL (0.55-1.02); GLUCOSE,RANDOM 87 mg/dL (74-106)
[2017-06-30] MEDS: QUEtiapine FUMARATE 25 MG TABLET (FP) PO PRN ×2 (10:16→21:51)
[2017-06-30] MEDS: metoPROLOL SUCCINATE 25 MG TAB.SR.24H (FP) PO SCH (10:16)
[2017-06-30 10:48] LABS: MAGNESIUM 1.8 mg/dL (1.8-2.4)
--- NOTE | 2017-06-30 11:09 | PN ---
Physical Exam: SUBJECTIVE: Patient seen and examined at bedside. Very chatty, interactive. OBJECTIVE: Vital Signs Period Temp Pulse Resp BP Sys/Bundy Pulse Ox Last 24 Hr 98.0 F-98.3 F 82-96 20-20 107-157/57-81 96 GENERAL: The patient is awake, alert, oriented x 1. ENT: Edentulous. LUNGS: Mild bibasilar crackles. HEART: Irregular, S1, S2 ABDOMEN: Soft, nontender, nondistended, normoactive bowel sounds, no guarding, no rebound EXTREMITIES: 2+ pulses, warm, well-perfused, no edema. NEUROLOGICAL: Cranial nerves II through XII grossly intact. Speech is fluent but nonsensical. Laboratory Results - last 24 hr 06/30/17 06/30/17 06/30/17 07:51 07:52 07:52 WBC 6.8 RBC 3.41 L Hgb 10.8 Hct 31.8 L MCV 93.1 MCH 31.5 MCHC 33.9 RDW 13.7 Plt Count 261 MPV 8.0 Neutrophils % 68.2 Lymphocytes % 12.3 Monocytes % 15.7 H Eosinophils % 2.4 D Basophils % 1.4 D Nucleated RBC % 0 Sodium 134 L Potassium 3.3 L Chloride 99 Carbon Dioxide 23 Anion Gap 12 BUN 8 Creatinine 0.7 Random Glucose 87 Calcium 8.1 L Magnesium 1.8 Cancelled Active Medications Generic Name Dose Route Start Last Admin Trade Name Freq PRN Reason Stop Dose Admin Heparin Sodium (Porcine) 5,000 unit 06/30/17 14:00 Heparin - SQ TID PENG Levofloxacin 750 mg 07/01/17 06:00 Levaquin - PO DAILY@0600 PENG Metoprolol Succinate 12.5 mg 06/30/17 10:00 06/30/17 10:16 Toprol Xl - PO 12.5 mg DAILY PENG Administration Olanzapine 2.5 mg 06/30/17 22:00 Zyprexa - PO HS PENG Quetiapine Fumarate 25 mg 06/30/17 07:50 06/30/17 10:16 Seroquel - PO 25 mg Q8H PRN Administration AGITATION Senna 1 tab 06/30/17 22:00 Senna - PO HS PENG Imaging 06/28 CXR: unremarkable 06/28 CT head: no acute process; evidence of chronic infarcts 06/29 CXR: unremarkable 06/29 ECG: afib @ 96bpm ASSESSMENT/PLAN 77 year-old female with a PMH significant for CAD s/p stents, cardiomyopathy with h/o VT s/p AICD, paroxysmal afib, recurrent UTIs, and dementia. Admitted -06/27/17 for Proteus UTI. Readmitted 06/28 for AMS and hypotension. Proteus UTI --continue levofloxacin Hypotension --BP is stable Altered mental status Dementia --AMS likely multifactorial: UTI v. low volume state v. psych meds --fluids given, BP stable, meds have been adjusted-->improvment in mental status --continue zyprexa 2.5mg qhs, and seroquel 25mg q8h PRN; per Dr. Nunez try not to exceed 200mg/day of quetiapine --d/c restraints; patient must be restraint free for 24 hours prior to discharge CAD Cardiomyopathy s/p AICD --continue lower dose Toprol XL Paroxysmal afib --continue Toprol XL --not on anti-coagulation due to bleeding history Hypomagnesemia --repleted Hypokalemia --repleted FEN Fluids: PO intake adequate Electrolytes: replete as indicated Nutrition: low sodium DVT prophylaxis: subq heparin Physical therapy Dispo: continues to require inpatient care. Likely discharge to SNF tomorrow. Full code. Visit type - Emergency Visit Emergency Visit: Yes ED Registration Date: 06/28/17 Care time: The patient presented to the Emergency Department on the above date and was hospitalized for further evaluation of their emergent condition. - New Patient This patient is new to me today: Yes Date on this admission: 06/30/17 - Critical Care Critical Care patient: No
[2017-06-30] MEDS ORDERED: MAGNESIUM 2GM/50ML STERILE WATER IVPB IVPB ONE (11:33)
[2017-06-30] MEDS: POTASSIUM CHLORIDE ORAL LIQUID 20 MEQ/15 ML PO SCH ×2 (12:56→17:21)
--- NOTE | 2017-06-30 17:13 | PN ---
Progress Note, Physician History of Present Illness: seen and examined. confused but calm. no new events. - Current Medication List Current Medications: Active Medications Heparin Sodium (Porcine) (Heparin -) 5,000 unit SQ TID [facility] Last Admin: 06/30/17 13:01 Dose: 5,000 unit Levofloxacin (Levaquin -) 750 mg PO DAILY@0600 [facility] Metoprolol Succinate (Toprol Xl -) 12.5 mg PO DAILY [facility] Last Admin: 06/30/17 10:16 Dose: 12.5 mg Olanzapine (Zyprexa -) 2.5 mg PO HS [facility] Potassium Chloride (Potassium Chloride Oral Liquid) 40 meq PO Q6H [facility] Stop: 06/30/17 17:46 Last Admin: 06/30/17 12:56 Dose: 40 meq Quetiapine Fumarate (Seroquel -) 25 mg PO Q8H PRN PRN Reason: AGITATION Last Admin: 06/30/17 10:16 Dose: 25 mg Senna (Senna -) 1 tab PO [facility] - Objective Vital Signs: Vital Signs Temperature 98.1 F 06/30/17 14:52 Pulse Rate 76 06/30/17 14:52 Respiratory Rate 18 06/30/17 14:52 Blood Pressure 109/66 06/30/17 14:52 O2 Sat by Pulse Oximetry (%) 94 L 06/30/17 09:00 Constitutional: Yes: No Distress, Calm Eyes: Yes: Conjunctiva Clear HENT: Yes: Atraumatic Cardiovascular: Yes: Pulse Irregular, Murmur, S1, S2. No: Regular Rate and Rhythm, Bradycardia, Tachycardia, Bruit, JVD, Gallop, Rub, S3, S4, Varicosities Respiratory: Yes: Regular, CTA Bilaterally. No: Rales, Rhonchi, Wheezes Gastrointestinal: Yes: Normal Bowel Sounds Peripheral Pulses WNL: Yes Neurological: Yes: Alert. No: Oriented Psychiatric: Yes: Alert. No: Oriented Labs: CBC, BMP 06/30/17 07:51 06/30/17 07:52 INR, PTT INR 1.17 (0.82-1.09) H 06/29/17 05:00 - ....Imaging Chest X-ray: Report Reviewed, Image Reviewed Assessment/Plan 77 year old woman with a history of CAD s/p [place] 1987 s/p PCI x 3 in past (RCA) likely ischemic cardiomyopathy, progressive Alzheimers dementia, h/o sustained VT that required Cardioversion by EMS, then transferred to [facility] where she underwent a cardiac cath showing diffuse RCA disease that did not require revascularization and moderate mLAD disease that was not significant on FFR thus no revascularization was performed. She was felt to have Vt from old inferior scar and due to sustained VT and moderate LV dysfunction underwent ICD implantation (medtronic). Also, after cardioversion for her VT she was in atrial fibrillation thus underwent an elective cardioversion after cardiac cath that restored NSR. She was thus discharged on eliquis. She subsequently went back into afib which has been chronic now and she was taken off anticoagulation in the past due to GI and bleeding. At this point the main issue has been the progression of her Alzheimers and proper medication dosing. She has been on seroquel as outpatient but has had a recent admission with unresponsiveness and hypotension in setting of too much seroquel in addition to Toprol 25. She was admitted last week due to progression of dementia and inability for her to be cared for at home. she went to rehab 2 days ago and while there developed again unresponsiveness and hypotension after receiving 100mg seroquel and Toprol 25, now readmitted. seen and examined today in nad. calm, awake, alert, confused. Unresponsiveness/hypotension -cont zyprexa 2.5mg qhs and seroquel as ordered and calculate needed dosages of seroquel to make standing order on discharge -monitor overnight and if stable on this regimen can go back to rehab Afib-HR adequate -toprol 12.5mg daily -not on AC due to bleeding CAD/VT ICD cardiomyopathy -d/w pts , would recc DNR status and to turn off ICD shock therapy at this point as the benefit is low and would lead to further discomfort. He wishes to think about this further.
[2017-06-30] MEDS ORDERED: OLANZapine 2.5 MG TABLET PO SCH (22:00)
[2017-06-30] MEDS ORDERED: SENNOSIDES 8.6MG TABLET (FP) PO SCH (22:00)
[2017-07-01 04:16] VITALS: TEMP 98.3
[2017-07-01] MEDS: HEPARIN NA (PORCINE) 5,000 UNITS/ML 1ML VIAL SQ SCH ×2 (06:46→13:20)
--- NOTE | 2017-07-01 09:41 | PN ---
Progress Note, Physician History of Present Illness: seen and examined today nad. confused but calm no new event. - Current Medication List Current Medications: Active Medications Heparin Sodium (Porcine) (Heparin -) 5,000 unit SQ TID [facility] Last Admin: 07/01/17 06:46 Dose: 5,000 unit Levofloxacin (Levaquin -) 750 mg PO DAILY@0600 [facility] Last Admin: 07/01/17 06:52 Dose: 750 mg Metoprolol Succinate (Toprol Xl -) 12.5 mg PO DAILY [facility] Last Admin: 06/30/17 10:16 Dose: 12.5 mg Olanzapine (Zyprexa -) 2.5 mg PO HS [facility] Last Admin: 06/30/17 21:50 Dose: 2.5 mg Quetiapine Fumarate (Seroquel -) 25 mg PO Q8H PRN PRN Reason: AGITATION Last Admin: 06/30/17 21:51 Dose: 25 mg Senna (Senna -) 1 tab PO [facility] Last Admin: 06/30/17 21:50 Dose: 1 tab - Objective Vital Signs: Vital Signs Temperature 98.3 F 07/01/17 06:00 Pulse Rate 82 07/01/17 06:00 Respiratory Rate 18 07/01/17 06:00 Blood Pressure 100/56 07/01/17 06:00 O2 Sat by Pulse Oximetry (%) 94 L 06/30/17 21:00 Constitutional: Yes: No Distress, Calm Eyes: Yes: Conjunctiva Clear HENT: Yes: Atraumatic Cardiovascular: Yes: Pulse Irregular, Murmur, S1, S2. No: Regular Rate and Rhythm, Bradycardia, Tachycardia, Bruit, JVD, Gallop, Rub, S3, S4, Varicosities Respiratory: Yes: Regular. No: Rales, Rhonchi, Wheezes Gastrointestinal: Yes: Normal Bowel Sounds, Soft Edema: No Neurological: Yes: Alert. No: Oriented Psychiatric: Yes: Alert, Oriented Labs: CBC, BMP 06/30/17 07:51 06/30/17 07:52 INR, PTT INR 1.17 (0.82-1.09) H 06/29/17 05:00 - ....Imaging Chest X-ray: Report Reviewed, Image Reviewed Assessment/Plan 77 year old woman with a history of CAD s/p [place] 1987 s/p PCI x 3 in past (RCA) likely ischemic cardiomyopathy, progressive Alzheimers dementia, h/o sustained VT that required Cardioversion by EMS, then transferred to [facility] where she underwent a cardiac cath showing diffuse RCA disease that did not require revascularization and moderate mLAD disease that was not significant on FFR thus no revascularization was performed. She was felt to have Vt from old inferior scar and due to sustained VT and moderate LV dysfunction underwent ICD implantation (medtronic). Also, after cardioversion for her VT she was in atrial fibrillation thus underwent an elective cardioversion after cardiac cath that restored NSR. She was thus discharged on eliquis. She subsequently went back into afib which has been chronic now and she was taken off anticoagulation in the past due to GI and bleeding. At this point the main issue has been the progression of her Alzheimers and proper medication dosing. She has been on seroquel as outpatient but has had a recent admission with unresponsiveness and hypotension in setting of too much seroquel in addition to Toprol 25. She was admitted last week due to progression of dementia and inability for her to be cared for at home. she went to rehab 2 days ago and while there developed again unresponsiveness and hypotension after receiving 100mg seroquel and Toprol 25, now readmitted. seen and examined today in nad. calm, awake, alert, confused. Unresponsiveness/hypotension-now sig improved with adjustment in psych meds -cont zyprexa 2.5mg qhs and seroquel -Ok to dc from cardiac standpoint Afib-HR adequate -toprol 12.5mg daily -not on AC due to bleeding CAD/VT ICD cardiomyopathy -ok to dc from cardiac standpont Please call with any additional questions
[2017-07-01 09:57] VITALS: BP 125/76; PULSE 89
[2017-07-01] MEDS: metoPROLOL SUCCINATE 25 MG TAB.SR.24H (FP) PO SCH (09:58)
--- NOTE | 2017-07-01 11:35 | DS ---
Physical Exam: SUBJECTIVE: Patient seen and examined. Sitting up in bed, smiling. Voices no complaints. present. OBJECTIVE: Vital Signs Period Temp Pulse Resp BP Sys/Bundy Pulse Ox Last 24 Hr 97.8 F-98.3 F 76-98 17-18 100-154/56-85 94 PHYSICAL EXAM GENERAL: The patient is awake, alert, oriented x 1. ENT: Edentulous. LUNGS: CTA HEART: Irregular, S1, S2 ABDOMEN: Soft, nontender, nondistended, normoactive bowel sounds, no guarding, no rebound EXTREMITIES: 2+ pulses, warm, well-perfused, no edema. NEUROLOGICAL: Cranial nerves II through XII grossly intact. Speech is fluent but nonsensical. LABS CBCD WBC 6.8 K/mm3 (4.0-10.0) 06/30/17 07:51 RBC 3.41 M/mm3 (3.60-5.2) L 06/30/17 07:51 Hgb 10.8 GM/dL (10.7-15.3) 06/30/17 07:51 Hct 31.8 % (32.4-45.2) L 06/30/17 07:51 MCV 93.1 fl (80-96) 06/30/17 07:51 MCHC 33.9 g/dl (32.0-36.0) 06/30/17 07:51 RDW 13.7 % (11.6-15.6) 06/30/17 07:51 Plt Count 261 K/MM3 (134-434) 06/30/17 07:51 MPV 8.0 fl (7.5-11.1) 06/30/17 07:51 CMP Sodium 134 mmol/L (136-145) L 06/30/17 07:52 Potassium 3.3 mmol/L (3.5-5.1) L 06/30/17 07:52 Chloride 99 mmol/L (98-107) 06/30/17 07:52 Carbon Dioxide 23 mmol/L (21-32) 06/30/17 07:52 Anion Gap 12 (8-16) 06/30/17 07:52 BUN 8 mg/dL (7-18) 06/30/17 07:52 Creatinine 0.7 mg/dL (0.55-1.02) 06/30/17 07:52 Creat Clearance w eGFR > 60 (>60) 06/29/17 05:00 Calcium 8.1 mg/dL (8.5-10.1) L 06/30/17 07:52 Total Bilirubin 0.6 mg/dL (0.2-1.0) D 06/29/17 05:00 AST 32 U/L (15-37) 06/29/17 05:00 ALT 26 U/L (12-78) 06/29/17 05:00 Alkaline Phosphatase 97 U/L (45-117) 06/29/17 05:00 Total Protein 5.8 g/dl (6.4-8.2) L 06/29/17 05:00 Albumin 2.3 g/dl (3.4-5.0) L 06/29/17 05:00 HOSPITAL COURSE: Date of Admission:06/28/17 Date of Discharge: 07/01/17 Imaging 06/28 CXR: unremarkable 06/28 CT head: no acute process; evidence of chronic infarcts 06/29 CXR: unremarkable 06/29 ECG: afib @ 96bpm ASSESSMENT/PLAN 77 year-old female with a PMH significant for CAD s/p stents, cardiomyopathy with h/o VT s/p AICD, paroxysmal afib, recurrent UTIs, and dementia. Admitted -06/27/17 for Proteus UTI. Readmitted 06/28 for AMS and hypotension. E.coli ESBL UTI --asymptomatic --20-30k colonies --likely colonization Hypotension --BP is stable Altered mental status Dementia --AMS likely multifactorial: UTI v. low volume state v. psych meds --fluids given, BP stable, psych meds and beta arlene have been adjusted--> improvment in mental status --continue zyprexa 2.5mg qhs, and seroquel 25mg q8h PRN; has been on this regimen for >24 hours with no signs of agitation, slept well last night CAD Cardiomyopathy s/p AICD --continue lower dose Toprol XL Paroxysmal afib --continue Toprol XL --not on anti-coagulation due to bleeding history Hypomagnesemia --repleted Hypokalemia --repleted FEN Fluids: PO intake adequate Electrolytes: replete as indicated Nutrition: low sodium Minutes to complete discharge: 35 Discharge Summary Reason For Visit: WEAKNESS; HYPOTENSION Current Active Problems Hypotension (Acute) Weakness (Acute) UTI (urinary tract infection) (Chronic) Condition: Improved - Instructions Diet, Activity, Other Instructions: Patient is being transferred back to your facility with several changes made to her medications. Zyprexa 2.5mg qhs has been added. Toprol XL 12.5mg is the new, lower, dose. Seroquel has been lowered to 25mg q8h PRN for agitation. Disposition: [facility] - Home Medications Comprehensive Discharge Medication List: Ambulatory Orders Quetiapine Fumarate [Seroquel] 100 mg PO DAILY #30 tablet 03/10/17 Quetiapine Fumarate [Seroquel -] 100 mg PO HS #30 tab 06/27/17 Metoprolol Succinate 25 mg PO DAILY 06/28/17 Sennosides [Senna] 8.6 mg PO HS 06/28/17 This patient is new to me today: No Emergency Visit: Yes ED Registration Date: 06/28/17 Care time: The patient presented to the Emergency Department on the above date and was hospitalized for further evaluation of their emergent condition. Critical Care patient: No - Discharge Referral Referred to [facility] No
[2017-07-01] MEDS: QUEtiapine FUMARATE 25 MG TABLET (FP) PO PRN (13:20)
== END 2017-07-01 16:50 | DRG 689 ==
LOC: FER 11:46 → JICU 18:20 → J5S 06-29 19:17
PROVIDERS: ADMIT Hospitalist; ATTEND Nurse Practitioner Acute Care
DX: N39.0 Urinary tract infection, site not specified (principal); G92 Toxic encephalopathy; I42.9 Cardiomyopathy, unspecified; E87.1 Hypo-osmolality and hyponatremia; T43.591A Poisoning by other antipsychotics and neuroleptics, accidental (unintentional), initial encounter; I95.2 Hypotension due to drugs; G30.9 Alzheimer's disease, unspecified; F02.80 Dementia in other diseases classified elsewhere, unspecified severity, without behavioral disturbance, psychotic disturbance, mood disturbance, and anxiety; E86.0 Dehydration; B96.29 Other Escherichia coli [E. coli] as the cause of diseases classified elsewhere; I48.0 Paroxysmal atrial fibrillation; E83.42 Hypomagnesemia; E87.6 Hypokalemia; E83.51 Hypocalcemia; E78.5 Hyperlipidemia, unspecified; Z95.5 Presence of coronary angioplasty implant and graft; Z95.810 Presence of automatic (implantable) cardiac defibrillator; I25.10 Atherosclerotic heart disease of native coronary artery without angina pectoris; I25.2 Old myocardial infarction
CPT/HCPCS: 36415; 70450-TC; 71045-TC-FY; 80048; 80053; 81003; 81015; 82803; 83605; 83735; 84100; 84484; 85025; 85610; 85730; 87040; 87086; 87186; 93005; 93010; 97116-GP; 97161-GP; 99285-25; J1644; J7030

== ENCOUNTER 2017-07-05 16:49 | Inpatient (IN) | payer OTHER ==
[2017-07-05 17:37] VITALS: BMI 21.8
[2017-07-05] MEDS ORDERED: SODIUM CHLORIDE 500 ML IV STA (17:42)
--- NOTE | 2017-07-05 17:45 | PDOC ---
History of Present Illness - General Chief Complaint: Vaginal Bleeding Stated Complaint: VAGINAL BLEED Time Seen by Provider: 07/05/17 17:29 History Source: Family, Residential Records - History of Present Illness Timing/Duration: reports: constant Past History - Past Medical History Allergies/Adverse Reactions: Allergies Allergy/AdvReac Type Severity Reaction Status Date / Time aspirin Allergy Verified 07/05/17 17:27 Penicillins Allergy Verified 07/05/17 17:27 Home Medications: Ambulatory Orders Sennosides [Senna] 8.6 mg PO HS 06/28/17 Metoprolol Succinate [Toprol XL -] 12.5 mg PO DAILY tab.sr.24h 07/01/17 Olanzapine [Zyprexa -] 2.5 mg PO HS tablet 07/01/17 Quetiapine Fumarate [Seroquel -] 25 mg PO Q8H PRN tablet 07/01/17 Anemia: No Asthma: No Cancer: No Cardiac Disorders: Yes (A-FIB) COPD: No CHF: No Dementia: Yes Disorders: Yes HTN: Yes Hypercholesterolemia: Yes - Surgical History Cardiac Surgery: Yes (STENTS, DEFIB) - Immunization History Immunization Up to Date: No - Suicide/Smoking/Psychosocial Hx Smoking History: Unknown if ever smoked Have you smoked in the past 12 months: No Information on smoking cessation initiated: No Hx Alcohol Use: No Drug/Substance Use Hx: No Substance Use Type: None Hx Substance Use Treatment: No Review of Systems - Review of Systems Constitutional: No: Fever ABD/GI: No: Blood Streaked Bowels, Constipated, Diarrhea, Vomiting, Abdominal cramping *Physical Exam - Vital Signs Last Vital Signs Temp Pulse Resp BP Pulse Ox 98.2 F 97 H 18 143/109 99 07/05/17 17:27 07/05/17 17:27 07/05/17 17:27 07/05/17 17:27 07/05/17 17:27 - Physical Exam General Appearance: Yes: Appropriately Dressed. No: Apparent Distress HEENT: positive: Normal Voice Neck: positive: Supple Respiratory/Chest: negative: Respiratory Distress Female Pelvic Exam: positive: other (erythematous macular rash to groin b/l and vulva, ?candidiases +/- atrophic vaginitis, no observation of blood at intraoitis (unable to tolerate finger exam) or in diaper (diaper recently changed)) Gastrointestinal/Abdominal: positive: Soft. negative: Tender Rectal Exam: positive: other (non-cooperative w/ rectal) Integumentary: positive: Dry, Warm Neurologic: positive: Alert, Normal Mood/Affect ED Treatment Course - LABORATORY CBC & Chemistry Diagram: 07/06/17 06:54 07/06/17 06:54 Medical Decision Making - Medical Decision Making 07/05/17 17:43 77-year-old female, history of CAD with stents, cardiomyopathy, history of VT status post AICD, paroxysmal A.fib, not on anticoagulation due to bleeding history, recurrent UTIs, dementia, sent from [place] for vag bleed vs hematuria. As per who is at bedside, for the past 3 days pt has been found to have clumps of bright red blood in her diapers. States patient unable to give history. No vomiting, fever, acute change in BM or observable hematochezia or melena. No known h/o GIB. S/p admission 06/23- for proteus UTI (sen to levaquin ). Discharged to [facility] and returned for admission on 06/28 for AMS/ hypotension w/ ESBL uti on rpt ucx, tx w/ levaquin inhouse (of note resistant on cx) and discharged back to [place] 4 days ago. Not currently on abx per See exam Recurrent UTI vs post menopausal vag bleed, less likely GIB (non-cooperative w/ rectal currently) Stable and in NAD w/ no obvious vag bleed on pelvic exam though limited as unable tolerate finger/speculum S/p recent admission for uti/AMS, tx w/ levaquin inhouse (ESBL ecoli on cx resistant to levaquin, sen to penems and zosyn) Not on abx currently Not on AC -labs -ua -anticipate admission 07/05/17 18:35 Chem hemolyzed. Pt non-cooperative w/ rpt blood draw. Will give dose of ativan and reassess 07/05/17 18:58 Pt will be signed out to JUANY Amezcua pending continued evaluation/admission *DC/Admit/Observation/Transfer Diagnosis at time of Disposition: UTI (urinary tract infection), Hematuria - Discharge Dispostion Condition at time of disposition: Stable - Referrals - Patient Instructions - Post Discharge Activity
[2017-07-05 18:01] LABS: BASO % 0.4 % (0-2.0); HEMATOCRIT 34.7 % (32.4-45.2); HEMOGLOBIN 11.7 GM/dL (10.7-15.3); LYMPH % 9.7 % (8-40); MCH 31.4 pg (25.7-33.7); MCHC 33.7 g/dl (32.0-36.0); MEAN CELL VOLUME 93.2 fl (80-96); MEAN PLT VOLUME 7.3 fl (7.5-11.1); MONO % 8.9 % (3.8-10.2); PLATELET COUNT 403 K/MM3 (134-434); RBC 3.72 M/mm3 (3.60-5.2); RDW 14.1 % (11.6-15.6); WHITE BLOOD COUNT 9.7 K/mm3 (4.0-10.0)
[2017-07-05 18:15] LABS: INR 1.08 (0.82-1.09); PROTHROMBIN TIME (PATIENT) 12.2 SEC (9.7-13.0)
[2017-07-05] MEDS ORDERED: LORazepam 2 MG/ML SDV VIAL ONE (18:59)
[2017-07-05 20:01] LABS: URINE APPEARANCE CLOUDY; URINE BILIRUBIN NEGATIVE (<2.0 mg/dL); URINE BLOOD 2+ (NEGATIVE); URINE COLOR YELLOW; URINE GLUCOSE (UA) NEGATIVE (NEGATIVE); URINE KETONE TRACE (NEGATIVE); URINE NITRITE POSITIVE (NEGATIVE); URINE UROBILINOGEN NEGATIVE mg/dL (0.2-1.0)
[2017-07-05 20:03] LABS: URINE LEUK ESTERASE 2+ (NEGATIVE); URINE PROTEIN 1+ (NEGATIVE)
[2017-07-05 20:05] LABS: EPI CELLS MODERATE /HPF (FEW); URINE BACTERIA MANY /hpf (NONE SEEN); URINE MUCUS FEW
--- NOTE | 2017-07-05 20:10 | PDOC ---
ED Treatment Course - LABORATORY CBC & Chemistry Diagram: 07/05/17 17:44 07/05/17 17:44 - ADDITIONAL ORDERS Additional order review: Laboratory Results 07/05/17 07/05/17 07/05/17 17:44 17:44 17:44 PT with INR 12.20 INR 1.08 Sodium Cancelled Potassium Cancelled Chloride Cancelled Carbon Dioxide Cancelled Anion Gap Cancelled BUN Cancelled Creatinine Cancelled Creat Clearance w eGFR Cancelled Random Glucose Cancelled Calcium Cancelled Total Bilirubin Cancelled AST Cancelled ALT Cancelled Alkaline Phosphatase Cancelled Total Protein Cancelled Albumin Cancelled Blood Type Cancelled Antibody Screen Cancelled 07/05/17 17:44 RBC 3.72 MCV 93.2 MCHC 33.7 RDW 14.1 MPV 7.3 L Neutrophils % 80.0 Lymphocytes % 9.7 D Monocytes % 8.9 Eosinophils % 1.0 Basophils % 0.4 - Medications Given in the ED: ED Medications Discontinued Medications Generic Name Dose Route Start Last Admin Trade Name Freq PRN Reason Stop Dose Admin Sodium Chloride 500 mls @ 500 mls/hr 07/05/17 17:42 07/05/17 18:03 Normal Saline - IV 07/05/17 18:41 500 mls/hr ASDIR STA Administration Lorazepam 1 mg 07/05/17 18:50 07/05/17 19:02 Ativan Injection - IVPUSH 07/05/17 18:51 1 mg ONCE ONE Administration Progress Note - Progress Note Progress Note: I have received report from JUANY Flynn regarding this patient. Pt's initial chief complaint: vaginal bleeding vs hematuria Pt's work up completed prior to sign out: CBC Pt treatment given from prior staff: ativan, IV fluids Pt plan to be completed: UA, CMP Dispo: Admission Medical Decision Making - Medical Decision Making A/P: 77 y/o afebrile female with PMH CAD with stents, cardiomyopathy, history of VT s/p AICD, paroxysmal A fib, not on AC due to bleeding, recurrent UTs, dementia, sent from [place] for vaginal bleed vs hematuria. patient was initially assessed by JUANY Flynn. Patient would not tolerate rectal exam. JUANY Flynn suspects bleeding coming from urine. Awaiting CMP and UA. Will admit to hospitalist. Nitrite positive UTI. Will give IV Meropenem based on prior cultures (patient PCN allergic so will not give Zosyn) Will admit to hospitalist. patient admitted to Dr. Caruso Ordered lactic, CXR for admission *DC/Admit/Observation/Transfer Diagnosis at time of Disposition: UTI (urinary tract infection) Qualifiers: Urinary tract infection type: acute cystitis Hematuria presence: with hematuria Qualified Code(s): N30.01 - Acute cystitis with hematuria Hematuria Qualifiers: Glomerular morphologic changes: unspecified whether glomerular morphologic changes present - Discharge Dispostion Condition at time of disposition: Stable Decision to Admit order: Yes - Referrals Referrals: Ashish Blas MD [Primary Care Provider] - - Patient Instructions - Post Discharge Activity
[2017-07-05] MEDS ORDERED: MEROPENEM 1 GM in DEXTROSE 5%-WATER 100 ML IVPB ONE (20:16)
--- NOTE | 2017-07-05 21:33 | HP ---
CHIEF COMPLAINT: Blood in Diaper PCP: Dr. Mary Edge HISTORY OF PRESENT ILLNESS: 77 y/o woman from [facility] PMH Dementia, HTN, HLD, Afib (no AC), CAD , CHF, OK, Diverticulosis. Who presents to the ED for evaluation of blood noted in her diaper r/o hematuria, vaginal bleed, rectal bleed. Patient has Dementia, her was at bedside and provided HPI. Patient's reports that while his was being changed he noted blood in the diaper and thought she was bleeding from her vagina. ER course was notable for: (1) UTI- +nitrate, +2 blood, +2 leukocyte esterase, 530 WBCs (2) EKG- Afib 91bpm, possible inferior infarct, age undetermined (3) Recent Travel: None PAST MEDICAL HISTORY: See HPI PAST SURGICAL HISTORY: Social History: Smoking: Unknown Alcohol: None Drugs: None Resides at [facility] Family History: Unable to Obtain Allergies aspirin Allergy (Verified 07/05/17 17:27) Penicillins Allergy (Verified 07/05/17 17:27) HOME MEDICATIONS: Home Medications Medication Instructions Recorded Sennosides [Senna] 8.6 mg PO HS 06/28/17 Metoprolol Succinate [Toprol XL -] 12.5 mg PO DAILY tab.sr.24h 07/01/17 Olanzapine [Zyprexa -] 2.5 mg PO HS tablet 07/01/17 Quetiapine Fumarate [Seroquel -] 25 mg PO Q8H PRN tablet 07/01/17 REVIEW OF SYSTEMS Unable to Obtain- Dementia CONSTITUTIONAL: Absent: fever, chills, diaphoresis, generalized weakness, malaise, loss of appetite, weight change HEENT: Absent: rhinorrhea, nasal congestion, throat pain, throat swelling, difficulty swallowing, mouth swelling, ear pain, eye pain, visual changes CARDIOVASCULAR: Absent: chest pain, syncope, palpitations, irregular heart rate, lightheadedness , peripheral edema RESPIRATORY: Absent: cough, shortness of breath, dyspnea with exertion, orthopnea, wheezing, stridor, hemoptysis GASTROINTESTINAL: Absent: abdominal pain, abdominal distension, nausea, vomiting, diarrhea, constipation, melena, hematochezia GENITOURINARY: Absent: dysuria, frequency, urgency, hesitancy, hematuria, flank pain, genital pain MUSCULOSKELETAL: Absent: myalgia, arthralgia, joint swelling, back pain, neck pain SKIN: Absent: rash, itching, pallor HEMATOLOGIC/IMMUNOLOGIC: Absent: easy bleeding, easy bruising, lymphadenopathy, frequent infections ENDOCRINE: Absent: unexplained weight gain, unexplained weight loss, heat intolerance, cold intolerance NEUROLOGIC: Absent: headache, focal weakness or paresthesias, dizziness, unsteady gait, seizure, mental status changes, bladder or bowel incontinence PSYCHIATRIC: Absent: anxiety, depression, suicidal or homicidal ideation, hallucinations. PHYSICAL EXAMINATION Vital Signs - 24 hr 07/05/17 17:27 Temperature 98.2 F Pulse Rate 97 H Respiratory 18 Rate Blood Pressure 143/109 O2 Sat by Pulse 99 Oximetry (%) GENERAL: Asleep but arousable- at baseline, in no acute distress. HEAD: Normal with no signs of trauma. EYES: Pupils equal, round and reactive to light, extraocular movements intact, sclera anicteric, conjunctiva clear. No lid lag. EARS, NOSE, THROAT: Ears normal, nares patent, oropharynx clear without exudates. Moist mucous membranes. NECK: Normal range of motion, supple without lymphadenopathy, JVD, or masses. LUNGS: Breath sounds equal, clear to auscultation bilaterally. No wheezes, and no crackles. No accessory muscle use. HEART: Irregular rate and rhythm, normal S1 and S2 without murmur, rub or gallop. ABDOMEN: Soft, nontender, not distended, normoactive bowel sounds, no guarding, no rebound, no masses. No hepatomegaly or splenomegaly. MUSCULOSKELETAL: Normal range of motion at all joints. No bony deformities or tenderness. No CVA tenderness. UPPER EXTREMITIES: 2+ pulses, warm, well-perfused. No cyanosis. No clubbing. No peripheral edema. LOWER EXTREMITIES: 2+ pulses, warm, well-perfused. No calf tenderness. No peripheral edema. NEUROLOGICAL: Cranial nerves II-XII intact. Normal speech. Gait not observed. PSYCHIATRIC: Dementia- at baseline SKIN: Warm, dry, normal turgor,or lesions noted, normal capillary refill. excoriated rash to perineum and buttock Laboratory Results - last 24 hr 07/05/17 07/05/17 07/05/17 17:44 17:44 17:44 WBC 9.7 D RBC 3.72 Hgb 11.7 Hct 34.7 MCV 93.2 MCH 31.4 MCHC 33.7 RDW 14.1 Plt Count 403 D MPV 7.3 L Neutrophils % 80.0 Lymphocytes % 9.7 D Monocytes % 8.9 Eosinophils % 1.0 Basophils % 0.4 Nucleated RBC % 0 PT with INR 12.20 INR 1.08 Sodium Cancelled Potassium Cancelled Chloride Cancelled Carbon Dioxide Cancelled Anion Gap Cancelled BUN Cancelled Creatinine Cancelled Creat Clearance w eGFR Cancelled Random Glucose Cancelled Calcium Cancelled Total Bilirubin Cancelled AST Cancelled ALT Cancelled Alkaline Phosphatase Cancelled Total Protein Cancelled Albumin Cancelled Urine Color Urine Appearance Urine pH Ur Specific [place] Urine Protein Urine Glucose (UA) Urine Ketones Urine Blood Urine Nitrite Urine Bilirubin Urine Urobilinogen Ur Leukocyte Esterase Urine WBC (Auto) Urine RBC (Auto) Ur Epithelial Cells Urine Bacteria Urine Mucus Blood Type Antibody Screen 07/05/17 07/05/17 17:44 19:49 WBC RBC Hgb Hct MCV MCH MCHC RDW Plt Count MPV Neutrophils % Lymphocytes % Monocytes % Eosinophils % Basophils % Nucleated RBC % PT with INR INR Sodium Potassium Chloride Carbon Dioxide Anion Gap BUN Creatinine Creat Clearance w eGFR Random Glucose Calcium Total Bilirubin AST ALT Alkaline Phosphatase Total Protein Albumin Urine Color Yellow Urine Appearance Cloudy Urine pH 5.0 D Ur Specific [place] 1.019 Urine Protein 1+ H Urine Glucose (UA) Negative Urine Ketones Trace H Urine Blood 2+ H Urine Nitrite Positive Urine Bilirubin Negative Urine Urobilinogen Negative Ur Leukocyte Esterase 2+ H Urine WBC (Auto) 530 Urine RBC (Auto) 16 Ur Epithelial Cells Moderate Urine Bacteria Many Urine Mucus Few Blood Type Cancelled Antibody Screen Cancelled ASSESSMENT/PLAN: This is a 77 y/o woman from [facility] PMHx: Dementia, HTN, HLD, Afib , CHF, CAD, OK, Diverticulosis. Admitted to M/S for UTI, Dehydration secondary to UTI Plan: Admit to M/S Complicated UTI, Dehydration UA showed +2 leukocyte esterase, +2 blood, 530 WBC, +nitrates No leukocytes, afebrile Given Meropenem in ED for coverage ESBL, Proteus Appreciate ID consult for Complicated UTI Urine Culture-pending Chest Xray-pending EKG-pending CMP, Lactic Acid-pending Will repeat CBC, BMP in am Monitor vitals Will continue home meds Functional Quadriplegia- complete immobility due to frailty, end-stage dementia , requires total care, turn Q2h, abi lift as needed, heel protectors, fall precautions DVT ppx- SCDs, Heparin SQ Code Status: Dispo: Requires Inpatient Care Problem List - Problem (1) UTI (urinary tract infection) Code(s): N39.0 - URINARY TRACT INFECTION, SITE NOT SPECIFIED Qualifiers: Urinary tract infection type: acute cystitis Hematuria presence: with hematuria Qualified Code(s): N30.01 - Acute cystitis with hematuria (2) Hematuria Code(s): R31.9 - HEMATURIA, UNSPECIFIED Qualifiers: Glomerular morphologic changes: unspecified whether glomerular morphologic changes present (3) Dementia Code(s): F03.90 - UNSPECIFIED DEMENTIA WITHOUT BEHAVIORAL DISTURBANCE Qualifiers: Dementia type: unspecified type Dementia behavioral disturbance: without behavioral disturbance Qualified Code(s): F03.90 - Unspecified dementia without behavioral disturbance (4) Chronic systolic (congestive) heart failure Code(s): I50.22 - CHRONIC SYSTOLIC (CONGESTIVE) HEART FAILURE (5) A-fib Code(s): I48.91 - UNSPECIFIED ATRIAL FIBRILLATION (6) CAD (coronary artery disease) Code(s): I25.10 - ATHSCL HEART DISEASE OF [place] CORONARY ARTERY W/O ANG PCTRS (7) ICD (implantable cardioverter-defibrillator) in place Code(s): Z95.810 - PRESENCE OF AUTOMATIC (IMPLANTABLE) CARDIAC DEFIBRILLATOR (8) HTN (hypertension) Code(s): I10 - ESSENTIAL (PRIMARY) HYPERTENSION Visit type - Emergency Visit Emergency Visit: Yes ED Registration Date: 07/05/17 Care time: The patient presented to the Emergency Department on the above date and was hospitalized for further evaluation of their emergent condition. - New Patient This patient is new to me today: Yes Date on this admission: 07/06/17 - Critical Care Critical Care patient: No Hospitalist Screening - Colonoscopy Questionnaire Colonoscopy Questionnaire: Colonoscopy Questionnaire - Patient: 50 - 75 years old and never had a screening colonoscopy: Unknown History of colon or rectal polyps, or CA: Unknown History of IBD, Crohn's disease or UC: Unknown History of abdominal radiation therapy as a child: Unknown - Relative: 1 with colon or rectal CA, or polyps at age 60 or younger: Unknown Colon or rectal CA diagnosed at age 45 or younger: Unknown Multiple relatives with colon or rectal CA: Unknown - Outcome: Screening Result: Negative Screen
[2017-07-05 22:36] LABS: ALBUMIN 2.4 g/dl (3.4-5.0); ALK PHOS 97 U/L (45-117); ANION GAP 9 (8-16); BILIRUBIN,TOTAL 0.4 mg/dL (0.2-1.0); BLOOD UREA NITROGEN 15 mg/dL (7-18); CALCIUM 7.9 mg/dL (8.5-10.1); CHLORIDE 102 mmol/L (98-107); CO2 24 mmol/L (21-32); CREATININE 0.8 mg/dL (0.55-1.02); GLUCOSE,RANDOM 86 mg/dL (74-106); POTASSIUM 4.1 mmol/L (3.5-5.1); SGOT/AST 22 U/L (15-37); SGPT/ALT 18 U/L (12-78); SODIUM 135 mmol/L (136-145); TOT PROT 5.9 g/dl (6.4-8.2)
[2017-07-06] MEDS ORDERED: OLANZapine 2.5 MG TABLET PO ONE (01:13)
[2017-07-06] MEDS: QUEtiapine FUMARATE 25 MG TABLET (FP) PO PRN ×2 (01:41→21:39)
[2017-07-06] MEDS ORDERED: LORazepam 2 MG/ML SDV VIAL ONE (01:53)
[2017-07-06 08:29] LABS: HEMATOCRIT 31.5 % (32.4-45.2); HEMOGLOBIN 10.5 GM/dL (10.7-15.3); MCH 31.2 pg (25.7-33.7); MCHC 33.3 g/dl (32.0-36.0); MEAN CELL VOLUME 93.7 fl (80-96); MEAN PLT VOLUME 7.8 fl (7.5-11.1); PLATELET COUNT 371 K/MM3 (134-434); RBC 3.36 M/mm3 (3.60-5.2); RDW 13.5 % (11.6-15.6); WHITE BLOOD COUNT 6.3 K/mm3 (4.0-10.0)
[2017-07-06 09:04] LABS: CHLORIDE 102 mmol/L (98-107); SODIUM 136 mmol/L (136-145)
--- NOTE | 2017-07-06 09:18 | PN ---
Progress Note (short form) - Note Progress Note: ID consult dictated 77 year old female severe dementia sent from [place] with blood in her diaper for last three days- (per prior notes from cardiology she has had bleeding gi/gu??) asked to see for possible UTI no fevers she is unable to give any history extensive fungal rash no signs of gross hematuria possible UTI fungal rash-lotrimin cream I doubt the blood in her diaper was due to UTI- ?gyne, ?gi severe dementia contact isolation prior ESBL Ecoli ertapenem for now pending cultures Problem List - Problems (1) Bleeding Code(s): R58 - HEMORRHAGE, NOT ELSEWHERE CLASSIFIED (2) UTI (urinary tract infection) Code(s): N39.0 - URINARY TRACT INFECTION, SITE NOT SPECIFIED Qualifiers: Urinary tract infection type: acute cystitis Hematuria presence: with hematuria Qualified Code(s): N30.01 - Acute cystitis with hematuria (3) Dementia Code(s): F03.90 - UNSPECIFIED DEMENTIA WITHOUT BEHAVIORAL DISTURBANCE Qualifiers: Dementia type: unspecified type Dementia behavioral disturbance: without behavioral disturbance Qualified Code(s): F03.90 - Unspecified dementia without behavioral disturbance (4) ESBL E. coli carrier Code(s): Z22.39 - CARRIER OF OTHER SPECIFIED BACTERIAL DISEASES (5) Penicillin allergy Code(s): Z88.0 - ALLERGY STATUS TO PENICILLIN
[2017-07-06 09:24] LABS: ANION GAP 9 (8-16); BLOOD UREA NITROGEN 13 mg/dL (7-18); CALCIUM 8.2 mg/dL (8.5-10.1); CO2 25 mmol/L (21-32); CREATININE 0.8 mg/dL (0.55-1.02); GLUCOSE,RANDOM 76 mg/dL (74-106)
[2017-07-06] MEDS ORDERED: ERTAPENEM SODIUM 1 GM/50 ML PRE-DOCKED IVPB SCH (10:00)
[2017-07-06] MEDS ORDERED: MEROPENEM 1 GM in DEXTROSE 5%-WATER 100 ML IVPB SCH (10:00)
[2017-07-06] MEDS ORDERED: LORazepam 2 MG/ML SDV VIAL IVPUSH PRN (10:11)
--- NOTE | 2017-07-06 10:11 | PN ---
Progress Note, Physician Chief Complaint: calm after receiving Seroquel No distress spoke with RN - Current Medication List Current Medications: Active Medications Clotrimazole (Lotrimin 1% Cream -) 1 applic TP BID [facility] Ertapenem (Invanz (Pre-Docked)) 1 gm IVPB DAILY [facility] Nystatin (Nystop Powder -) 1 applic TP DAILY [facility] Olanzapine (Zyprexa -) 2.5 mg PO HS PENG Quetiapine Fumarate (Seroquel -) 25 mg PO Q8H PRN PRN Reason: AGITATION Last Admin: 07/06/17 01:41 Dose: 25 mg - Objective Vital Signs: Vital Signs Temperature 96.2 F L 07/06/17 07:23 Pulse Rate 93 H 07/06/17 07:23 Respiratory Rate 93 H 07/06/17 07:23 Blood Pressure 104/67 07/06/17 07:23 O2 Sat by Pulse Oximetry (%) 99 07/05/17 17:27 Constitutional: Yes: No Distress Cardiovascular: Yes: Pulse Irregular Respiratory: Yes: CTA Bilaterally Gastrointestinal: Yes: Normal Bowel Sounds, Soft. No: Tenderness Edema: No Labs: CBC, BMP 07/06/17 06:54 07/06/17 06:54 INR, PTT INR 1.08 (0.82-1.09) 07/05/17 17:44 Problem List - Problems (1) HTN (hypertension) Code(s): I10 - ESSENTIAL (PRIMARY) HYPERTENSION (2) UTI (urinary tract infection) Code(s): N39.0 - URINARY TRACT INFECTION, SITE NOT SPECIFIED Qualifiers: Urinary tract infection type: acute cystitis Hematuria presence: with hematuria Qualified Code(s): N30.01 - Acute cystitis with hematuria (3) A-fib Code(s): I48.91 - UNSPECIFIED ATRIAL FIBRILLATION (4) Dementia Code(s): F03.90 - UNSPECIFIED DEMENTIA WITHOUT BEHAVIORAL DISTURBANCE Qualifiers: Dementia type: unspecified type Dementia behavioral disturbance: without behavioral disturbance Qualified Code(s): F03.90 - Unspecified dementia without behavioral disturbance Assessment/Plan PLAN IV antibiotics ID eval appreciated cultures pending iv fluids not on anticoagulation for Afib-- fall risk continue with meds
[2017-07-06 10:39] LABS: ACANTHOCYTES 0; ANISOCYTOSIS 0; HELMET CELLS 0; HOWELL-JOLLY BODIES 0; MACROCYTOSIS 0; OVALOCYTE 0; PLATELET ESTIMATE NORMAL; ROULEAU 0; SICKELED CELLS 0; TARGET CELLS 0; TEAR DROP CELLS 0; TOXIC GRANULATION 0
[2017-07-06] MEDS: NYSTATIN POWDER 100,000 UNITS/GM - 15 GM TOPICAL POWDER TP SCH (11:00)
--- NOTE | 2017-07-06 11:13 | EKG ---
Test Reason : Blood Pressure : / mmHG Vent. Rate : 091 BPM Atrial Rate : 067 BPM P-R Int : 000 ms QRS Dur : 098 ms QT Int : 366 ms P-R-T Axes : 000 007 175 degrees QTc Int : 450 ms ATRIAL FIBRILLATION POSSIBLE INFERIOR INFARCT (CITED ON OR BEFORE 23-OCT-1999) ABNORMAL ECG WHEN COMPARED WITH ECG OF 29-JUN-2017 09:04, NO SIGNIFICANT CHANGE WAS FOUND Confirmed by EILEEN HENDERSON, ANGELIKA ([id number]) on 07/06/2017 11:12:56 AM Referred By: Confirmed By:ANGELIKA ARELLANO MD
[2017-07-06] MEDS: CLOTRIMAZOLE 1% CREAM 15 GM TUBE TP SCH ×2 (12:00→22:50)
[2017-07-06] MEDS: ERTAPENEM SODIUM 1 GM in SODIUM CHLORIDE 100 ML IVPB SCH (12:00)
[2017-07-06] MEDS: SODIUM CHLORIDE 0.45% 1,000 ML IV SCH (14:00)
[2017-07-06] MEDS: OLANZapine 2.5 MG TABLET PO SCH (21:39)
[2017-07-06] MEDS ORDERED: SENNOSIDES 8.6MG TABLET (FP) PO SCH (22:00)
[2017-07-06] MEDS: SENNOSIDES 8.6MG TABLET (FP) PO SCH (22:50)
[2017-07-07 08:20] LABS: BASO % 0.9 % (0-2.0); EOS % 2.4 % (0-4.5); HEMATOCRIT 30.7 % (32.4-45.2); HEMOGLOBIN 10.4 GM/dL (10.7-15.3); LYMPH % 13.8 % (8-40); MCHC 34.1 g/dl (32.0-36.0); MEAN CELL VOLUME 93.9 fl (80-96); MEAN PLT VOLUME 6.9 fl (7.5-11.1); MONO % 13.6 % (3.8-10.2); NEUT % 69.3 % (42.8-82.8); PLATELET COUNT 367 K/MM3 (134-434); RBC 3.27 M/mm3 (3.60-5.2); RDW 13.6 % (11.6-15.6); WHITE BLOOD COUNT 6.4 K/mm3 (4.0-10.0)
--- NOTE | 2017-07-07 09:54 | PN ---
Progress Note, Physician Chief Complaint: ID Ertepenem - Current Medication List Current Medications: Active Medications Clotrimazole (Lotrimin 1% Cream -) 1 applic TP BID [facility] Last Admin: 07/06/17 22:50 Dose: 1 applic Ertapenem 1 gm/ Sodium (Chloride) 100 mls @ 200 mls/hr IVPB DAILY [facility] Last Admin: 07/06/17 12:00 Dose: 200 mls/hr Sodium Chloride (1/2 Normal Saline) 1,000 mls @ 75 mls/hr IV ASDIR [facility] Last Admin: 07/06/17 14:00 Dose: 75 mls/hr Lorazepam (Ativan Injection -) 1 mg IVPUSH Q6H PRN PRN Reason: ANXIETY Metoprolol Succinate (Toprol Xl -) 12.5 mg PO DAILY [facility] Nystatin (Nystop Powder -) 1 applic TP DAILY [facility] Last Admin: 07/06/17 11:00 Dose: Not Given Olanzapine (Zyprexa -) 2.5 mg PO HS [facility] Last Admin: 07/06/17 21:39 Dose: 2.5 mg Quetiapine Fumarate (Seroquel -) 25 mg PO Q8H PRN PRN Reason: AGITATION Last Admin: 07/06/17 21:39 Dose: 25 mg Senna (Senna -) 1 tab PO HS [facility] Last Admin: 07/06/17 22:50 Dose: 1 tab - Objective Vital Signs: Vital Signs Temperature 97.8 F 07/07/17 09:00 Pulse Rate 91 H 07/07/17 09:00 Respiratory Rate 20 07/07/17 09:00 Blood Pressure 100/54 07/07/17 09:00 O2 Sat by Pulse Oximetry (%) 97 07/06/17 20:36 Labs: CBC, BMP 07/07/17 08:02 07/06/17 06:54 INR, PTT INR 1.08 (0.82-1.09) 07/05/17 17:44 Assessment/Plan Microbiology 06/28/17 14:28 Urine - Urine - Catheterized Urine Culture - Final Escherichia Coli Esbl Dimensional Inspector 07/05/17 21:51 Blood - Peripheral Venous Blood Culture - Preliminary NO GROWTH OBTAINED AFTER 24 HOURS, INCUBATION TO CONTINUE FOR 4 DAYS. 07/05/17 21:51 Blood - Peripheral Venous Blood Culture - Preliminary NO GROWTH OBTAINED AFTER 24 HOURS, INCUBATION TO CONTINUE FOR 4 DAYS. 07/05/17 21:09 Urine - Urine - Catheterized Urine Culture - Preliminary Lactose Fermenting Neg Bacilli Lactose Fermenting Neg Bacilli#2 Pending Organism Laboratory Tests 07/05/17 07/06/17 07/07/17 19:49 06:54 08:02 WBC 6.4 Hgb 10.4 L Hct 30.7 L Plt Count 367 BUN 13 Creatinine 0.8 Urine Urobilinogen Negative Ur Leukocyte Esterase 2+ H Urine WBC (Auto) 530 Urine RBC (Auto) 16 Assessment UTI MDRO in past Plan Continue current antibiotics Kim HENDERSON
[2017-07-07] MEDS ORDERED: MEROPENEM 1 GM in DEXTROSE 5%-WATER 100 ML IVPB SCH (10:00)
[2017-07-07] MEDS ORDERED: PT OWN MED DRAWER 7, Y5N ONE (10:14)
[2017-07-07] MEDS: metoPROLOL SUCCINATE 25 MG TAB.SR.24H (FP) PO SCH (10:18)
[2017-07-07] MEDS: ERTAPENEM SODIUM 1 GM in SODIUM CHLORIDE 100 ML IVPB SCH (10:18)
[2017-07-07] MEDS: SODIUM CHLORIDE 0.45% 1,000 ML IV SCH (10:18)
[2017-07-07] MEDS: NYSTATIN POWDER 100,000 UNITS/GM - 15 GM TOPICAL POWDER TP SCH (10:18)
[2017-07-07] MEDS: CLOTRIMAZOLE 1% CREAM 15 GM TUBE TP SCH ×2 (10:19→23:15)
--- NOTE | 2017-07-07 11:22 | PN ---
Progress Note, Physician Chief Complaint: calm today spits out meds, not eating well No distress spoke with RN - Current Medication List Current Medications: Active Medications Clotrimazole (Lotrimin 1% Cream -) 1 applic TP BID [facility] Last Admin: 07/07/17 10:19 Dose: 1 applic Ertapenem 1 gm/ Sodium (Chloride) 100 mls @ 200 mls/hr IVPB DAILY [facility] Last Admin: 07/07/17 10:18 Dose: 200 mls/hr Sodium Chloride (1/2 Normal Saline) 1,000 mls @ 75 mls/hr IV ASDIR [facility] Last Admin: 07/07/17 10:18 Dose: 75 mls/hr Lorazepam (Ativan Injection -) 1 mg IVPUSH Q6H PRN PRN Reason: ANXIETY Metoprolol Succinate (Toprol Xl -) 12.5 mg PO DAILY [facility] Last Admin: 07/07/17 10:18 Dose: 12.5 mg Nystatin (Nystop Powder -) 1 applic TP DAILY [facility] Last Admin: 07/07/17 10:18 Dose: 1 applic Olanzapine (Zyprexa -) 2.5 mg PO HS [facility] Last Admin: 07/06/17 21:39 Dose: 2.5 mg Quetiapine Fumarate (Seroquel -) 25 mg PO Q8H PRN PRN Reason: AGITATION Last Admin: 07/06/17 21:39 Dose: 25 mg Senna (Senna -) 1 tab PO HS [facility] Last Admin: 07/06/17 22:50 Dose: 1 tab - Objective Vital Signs: Vital Signs Temperature 97.8 F 07/07/17 09:00 Pulse Rate 91 H 07/07/17 09:00 Respiratory Rate 20 07/07/17 09:00 Blood Pressure 100/54 07/07/17 09:00 O2 Sat by Pulse Oximetry (%) 97 07/06/17 20:36 Constitutional: Yes: No Distress Cardiovascular: Yes: Pulse Irregular Respiratory: Yes: Diminished Gastrointestinal: Yes: Normal Bowel Sounds, Soft. No: Tenderness Edema: No Labs: CBC, BMP 07/07/17 08:02 07/06/17 06:54 INR, PTT INR 1.08 (0.82-1.09) 07/05/17 17:44 Problem List - Problems (1) HTN (hypertension) Code(s): I10 - ESSENTIAL (PRIMARY) HYPERTENSION (2) UTI (urinary tract infection) Code(s): N39.0 - URINARY TRACT INFECTION, SITE NOT SPECIFIED Qualifiers: Urinary tract infection type: acute cystitis Hematuria presence: with hematuria Qualified Code(s): N30.01 - Acute cystitis with hematuria (3) A-fib Code(s): I48.91 - UNSPECIFIED ATRIAL FIBRILLATION (4) Dementia Code(s): F03.90 - UNSPECIFIED DEMENTIA WITHOUT BEHAVIORAL DISTURBANCE Qualifiers: Dementia type: unspecified type Dementia behavioral disturbance: without behavioral disturbance Qualified Code(s): F03.90 - Unspecified dementia without behavioral disturbance Assessment/Plan PLAN IV antibiotics cultures urine noted blood cultures negative iv fluids may give supplements Case discussed with Dr Blas who had evaluated her last admission-- he had spoken with about advanced directives- pt has end stage dementia not on anticoagulation for Afib-- fall risk. s/p AICD continue with meds
[2017-07-07] MEDS: DEXTROSE 5%-NORMAL SALINE 1,000 ML IV SCH (11:38)
--- NOTE | 2017-07-07 12:07 | CON.GI ---
Consult Consult Specialty:: GI Reason for Consultation:: blood in diaper - History of Present Illness History of Present Illness: chart reviewed. Events noted. As per initial intake: 77 y/o woman from [facility] PMH Dementia, HTN, HLD, Afib (no AC), CAD, CHF, RI, Diverticulosis. Who presents to the ED for evaluation of blood noted in her diaper r/o hematuria, vaginal bleed, rectal bleed. Patient has Dementia, her was at bedside and provided HPI. Patient's reports that while his was being changed he noted blood in the diaper and thought she was bleeding from her vagina. Blood work revealed normocytic, normochromic anemia, normal BUN, creatinine, coagulation profile. At the time of this encounter the patient appears comfortable. He cannot provide any feedback due to advanced dementia. No bowel movements, hematochezia , vomiting since admission to the floor. No documented hemodynamic instability. 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 Cardio/Vascular: Yes: AFIB, CAD, CHF, HTN, Hyperlipdemia, RI, Other (episode of sustained ventricular tachycardia requiring cardioversion, s/p ICD) Gastrointestinal: Yes: Diverticulosis - Past Surgical History Past Surgical History: Yes: AICD, - Alcohol/Substance Use Hx Alcohol Use: No - Smoking History Smoking history: Unknown if ever smoked Have you smoked in the past 12 months: No - Social History ADL: Support Services History of Recent Travel: No Home Medications - Allergies Allergies/Adverse Reactions: Allergies Allergy/AdvReac Type Severity Reaction Status Date / Time aspirin Allergy Verified 07/05/17 17:27 Penicillins Allergy Verified 07/05/17 17:27 - Home Medications Home Medications: Ambulatory Orders Sennosides [Senna] 8.6 mg PO HS 06/28/17 Metoprolol Succinate [Toprol XL -] 12.5 mg PO DAILY tab.sr.24h 07/01/17 Olanzapine [Zyprexa -] 2.5 mg PO HS tablet 07/01/17 Quetiapine Fumarate [Seroquel -] 25 mg PO Q8H PRN tablet 07/01/17 Family Disease History - Family Disease History Family History: Unremarkable Review of Systems Unable to obtain ROS, reason: dementia Physical Exam-GI Vital Signs: Vital Signs Temperature 97.8 F 07/07/17 09:00 Pulse Rate 91 H 07/07/17 09:00 Respiratory Rate 20 07/07/17 09:00 Blood Pressure 100/54 07/07/17 09:00 O2 Sat by Pulse Oximetry (%) 97 07/06/17 20:36 Constitutional: Yes: No Distress, Calm. No: Pallor Eyes: Yes: Conjunctiva Clear Gastrointestinal Inspection: No: Distention ...Auscultate: Yes: Normoactive Bowel Sounds ...Palpate: Yes: Soft. No: Firm/Rigid, Guarding, Mass ...Rectal Exam: Yes: Guaiac Positive Labs: CBC, BMP 07/07/17 08:02 07/06/17 06:54 INR, PTT INR 1.08 (0.82-1.09) 07/05/17 17:44 Imaging - Results Ultrasound: Report Reviewed ( pelvic) Problem List - Problems (1) Bleeding Code(s): R58 - HEMORRHAGE, NOT ELSEWHERE CLASSIFIED Assessment/Plan is 77-year-old, frail female with blood in diaper, mild normocytic, normochromic anemia, no hemodynamic changes, or stigmata of ongoing gastrointestinal blood loss. As per patient's nurse of blood tinged vaginal discharge was noted. No BMs this far. Recommend no acute GI intervention at this time. Monitor stools, hemoglobin and vital signs. Treat UTI as per primary team/IBD. Continue supportive care. We will follow
--- NOTE | 2017-07-07 22:35 | PN ---
Progress Note (short form) - Note Progress Note: FISCAL MANAGER patient was examined , no evidence of vaginal bleeding sono normal EM r/o hematuria vs rectal bleeding
[2017-07-07] MEDS: QUEtiapine FUMARATE 25 MG TABLET (FP) PO PRN (23:14)
[2017-07-07] MEDS: SENNOSIDES 8.6MG TABLET (FP) PO SCH (23:15)
[2017-07-07] MEDS: OLANZapine 2.5 MG TABLET PO SCH (23:15)
--- NOTE | 2017-07-07 23:48 | CONS ---
DATE OF CONSULTATION: 07/07/2017 REASON FOR CONSULTATION: Rule out vaginal bleeding. HISTORY OF PRESENT ILLNESS: This patient is a 77-year-old woman, jail resident, with a past medical history of dementia, hypertension, atrial fibrillation, coronary artery disease, and congestive heart failure, and myocardial infarction and diverticulosis who was brought to ER, saw blood on her diapers. History was obtained from the medical record. Patient unable to give any history. PHYSICAL EXAMINATION: ABDOMEN: Soft, nontender. No masses were felt. PELVIC: External genitalia had a rash consistent with diaper rash. External genitalia was normal. No lesion was seen. Vaginal bimanual examination did not show any pelvic masses, and the vagina was dry, no blood was seen. IMPRESSION: No evidence of vaginal bleeding, rule out rectal bleeding, rule out urinary tract infection with hematuria. No gynecological issue. Bartolome [id number]
[2017-07-08] MEDS ORDERED: PT OWN MED DRAWER 7, Y5N ONE (09:12)
[2017-07-08] MEDS: metoPROLOL SUCCINATE 25 MG TAB.SR.24H (FP) PO SCH (09:15)
[2017-07-08] MEDS: ERTAPENEM SODIUM 1 GM in SODIUM CHLORIDE 100 ML IVPB SCH (09:15)
[2017-07-08] MEDS: NYSTATIN POWDER 100,000 UNITS/GM - 15 GM TOPICAL POWDER TP SCH (09:16)
[2017-07-08] MEDS: CLOTRIMAZOLE 1% CREAM 15 GM TUBE TP SCH ×2 (09:17→21:19)
--- NOTE | 2017-07-08 13:12 | PN ---
Progress Note, Physician History of Present Illness: The patient appears to be somewhat more alert. Keeps eye contact. No acute events overnight reported. No BMs. Blood tinged mucus per vaginal again reported by patient's nurse. - Current Medication List Current Medications: Active Medications Clotrimazole (Lotrimin 1% Cream -) 1 applic TP BID [facility] Last Admin: 07/08/17 09:17 Dose: 1 applic Ertapenem 1 gm/ Sodium (Chloride) 100 mls @ 200 mls/hr IVPB DAILY [facility] Last Admin: 07/08/17 09:15 Dose: 200 mls/hr Dextrose/Sodium Chloride (D5-Ns -) 1,000 mls @ 75 mls/hr IV ASDIR [facility] Last Admin: 07/07/17 11:38 Dose: 75 mls/hr Lorazepam (Ativan Injection -) 1 mg IVPUSH Q6H PRN PRN Reason: ANXIETY Metoprolol Succinate (Toprol Xl -) 12.5 mg PO DAILY [facility] Last Admin: 07/08/17 09:15 Dose: 12.5 mg Nystatin (Nystop Powder -) 1 applic TP DAILY [facility] Last Admin: 07/08/17 09:16 Dose: 1 applic Olanzapine (Zyprexa -) 2.5 mg PO HS [facility] Last Admin: 07/07/17 23:15 Dose: 2.5 mg Quetiapine Fumarate (Seroquel -) 25 mg PO Q8H PRN PRN Reason: AGITATION Last Admin: 07/07/17 23:14 Dose: 25 mg Senna (Senna -) 1 tab PO HS [facility] Last Admin: 07/07/17 23:15 Dose: 1 tab - Objective Vital Signs: Vital Signs Temperature 98.6 F 07/08/17 09:00 Pulse Rate 106 H 07/08/17 09:00 Respiratory Rate 20 07/08/17 09:00 Blood Pressure 140/84 07/08/17 09:00 O2 Sat by Pulse Oximetry (%) 97 07/06/17 20:36 Constitutional: Yes: No Distress, Calm Eyes: Yes: Conjunctiva Clear HENT: Yes: Atraumatic Gastrointestinal: Yes: Soft. No: Normal Bowel Sounds, Melena, Rectal Bleeding, Tenderness, Vomiting Labs: CBC, BMP 07/07/17 08:02 07/06/17 06:54 INR, PTT INR 1.08 (0.82-1.09) 07/05/17 17:44 Problem List - Problems (1) Bleeding Code(s): R58 - HEMORRHAGE, NOT ELSEWHERE CLASSIFIED Assessment/Plan More awake and alert. No stigmata of ongoing gastrointestinal blood loss. Recommend no acute GI intervention at this time. Monitor stools, hemoglobin and vital signs. Treat UTI as per primary team/IBD. Continue supportive care. Will follow
--- NOTE | 2017-07-08 13:27 | PN ---
Progress Note (short form) - Note Progress Note: patient seen and examined Comfortable Chart reviewed No distress Poor historian Afebrile All follow-ups and consults noted and appreciated Vital Signs Temp 98.6 F 07/08/17 09:00 Pulse 106 H 07/08/17 09:00 Resp 20 07/08/17 09:00 BP 140/84 07/08/17 09:00 Pulse Ox 97 07/06/17 20:36 Intake & Output 07/07/17 07/08/17 07/08/17 23:59 11:59 23:59 Intake Total 1170 900 Balance 1170 900 Weight 127 lb Intake: IV 750 900 D5-Ns - 1,000 ml @ 75 mls 750 900 /hr IV ASDIR [facility] Rx#: [id number] IVPB 100 Oral 320 Other: Voiding Method Incontinent Incontinent # Unmeasured Voids Void 2 Bowel Movement No # Bowel Movements 0 Height 5 ft 4 in Body Mass Index (BMI) 21.8 Active Medications Clotrimazole (Lotrimin 1% Cream -) 1 applic TP BID [facility] Last Admin: 07/08/17 09:17 Dose: 1 applic Ertapenem 1 gm/ Sodium (Chloride) 100 mls @ 200 mls/hr IVPB DAILY [facility] Last Admin: 07/08/17 09:15 Dose: 200 mls/hr Dextrose/Sodium Chloride (D5-Ns -) 1,000 mls @ 75 mls/hr IV ASDIR [facility] Last Admin: 07/07/17 11:38 Dose: 75 mls/hr Lorazepam (Ativan Injection -) 1 mg IVPUSH Q6H PRN PRN Reason: ANXIETY Metoprolol Succinate (Toprol Xl -) 12.5 mg PO DAILY [facility] Last Admin: 07/08/17 09:15 Dose: 12.5 mg Nystatin (Nystop Powder -) 1 applic TP DAILY [facility] Last Admin: 07/08/17 09:16 Dose: 1 applic Olanzapine (Zyprexa -) 2.5 mg PO HS [facility] Last Admin: 07/07/17 23:15 Dose: 2.5 mg Quetiapine Fumarate (Seroquel -) 25 mg PO Q8H PRN PRN Reason: AGITATION Last Admin: 07/07/17 23:14 Dose: 25 mg Senna (Senna -) 1 tab PO HS [facility] Last Admin: 07/07/17 23:15 Dose: 1 tab CBC, BMP 07/07/17 08:02 07/06/17 06:54 Microbiology 07/05/17 21:09 Urine Culture - Final Urine - Urine - Catheterized Escherichia Coli Esbl Dough Molder Escherichia Coli Esbl Dough Molder#2 07/05/17 21:51 Blood Culture - Preliminary Blood - Peripheral Venous NO GROWTH OBTAINED AFTER 48 HOURS, INCUBATION TO CONTINUE FOR 3 DAYS. 07/05/17 21:51 Blood Culture - Preliminary Blood - Peripheral Venous NO GROWTH OBTAINED AFTER 48 HOURS, INCUBATION TO CONTINUE FOR 3 DAYS. Physical Constitutional: Yes: No Distress. awake Cardiovascular: Yes: Pulse Irregular Respiratory: Yes: Diminished at bases Gastrointestinal: Yes: Normal Bowel Sounds, Soft. No: Tenderness Edema: No Problem List - Problems (1) HTN (hypertension) Code(s): I10 - ESSENTIAL (PRIMARY) HYPERTENSION (2) UTI (urinary tract infection) Code(s): N39.0 - URINARY TRACT INFECTION, SITE NOT SPECIFIED Qualifiers: Urinary tract infection type: acute cystitis Hematuria presence: with hematuria Qualified Code(s): N30.01 - Acute cystitis with hematuria (3) A-fib Code(s): I48.91 - UNSPECIFIED ATRIAL FIBRILLATION (4) Dementia Code(s): F03.90 - UNSPECIFIED DEMENTIA WITHOUT BEHAVIORAL DISTURBANCE Qualifiers: Dementia type: unspecified type Dementia behavioral disturbance: without behavioral disturbance Qualified Code(s): F03.90 - Unspecified dementia without behavioral disturbance Assessment/Plan clinically stable problems as listed Continue present care for precautions Antibiotics Follow-up CBC and electrolytes tomorrow Will follow
[2017-07-08] MEDS ORDERED: ACETAMINOPHEN 325 MG TABLET (FP) PO ONE (20:15)
[2017-07-08] MEDS: DEXTROSE 5%-NORMAL SALINE 1,000 ML IV SCH (20:24)
[2017-07-08] MEDS: OLANZapine 2.5 MG TABLET PO SCH (21:19)
[2017-07-08] MEDS: SENNOSIDES 8.6MG TABLET (FP) PO SCH (21:19)
[2017-07-09 08:50] LABS: BASO % 1.3 % (0-2.0); EOS % 0.1 % (0-4.5); HEMATOCRIT 33.2 % (32.4-45.2); HEMOGLOBIN 11.1 GM/dL (10.7-15.3); LYMPH % 8.1 % (8-40); MCH 31.3 pg (25.7-33.7); MCHC 33.6 g/dl (32.0-36.0); MEAN CELL VOLUME 93.3 fl (80-96); MEAN PLT VOLUME 7.4 fl (7.5-11.1); MONO % 9.5 % (3.8-10.2); PLATELET COUNT 422 K/MM3 (134-434); RBC 3.56 M/mm3 (3.60-5.2); RDW 13.5 % (11.6-15.6); WHITE BLOOD COUNT 10.5 K/mm3 (4.0-10.0)
[2017-07-09] MEDS: metoPROLOL SUCCINATE 25 MG TAB.SR.24H (FP) PO SCH (09:18)
[2017-07-09] MEDS: QUEtiapine FUMARATE 25 MG TABLET (FP) PO PRN ×2 (09:18→21:04)
[2017-07-09] MEDS: NYSTATIN POWDER 100,000 UNITS/GM - 15 GM TOPICAL POWDER TP SCH (09:19)
[2017-07-09 09:21] LABS: ALBUMIN 2.2 g/dl (3.4-5.0); ANION GAP 9 (8-16); BLOOD UREA NITROGEN 15 mg/dL (7-18); CALCIUM 7.8 mg/dL (8.5-10.1); CHLORIDE 103 mmol/L (98-107); CO2 24 mmol/L (21-32); CREATININE 0.6 mg/dL (0.55-1.02); GLUCOSE,RANDOM 120 mg/dL (74-106); POTASSIUM 3.9 mmol/L (3.5-5.1); SGOT/AST 17 U/L (15-37); SGPT/ALT 16 U/L (12-78); SODIUM 136 mmol/L (136-145)
[2017-07-09 09:23] LABS: ALK PHOS 96 U/L (45-117); BILIRUBIN,TOTAL 0.5 mg/dL (0.2-1.0); TOT PROT 5.9 g/dl (6.4-8.2)
[2017-07-09] MEDS: CLOTRIMAZOLE 1% CREAM 15 GM TUBE TP SCH ×2 (09:31→21:04)
[2017-07-09] MEDS: DEXTROSE 5%-NORMAL SALINE 1,000 ML IV SCH ×2 (09:33→21:06)
[2017-07-09] MEDS: ERTAPENEM SODIUM 1 GM in SODIUM CHLORIDE 100 ML IVPB SCH (10:56)
--- NOTE | 2017-07-09 13:58 | PN ---
Progress Note (short form) - Note Progress Note: patient seen and examined Comfortable. overall condition same h/h stable slightly increased wbcs today Vital Signs Temp 98.2 F 07/09/17 07:30 Pulse 107 H 07/09/17 07:30 Resp 18 07/09/17 07:30 BP 146/73 07/09/17 07:30 Pulse Ox 96 07/08/17 22:00 Intake & Output 07/08/17 07/09/17 07/09/17 23:59 11:59 23:59 Intake Total 1080 950 Balance 1080 950 Intake: IV 900 900 D5-Ns - 1,000 ml @ 75 mls 900 900 /hr IV [facility] Rx#: [id number] IVPB 100 Oral 80 50 Other: Voiding Method Incontinent Incontinent # Unmeasured Voids Void 2 1 Bowel Movement No Yes # Bowel Movements 1 Active Medications Clotrimazole (Lotrimin 1% Cream -) 1 applic TP BID [facility] Last Admin: 07/08/17 09:17 Dose: 1 applic Ertapenem 1 gm/ Sodium (Chloride) 100 mls @ 200 mls/hr IVPB DAILY [facility] Last Admin: 07/08/17 09:15 Dose: 200 mls/hr Dextrose/Sodium Chloride (D5-Ns -) 1,000 mls @ 75 mls/hr IV [facility] Last Admin: 07/07/17 11:38 Dose: 75 mls/hr Lorazepam (Ativan Injection -) 1 mg IVPUSH Q6H PRN PRN Reason: ANXIETY Metoprolol Succinate (Toprol Xl -) 12.5 mg PO DAILY [facility] Last Admin: 07/08/17 09:15 Dose: 12.5 mg Nystatin (Nystop Powder -) 1 applic TP DAILY [facility] Last Admin: 07/08/17 09:16 Dose: 1 applic Olanzapine (Zyprexa -) 2.5 mg PO HS [facility] Last Admin: 07/07/17 23:15 Dose: 2.5 mg Quetiapine Fumarate (Seroquel -) 25 mg PO Q8H PRN PRN Reason: AGITATION Last Admin: 07/07/17 23:14 Dose: 25 mg Senna (Senna -) 1 tab PO HS [facility] Last Admin: 07/07/17 23:15 Dose: 1 tab CBC, BMP 07/09/17 08:22 07/09/17 08:22 Microbiology 07/05/17 21:51 Blood Culture - Preliminary Blood - Peripheral Venous NO GROWTH OBTAINED AFTER 72 HOURS, INCUBATION TO CONTINUE FOR 2 DAYS. 07/05/17 21:51 Blood Culture - Preliminary Blood - Peripheral Venous NO GROWTH OBTAINED AFTER 72 HOURS, INCUBATION TO CONTINUE FOR 2 DAYS. 07/05/17 21:09 Urine Culture - Final Urine - Urine - Catheterized Escherichia Coli Esbl Acquisition Consultant Escherichia Coli Esbl Acquisition Consultant#2 Physical Constitutional: Yes: No Distress. awake. Poor historian. Cardiovascular: Yes: Pulse Irregular Respiratory: Yes: Diminished at bases Gastrointestinal: Yes: Normal Bowel Sounds, Soft. No: Tenderness Edema: No Problem List - Problems (1) HTN (hypertension) Code(s): I10 - ESSENTIAL (PRIMARY) HYPERTENSION (2) UTI (urinary tract infection) Code(s): N39.0 - URINARY TRACT INFECTION, SITE NOT SPECIFIED Qualifiers: Urinary tract infection type: acute cystitis Hematuria presence: with hematuria Qualified Code(s): N30.01 - Acute cystitis with hematuria (3) A-fib Code(s): I48.91 - UNSPECIFIED ATRIAL FIBRILLATION (4) Dementia Code(s): F03.90 - UNSPECIFIED DEMENTIA WITHOUT BEHAVIORAL DISTURBANCE Qualifiers: Dementia type: unspecified type Dementia behavioral disturbance: without behavioral disturbance Qualified Code(s): F03.90 - Unspecified dementia without behavioral disturbance Assessment/Plan clinically stable problems as listed Continue present care contact precautions Antibiotics will follow
[2017-07-09] MEDS: SENNOSIDES 8.6MG TABLET (FP) PO SCH (21:04)
[2017-07-09] MEDS: OLANZapine 2.5 MG TABLET PO SCH (21:04)
[2017-07-10] MEDS ORDERED: PT OWN MED DRAWER 7, Y5N ONE (10:39)
[2017-07-10] MEDS: ERTAPENEM SODIUM 1 GM in SODIUM CHLORIDE 100 ML IVPB SCH (10:44)
[2017-07-10] MEDS: metoPROLOL SUCCINATE 25 MG TAB.SR.24H (FP) PO SCH (10:45)
[2017-07-10] MEDS: NYSTATIN POWDER 100,000 UNITS/GM - 15 GM TOPICAL POWDER TP SCH (10:48)
[2017-07-10] MEDS: CLOTRIMAZOLE 1% CREAM 15 GM TUBE TP SCH ×2 (10:49→21:22)
--- NOTE | 2017-07-10 11:39 | PN ---
Progress Note (short form) - Note Progress Note: awake/ comfortable no complains mood is pleasantly confused denies pain afebrile Vital Signs Temp 98.2 F 07/10/17 05:54 Pulse 96 H 07/10/17 05:54 Resp 20 07/10/17 05:54 BP 119/52 07/10/17 05:54 Pulse Ox 97 07/09/17 22:00 Intake & Output 07/09/17 07/09/17 07/10/17 11:59 23:59 11:59 Intake Total 950 1025 900 Balance 950 1025 900 Intake: IV 900 850 900 D5-Ns - 1,000 ml @ 75 mls 900 850 900 /hr IV ASDIR [facility] Rx#: [id number] IVPB 50 Oral 50 125 Other: Voiding Method Incontinent Incontinent Incontinent # Unmeasured Voids Void 1 1 Bowel Movement Yes No # Bowel Movements 1 0 Active Medications Clotrimazole (Lotrimin 1% Cream -) 1 applic TP BID [facility] Last Admin: 07/10/17 10:49 Dose: 1 applic Ertapenem 1 gm/ Sodium (Chloride) 100 mls @ 200 mls/hr IVPB DAILY [facility] Last Admin: 07/10/17 10:44 Dose: 200 mls/hr Dextrose/Sodium Chloride (D5-Ns -) 1,000 mls @ 75 mls/hr IV ASDIR [facility] Last Admin: 07/09/17 21:06 Dose: 75 mls/hr Metoprolol Succinate (Toprol Xl -) 12.5 mg PO DAILY [facility] Last Admin: 07/10/17 10:45 Dose: 12.5 mg Nystatin (Nystop Powder -) 1 applic TP DAILY [facility] Last Admin: 07/10/17 10:48 Dose: 1 applic Olanzapine (Zyprexa -) 2.[address] [facility] Last Admin: 07/09/17 21:04 Dose: 2.5 mg Quetiapine Fumarate (Seroquel -) 25 mg PO Q8H PRN PRN Reason: AGITATION Last Admin: 07/09/17 21:04 Dose: 25 mg Senna (Senna -) 1 tab PO HS [facility] Last Admin: 07/09/17 21:04 Dose: 1 tab CBC, BMP 07/09/17 08:22 07/09/17 08:22 Physical Constitutional: Yes: No Distress. awake. comfortable Cardiovascular: Yes: Pulse Irregular Respiratory: Yes: Diminished at bases Gastrointestinal: Yes: Normal Bowel Sounds, Soft. No: Tenderness Edema: No Problem List - Problems (1) HTN (hypertension) Code(s): I10 - ESSENTIAL (PRIMARY) HYPERTENSION (2) UTI (urinary tract infection) Code(s): N39.0 - URINARY TRACT INFECTION, SITE NOT SPECIFIED Qualifiers: Urinary tract infection type: acute cystitis Hematuria presence: with hematuria Qualified Code(s): N30.01 - Acute cystitis with hematuria (3) A-fib Code(s): I48.91 - UNSPECIFIED ATRIAL FIBRILLATION (4) Dementia Code(s): F03.90 - UNSPECIFIED DEMENTIA WITHOUT BEHAVIORAL DISTURBANCE Qualifiers: Dementia type: unspecified type Dementia behavioral disturbance: without behavioral disturbance Qualified Code(s): F03.90 - Unspecified dementia without behavioral disturbance Assessment/Plan clinically stable problems as listed Continue present care contact precautions Antibiotics chack cbc today i/d to follow d/c planning will follow
[2017-07-10 12:19] LABS: BASO % 0.9 % (0-2.0); EOS % 2.3 % (0-4.5); HEMATOCRIT 28.3 % (32.4-45.2); HEMOGLOBIN 9.5 GM/dL (10.7-15.3); LYMPH % 24.1 % (8-40); MCH 31.4 pg (25.7-33.7); MCHC 33.4 g/dl (32.0-36.0); MEAN PLT VOLUME 7.1 fl (7.5-11.1); MONO % 10.6 % (3.8-10.2); NEUT % 62.1 % (42.8-82.8); PLATELET COUNT 371 K/MM3 (134-434); RBC 3.01 M/mm3 (3.60-5.2); WHITE BLOOD COUNT 8.2 K/mm3 (4.0-10.0)
[2017-07-10] MEDS: SENNOSIDES 8.6MG TABLET (FP) PO SCH (21:20)
[2017-07-10] MEDS: OLANZapine 2.5 MG TABLET PO SCH (21:20)
[2017-07-11] MEDS: DEXTROSE 5%-NORMAL SALINE 1,000 ML IV SCH (06:12)
--- NOTE | 2017-07-11 10:43 | PN ---
Progress Note (short form) - Note Progress Note: nurse reports no bleeding she is alert but confused she is unable to give any history Vital Signs Period Temp Pulse Resp BP Sys/Bundy Pulse Ox Last 24 Hr 97.3 F-99 F 82-145 18-19 111-145/67-75 97 cor-rrr lungs clear abd soft,nt ext no edema CBC, BMP 07/10/17 12:00 07/09/17 08:22 Microbiology 07/05/17 21:51 Blood - Peripheral Venous Blood Culture - Final NO GROWTH AFTER 5 DAYS INCUBATION 07/05/17 21:51 Blood - Peripheral Venous Blood Culture - Final NO GROWTH AFTER 5 DAYS INCUBATION 07/05/17 21:09 Urine - Urine - Catheterized Urine Culture - Final Escherichia Coli Esbl Ent Nurse Escherichia Coli Esbl Ent Nurse#2 a/p bleeding- gyne and gi notes reviewed- possible UTI-ecoli esbl- day #6 ertapenem, can switch to po macrobid and complete total 10 days (another 4 days po) fungal rash-lotrimin cream severe dementia contact isolation prior ESBL Ecoli please call back if needed Problem List - Problems (1) Bleeding Code(s): R58 - HEMORRHAGE, NOT ELSEWHERE CLASSIFIED (2) UTI (urinary tract infection) Code(s): N39.0 - URINARY TRACT INFECTION, SITE NOT SPECIFIED Qualifiers: Urinary tract infection type: acute cystitis Hematuria presence: with hematuria Qualified Code(s): N30.01 - Acute cystitis with hematuria (3) Dementia Code(s): F03.90 - UNSPECIFIED DEMENTIA WITHOUT BEHAVIORAL DISTURBANCE Qualifiers: Dementia type: unspecified type Dementia behavioral disturbance: without behavioral disturbance Qualified Code(s): F03.90 - Unspecified dementia without behavioral disturbance (4) ESBL E. coli carrier Code(s): Z22.39 - CARRIER OF OTHER SPECIFIED BACTERIAL DISEASES (5) Penicillin allergy Code(s): Z88.0 - ALLERGY STATUS TO PENICILLIN
[2017-07-11] MEDS: metoPROLOL SUCCINATE 25 MG TAB.SR.24H (FP) PO SCH (11:15)
[2017-07-11] MEDS: NYSTATIN POWDER 100,000 UNITS/GM - 15 GM TOPICAL POWDER TP SCH (11:15)
[2017-07-11] MEDS: ERTAPENEM SODIUM 1 GM in SODIUM CHLORIDE 100 ML IVPB SCH (11:15)
[2017-07-11] MEDS: CLOTRIMAZOLE 1% CREAM 15 GM TUBE TP SCH ×2 (11:16→21:13)
--- NOTE | 2017-07-11 11:22 | PN ---
Progress Note (short form) - Note Progress Note: Awake/ confused. mood labile today no distress decrease in h/h-- today Dilutional ? Vital Signs Temp 99 F 07/11/17 05:23 Pulse 145 H 07/11/17 05:23 Resp 18 07/11/17 05:23 BP 145/75 07/11/17 05:23 Pulse Ox 97 07/10/17 20:48 Intake & Output 07/10/17 07/10/17 07/11/17 11:59 23:59 11:59 Intake Total 900 50 850 Balance 900 50 850 Intake: IV 900 750 D5-Ns - 1,000 ml @ 75 mls 900 750 /hr IV [facility] Rx#: [id number] Oral 50 100 Other: Voiding Method Incontinent Incontinent Incontinent # Unmeasured Voids Void 2 3 Bowel Movement Yes No # Bowel Movements 1 Active Medications Clotrimazole (Lotrimin 1% Cream -) 1 applic TP BID [facility] Last Admin: 07/11/17 11:16 Dose: 1 applic Ertapenem 1 gm/ Sodium (Chloride) 100 mls @ 200 mls/hr IVPB DAILY [facility] Last Admin: 07/11/17 11:15 Dose: 200 mls/hr Dextrose/Sodium Chloride (D5-Ns -) 1,000 mls @ 75 mls/hr IV ASDIR [facility] Last Admin: 07/11/17 06:12 Dose: 75 mls/hr Metoprolol Succinate (Toprol Xl -) 12.5 mg PO DAILY [facility] Last Admin: 07/11/17 11:15 Dose: 12.5 mg Nystatin (Nystop Powder -) 1 applic TP DAILY [facility] Last Admin: 07/11/17 11:15 Dose: 1 applic Olanzapine (Zyprexa -) 2.5 mg PO [facility] Last Admin: 07/10/17 21:20 Dose: 2.5 mg Quetiapine Fumarate (Seroquel -) 25 mg PO Q8H PRN PRN Reason: AGITATION Last Admin: 07/09/17 21:04 Dose: 25 mg Senna (Senna -) 1 tab PO HS [facility] Last Admin: 07/10/17 21:20 Dose: 1 tab CBC, BMP 07/10/17 12:00 07/09/17 08:22 Microbiology 07/05/17 21:51 Blood Culture - Final Blood - Peripheral Venous NO GROWTH AFTER 5 DAYS INCUBATION 07/05/17 21:51 Blood Culture - Final Blood - Peripheral Venous NO GROWTH AFTER 5 DAYS INCUBATION Physical Constitutional: Yes: No Distress. awake. comfortable Cardiovascular: Yes: Pulse Irregular Respiratory: Yes: Diminished at bases Gastrointestinal: Yes: Normal Bowel Sounds, Soft. No: Tenderness Edema: No Problem List - Problems (1) HTN (hypertension) Code(s): I10 - ESSENTIAL (PRIMARY) HYPERTENSION (2) UTI (urinary tract infection) Code(s): N39.0 - URINARY TRACT INFECTION, SITE NOT SPECIFIED Qualifiers: Urinary tract infection type: acute cystitis Hematuria presence: with hematuria Qualified Code(s): N30.01 - Acute cystitis with hematuria (3) A-fib Code(s): I48.91 - UNSPECIFIED ATRIAL FIBRILLATION (4) Dementia Code(s): F03.90 - UNSPECIFIED DEMENTIA WITHOUT BEHAVIORAL DISTURBANCE Qualifiers: Dementia type: unspecified type Dementia behavioral disturbance: without behavioral disturbance Qualified Code(s): F03.90 - Unspecified dementia without behavioral disturbance Assessment/Plan clinically stable problems as listed Continue present care contact precautions Antibiotics per i/d Discussed Monitor cbc If stable h/h- will d/c tomorrow on po abx Discussed with nursing staff Discussed with pts also will follow
[2017-07-11] MEDS: OLANZapine 2.5 MG TABLET PO SCH (21:12)
[2017-07-11] MEDS: SENNOSIDES 8.6MG TABLET (FP) PO SCH (21:12)
[2017-07-12 08:33] LABS: BASO % 1.1 % (0-2.0); EOS % 2.1 % (0-4.5); HEMATOCRIT 30.3 % (32.4-45.2); HEMOGLOBIN 10.3 GM/dL (10.7-15.3); LYMPH % 15.7 % (8-40); MCH 31.8 pg (25.7-33.7); MEAN CELL VOLUME 93.5 fl (80-96); MEAN PLT VOLUME 8.1 fl (7.5-11.1); MONO % 7.9 % (3.8-10.2); NEUT % 73.2 % (42.8-82.8); PLATELET COUNT 383 K/MM3 (134-434); RBC 3.24 M/mm3 (3.60-5.2); RDW 13.7 % (11.6-15.6); WHITE BLOOD COUNT 7.9 K/mm3 (4.0-10.0)
--- NOTE | 2017-07-12 10:27 | DS ---
Physical Examination Vital Signs: Vital Signs Temperature 97.8 F 07/12/17 06:39 Pulse Rate 82 07/12/17 06:39 Respiratory Rate 20 07/12/17 06:39 Blood Pressure 142/40 07/12/17 06:39 O2 Sat by Pulse Oximetry (%) 97 07/11/17 20:24 Constitutional: Yes: No Distress, Calm Cardiovascular: Yes: Regular Rate and Rhythm Respiratory: Yes: Diminished Gastrointestinal: Yes: Normal Bowel Sounds, Soft. No: Tenderness Edema: No Labs: CBC, BMP 07/12/17 07:30 07/09/17 08:22 Discharge Summary Reason For Visit: URINARY TRACT INFECTION Current Active Problems Bleeding (Acute) ESBL E. coli carrier (Acute) HTN (hypertension) (Acute) Hematuria (Acute) Penicillin allergy (Acute) UTI (urinary tract infection) (Chronic) Hospital Course: Admitted for ?vaginal bleeding vs GI bleeding Found to have UTI - ESBL Seen by SEASONAL PACKAGE HANDLER , GI and ID Pelvic sono- atrophic endometrium H/HCT stable No overt bleeding No acute GI bleeding No GI interventions per Char Filter Operator She was on Ertapenum here Pt to complete Macrobid x 4 days more in [place] Afebrile Stable for dc Condition: Stable - Instructions Referrals: Ashish Blas MD [Primary Care Provider] - - Home Medications Comprehensive Discharge Medication List: Ambulatory Orders Sennosides [Senna] 8.6 mg PO HS 06/28/17 Metoprolol Succinate [Toprol XL -] 12.5 mg PO DAILY tab.sr.24h 07/01/17 Olanzapine [Zyprexa -] 2.5 mg PO HS tablet 07/01/17 Quetiapine Fumarate [Seroquel -] 25 mg PO Q8H PRN tablet 07/01/17
[2017-07-12] MEDS ORDERED: PT OWN MED DRAWER 7, Y5N ONE (10:32)
[2017-07-12] MEDS: metoPROLOL SUCCINATE 25 MG TAB.SR.24H (FP) PO SCH (10:36)
[2017-07-12] MEDS: ERTAPENEM SODIUM 1 GM in SODIUM CHLORIDE 100 ML IVPB SCH (10:37)
[2017-07-12] MEDS: NYSTATIN POWDER 100,000 UNITS/GM - 15 GM TOPICAL POWDER TP SCH (10:42)
[2017-07-12] MEDS: CLOTRIMAZOLE 1% CREAM 15 GM TUBE TP SCH (10:44)
[2017-07-12 10:46] VITALS: PULSE 80
[2017-07-12 16:28] VITALS: BP 132/82; TEMP 98.4
== END 2017-07-12 18:45 | DRG 689 ==
LOC: JER 16:49 → JERBED 21:04 → J6S 07-06 20:05
PROVIDERS: ADMIT Internal Medicine; ATTEND Internal Medicine
DX: N39.0 Urinary tract infection, site not specified (principal); R53.2 Functional quadriplegia; I50.22 Chronic systolic (congestive) heart failure; E86.0 Dehydration; E78.5 Hyperlipidemia, unspecified; Z16.12 Extended spectrum beta lactamase (ESBL) resistance; R31.9 Hematuria, unspecified; Z88.0 Allergy status to penicillin; F03.90 Unspecified dementia, unspecified severity, without behavioral disturbance, psychotic disturbance, mood disturbance, and anxiety; I11.0 Hypertensive heart disease with heart failure; I25.10 Atherosclerotic heart disease of native coronary artery without angina pectoris; I48.0 Paroxysmal atrial fibrillation
CPT/HCPCS: 36415; 71045-TC-FY; 76856-TC; 80048; 80053; 81003; 81015; 82272; 83605; 85025; 85610; 87040; 87086; 87186; 93005; 93010; 99284-25

== ENCOUNTER 2017-11-18 15:32 | Inpatient (IN) | payer OTHER ==
--- NOTE | 2017-11-18 15:54 | PDOC ---
History of Present Illness - General Chief Complaint: Injury Stated Complaint: FALL - History of Present Illness Initial Comments: 11/18/17 15:53 Pt accompanied by . Hx obtained from 77 yo female from [facility] with PMHx of Alzheimer dementia, colon cancer?, CAD with stent and AICD, HTN , HLD, Afib not on any AC due to GIB, multiple UTIs and falls, recent admission 10/09/17 for LOC w/ V-tach presents to ED s/p witnessed mechanical fall on back of head. Pt was eating lunch w/ and stood up and fell on back of her head. was not facing pt when she fell but turned around and saw her awake, thus he does not think she had LOC. No seizure like sxs noticed. Of note pt has had cough for past 1-2 wks Denies fevers, chills, cp, sob, abd pain, n/v/d, urinary sxs Of note had some blood in stools in the past 2 wks. Pt had GI bleed in 10/2017 and was w/u, bleed attributed to colon ca vs hemorrhoids, did not get colonoscopy bec not a candidate for anesthesia. did not want her going to [facility] and elected for continuing at [facility]. PCP: Minesh [place] Conservationist: Wan PAST MEDICAL HISTORY: V-tach arrest (1 year ago requiring cardioversion), s/p AICD, A-fib , CAD, alzheimers, Colon CA, HTN , hx of Fall PAST SURGICAL HISTORY: AICD , Cardiac stent Social History: From [place]; [facility] Family History: No Fhx of any disease Allergies: ASA, PCN Past History - Past Medical History Allergies/Adverse Reactions: Allergies Allergy/AdvReac Type Severity Reaction Status Date / Time aspirin Allergy Verified 10/09/17 13:44 Penicillins Allergy Verified 10/09/17 13:44 Home Medications: Ambulatory Orders Metoprolol Succinate [Toprol XL -] 12.5 mg PO DAILY tab.sr.24h 07/01/17 Olanzapine [Zyprexa -] 2.5 mg PO HS tablet 07/01/17 Citalopram Hydrobromide [Celexa -] 10 mg PO DAILY 10/09/17 Docusate Sodium [Colace] 300 mg PO DAILY 10/09/17 Folic Acid 1 mg PO DAILY 10/09/17 Multivitamin [Poly-Vitamin] 1 each PO DAILY 10/09/17 Amiodarone HCl [Cordarone -] 400 mg PO BID #60 tablet 10/13/17 Cephalexin Monohydrate [Keflex -] 500 mg PO BID #8 capsule 10/13/17 Quetiapine Fumarate [Seroquel -] 12.5 mg PO DAILY #30 tablet 10/13/17 Anemia: No Asthma: No Cancer: No Cardiac Disorders: Yes (A-FIB) COPD: No CHF: No Dementia: Yes Disorders: Yes HTN: Yes Hypercholesterolemia: Yes - Surgical History Cardiac Surgery: Yes (STENTS, DEFIB) - Immunization History Immunization Up to Date: No - Suicide/Smoking/Psychosocial Hx Smoking History: Former smoker Have you smoked in the past 12 months: No If you are a former smoker, when did you quit?: 1986 Hx Alcohol Use: No Drug/Substance Use Hx: No Substance Use Type: None Hx Substance Use Treatment: No Review of Systems - Review of Systems Constitutional: Yes: See HPI HEENTM: Yes: See HPI Respiratory: Yes: See HPI Cardiac (ROS): Yes: See HPI ABD/GI: Yes: See HPI : Yes: See HPI Musculoskeletal: Yes: See HPI Integumentary: Yes: See HPI Neurological: Yes: See HPI Endocrine: Yes: See HPI Hematologic/Lymphatic: Yes: See HPI *Physical Exam - Physical Exam Comments: 11/18/17 16:23 General: Well-nourished, NAD, severely demented, follows commands HEENT: NCAT, MMM Neck: Supple, no lymphadenopathy Respiratory: crackles b/l cardio: RRR S1 S2 no m/r/g Abdomen: +BS , soft, NTND Extremities: radial 2+ b/l. Warm, dry, no cyanosis, edema, clubbing or calf tenderness. Skin: intact. no rashes Neuro: Alert and oriented x1, strength sensation grossly intact. Psych: Normal mood and affect, non coherent thought process ED Treatment Course - LABORATORY CBC & Chemistry Diagram: 11/18/17 16:37 11/18/17 16:37 Medical Decision Making - Medical Decision Making 11/18/17 16:36 Pt accompanied by . Hx obtained from 77 yo female from [facility] with PMHx of Alzheimer dementia, colon cancer?, CAD with stent and AICD, HTN , HLD, Afib not on any AC due to GIB, multiple UTIs and falls, recent admission 10/09/17 for LOC w/ V-tach presents to ED s/p witnessed mechanical fall on back of head. Of note pt has had cough for past 1- 2 wks vitals wnl, crackles on exam Ddx: trauma, SDH, frx, UTI, URI, PNA -CBC, CMP, UA, Ucx, trop, EKG, CXR -Head CT to r/o bleed 11/18/17 17:00 pt is agitated and will give 5mg haldol IM 11/18/17 18:33 zyprexa, pt home dose CBC, CMP unremarkable. H/H at baseline. trop elevated but pt has had recent elevated trop 1 mo ago EKG atrial sensed vent paced rythm. no sig ST-T wave changes. no STEM cxr no acute process waiting for CT scan difficult to obtain urine sample, pt is aggressive, anxious and urinated her diaper. we will try again later and encourage PO liquid *DC/Admit/Observation/Transfer Diagnosis at time of Disposition: Fall Qualifiers: Encounter type: initial encounter Qualified Code(s): W19.XXXA - Unspecified fall, initial encounter - Referrals - Patient Instructions - Post Discharge Activity
--- NOTE | 2017-11-18 16:04 | PDOC ---
Attending Attestation - Resident Resident Name: Karl Almanzar - ED Attending Attestation I have performed the following: I have examined & evaluated the patient, The case was reviewed & discussed with the resident, I agree w/resident's findings & plan, Exceptions are as noted - HPI HPI: 11/18/17 16:01 77 yo F with h/o severe dementia here s/p fall. was in cafe at [facility], with her , had a fall fell backward. hit head. no loc. no c/o pain . no weakness. no c/o joint pain. no c/o hip pain. has ambulated since fall. no other complaints. per pt she has had cough recently and is being worked up for blood in her stool. no recent melena, or other complaints. 11/18/17 16:26 - Physicial Exam PE: 11/18/17 16:02 awake alert. head with posterio occipital ttp. no skin defect. no palp cervical thoracic or lumbar spinal pain. lungs clear bilaterally. heart rrr no mrg. abd soft nt nd. ext wwp. atraumatic. pelvix stable nontender. hips bilat nt from. nuero alert oriented x 1 baseline. - Medical Decision Making 11/18/17 16:03 77 yo f s/p trip and fall. head trauma. plan ekg, ct head. ekg ua r/o uti.
[2017-11-18 16:45] LABS: EOS % 1.6 % (0-4.5); HEMOGLOBIN 10.4 GM/dL (10.7-15.3); LYMPH % 10.2 % (8-40); MCH 28.6 pg (25.7-33.7); MCHC 32.6 g/dl (32.0-36.0); MEAN CELL VOLUME 87.7 fl (80-96); MEAN PLT VOLUME 8.3 fl (7.5-11.1); MONO % 11.9 % (3.8-10.2); NEUT % 75.3 % (42.8-82.8); PLATELET COUNT 336 K/MM3 (134-434); RBC 3.65 M/mm3 (3.60-5.2); RDW 14.6 % (11.6-15.6); WHITE BLOOD COUNT 8.9 K/mm3 (4.0-10.0)
[2017-11-18] MEDS ORDERED: HALOPERIDOL LACTATE 5 MG/ML IM ONE ×2 (16:57→17:02)
[2017-11-18] MEDS ORDERED: HALOPERIDOL LACTATE 5 MG/ML ONE (17:01)
[2017-11-18 17:27] LABS: ALBUMIN 2.8 g/dl (3.4-5.0); ALK PHOS 124 U/L (45-117); BILIRUBIN,TOTAL 0.3 mg/dL (0.2-1); BLOOD UREA NITROGEN 29 mg/dL (7-18); CALCIUM 8.7 mg/dL (8.5-10.1); CHLORIDE 106 mmol/L (98-107); CO2 21 mmol/L (21-32); CREATININE 1.2 mg/dL (0.55-1.3); GLUCOSE,RANDOM 90 mg/dL (74-106); SGPT/ALT 19 U/L (13-61); SODIUM 138 mmol/L (136-145); TOT PROT 7.5 g/dl (6.4-8.2)
[2017-11-18 17:38] LABS: ANION GAP 10 MMOL/L (8-16); POTASSIUM 5.1 mmol/L (3.5-5.1); SGOT/AST 30 U/L (15-37)
[2017-11-18] MEDS ORDERED: OLANZapine 2.5 MG TABLET PO ONE (18:33)
[2017-11-18] MEDS ORDERED: OLANZapine 10 MG TABLET ONE (18:45)
--- NOTE | 2017-11-18 19:15 | PDOC ---
*Physical Exam - Vital Signs Last Vital Signs Temp Pulse Resp BP Pulse Ox 98.3 F 87 20 135/80 99 11/18/17 18:29 11/18/17 18:29 11/18/17 18:29 11/18/17 18:29 11/18/17 18:29 - Physical Exam Comments: 11/18/17 19:15 GENERAL: Awake, alert, in no acute distress HEAD: No signs of trauma, normocephalic, atraumatic EYES: PERRLA, EOMI, sclera anicteric, conjunctiva clear ENT: Hearing grossly normal, nares patent, oropharynx clear without exudates. Moist mucosa NECK: Normal ROM, supple, no lymphadenopathy, JVD, or masses LUNGS: No distress, speaks full sentences, clear to auscultation bilaterally HEART: Regular rate and rhythm, normal S1 and S2, no murmurs, rubs or gallops, peripheral pulses normal and equal bilaterally. EXTREMITIES : Normal inspection, Normal range of motion, no edema. No clubbing or cyanosis. NEUROLOGICAL: Cranial nerves II through XII grossly intact. SKIN: Warm, Dry, normal turgor, no rashes or lesions noted ED Treatment Course - LABORATORY CBC & Chemistry Diagram: 11/18/17 16:37 11/18/17 16:37 - ADDITIONAL ORDERS Additional order review: Laboratory Results 11/18/17 11/18/17 16:37 16:37 Sodium 138 Potassium 5.1 Chloride 106 Carbon Dioxide 21 Anion Gap 10 BUN 29 H Creatinine 1.2 Creat Clearance w eGFR 43.34 Random Glucose 90 Calcium 8.7 Total Bilirubin 0.3 AST 30 ALT 19 Alkaline Phosphatase 124 H Troponin I Cancelled 0.13 H Total Protein 7.5 Albumin 2.8 L 11/18/17 16:37 RBC 3.65 MCV 87.7 MCHC 32.6 RDW 14.6 MPV 8.3 Neutrophils % 75.3 Lymphocytes % 10.2 Monocytes % 11.9 H Eosinophils % 1.6 Basophils % 1.0 - Medications Given in the ED: ED Medications Discontinued Medications Generic Name Dose Route Start Last Admin Trade Name Freq PRN Reason Stop Dose Admin Haloperidol 2.5 mg 11/18/17 16:57 11/18/17 17:02 Haldol Injection (Fast Acting) - IM 11/18/17 16:58 2.5 mg ONCE ONE Administration Haloperidol 2.5 mg 11/18/17 17:02 11/18/17 17:04 Haldol Injection (Fast Acting) - IM 11/18/17 17:03 2.5 mg ONCE ONE Administration Olanzapine 2.5 mg 11/18/17 18:33 11/18/17 18:47 Zyprexa - PO 11/18/17 18:34 2.5 mg ONCE ONE Administration Medical Decision Making - Medical Decision Making 11/18/17 19:08 77 yo F from [facility] with h/o HTN , HLD, A-fib not on any AC due to GIB, CAD s/p stent and AICD, elevated troponin, Alzheimer dementia, colon cancer, multiple UTIs and falls, recent admission 10/09/17 for LOC w/ V-tach presents to ED s/p witnessed mechanical fall on back of head. Receive signout form Dr. Almanzar. VSS, AF. Pending CTH. R/o hemorrhage, fracture, hematoma. EKG is atrial sensed with ventricular paced rhythm. no DRAKE, STD. CBC, CMP are unremarkable. CXR is unremarkable. Received 5 mg Haldol IM, and home dose of Zyprexa d/t agitation/sundowning. ED Course: 11/18/17 19:15 CTH: Acute R frontal cortical infarct, newly developed since prior study () 11/18/17 22:58 Pt. accepted to Tele. Consult Neurology Dr. Nunez. *DC/Admit/Observation/Transfer Diagnosis at time of Disposition: Fall Qualifiers: Encounter type: initial encounter Qualified Code(s): W19.XXXA - Unspecified fall, initial encounter CVA (cerebral vascular accident) Qualifiers: CVA mechanism: unspecified Qualified Code(s): I63.9 - Cerebral infarction, unspecified - Discharge Dispostion Condition at time of disposition: Stable Decision to Admit order: Yes - Referrals - Patient Instructions - Post Discharge Activity
--- NOTE | 2017-11-18 23:07 | HP ---
Admitting History and Physical - Primary Care Physician PCP: Mary Edge - Admission Chief Complaint: S/p Mechincal Fall History of Present Illness: This is a 77 y/o woman from [facility] with a past medical history of Alzheimer 's, Dementia, Colon Cancer?, CAD with Stent, AICD, HTN , HLD, Afib (no AC due to GIB), multiple UTIs and Falls, recent admission 10/09/17 for LOC w/ V-tach. Who presents to the ED s/p witnessed mechanical fall on back of head. Pt was eating lunch w/ and stood up and fell on back of her head. was not facing pt when she fell but turned around and saw her awake, thus he does not think she had LOC. No seizure like sxs noticed. Of note pt has had cough for past 1-2 wks. Unable to get further HPI secondary to Dementia hx and recently medicated with Haldol and Zyprexa for Sundowning and Agitation. Of note had some blood in stools in the past 2 wks. Pt had GI bleed in 10/2017 and was w/u, bleed attributed to colon ca vs hemorrhoids, did not get colonoscopy bec not a candidate for anesthesia. did not want her going to [facility] and elected for continuing at [facility]. PCP: [employer] Field Technician: Wan History Source: Family Member, Medical Record Limitations to Obtaining History: Dementia - Past Medical History [employer]: Yes: Dementia Cardiovascular: Yes: AFIB, CAD, CHF, HTN, Hyperlipdemia, [place], Other (episode of sustained ventricular tachycardia requiring cardioversion, s/p ICD) Gastrointestinal: Yes: Diverticulosis - Past Surgical History Past Surgical History: Yes: AICD, - Smoking History Smoking history: Former smoker Have you smoked in the past 12 months: No If you are a former smoker, when did you quit?: 1986 - Alcohol/Substance Use Hx Alcohol Use: No History of Substance Use: reports: None - Social History Usual Living Arrangement: Yes: Intermediate ADL: Support Services History of Recent Travel: No Home Medications - Allergies Allergies/Adverse Reactions: Allergies Allergy/AdvReac Type Severity Reaction Status Date / Time aspirin Allergy Verified 10/09/17 13:44 Penicillins Allergy Verified 10/09/17 13:44 - Home Medications Home Medications: Ambulatory Orders Metoprolol Succinate [Toprol XL -] 12.5 mg PO DAILY tab.sr.24h 07/01/17 Olanzapine [Zyprexa -] 2.5 mg PO HS tablet 07/01/17 Citalopram Hydrobromide [Celexa -] 10 mg PO DAILY 10/09/17 Docusate Sodium [Colace] 300 mg PO DAILY 10/09/17 Folic Acid 1 mg PO DAILY 10/09/17 Multivitamin [Poly-Vitamin] 1 each PO DAILY 10/09/17 Amiodarone HCl [Cordarone -] 400 mg PO BID #60 tablet 10/13/17 Cephalexin Monohydrate [Keflex -] 500 mg PO BID #8 capsule 10/13/17 Quetiapine Fumarate [Seroquel -] 12.5 mg PO DAILY #30 tablet 10/13/17 Family Disease History - Family Disease History Family History: Unable to Obtain Review of Systems Unable to obtain ROS, reason: Dementia Physical Examination Vital Signs: Vital Signs Temperature 98.3 F 11/18/17 18:29 Pulse Rate 87 11/18/17 18:29 Respiratory Rate 20 11/18/17 18:29 Blood Pressure 135/80 11/18/17 18:29 O2 Sat by Pulse Oximetry (%) 99 11/18/17 18:29 Constitutional: Yes: No Distress, Calm, Thin Eyes: Yes: Conjunctiva Clear, PERRL HENT: Yes: WNL, Atraumatic, Normocephalic Neck: Yes: WNL, Supple, Trachea Midline Cardiovascular: Yes: Regular Rate and Rhythm, S1, S2 Respiratory: Yes: WNL, Regular, CTA Bilaterally Gastrointestinal: Yes: WNL, Normal Bowel Sounds, Soft Breast(s): Yes: WNL Musculoskeletal: Yes: WNL Edema: No Peripheral Pulses WNL: Yes Neurological: Yes: Confusion, Cran Nerves II-XII Intact ...Motor Strength: WNL Labs: CBC, BMP 11/18/17 16:37 11/18/17 16:37 Laboratory Results - last 24 hr 11/18/17 11/18/17 11/18/17 16:37 16:37 16:37 WBC 8.9 RBC 3.65 Hgb 10.4 L Hct 32.0 L MCV 87.7 MCH 28.6 MCHC 32.6 RDW 14.6 Plt Count 336 D MPV 8.3 Absolute Neuts (auto) 6.7 Neutrophils % 75.3 Lymphocytes % 10.2 Monocytes % 11.9 H Eosinophils % 1.6 Basophils % 1.0 Nucleated RBC % 0 Sodium 138 Potassium 5.1 Chloride 106 Carbon Dioxide 21 Anion Gap 10 BUN 29 H Creatinine 1.2 Creat Clearance w eGFR 43.34 Random Glucose 90 Calcium 8.7 Total Bilirubin 0.3 AST 30 ALT 19 Alkaline Phosphatase 124 H Troponin I 0.13 H Cancelled Total Protein 7.5 Albumin 2.8 L 11/19/17 01:00 WBC RBC Hgb Hct MCV MCH MCHC RDW Plt Count MPV Absolute Neuts (auto) Neutrophils % Lymphocytes % Monocytes % Eosinophils % Basophils % Nucleated RBC % Sodium Potassium Chloride Carbon Dioxide Anion Gap BUN Creatinine Creat Clearance w eGFR Random Glucose Calcium Total Bilirubin AST ALT Alkaline Phosphatase Troponin I 0.12 H Total Protein Albumin Intake & Output 11/16/17 11/17/17 11/18/17 11/19/17 23:59 23:59 23:59 23:59 Weight 62.142 kg Imaging - Results Chest X-ray: Report Reviewed, Image Reviewed Cat Scan: Report Reviewed, Image Reviewed EKG: Image Reviewed Problem List - Problems (1) CVA (cerebral vascular accident) Code(s): I63.9 - CEREBRAL INFARCTION, UNSPECIFIED Qualifiers: CVA mechanism: unspecified Qualified Code(s): I63.9 - Cerebral infarction, unspecified (2) Fall Code(s): W19.XXXA - UNSPECIFIED FALL, INITIAL ENCOUNTER Qualifiers: Encounter type: initial encounter Qualified Code(s): W19.XXXA - Unspecified fall, initial encounter (3) HTN (hypertension) Code(s): I10 - ESSENTIAL (PRIMARY) HYPERTENSION (4) A-fib Code(s): I48.91 - UNSPECIFIED ATRIAL FIBRILLATION (5) Dementia Code(s): F03.90 - UNSPECIFIED DEMENTIA WITHOUT BEHAVIORAL DISTURBANCE Qualifiers: (6) ICD (implantable cardioverter-defibrillator) in place Code(s): Z95.810 - PRESENCE OF AUTOMATIC (IMPLANTABLE) CARDIAC DEFIBRILLATOR Assessment/Plan This is a 77 y/o woman with a PMHx of Alzheimer's, Dementia, HTN, HLD, CAD s/p Stent, AICD, Afib (no AC due to GIB hx), recent Admission for LOC with V Tach ( on Amiodarone), Colon Ca?, Multiple UTIs, Falls. Who Presented to the ED s/p fall from NH. Admitted for R- Frontal Cortical Infarct, likely Secondary to Fall from the senior care for further evaluation of their emergent medical condition. Plan: 1. Neuro: Acute R- Frontal Cortical Infarct s/p Fall from NH Head CT showed- no intracranial injury. An acute right frontal cortical infarct. Probable small chronic right temporal cortical infarct without interval change, Small amount fluid with L- Mastoid air cells without definite interval change HOB elevated Appreciate Neurology consult Swallow Eval Neuro Checks Fall Precautions Monitor CBC, BMP Monitor Vitals 2. Cardio: HTN HLD CAD s/p stent Afib [id number] 4 AICD V Tach Continue Cardiac Monitoring Serial Enzymes, Trop 0.13 (baseline) EKG- atrial sensed vent paced rhythm. no significant ST or T wave changes, no STEMI Consider Cardiology consult if Trop I trend up, condition worsens Continue Amiodarone, Metoprolol with parameters (give with thicket) Monitor renal function 3. Psych: Alzheimer's Dementia Likely advance stage of Disease vs Delirium secondary to ?UTI Continue Citalopram, Zyprexa, Seroquel (give with thicket) Fall Precautions Monitor CBC, BMP Monitor vitals UA-pending 4. GI: Hx GIB Stable no active bleed Hgb 10.4 Continue to monitor CBC Monitor vitals FEN PO fluids as tolerated Replete lytes prn Low Na Diet DVT ppx TEDs SCDs Hold AC secondary to Acute R-Frontal Cortical Infarct, GIB hx, Frequent Fall fx Code Status: Full Code Dispo: Requires Inpatient Care Visit type - Emergency Visit Emergency Visit: Yes ED Registration Date: 11/18/17 Care time: The patient presented to the Emergency Department on the above date and was hospitalized for further evaluation of their emergent condition. - New Patient This patient is new to me today: Yes Date on this admission: 11/18/17 - Critical Care Critical Care patient: No
[2017-11-19 07:09] LABS: BASO % 1.3 % (0-2.0); EOS % 5.9 % (0-4.5); HEMATOCRIT 33.4 % (32.4-45.2); HEMOGLOBIN 10.9 GM/dL (10.7-15.3); LYMPH % 17.1 % (8-40); MCH 28.6 pg (25.7-33.7); MCHC 32.8 g/dl (32.0-36.0); MEAN CELL VOLUME 87.4 fl (80-96); MEAN PLT VOLUME 8.2 fl (7.5-11.1); MONO % 16.1 % (3.8-10.2); NEUT % 59.6 % (42.8-82.8); PLATELET COUNT 337 K/MM3 (134-434); RBC 3.82 M/mm3 (3.60-5.2); RDW 14.5 % (11.6-15.6); WHITE BLOOD COUNT 7.9 K/mm3 (4.0-10.0)
[2017-11-19 08:14] LABS: ANION GAP 10 MMOL/L (8-16); BLOOD UREA NITROGEN 24 mg/dL (7-18); CHLORIDE 108 mmol/L (98-107); CO2 20 mmol/L (21-32); CREATININE 0.9 mg/dL (0.55-1.3); GLUCOSE,RANDOM 86 mg/dL (74-106); POTASSIUM 4.4 mmol/L (3.5-5.1); SODIUM 138 mmol/L (136-145)
[2017-11-19] MEDS ORDERED: MULTIVITAMINS (DAILY MVI) TABLET (FP) PO SCH ×3 (10:00→19:30)
[2017-11-19] MEDS ORDERED: AMIODARONE HCL 200 MG TABLET (FP) PO SCH (10:00)
[2017-11-19] MEDS: DOCUSATE SODIUM 100 MG CAPSULE (FP) PO SCH (13:00)
[2017-11-19] MEDS: CITALOPRAM HYDROBROMIDE 10 MG TABLET (FP) PO SCH (13:01)
[2017-11-19] MEDS: QUEtiapine FUMARATE 25 MG TABLET (FP) PO SCH (13:01)
--- NOTE | 2017-11-19 13:01 | PN ---
Progress Note, Physician History of Present Illness: pt seen/ examined chart reviewed. pt awake/ comfortable eating lunch without any difficulty-- feeding denies cp/sob/abd pain afebrile. mood pleasant alert/ awake - Current Medication List Current Medications: Active Medications Amiodarone HCl (Cordarone -) 400 mg PO BID PENG Citalopram Hydrobromide (Celexa -) 10 mg PO DAILY PENG Docusate Sodium (Colace -) 300 mg PO DAILY PENG Folic Acid (Folic Acid -) 1 mg PO DAILY PENG Metoprolol Succinate (Toprol Xl -) 12.5 mg PO DAILY PENG Multivitamins/Minerals/Vitamin C (Tab-A-Vit -) 1 tab PO DAILY PENG Olanzapine (Zyprexa -) 2.5 mg PO HS PENG Quetiapine Fumarate (Seroquel -) 12.5 mg PO DAILY PENG - Objective Vital Signs: Vital Signs Temperature 98.4 F 11/19/17 10:54 Pulse Rate 75 11/19/17 10:54 Respiratory Rate 20 11/19/17 10:54 Blood Pressure 166/79 11/19/17 10:54 O2 Sat by Pulse Oximetry (%) 98 11/19/17 10:54 Constitutional: Yes: No Distress, Calm Eyes: Yes: Conjunctiva Clear, PERRL Neck: Yes: Supple Cardiovascular: Yes: Regular Rate and Rhythm Respiratory: Yes: CTA Bilaterally Gastrointestinal: Yes: Soft Edema: No Neurological: Yes: Alert, Other (non focal) Psychiatric: Yes: Alert Labs: CBC, BMP 11/19/17 06:20 11/19/17 06:20 Problem List - Problems (1) CVA (cerebral vascular accident) Code(s): I63.9 - CEREBRAL INFARCTION, UNSPECIFIED Qualifiers: CVA mechanism: unspecified Qualified Code(s): I63.9 - Cerebral infarction, unspecified (2) Fall Code(s): W19.XXXA - UNSPECIFIED FALL, INITIAL ENCOUNTER Qualifiers: Encounter type: initial encounter Qualified Code(s): W19.XXXA - Unspecified fall, initial encounter (3) ESBL E. coli carrier Code(s): Z22.39 - CARRIER OF OTHER SPECIFIED BACTERIAL DISEASES (4) HTN (hypertension) Code(s): I10 - ESSENTIAL (PRIMARY) HYPERTENSION (5) Paroxysmal atrial fibrillation Code(s): I48.0 - PAROXYSMAL ATRIAL FIBRILLATION (6) GI bleed Code(s): K92.2 - GASTROINTESTINAL HEMORRHAGE, UNSPECIFIED Qualifiers: GI bleed type/associated pathology: unspecified gastrointestinal hemorrhage type Qualified Code(s): K92.2 - Gastrointestinal hemorrhage, unspecified (7) ICD (implantable cardioverter-defibrillator) in place Code(s): Z95.810 - PRESENCE OF AUTOMATIC (IMPLANTABLE) CARDIAC DEFIBRILLATOR Assessment/Plan Stable Monitor on tele Neuro / cardiology to follow no asa- allergic No plavix -- discussed with -- has gi bleed recently also Await neuro/ cardio input continue present care will follow Discussed with pts / nursing staff
[2017-11-19] MEDS: FOLIC ACID 1 MG TABLET (FP) PO SCH (13:02)
[2017-11-19] MEDS: metoPROLOL SUCCINATE 25 MG TAB.SR.24H (FP) PO SCH (13:02)
[2017-11-19 13:52] VITALS: BMI 22.9
--- NOTE | 2017-11-19 15:19 | CON.NEURO ---
Consult Consult Specialty:: Neurology (For Enrique) Referred by:: Dr. Caruso Reason for Consultation:: ?Stroke - History of Present Illness Chief Complaint: Fell and hit head History of Present Illness: 77 yo female from [facility] with PMHx of Alzheimer dementia, colon cancer?, CAD with stent and AICD, HTN , HLD, Afib not on any AC due to GIB, multiple UTIs and falls, recent admission 10/09/17 for LOC w/ V-tach presents after she fell and hit her head in the Cafe at [facility] yesterday. The patient was sitting at a table with her who got up momentarily to get something, an while his back was turned, she stood up and then fell backward, hitting her head. She didn't appear to lose consciousness, convulse, become incontinent, or bite her tongue. She displayed no focal weakness and offers no complaints. she intially said that her head hurt but now says that she feels fine. - History Source History Provided By: Family Member, Medical Record Limitations to Obtaining History: Dementia - Past Medical History SCRIPT GIRL: Yes: Alzheimer's, CVA, Dementia Cardio/Vascular: Yes: AFIB, CAD, CHF, HTN, Hyperlipdemia, [place], Other (episode of sustained ventricular tachycardia requiring cardioversion, s/p ICD) Gastrointestinal: Yes: Diverticulosis - Past Surgical History Past Surgical History: Yes: AICD, - Alcohol/Substance Use Hx Alcohol Use: No History of Substance Use: reports: None - Smoking History Smoking history: Former smoker Have you smoked in the past 12 months: No If you are a former smoker, when did you quit?: 1986 - Social History Usual Living Arrangement: Alf ADL: Support Services History of Recent Travel: No Home Medications - Allergies Allergies/Adverse Reactions: Allergies Allergy/AdvReac Type Severity Reaction Status Date / Time aspirin Allergy Verified 10/09/17 13:44 Penicillins Allergy Verified 10/09/17 13:44 - Home Medications Home Medications: Ambulatory Orders Metoprolol Succinate [Toprol XL -] 12.5 mg PO DAILY tab.sr.24h 07/01/17 Olanzapine [Zyprexa -] 2.5 mg PO HS tablet 07/01/17 Citalopram Hydrobromide [Celexa -] 10 mg PO DAILY 10/09/17 Docusate Sodium [Colace] 300 mg PO DAILY 10/09/17 Folic Acid 1 mg PO DAILY 10/09/17 Multivitamin [Poly-Vitamin] 1 each PO DAILY 10/09/17 Amiodarone HCl [Cordarone -] 400 mg PO BID #60 tablet 10/13/17 Cephalexin Monohydrate [Keflex -] 500 mg PO BID #8 capsule 10/13/17 Quetiapine Fumarate [Seroquel -] 12.5 mg PO DAILY #30 tablet 10/13/17 Physical Exam-Neuro Vital Signs: Vital Signs Temperature 97.8 F 11/19/17 14:49 Pulse Rate 86 11/19/17 14:49 Respiratory Rate 20 11/19/17 10:54 Blood Pressure 117/67 11/19/17 14:49 O2 Sat by Pulse Oximetry (%) 98 11/19/17 10:54 Constitutional: Yes: Well Nourished, No Distress, Calm Labs: CBC, BMP 11/19/17 06:20 11/19/17 06:20 - Neuro Exam Level Of Consciousness: Yes: Alert, Oriented to Person Eyes: Yes: IVA, Other (EOMI) Speech: WNL Cranial Nerves II-XII Intact: Yes DTR's: 1+ Left Bicep, 1+ Right Bicep, 1+ Left Tricep, 1+ Right Tricep, 1+ Left Brachioradialis, 1+ Right Brachioradialis Response to light touch: Normal Motor Strength: 5/5: Left Arm, Right Arm, Left Leg, Right Leg Gait: Deferred Imaging - Results Cat Scan: Report Reviewed, Image Reviewed (hypodensity right subcortical area) Problem List - Problems (1) CVA (cerebral vascular accident) Code(s): I63.9 - CEREBRAL INFARCTION, UNSPECIFIED Qualifiers: CVA mechanism: unspecified Qualified Code(s): I63.9 - Cerebral infarction, unspecified (2) Fall Code(s): W19.XXXA - UNSPECIFIED FALL, INITIAL ENCOUNTER Qualifiers: Encounter type: initial encounter Qualified Code(s): W19.XXXA - Unspecified fall, initial encounter Assessment/Plan Although CT scan read as subacute to acute infarct, she really doesn't show focal findings on exam. I'd like to repeat the CT scan and see if there is progression of imaging findings that would be expected after an acute to subacute stroke. Thanks.
--- NOTE | 2017-11-19 16:17 | CON.CARD ---
Consult Consult Specialty:: Cardiology Referred by:: Dr. Edge Reason for Consultation:: CVA - History of Present Illness Chief Complaint: fall at [place] History of Present Illness: 77 year old woman with a history of CAD s/p MD 1986 s/p PCI x 3 in past (RCA) likely ischemic cardiomyopathy, progressive Alzheimers dementia, h/o sustained VT that required Cardioversion by EMS, then transferred to [facility] where she underwent a cardiac cath showing diffuse RCA disease that did not require revascularization and moderate mLAD disease that was not significant on FFR thus no revascularization was performed. She was felt to have Vt from old inferior scar and due to sustained VT and moderate LV dysfunction underwent ICD implantation (medtronic). Also, after cardioversion for her VT she was in atrial fibrillation thus underwent an elective cardioversion after cardiac cath that restored NSR. She was thus discharged on eliquis. She subsequently went back into afib which has been chronic now and she was taken off anticoagulation in the past due to GI and bleeding. At this point the main issue has been the progression of her Alzheimers and proper medication dosing. She has been on seroquel as outpatient but has had a recent admission with unresponsiveness and hypotension in setting of too much seroquel in addition to Toprol 25. Recent admission with reported syncope, ICD interrogation showed a tachycardia that appears c/w Afib with RVR for which she received ATP x1 followed by possible degeneration to VT then 1 shock. Similar event 06/2017. Now in NSR A recent echocardiogram showed normal LV and RV function. Now admitted with a mechanical fall at [place] hitting the back of her head. Initial Head CT read as acute CVA pt seen and examined today in [facility]. awake alert disoriented. at baseline. Unresponsiveness/hypotension-uncertain if from arrhythmia or related to psych meds -improving, cont seroquel and zyprexa at current dosing -no additional cardiac work up needed at this time Afib-now in NSR, HR adequate -toprol 12.5mg daily -cont amiodarone now that she is in NSR, as may help prevent inappropriate shocks for Afib with RVR in the future -cont amiodarone 200mg daily for now -not on AC due to bleeding CAD/VT ICD cardiomyopathy -unclear if VT episode or AFib with RVR based on ICD interrogation -cont amiodarone as above Wheezing and Rales--evidence of fluid overload after IVF hydration, improved -does not require additional lasix at this time -can be re-evaluated at [place] if standing low dose po lasix is needed pt is acceptable from a cardiac standpoint for discharge. 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: Yes: Alzheimer's, CVA, Dementia Cardio/Vascular: Yes: AFIB, CAD, CHF, HTN, Hyperlipdemia, MD, Other (episode of sustained ventricular tachycardia requiring cardioversion, s/p ICD) Gastrointestinal: Yes: Diverticulosis - Past Surgical History Past Surgical History: Yes: AICD, - Alcohol/Substance Use Hx Alcohol Use: No History of Substance Use: reports: None - Smoking History Smoking history: Former smoker Have you smoked in the past 12 months: No If you are a former smoker, when did you quit?: 1986 - Social History Usual Living Arrangement: Custodial ADL: Support Services History of Recent Travel: No Home Medications - Allergies Allergies/Adverse Reactions: Allergies Allergy/AdvReac Type Severity Reaction Status Date / Time aspirin Allergy Verified 10/09/17 13:44 Penicillins Allergy Verified 10/09/17 13:44 - Home Medications Home Medications: Ambulatory Orders Metoprolol Succinate [Toprol XL -] 12.5 mg PO DAILY tab.sr.24h 07/01/17 Olanzapine [Zyprexa -] 2.5 mg PO HS tablet 07/01/17 Citalopram Hydrobromide [Celexa -] 10 mg PO DAILY 10/09/17 Docusate Sodium [Colace] 300 mg PO DAILY 10/09/17 Folic Acid 1 mg PO DAILY 10/09/17 Multivitamin [Poly-Vitamin] 1 each PO DAILY 10/09/17 Amiodarone HCl [Cordarone -] 400 mg PO BID #60 tablet 10/13/17 Cephalexin Monohydrate [Keflex -] 500 mg PO BID #8 capsule 10/13/17 Quetiapine Fumarate [Seroquel -] 12.5 mg PO DAILY #30 tablet 10/13/17 Family Disease History - Family Disease History Family History: Denies Review of Systems - Review of Systems Constitutional: denies: No Symptoms, Chills, Diaphoresis, Fever, Lethargy, Loss of Appetite, Malaise, Night Sweats, Unintentional Wgt. Loss, Weakness, Other Eyes: denies: No Symptoms, Blind Spots, Blurred Vision, Double Vision, Eye Pain , Floaters, Photophobia, Recent Change in Vision, Other HENT: denies: No Symptoms, Difficult Swallowing, Ear Discharge, Ear Pain, Epistaxis, Gingival Bleeding, Hearing Loss, Mouth Swelling, Nasal Congestion, Ocular Prosthesis, Throat Pain, Toothache, Ringing in Ears, Other Neck: denies: No Symptoms, Decreased ROM, Lumps, Pain on Movement, Stiffness, Swollen Glands, Tenderness, Other Cardiovascular: denies: No Symptoms, Chest Pain, Edema, Palpitations, Shortness of Breath, Other Respiratory: denies: No Symptoms, Cough, Exercise Intolerance, Hemoptysis, Orthopnea, PND, Snoring, SOB, SOB on Exertion, Wheezing, Other Gastrointestinal: denies: No Symptoms, Abdominal Pain, Bloating, Constipation, Diarrhea, Dysphagia, Indigestion, Melena, Nausea, Rectal Bleeding, Vomiting, Vomiting Blood, Other Genitourinary: denies: No Symptoms, Burning, Discharge, Dysuria, Flank Pain, Frequency, Hematuria, Incontinence, Lesions, Menses, Pain, Testicular Mass, Testicular Pain, Testicular Swelling, Urgency, Vaginal Bleeding, Other Breasts: denies: No Symptoms Reported, See HPI, Breast Implants, Discharge from Nipple, Lumps, Pain, Skin Changes, Other Musculoskeletal: denies: No Symptoms, Back Pain, Crepitus, Decreased ROM, Extremity Pain, Joint Pain, Joint Swelling, Muscle Pain, Muscle Cramps, Muscle Weakness, Other Integumentary: denies: No Symptoms, Blister, Bruising, Change in Color, Eczema, Erythema, Incision, Lesions, Lump, Pallor, Pruritis, Rash, Wound, Other Neurological: reports: Confusion, Unsteady Gait. denies: No Symptoms, Change in LOC, Change in Speech, Dizziness, Headache, Incoordination, Numbness, Parasthesia, Pre-Existing Deficit, Seizure, Syncope, Tremors, Weakness, Other Endocrine: denies: No Symptoms, Excessive Sweating, Flushing, Increased Hunger, Increased Thirst, Intolerance to Cold, Intolerance to Heat, Unexplained Weight Gain, Unexplained Weight Loss, Other Hematology/Lymphatic: denies: No Symptoms, Easily Bruised, Excessive Bleeding, Swollen Glands, Other Psychiatric: denies: No Symptoms, Altered Sleep Pattern, Anxiety, Depression, Hallucinations, Panic, Paranoia, Suicidal, Other - Risk Factors Known Risk Factors: Yes: Age, Hypercholesterolemia, Hypertension, Prior MD /Emb Stroke Vital Signs: Vital Signs Temperature 97.8 F 11/19/17 14:49 Pulse Rate 86 11/19/17 14:49 Respiratory Rate 20 11/19/17 10:54 Blood Pressure 117/67 11/19/17 14:49 O2 Sat by Pulse Oximetry (%) 98 11/19/17 10:54 Constitutional: Yes: No Distress, Calm Eyes: Yes: Conjunctiva Clear, EOM Intact HENT: Yes: Atraumatic, Normocephalic Neck: Yes: Supple, Trachea Midline Respiratory: Yes: Regular Gastrointestinal: Yes: Normal Bowel Sounds, Soft. No: Distention, Tenderness Cardiovascular: Yes: Pulse Irregular. No: Regular Rate and Rhythm, Bradycardia , Tachycardia, Gallop, Rub, Varicosities JVD: No Carotid Bruit: No Heart Sounds: Yes: S1, S2 Murmur: Yes: Systolic Murmur Edema: No Peripheral Pulses WNL: Yes Peripheral Pulses: 2+ Left Doralis Pedis, 2+ Right Dorsalis Pedis Neurological: Yes: Alert, Oriented Psychiatric: Yes: Alert, Oriented - Other Data Labs, Other Data: CBC, BMP 11/19/17 06:20 11/19/17 06:20 Troponin, BNP 11/18/17 11/18/17 11/19/17 16:37 16:37 01:00 Troponin I 0.13 H Cancelled 0.12 H 11/19/17 06:20 Troponin I 0.13 H Troponin, BNP 11/18/17 11/18/17 11/19/17 16:37 16:37 01:00 Troponin I 0.13 H Cancelled 0.12 H 11/19/17 06:20 Troponin I 0.13 H pending Imaging - Results Chest X-ray: Report Reviewed, Image Reviewed Cat Scan: Report Reviewed EKG: Report Reviewed, Image Reviewed Assessment/Plan 77 year old woman with a history of CAD s/p MD 1987 s/p PCI x 3 in past (RCA) likely ischemic cardiomyopathy, progressive Alzheimers dementia, h/o sustained VT that required Cardioversion by EMS, then transferred to [facility] where she underwent a cardiac cath showing diffuse RCA disease that did not require revascularization and moderate mLAD disease that was not significant on FFR thus no revascularization was performed. She was felt to have Vt from old inferior scar and due to sustained VT and moderate LV dysfunction underwent ICD implantation (medtronic). Also, after cardioversion for her VT she was in atrial fibrillation thus underwent an elective cardioversion after cardiac cath that restored NSR. She was thus discharged on eliquis. She subsequently went back into afib which has been chronic now and she was taken off anticoagulation in the past due to GI and bleeding. At this point the main issue has been the progression of her Alzheimers and proper medication dosing. She has been on seroquel as outpatient but has had a recent admission with unresponsiveness and hypotension in setting of too much seroquel in addition to Toprol 25. Recent admission with reported syncope, ICD interrogation showed a tachycardia that appears c/w Afib with RVR for which she received ATP x1 followed by possible degeneration to VT then 1 shock. Similar event 06/2017. Now in NSR A recent echocardiogram showed normal LV and RV function. Now admitted with a mechanical fall at [place] hitting the back of her head. Initial Head CT read as acute CVA Possible acute CVA -cannot use AC or anti-platelets due to chronic GI bleeding -neuro evaluation appreciated -fup repeat head CT today -no additional cardiac work needed at this point Afib-now in NSR, HR adequate -toprol 12.5mg daily -reduce amiodarone to 200mg daily -not on AC due to bleeding CAD/VT ICD cardiomyopathy -cont amiodarone as above No additional inpatient cardiac work up needed at this point.
--- NOTE | 2017-11-19 17:13 | PN ---
Progress Note (short form) - Note Progress Note: Neurology Brief Addendum: I received a call from Dr. Mendiola of Radiology who read the CT head. Again visualized is the acute infarct in the right frontal lobe, but it is slightly more well visualized, and this does indeed clarify that the event probably occurred yesterday. She is remarkably intact today, though, and the motor strip appears spared. Problem List - Problems (1) CVA (cerebral vascular accident) Code(s): I63.9 - CEREBRAL INFARCTION, UNSPECIFIED Qualifiers: CVA mechanism: unspecified Qualified Code(s): I63.9 - Cerebral infarction, unspecified (2) Fall Code(s): W19.XXXA - UNSPECIFIED FALL, INITIAL ENCOUNTER Qualifiers: Encounter type: initial encounter Qualified Code(s): W19.XXXA - Unspecified fall, initial encounter
[2017-11-19] MEDS: OLANZapine 2.5 MG TABLET PO SCH (20:00)
[2017-11-19 21:11] LABS: URINE APPEARANCE TURBID; URINE BILIRUBIN NEGATIVE (<2.0 mg/dL); URINE COLOR AMBER; URINE GLUCOSE (UA) NEGATIVE (NEGATIVE); URINE KETONE NEGATIVE (NEGATIVE); URINE LEUK ESTERASE 3+ (NEGATIVE); URINE NITRITE POSITIVE (NEGATIVE); URINE PROTEIN 2+ (NEGATIVE); URINE UROBILINOGEN NEGATIVE mg/dL (0.2-1.0)
[2017-11-19 21:14] LABS: EPI CELLS RARE /HPF (FEW); URINE BACTERIA FEW /hpf (NONE SEEN); URINE MUCUS MANY
[2017-11-20] MEDS: DOCUSATE SODIUM 100 MG CAPSULE (FP) PO SCH (10:00)
--- NOTE | 2017-11-20 11:01 | EKG ---
Test Reason : Blood Pressure : / mmHG Vent. Rate : 078 BPM Atrial Rate : 078 BPM P-R Int : 152 ms QRS Dur : 098 ms QT Int : 426 ms P-R-T Axes : 082 056 039 degrees QTc Int : 485 ms SINUS RHYTHM WITH FREQUENT PREMATURE VENTRICULAR COMPLEXES NONSPECIFIC ST ABNORMALITY ABNORMAL ECG WHEN COMPARED WITH ECG OF 10-OCT-2017 12:00, PREMATURE VENTRICULAR COMPLEXES ARE NOW PRESENT BORDERLINE CRITERIA FOR INFERIOR INFARCT ARE NO LONGER PRESENT NONSPECIFIC T WAVE ABNORMALITY HAS REPLACED INVERTED T WAVES IN INFERIOR LEADS Confirmed by JOANNA CHERRY MD ([id number]) on 11/20/2017 11:00:58 AM Referred By: Confirmed By:JOANNA CHERRY MD
--- NOTE | 2017-11-20 11:52 | PN ---
Progress Note (short form) - Note Progress Note: pt comfortable all f/u noted no new issues afebrile at bedside. Vital Signs Temp 98.8 F 11/20/17 06:00 Pulse 62 11/20/17 06:00 Resp 18 11/20/17 06:00 BP 103/52 L 11/20/17 06:00 Pulse Ox 96 11/19/17 21:00 Intake & Output 11/19/17 11/19/17 11/20/17 11:59 23:59 11:59 Intake Total 350 Balance 350 Weight 133 lb 9.6 oz Intake: Oral 350 Other: Voiding Method Diaper Incontinent Toilet # Unmeasured Voids Void 2 Bowel Movement Yes Yes # Bowel Movements 2 Height 5 ft 4 in Body Mass Index (BMI) 22.9 Weight Measurement Method Standing Scale Active Medications Amiodarone HCl (Cordarone -) 200 mg PO DAILY [facility] Citalopram Hydrobromide (Celexa -) 10 mg PO DAILY [facility] Last Admin: 11/19/17 13:01 Dose: 10 mg Docusate Sodium (Colace -) 300 mg PO DAILY [facility] Last Admin: 11/19/17 13:00 Dose: Not Given Folic Acid (Folic Acid -) 1 mg PO DAILY [facility] Last Admin: 11/19/17 13:02 Dose: 1 mg Metoprolol Succinate (Toprol Xl -) 12.5 mg PO DAILY [facility] Last Admin: 11/19/17 13:02 Dose: 12.5 mg Multivitamins/Minerals/Vitamin C (Tab-A-Vit -) 1 tab PO DAILY [facility] Olanzapine (Zyprexa -) 2.5 mg PO DAILY@1800 [facility] Last Admin: 11/19/17 20:00 Dose: 2.5 mg Quetiapine Fumarate (Seroquel -) 12.5 mg PO DAILY [facility] Last Admin: 11/19/17 13:01 Dose: Not Given CBC, BMP 11/19/17 06:20 11/19/17 06:20 Physical Constitutional: Yes: No Distress, Calm/ comfortable Eyes: Yes: Conjunctiva Clear, PERRLA Neck: Yes: Supple. No jvd Cardiovascular: Yes: Regular Rate and Rhythm Respiratory: Yes: CTA Bilaterally Gastrointestinal: Yes: Soft/ non tender Edema: No Neurological: Yes: Alert, Other (non focal) Psychiatric: Yes: Alert Assessment/Plan Stable continue present care u/a showed wbcs culture pending pt is asymptomatic-- afebrile/ normal wbc/ no distress likely colonization will not treat will follow Discussed with pts / nursing staff. flu shot physical therapy Problem List - Problems (1) CVA (cerebral vascular accident) Code(s): I63.9 - CEREBRAL INFARCTION, UNSPECIFIED Qualifiers: CVA mechanism: unspecified Qualified Code(s): I63.9 - Cerebral infarction, unspecified (2) Fall Code(s): W19.XXXA - UNSPECIFIED FALL, INITIAL ENCOUNTER Qualifiers: Encounter type: initial encounter Qualified Code(s): W19.XXXA - Unspecified fall, initial encounter (3) ESBL E. coli carrier Code(s): Z22.39 - CARRIER OF OTHER SPECIFIED BACTERIAL DISEASES (4) HTN (hypertension) Code(s): I10 - ESSENTIAL (PRIMARY) HYPERTENSION (5) Paroxysmal atrial fibrillation Code(s): I48.0 - PAROXYSMAL ATRIAL FIBRILLATION (6) GI bleed Code(s): K92.2 - GASTROINTESTINAL HEMORRHAGE, UNSPECIFIED Qualifiers: GI bleed type/associated pathology: unspecified gastrointestinal hemorrhage type Qualified Code(s): K92.2 - Gastrointestinal hemorrhage, unspecified (7) ICD (implantable cardioverter-defibrillator) in place Code(s): Z95.810 - PRESENCE OF AUTOMATIC (IMPLANTABLE) CARDIAC DEFIBRILLATOR
[2017-11-20] MEDS ORDERED: FLU VACCINE QUAD 60 MCG/0.5 ML (MDV 18-19) IM ONE (11:53)
[2017-11-20] MEDS: QUEtiapine FUMARATE 25 MG TABLET (FP) PO SCH (12:03)
[2017-11-20] MEDS: CITALOPRAM HYDROBROMIDE 10 MG TABLET (FP) PO SCH (12:27)
[2017-11-20] MEDS: MULTIVITAMINS (DAILY MVI) TABLET (FP) PO SCH (12:28)
[2017-11-20] MEDS: AMIODARONE HCL 200 MG TABLET (FP) PO SCH (12:28)
[2017-11-20] MEDS: FOLIC ACID 1 MG TABLET (FP) PO SCH (12:28)
[2017-11-20] MEDS: metoPROLOL SUCCINATE 25 MG TAB.SR.24H (FP) PO SCH (12:28)
[2017-11-20 15:03] LABS: CHOLESTEROL 210 mg/dL (50-200); HDL CHOLESTEROL 74 mg/dL (40-60); TRIGLYCERIDES 61 mg/dL (0-150)
--- NOTE | 2017-11-20 16:01 | PN ---
Progress Note, Physician Chief Complaint: fall and hit head History of Present Illness: 77 yo female from [facility] with PMHx of Alzheimer dementia, colon cancer?, CAD with stent and AICD, HTN , HLD, Afib not on any AC due to GIB, multiple UTIs and falls, recent admission 10/09/17 for LOC w/ V-tach presents after she fell and hit her head in the Cafe at [facility] yesterday. The patient was sitting at a table with her who got up momentarily to get something, an while his back was turned, she stood up and then fell backward, hitting her head. She didn't appear to lose consciousness, convulse, become incontinent, or bite her tongue. She displayed no focal weakness and offers no complaints. she intially said that her head hurt but now says that she feels fine. Today offers no complaints. I received a call from the radiologist yesterday afternoon regarding F/U CT scan which confirmed presence of acute right frontal infarction and in fact shows that it was a little more prominent, which suggests that indeed the stroke likely occurred coincident with the events leading to her admission. - Current Medication List Current Medications: Active Medications Amiodarone HCl (Cordarone -) 200 mg PO DAILY [facility] Last Admin: 11/20/17 12:28 Dose: 200 mg Atorvastatin Calcium (Lipitor -) 80 mg PO [facility] Citalopram Hydrobromide (Celexa -) 10 mg PO DAILY [facility] Last Admin: 11/20/17 12:27 Dose: 10 mg Docusate Sodium (Colace -) 300 mg PO DAILY [facility] Last Admin: 11/20/17 10:00 Dose: Not Given Folic Acid (Folic Acid -) 1 mg PO DAILY [facility] Last Admin: 11/20/17 12:28 Dose: 1 mg Metoprolol Succinate (Toprol Xl -) 12.5 mg PO DAILY [facility] Last Admin: 11/20/17 12:28 Dose: 12.5 mg Multivitamins/Minerals/Vitamin C (Tab-A-Vit -) 1 tab PO DAILY [facility] Last Admin: 11/20/17 12:28 Dose: 1 tab Olanzapine (Zyprexa -) 2.5 mg PO DAILY@1800 [facility] Last Admin: 11/19/17 20:00 Dose: 2.5 mg - Objective Vital Signs: Vital Signs Temperature 98.3 F 11/20/17 15:00 Pulse Rate 76 11/20/17 15:00 Respiratory Rate 18 11/20/17 15:00 Blood Pressure 101/44 L 11/20/17 15:00 O2 Sat by Pulse Oximetry (%) 93 L 11/20/17 09:00 Neurological: Yes: Alert, Oriented (oriented to self only), Cran Nerves II-XII Intact ...Motor Strength: WNL Labs: CBC, BMP 11/19/17 06:20 11/19/17 06:20 - ....Imaging Cat Scan: Report Reviewed, Image Reviewed (She has acute right frontal infarct, with typical expected evolution from the first one taken 24 hours previously) Problem List - Problems (1) CVA (cerebral vascular accident) Code(s): I63.9 - CEREBRAL INFARCTION, UNSPECIFIED Qualifiers: CVA mechanism: unspecified Qualified Code(s): I63.9 - Cerebral infarction, unspecified (2) Fall Code(s): W19.XXXA - UNSPECIFIED FALL, INITIAL ENCOUNTER Qualifiers: Encounter type: initial encounter Qualified Code(s): W19.XXXA - Unspecified fall, initial encounter Assessment/Plan Right frontal infarction which appears to have had no impact on her motor strip as she has full ability to move her limbs. Unclear if she fell because of the stroke, or had an acute hypotensive episode causing her fall and the stroke both. In any case, she is currently doing well neurologically and can transferred to long-term when medically stable from a neurologic standpoint. I would avoid hypotension but she is not a candidate for anticoagulation or antiplatelet agents due to chronic GI bleeding. Thank you and please call if further questions arise.
[2017-11-20] MEDS ORDERED: guaiFENesin 200 MG/10 ML 10 ML UNIT-DOSE CUPS PO ONE (20:30)
[2017-11-20] MEDS: OLANZapine 2.5 MG TABLET PO SCH (21:11)
[2017-11-20] MEDS ORDERED: ATORVASTATIN CA 80 MG TABLET (FP) PO SCH (22:00)
[2017-11-21 07:32] LABS: BASO % 1.2 % (0-2.0); EOS % 8.1 % (0-4.5); HEMATOCRIT 29.7 % (32.4-45.2); HEMOGLOBIN 9.5 GM/dL (10.7-15.3); LYMPH % 16.9 % (8-40); MCHC 32.1 g/dl (32.0-36.0); MEAN CELL VOLUME 87.1 fl (80-96); MEAN PLT VOLUME 8.4 fl (7.5-11.1); MONO % 15.6 % (3.8-10.2); NEUT % 58.2 % (42.8-82.8); PLATELET COUNT 308 K/MM3 (134-434); RBC 3.41 M/mm3 (3.60-5.2); RDW 14.1 % (11.6-15.6); WHITE BLOOD COUNT 7.8 K/mm3 (4.0-10.0)
[2017-11-21 08:17] LABS: ALBUMIN 2.4 g/dl (3.4-5.0); ALK PHOS 105 U/L (45-117); ANION GAP 6 MMOL/L (8-16); BILIRUBIN,TOTAL 0.5 mg/dL (0.2-1); BLOOD UREA NITROGEN 30 mg/dL (7-18); CALCIUM 8.8 mg/dL (8.5-10.1); CHLORIDE 110 mmol/L (98-107); CHOLESTEROL 170 mg/dL (50-200); CO2 22 mmol/L (21-32); CREATININE 1.2 mg/dL (0.55-1.3); GLUCOSE,RANDOM 86 mg/dL (74-106); HDL CHOLESTEROL 63 mg/dL (40-60); POTASSIUM 4.2 mmol/L (3.5-5.1); SGOT/AST 19 U/L (15-37); SGPT/ALT 16 U/L (13-61); SODIUM 138 mmol/L (136-145); TOT PROT 6.5 g/dl (6.4-8.2); TRIGLYCERIDES 50 mg/dL (0-150)
[2017-11-21] MEDS: DOCUSATE SODIUM 100 MG CAPSULE (FP) PO SCH (09:38)
[2017-11-21] MEDS: AMIODARONE HCL 200 MG TABLET (FP) PO SCH (09:40)
[2017-11-21] MEDS: CITALOPRAM HYDROBROMIDE 10 MG TABLET (FP) PO SCH (09:40)
[2017-11-21] MEDS: MULTIVITAMINS (DAILY MVI) TABLET (FP) PO SCH (09:40)
[2017-11-21] MEDS: FOLIC ACID 1 MG TABLET (FP) PO SCH (09:40)
[2017-11-21] MEDS: metoPROLOL SUCCINATE 25 MG TAB.SR.24H (FP) PO SCH (09:41)
[2017-11-21 09:57] VITALS: BP 129/54; PULSE 66; TEMP 98
--- NOTE | 2017-11-21 11:21 | DS ---
Physical Examination Vital Signs: Vital Signs Temperature 98.0 F 11/21/17 09:56 Pulse Rate 66 11/21/17 09:56 Respiratory Rate 18 11/21/17 09:56 Blood Pressure 129/54 L 11/21/17 09:56 O2 Sat by Pulse Oximetry (%) 95 11/20/17 21:00 Findings/Remarks: feels well walked in hallway in pt no complains calm. mood stable at bedtime afebrile denies any urinary burning Constitutional: Yes: No Distress, Calm Eyes: Yes: Conjunctiva Clear Neck: Yes: Supple Cardiovascular: Yes: Regular Rate and Rhythm Respiratory: Yes: CTA Bilaterally Gastrointestinal: Yes: Soft Edema: No Neurological: Yes: Alert Labs: CBC, BMP 11/21/17 06:00 11/21/17 06:00 Discharge Summary Reason For Visit: FALL/CVA Current Active Problems CVA (cerebral vascular accident) (Acute) Fall (Acute) Hospital Course: This is a 77 y/o woman from [facility] with a past medical history of Alzheimer' s, Dementia, Colon Cancer?, CAD with Stent, AICD, HTN , HLD, Afib (no AC due to GIB), multiple UTIs and Falls, recent admission 10/09/17 for LOC w/ V-tach. Who presents to the ED s/p witnessed mechanical fall on back of head. Pt was eating lunch w/ and stood up and fell on back of her head. was not facing pt when she fell but turned around and saw her awake, thus he does not think she had LOC. No seizure like sxs noticed. Pt found to have acute Right frontal cva No deficits followed by cardiology and neurology pt doing well cleared for d/c by cardio/ neuro u/c-- growing -- likely colonization-- Pt has no urinary burning/ fever/ white count and bladder not distended Will not treat unless condition changes Pt is stable for d/c Meds reconcilled ( Pt on zyprexa and not taking Seroquel - per ) - D/c to correction Discussed with case managers also as well with pts Condition: Stable - Instructions Disposition: RESIDENTIAL FACILITY - Home Medications Comprehensive Discharge Medication List: Ambulatory Orders Metoprolol Succinate [Toprol XL -] 12.5 mg PO DAILY tab.sr.24h 07/01/17 Olanzapine [Zyprexa -] 2.5 mg PO HS tablet 07/01/17 Citalopram Hydrobromide [Celexa -] 10 mg PO DAILY 10/09/17 Docusate Sodium [Colace] 300 mg PO DAILY 10/09/17 Folic Acid 1 mg PO DAILY 10/09/17 Multivitamin [Poly-Vitamin] 1 each PO DAILY 10/09/17 Amiodarone HCl [Cordarone -] 200 mg PO DAILY tablet 11/21/17 Atorvastatin Ca [Lipitor] 80 mg PO HS tablet 11/21/17
--- NOTE | 2017-11-21 12:19 | CONSULT ---
Admitting History and Physical - Primary Care Physician PCP: Mary Edge - Admission History of Present Illness: [facility] EMR: This is a 77 y/o woman from [facility] with a past medical history of Alzheimer 's, Dementia, Colon Cancer?, CAD with Stent, AICD, HTN , HLD, Afib (no AC due to GIB), multiple UTIs and Falls, recent admission 10/09/17 for LOC w/ V-tach. Who presents to the ED s/p witnessed mechanical fall on back of head. Pt was eating lunch w/ and stood up and fell on back of her head. was not facing pt when she fell but turned around and saw her awake, thus he does not think she had LOC. No seizure like sxs noticed. Of note pt has had cough for past 1-2 wks. Unable to get further HPI secondary to Dementia hx and recently medicated with Haldol and Zyprexa for Sundowning and Agitation. Selected Entries 11/20/17 11/20/17 11/20/17 00:01 06:00 10:00 Breakfast Lunch Supper 100% Temperature 98.8 F 98.3 F 11/20/17 11/20/17 11/20/17 15:00 17:15 21:57 Breakfast 50% Lunch 100% Supper 50% Temperature 98.3 F 99.4 F 11/20/17 11/21/17 11/21/17 22:00 06:00 09:56 Breakfast Lunch Supper 50% Temperature 98.1 F 99.0 F 98.0 F Laboratory Tests 11/21/17 06:00 WBC 7.8 Pt on chopped diet/thin liquids at [facility]. [facility]. Pt normally eats quite well and is given seconds. She feeds herself. CT =Acute right frontal infarct Pt's boyfriend reports that "her tongue is heavy." He also said that she had a recent cough. CXR-NAD Appetite limited here. 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, Dementia Cardiovascular: Yes: AFIB, CAD, CHF, HTN, Hyperlipdemia, CT, Other (episode of sustained ventricular tachycardia requiring cardioversion, s/p ICD) Gastrointestinal: Yes: Diverticulosis - Past Surgical History Past Surgical History: Yes: AICD, - Smoking History Smoking history: Former smoker Have you smoked in the past 12 months: No If you are a former smoker, when did you quit?: 1986 - Alcohol/Substance Use Hx Alcohol Use: No History of Substance Use: reports: None - Social History ADL: Support Services History of Recent Travel: No History - Admission Reason For Visit: FALL/CVA - Diagnostics X-ray: Report Reviewed (NAD) CT Scan: Report Reviewed (acute right frontal infarct) - General Mental Status: Awake and Alert, Able to Follow Commands, Confused Attention: Mild Impairment Ability to Follow Directions: Fair Head/Neck Control: Fair - Hearing Hearing: Functional Speech Evaluation - Communication Primary Language: GIBRALTARIAN Communication: Yes: Dysarthria (mild) - Speech Production Able to Make Needs Known: Yes: Mildly Impaired Intelligibility: Yes: Mildly Impaired - Speech Characteristics Voice Loudness: Normal Voice Pitch: Yes: Normal Voice Phonatory-based Quality: Yes: Normal Speech Clarity: < 100% Nasal Resonance: Normal Articulation: Yes: Imprecise (per pt's boyfriend, "tongue is heavy") Rate of Speech: Intact - Language/Auditory Comprehension Follows: Yes: 1 Stage Simple Commands Observation: Able to respond to yes/no queries: Yes, Comprehends Conversational Speech: Yes (simple), Benefits from Slow Speech: Yes, Benefits from Repetiton: Yes, Benefits from Increased Volume of Speech: Yes - Swallow Evaluation/Bedside Assessment Current Nutritional Intake: Dysphagia Minced, Thin Liquids Oral Secretions: Yes: WFL Dentition: Yes: Edentulous Facial Symmetry at Rest: Symmetrical Facial Symmetry on Retraction: Symmetrical Facial Movement: Controlled Against Resistance Opening: Normal Against Resistance Closing: Normal Pucker Lips: Normal Smile: Normal Lingual Movement: Normal, Symmetric Lingual Speed of Movement: Reduced Lingual Movement Strgth Against Opposition: Reduced Lingual Movement Characteristics: Normal Velopharyngeal Movement: Normal Laryngeal Movement: Labored,delay initiation Rate of Intake: Slow/Holding Bolus Size: Small Labial Seal: WFL Oral Prep Time: Increased A-P Transit: Impaired Coughing/Throat Clear: No Change in Voice: No Recommendations - Speech Evaluation, Impression/Plan Impression: Appetite limited here. Needs encouragement but no overt signs of aspiration. Mild dysarthria, reported to be new per pt's boyfriend - Disposition Discharge to: [facility] - Dysphagia Impressions/Plan Swallowing Skills: WFL Dysphagia Impressions: Mild Impairment *Silent aspiration: cannot be R/O at bedside Dysphagia Treatment Plan: Small Bites, Chin Tuck/Down, Clear Pocket Food, Trial Feedings, Safe Rate, 1/2 tsp. at a time, OOB for meals, OOB for 1 h. after meals Recommendations: Other (Speech/swallow f/u at [facility]) - Recommendations Diet Consistency: Dysphagia Minced Medication Administration: Crushed with applesauce Liquids: Thin Liquids Supplement: Ensure, Magic Cup, Ensure Pudding
== END 2017-11-21 14:28 | DRG 65 ==
LOC: JER 15:32 → JERBED 22:54 → UNDOADMIN 23:52 → JERBED 23:52 → J4S 11-19 08:12
PROVIDERS: ADMIT Internal Medicine; ATTEND Internal Medicine
DX: I63.9 Cerebral infarction, unspecified (principal); F05 Delirium due to known physiological condition; G30.9 Alzheimer's disease, unspecified; I25.10 Atherosclerotic heart disease of native coronary artery without angina pectoris; F02.80 Dementia in other diseases classified elsewhere, unspecified severity, without behavioral disturbance, psychotic disturbance, mood disturbance, and anxiety; I10 Essential (primary) hypertension; E78.5 Hyperlipidemia, unspecified; Z98.61 Coronary angioplasty status
CPT/HCPCS: 36415; 70450-TC; 71045-TC-FY; 80048; 80053; 80061; 81003; 81015; 83721; 84484; 85025; 87086; 87186; 90688; 93005; 93010; 97116-GP; 97162-GP; 99284-25; G0008

== ENCOUNTER 2017-12-19 14:50 | Inpatient (IN) | payer OTHER ==
--- NOTE | 2017-12-19 15:04 | PDOC ---
History of Present Illness - General Stated Complaint: Altered Mental Status Time Seen by Provider: 12/19/17 15:04 - History of Present Illness Initial Comments: 12/19/17 16:05 The patient is a 77 year old female with a history of Dementia, HTN, HLD, CAD, Pacemaker and defibrillator placement, UTIs, who presents for evaluation of altered mental status. The patient is accompanied by her who assist in providing the history. He notes that the patient has been increasingly more lethargic and not behaving herself prompting her presentation to the ED for further evaluation. History is limited from the patient due to her dementia. ROS is unobtainable due to the patient's dementia. Past History - Past Medical History Allergies/Adverse Reactions: Allergies Allergy/AdvReac Type Severity Reaction Status Date / Time aspirin Allergy Verified 12/19/17 15:05 Penicillins Allergy Verified 12/19/17 15:05 Home Medications: Ambulatory Orders Citalopram Hydrobromide [Celexa -] 10 mg PO DAILY 10/09/17 Docusate Sodium [Colace] 300 mg PO DAILY 10/09/17 Folic Acid 1 mg PO DAILY 10/09/17 Multivitamin [Poly-Vitamin] 1 each PO DAILY 10/09/17 Amiodarone HCl [Cordarone -] 200 mg PO DAILY tablet 11/21/17 Atorvastatin Ca [Lipitor] 80 mg PO HS tablet 11/21/17 Metoprolol Succinate [Toprol XL -] 25 mg PO DAILY 12/19/17 Olanzapine [Zyprexa -] 5 mg PO HS 12/19/17 Anemia: No Asthma: No Cancer: No Cardiac Disorders: Yes (A-FIB) COPD: No CHF: No Dementia: Yes Diabetes: No Disorders: Yes HTN: Yes Hypercholesterolemia: Yes - Surgical History Cardiac Surgery: Yes (STENTS, DEFIB) - Immunization History Immunization Up to Date: No - Suicide/Smoking/Psychosocial Hx Smoking History: Former smoker Have you smoked in the past 12 months: No If you are a former smoker, when did you quit?: 1986 Hx Alcohol Use: No Drug/Substance Use Hx: No Substance Use Type: None Hx Substance Use Treatment: No Review of Systems - Review of Systems Able to Perform ROS?: No (Dementia) *Physical Exam - Physical Exam Comments: 12/19/17 16:09 General Appearance: Nourished. No Apparent Distress HEENT: EOMI, IVA. No Pharyngeal Erythema, Tonsillar Exudate, Tonsillar Erythema Neck: No Cervical Lymphadenopathy Respiratory/Chest: Lungs Clear, Normal Breath Sounds. No Crackles, Rales, Rhonchi, Wheezing Cardiovascular: Regular Rhythm, Regular Rate. No Murmur, Gallops, Rubs Gastrointestinal/Abdominal: Normal Bowel Sounds, Soft. No Guarding, Rebound, Tenderness Musculoskeletal: No CVA Tenderness Extremity: Normal Capillary Refill Integumentary: Normal Color, Dry, Warm Neurologic: Oriented x1, Alert, Normal Mood/Affect, Normal Response for baseline , ED Treatment Course - LABORATORY CBC & Chemistry Diagram: 12/19/17 15:30 12/19/17 15:26 Medical Decision Making - Medical Decision Making 12/19/17 16:13 The patient is a 77 year old female with a history of Dementia, HTN, HLD, CAD, Pacemaker and defibrillator placement, UTIs, who presents for evaluation of altered mental status. Differential includes but is not limited to: UTI, Pneumonia, Intracranial process, Infectious, Metabolic Derangement. Give the patient's history and physical exam, we will obtain a cbc, cmp, vbg, coags, lactate, ua, urine culture, blood cultures, ekg, chest plain film, head ct to evaluate further. We will continue to monitor and reassess while here in the ED. 12/19/17 19:38 CBC, cmp, lactate, coags, vbg are unremarkable. UA demonstrates positive luek esterase with elevated wbc consistent with a UTI. Chest plain film was concerning for a possible infiltrate as well as read by our radiologist. Head ct is unchanged as read by our radiologist. We will treat the patient with levaquin and the patient will require admission for further management. We discussed the case with the admitting team who accepted the patient for admission. *DC/Admit/Observation/Transfer Diagnosis at time of Disposition: UTI (urinary tract infection) Qualifiers: Urinary tract infection type: site unspecified Hematuria presence: without hematuria Qualified Code(s): N39.0 - Urinary tract infection, site not specified Pneumonia Qualifiers: Pneumonia type: due to unspecified organism Laterality: unspecified laterality Lung location: unspecified part of lung Qualified Code(s): J18.9 - Pneumonia, unspecified organism Altered mental status Qualifiers: Altered mental status type: unspecified Qualified Code(s): R41.82 - Altered mental status, unspecified - Discharge Dispostion Condition at time of disposition: Stable Decision to Admit order: Yes - Referrals Referrals: Avery Eduardo [Primary Care Provider] - - Patient Instructions - Post Discharge Activity
[2017-12-19 15:06] VITALS: BMI 22.3
--- NOTE | 2017-12-19 15:21 | PDOC ---
Attending Attestation - HPI HPI: 12/19/17 15:49 The patient is a 77 year old female, with a significant past medical history of AFib not on AC due to GIB,(defibrillator/pacemaker in place), Alzheimer dementia , colon cancer?, CAD s/p stent, HTN , HLD, multiple UTIs and falls,who presents to the emergency department via ems with from [facility] after having a 45 minute period of being difficult to arouse. The at bedside reports seeing the patient well last night, however, when he arrived to the [place] to visit her at noon today, she was not arousable to him when he was tapping on her face. The reports the nurses placed his on O2 Nasal Canula and she responded after 45 minutes. He reports being told by his that her chest hurt. Allergies: aspirin, penicillins - Physicial Exam PE: 12/19/17 15:57 Vitals: Triage vital signs reviewed General Appearance: No acute distress, well nourished, well developed Head: Atraumatic Eyes: Pupils equal reactive round, extraocular movement intact Neck: Supple; No nuchal rigidity Chest Wall: Nontender Cardiac: Regular rate and rhythm, no murmurs, no rubs, no gallops Lungs: Clear to auscultation bilateral, good air movement bilaterally Abdomen: Soft, nondistended, normal bowel sounds, nontender to palpation Extremities: Full range of motion to all extremities, no cyanosis, clubbing, or edema Skin: Warm and dry, no rashes or lesions, no rash, no petechiae Neuro: Awake, Alert, not oriented to place or time. Cranial Nerves 2-12 grossly intact, Moving all extremities, Strength intact to all extremities, Sensation intact to all extremities, gait unassessed. Psych: Normal mood, normal affect - Medical Decision Making 12/19/17 15:55 Documentation prepared by Meli Guevara, acting as medical care manager for Haris Iverson MD <Meli Guevara - Last Filed: 12/19/17 15:56> - Resident Resident Name: Uvaldo Ortiz - ED Attending Attestation I have performed the following: I have examined & evaluated the patient, The case was reviewed & discussed with the resident, I agree w/resident's findings & plan, Exceptions are as noted - Medical Decision Making 77 year old female, with a significant past medical history of AFib not on AC due to GIB,(defibrillator/pacemaker in place), Alzheimer dementia, colon cancer? , CAD s/p stent, HTN , HLD, multiple UTIs and falls,who presents to the emergency department via ems with from [facility] after having a 45 minute period of being difficult to arouse. Differential diagnosis includes toxic metabolic, medication adverse effect, progression of underlying disease We'll check labs head CT urinalysis Dr. Carter to follow-up results and reassess. <Haris Iverson - Last Filed: 12/19/17 16:39>
[2017-12-19] MEDS ORDERED: SODIUM CHLORIDE 500 ML IV STA (15:24)
[2017-12-19 16:14] LABS: BASO % 1.2 % (0-2.0); EOS % 1.4 % (0-4.5); HEMATOCRIT 32.4 % (32.4-45.2); HEMOGLOBIN 10.5 GM/dL (10.7-15.3); MCH 28.2 pg (25.7-33.7); MCHC 32.6 g/dl (32.0-36.0); MEAN CELL VOLUME 86.6 fl (80-96); MEAN PLT VOLUME 8.8 fl (7.5-11.1); MONO % 8.5 % (3.8-10.2); NEUT % 75.9 % (42.8-82.8); PLATELET COUNT 310 K/MM3 (134-434); RBC 3.74 M/mm3 (3.60-5.2); RDW 15.9 % (11.6-15.6); WHITE BLOOD COUNT 7.8 K/mm3 (4.0-10.0)
[2017-12-19 17:13] LABS: INR 0.92 (0.83-1.09); PROTHROMBIN TIME (PATIENT) 10.9 SEC (9.7-13.0)
[2017-12-19 17:16] LABS: ACTIVATED PTT 18.6 SECONDS (25.2-36.5)
[2017-12-19 17:23] LABS: ALBUMIN 2.9 g/dl (3.4-5.0); ALK PHOS 117 U/L (45-117); ANION GAP 8 MMOL/L (8-16); BILIRUBIN,TOTAL 0.3 mg/dL (0.2-1); BLOOD UREA NITROGEN 24 mg/dL (7-18); CALCIUM 8.4 mg/dL (8.5-10.1); CHLORIDE 106 mmol/L (98-107); CO2 25 mmol/L (21-32); GLUCOSE,RANDOM 89 mg/dL (74-106); POTASSIUM 4.4 mmol/L (3.5-5.1); SGOT/AST 21 U/L (15-37); SGPT/ALT 22 U/L (13-61); SODIUM 138 mmol/L (136-145); TOT PROT 7.2 g/dl (6.4-8.2)
[2017-12-19 17:52] LABS: URINE APPEARANCE SLCLOUDY; URINE BILIRUBIN NEGATIVE (<2.0 mg/dL); URINE COLOR LTYELLOW; URINE GLUCOSE (UA) NEGATIVE (NEGATIVE); URINE KETONE NEGATIVE (NEGATIVE); URINE LEUK ESTERASE 2+ (NEGATIVE); URINE NITRITE POSITIVE (NEGATIVE); URINE PROTEIN NEGATIVE (NEGATIVE); URINE UROBILINOGEN NEGATIVE mg/dL (0.2-1.0)
[2017-12-19 17:56] LABS: EPI CELLS RARE /HPF (FEW); URINE MUCUS RARE
--- NOTE | 2017-12-19 19:16 | HP ---
Admitting History and Physical - Primary Care Physician PCP: Avery Eduardo ([facility]) - Admission Chief Complaint: Change in mental status History of Present Illness: Thus is a 77 y/o woman from [facility] with a past medical history of Dementia, HTN, Afib, CHF, AICD, COPD, MDD, UTIs, Cerebral Infarction, Frequent Falls, Dysphagia, UTIs. Who presents to the ED via ambulance for increased AMS x today. Patient has Dementia unable to provide HPI. Her who was at bedside reports that the patient was not responding to him, no eye contact, non verbal. 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: Alzheimer's, CVA, Dementia Cardiovascular: Yes: AFIB, CAD, CHF, HTN, Hyperlipdemia, [place], Other (episode of sustained ventricular tachycardia requiring cardioversion, s/p ICD) Gastrointestinal: Yes: Diverticulosis - Past Surgical History Past Surgical History: Yes: AICD, - Smoking History Smoking history: Former smoker Have you smoked in the past 12 months: No If you are a former smoker, when did you quit?: 1986 - Alcohol/Substance Use Hx Alcohol Use: No History of Substance Use: reports: None - Social History ADL: Support Services History of Recent Travel: No Home Medications - Allergies Allergies/Adverse Reactions: Allergies Allergy/AdvReac Type Severity Reaction Status Date / Time aspirin Allergy Verified 12/19/17 15:05 Penicillins Allergy Verified 12/19/17 15:05 - Home Medications Home Medications: Ambulatory Orders Citalopram Hydrobromide [Celexa -] 10 mg PO DAILY 10/09/17 Docusate Sodium [Colace] 300 mg PO DAILY 10/09/17 Folic Acid 1 mg PO DAILY 10/09/17 Multivitamin [Poly-Vitamin] 1 each PO DAILY 10/09/17 Amiodarone HCl [Cordarone -] 200 mg PO DAILY tablet 11/21/17 Atorvastatin Ca [Lipitor] 80 mg PO HS tablet 11/21/17 Metoprolol Succinate [Toprol XL -] 25 mg PO DAILY 12/19/17 Olanzapine [Zyprexa -] 5 mg PO HS 12/19/17 Review of Systems Unable to obtain ROS, reason: Dementia Physical Examination Vital Signs: Vital Signs Temperature 99.1 F 12/19/17 14:53 Pulse Rate 94 H 12/19/17 14:53 Respiratory Rate 18 12/19/17 14:53 Blood Pressure 111/62 12/19/17 14:53 O2 Sat by Pulse Oximetry (%) 94 L 12/19/17 14:53 Constitutional: Yes: No Distress, Calm Eyes: Yes: WNL, Conjunctiva Clear, PERRL HENT: Yes: WNL, Atraumatic, Normocephalic Neck: Yes: WNL, Supple, Trachea Midline Cardiovascular: Yes: Regular Rate and Rhythm, S1, S2, Other (AICD to LCW) Respiratory: Yes: Diminished (bases), On Nasal O2 Gastrointestinal: Yes: WNL, Normal Bowel Sounds, Soft ...Rectal Exam: Yes: Deferred Renal/: Yes: Incontinence Breast(s): Yes: WNL Musculoskeletal: Yes: WNL Extremities: Yes: WNL Edema: No Peripheral Pulses WNL: Yes Neurological: Yes: Alert, Confusion, Cran Nerves II-XII Intact ...Motor Strength: WNL Psychiatric: Yes: Agitated Labs: CBC, BMP 12/19/17 15:30 12/19/17 15:26 Laboratory Results - last 24 hr 12/19/17 12/19/17 12/19/17 15:26 15:26 15:30 WBC 7.8 RBC 3.74 Hgb 10.5 L Hct 32.4 MCV 86.6 MCH 28.2 MCHC 32.6 RDW 15.9 H D Plt Count 310 MPV 8.8 Absolute Neuts (auto) 5.9 Neutrophils % 75.9 D Lymphocytes % 13.0 D Monocytes % 8.5 Eosinophils % 1.4 D Basophils % 1.2 Nucleated RBC % 0 PT with INR 10.90 INR 0.92 PTT (Actin FS) 18.6 L Sodium 138 Potassium 4.4 Chloride 106 Carbon Dioxide 25 Anion Gap 8 BUN 24 H Creatinine 1.0 Creat Clearance w eGFR 53.48 Random Glucose 89 Lactic Acid Calcium 8.4 L Total Bilirubin 0.3 AST 21 ALT 22 Alkaline Phosphatase 117 Creatine Kinase 72 Troponin I 0.15 H Total Protein 7.2 Albumin 2.9 L Urine Color Urine Appearance Urine pH Ur Specific Monroe Urine Protein Urine Glucose (UA) Urine Ketones Urine Blood Urine Nitrite Urine Bilirubin Urine Urobilinogen Ur Leukocyte Esterase Urine WBC (Auto) Urine RBC (Auto) Ur Epithelial Cells Urine Mucus 12/19/17 12/19/17 15:30 17:00 WBC RBC Hgb Hct MCV MCH MCHC RDW Plt Count MPV Absolute Neuts (auto) Neutrophils % Lymphocytes % Monocytes % Eosinophils % Basophils % Nucleated RBC % PT with INR INR PTT (Actin FS) Sodium Potassium Chloride Carbon Dioxide Anion Gap BUN Creatinine Creat Clearance w eGFR Random Glucose Lactic Acid 1.1 Calcium Total Bilirubin AST ALT Alkaline Phosphatase Creatine Kinase Troponin I Total Protein Albumin Urine Color Ltyellow Urine Appearance Slcloudy Urine pH 7.0 Ur Specific [place] 1.016 Urine Protein Negative Urine Glucose (UA) Negative Urine Ketones Negative Urine Blood 1+ H Urine Nitrite Positive Urine Bilirubin Negative Urine Urobilinogen Negative Ur Leukocyte Esterase 2+ H Urine WBC (Auto) 23 Urine RBC (Auto) 8 Ur Epithelial Cells Rare Urine Mucus Rare Current Medications Generic Name Dose Route Start Last Admin Trade Name Freq PRN Reason Stop Dose Admin Amiodarone HCl 200 mg 12/20/17 10:00 Cordarone - PO DAILY [facility] Atorvastatin Calcium 80 mg 12/19/17 22:00 12/19/17 22:18 Lipitor - PO 80 mg HS PENG Administration Citalopram Hydrobromide 10 mg 12/19/17 22:00 12/19/17 21:07 Celexa - PO 10 mg HS PENG Administration Docusate Sodium 300 mg 12/20/17 10:00 Colace - PO DAILY [facility] Folic Acid 1 mg 12/20/17 10:00 Folic Acid - PO DAILY [facility] Heparin Sodium (Porcine) 5,000 unit 12/20/17 10:00 Heparin - SQ BID [facility] Levofloxacin 500 mg in 100 mls @ 100 mls/hr 12/20/17 10:00 Levaquin 500 Mg Premixed Ivpb - IVPB DAILY [facility] Protocol Melatonin 3 mg 12/19/17 21:21 12/19/17 22:19 Melatonin PO 3 mg HS PRN Administration INSOMNIA Metoprolol Succinate 12.5 mg 12/20/17 10:00 Toprol Xl - PO DAILY [facility] Multivitamins/Minerals/Vitamin C 1 tab 12/20/17 10:00 Tab-A-Vit - PO DAILY [facility] Olanzapine 5 mg 12/19/17 22:00 12/19/17 21:04 Zyprexa - PO 5 mg HS PENG Administration Imaging - Results Chest X-ray: Report Reviewed, Image Reviewed Cat Scan: Report Reviewed, Image Reviewed EKG: Image Reviewed Problem List - Problems (1) Toxic metabolic encephalopathy Assessment/Plan: Likely secondary to UTI vs Pnuemonia vs Dementia Fall precautions Neurochecks Code(s): G92 - TOXIC ENCEPHALOPATHY (2) Altered mental status Assessment/Plan: See Above Code(s): R41.82 - ALTERED MENTAL STATUS, UNSPECIFIED Qualifiers: Altered mental status type: unspecified Qualified Code(s): R41.82 - Altered mental status, unspecified (3) Pneumonia Assessment/Plan: Likely secondary to HCAP vs atypical PNA [id number] 2 Chest Xray- Infiltrate to RML, Congestive changes No leukocytosis, no neutrophilia, LA-nl Blood cultures-pending Urine culture- pending Urine Legionella Given Levofloxacin in ED, will continue Appreciate ID consult Monitor CBC, BMP Monitor vitals Code(s): J18.9 - PNEUMONIA, UNSPECIFIED ORGANISM Qualifiers: Pneumonia type: due to unspecified organism Laterality: unspecified laterality Lung location: unspecified part of lung Qualified Code(s): J18.9 - Pneumonia, unspecified organism (4) UTI (urinary tract infection) Assessment/Plan: UA- +2 arvind esterase, +1 blood, + nitrates, WBC 23 Urine Culture-pending Continue Levofloxacin Monitor CBC Monitor vitals Code(s): N39.0 - URINARY TRACT INFECTION, SITE NOT SPECIFIED Qualifiers: Urinary tract infection type: site unspecified Hematuria presence: without hematuria Qualified Code(s): N39.0 - Urinary tract infection, site not specified (5) Dementia Assessment/Plan: Continue Zyprexa Fall precautions Code(s): F03.90 - UNSPECIFIED DEMENTIA WITHOUT BEHAVIORAL DISTURBANCE Qualifiers: (6) CVA (cerebral vascular accident) Assessment/Plan: Continue home meds Code(s): I63.9 - CEREBRAL INFARCTION, UNSPECIFIED Qualifiers: CVA mechanism: unspecified Qualified Code(s): I63.9 - Cerebral infarction, unspecified (7) Chronic systolic (congestive) heart failure Assessment/Plan: Continue to monitor and treat with interventions accordingly Chest Xray- congestive changes Continue home meds Code(s): I50.22 - CHRONIC SYSTOLIC (CONGESTIVE) HEART FAILURE (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 Assessment/Plan: Will place on contact precautions secondary to ESBL/E Coli Code(s): Z22.39 - CARRIER OF OTHER SPECIFIED BACTERIAL DISEASES (9) HTN (hypertension) Assessment/Plan: controlled Monitor BP Continue home medications with parameters Monitor renal functions Code(s): I10 - ESSENTIAL (PRIMARY) HYPERTENSION (10) Paroxysmal atrial fibrillation Assessment/Plan: Rate Controlled EKG- reviewed [id number] (no AC secondary to GIB hx) Continue home med Monitor vitals Code(s): I48.0 - PAROXYSMAL ATRIAL FIBRILLATION (11) Spinal stenosis Code(s): M48.00 - SPINAL STENOSIS, SITE UNSPECIFIED (12) ICD (implantable cardioverter-defibrillator) in place Assessment/Plan: [employer] Interrogation-pending Code(s): Z95.810 - PRESENCE OF AUTOMATIC (IMPLANTABLE) CARDIAC DEFIBRILLATOR Assessment/Plan 77 y/o woman Admitted to /S for Toxic Metabolic Encephalopathy secondary to UTI for further evaluation of their emergent condition. Plans: FEN PO fluids as tolerated Replete lytes prn Low NA Mechanical Diet DVT ppx OOB SCDs Heparin SQ Code Status: Full Code Dispo: Requires Inpatient Care Visit type - Emergency Visit Emergency Visit: Yes ED Registration Date: 12/19/17 Care time: The patient presented to the Emergency Department on the above date and was hospitalized for further evaluation of their emergent condition. - New Patient This patient is new to me today: Yes Date on this admission: 12/19/17 - Critical Care Critical Care patient: No
[2017-12-19] MEDS ORDERED: OLANZapine 10 MG TABLET ONE (20:27)
[2017-12-19] MEDS ORDERED: CITALOPRAM HYDROBROMIDE 10 MG TABLET (FP) ONE (20:27)
[2017-12-19] MEDS ORDERED: MELATONIN 1 MG TABLET PO PRN (21:21)
[2017-12-19] MEDS ORDERED: ATORVASTATIN CA 80 MG TABLET (FP) ONE (21:22)
[2017-12-19] MEDS ORDERED: OLANZapine 5 MG TABLET PO SCH (22:00)
[2017-12-19] MEDS ORDERED: CITALOPRAM HYDROBROMIDE 10 MG TABLET (FP) PO SCH (22:00)
[2017-12-19] MEDS ORDERED: ATORVASTATIN CA 80 MG TABLET (FP) PO SCH (22:00)
[2017-12-20 07:33] LABS: EOS % 6.9 % (0-4.5); HEMATOCRIT 31.1 % (32.4-45.2); LYMPH % 19.5 % (8-40); MCH 27.8 pg (25.7-33.7); MCHC 32.1 g/dl (32.0-36.0); MEAN CELL VOLUME 86.4 fl (80-96); MEAN PLT VOLUME 8.5 fl (7.5-11.1); NEUT % 56.6 % (42.8-82.8); PLATELET COUNT 293 K/MM3 (134-434); WHITE BLOOD COUNT 7.3 K/mm3 (4.0-10.0)
[2017-12-20 08:13] LABS: ANION GAP 8 MMOL/L (8-16); BLOOD UREA NITROGEN 19 mg/dL (7-18); CALCIUM 8.8 mg/dL (8.5-10.1); CHLORIDE 106 mmol/L (98-107); CO2 25 mmol/L (21-32); CREATININE 1.1 mg/dL (0.55-1.3); GLUCOSE,RANDOM 85 mg/dL (74-106); POTASSIUM 4.3 mmol/L (3.5-5.1); SODIUM 139 mmol/L (136-145)
[2017-12-20] MEDS: metoPROLOL SUCCINATE 25 MG TAB.SR.24H (FP) PO SCH (10:00)
[2017-12-20] MEDS: MULTIVITAMINS (DAILY MVI) TABLET (FP) PO SCH (10:00)
[2017-12-20] MEDS ORDERED: AMIODARONE HCL 200 MG TABLET (FP) PO SCH (10:00)
[2017-12-20] MEDS ORDERED: CITALOPRAM HYDROBROMIDE 10 MG TABLET (FP) PO SCH ×2 (10:00→19:00)
[2017-12-20] MEDS: DOCUSATE SODIUM 100 MG CAPSULE (FP) PO SCH (10:00)
[2017-12-20] MEDS: AMIODARONE HCL 200 MG TABLET (FP) PO SCH (10:00)
[2017-12-20] MEDS: HEPARIN NA (PORCINE) 5,000 UNITS/ML 1ML VIAL SQ SCH ×2 (10:00→21:37)
[2017-12-20] MEDS: FOLIC ACID 1 MG TABLET (FP) PO SCH (10:00)
[2017-12-20] MEDS ORDERED: HEPARIN NA (PORCINE) 5,000 UNITS/ML 1ML VIAL ONE (10:12)
--- NOTE | 2017-12-20 11:40 | PN ---
Progress Note, Physician Chief Complaint: Events noted at bedside pt awake dementia alert, eating without difficulty says that she was lethargic yesterday Was coughing and SOb for about 3 weeks-- she was SOB on ambulation - Current Medication List Current Medications: Active Medications Amiodarone HCl (Cordarone -) 200 mg PO DAILY [facility] Last Admin: 12/20/17 10:00 Dose: 200 mg Atorvastatin Calcium (Lipitor -) 80 mg PO HS [facility] Last Admin: 12/19/17 22:18 Dose: 80 mg Citalopram Hydrobromide (Celexa -) 10 mg PO HS [facility] Last Admin: 12/19/17 21:07 Dose: 10 mg Docusate Sodium (Colace -) 300 mg PO DAILY [facility] Last Admin: 12/20/17 10:00 Dose: 300 mg Folic Acid (Folic Acid -) 1 mg PO DAILY [facility] Last Admin: 12/20/17 10:00 Dose: 1 mg Heparin Sodium (Porcine) (Heparin -) 5,000 unit SQ BID [facility] Last Admin: 12/20/17 10:00 Dose: 5,000 unit Levofloxacin (Levaquin 500 Mg Premixed Ivpb -) 500 mg in 100 mls @ 100 mls/hr IVPB DAILY [facility]; Protocol Last Admin: 12/20/17 10:00 Dose: 100 mls/hr Melatonin (Melatonin) 3 mg PO HS PRN PRN Reason: INSOMNIA Last Admin: 12/19/17 22:19 Dose: 3 mg Metoprolol Succinate (Toprol Xl -) 12.5 mg PO DAILY [facility] Last Admin: 12/20/17 10:00 Dose: 12.5 mg Multivitamins/Minerals/Vitamin C (Tab-A-Vit -) 1 tab PO DAILY [facility] Last Admin: 12/20/17 10:00 Dose: 1 tab Olanzapine (Zyprexa -) 5 mg PO HS [facility] Last Admin: 12/19/17 21:04 Dose: 5 mg - Objective Vital Signs: Vital Signs Temperature 97.2 F L 12/19/17 20:10 Pulse Rate 71 12/20/17 06:21 Respiratory Rate 20 12/20/17 06:21 Blood Pressure 117/60 12/20/17 06:21 O2 Sat by Pulse Oximetry (%) 98 12/20/17 06:21 Constitutional: Yes: No Distress, Calm Cardiovascular: Yes: Regular Rate and Rhythm Respiratory: Yes: Diminished, Rhonchi Gastrointestinal: Yes: Normal Bowel Sounds, Soft. No: Tenderness Edema: No Labs: CBC, BMP 12/20/17 07:10 12/20/17 07:10 INR, PTT INR 0.92 (0.83-1.09) 12/19/17 15:26 Problem List - Problems (1) Altered mental status Code(s): R41.82 - ALTERED MENTAL STATUS, UNSPECIFIED Qualifiers: Altered mental status type: unspecified Qualified Code(s): R41.82 - Altered mental status, unspecified (2) Pneumonia Code(s): J18.9 - PNEUMONIA, UNSPECIFIED ORGANISM Qualifiers: Pneumonia type: due to unspecified organism Laterality: unspecified laterality Lung location: unspecified part of lung Qualified Code(s): J18.9 - Pneumonia, unspecified organism (3) Toxic metabolic encephalopathy Code(s): G92 - TOXIC ENCEPHALOPATHY (4) UTI (urinary tract infection) Code(s): N39.0 - URINARY TRACT INFECTION, SITE NOT SPECIFIED Qualifiers: Urinary tract infection type: site unspecified Hematuria presence: without hematuria Qualified Code(s): N39.0 - Urinary tract infection, site not specified (5) Paroxysmal atrial fibrillation Code(s): I48.0 - PAROXYSMAL ATRIAL FIBRILLATION (6) Dementia Code(s): F03.90 - UNSPECIFIED DEMENTIA WITHOUT BEHAVIORAL DISTURBANCE Qualifiers: Assessment/Plan PLAN Cultures pending IV antibiotics ID ad cardiology eval continue meds May need PT eval when pt gets better-- pt usually ambulated without any aides as per DVT prophylaxis
--- NOTE | 2017-12-20 12:25 | CON.CARD ---
Consult Consult Specialty:: Cardiology Referred by:: Dr. Bishop Reason for Consultation:: cough, sob - History of Present Illness Chief Complaint: cough, ams History of Present Illness: 77 year old woman with a history of CAD s/p CO 1986 s/p PCI x 3 in past (RCA) likely ischemic cardiomyopathy, progressive Alzheimers dementia, h/o sustained VT that required Cardioversion by EMS, then transferred to [facility] where she underwent a cardiac cath showing diffuse RCA disease that did not require revascularization and moderate mLAD disease that was not significant on FFR thus no revascularization was performed. She was felt to have Vt from old inferior scar and due to sustained VT and moderate LV dysfunction underwent ICD implantation (medtronic). Also, after cardioversion for her VT she was in atrial fibrillation thus underwent an elective cardioversion after cardiac cath that restored NSR. She was thus discharged on eliquis. She subsequently went back into afib which has been chronic now and she was taken off anticoagulation in the past due to GI and bleeding. At this point the main issue has been the progression of her Alzheimers and proper medication dosing. She has been on seroquel as outpatient but has had a recent admission with unresponsiveness and hypotension in setting of too much seroquel in addition to Toprol 25. Recent admission with reported syncope, ICD interrogation showed a tachycardia that appears c/w Afib with RVR for which she received ATP x1 followed by possible degeneration to VT then 1 shock. Similar event 06/2017. Now in NSR A recent echocardiogram showed normal LV and RV function. Now admitted with lethargy and cough. pt seen and examined today in nad. awake alert disoriented pleasant. no current complaints. 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 Cardio/Vascular: Yes: AFIB, CAD, CHF, HTN, Hyperlipdemia, CO, Other (episode of sustained ventricular tachycardia requiring cardioversion, s/p ICD) Gastrointestinal: Yes: Diverticulosis - Past Surgical History Past Surgical History: Yes: AICD, - Alcohol/Substance Use Hx Alcohol Use: No History of Substance Use: reports: None - Smoking History Smoking history: Former smoker Have you smoked in the past 12 months: No If you are a former smoker, when did you quit?: 1986 - Social History Usual Living Arrangement: Retirement ADL: Support Services History of Recent Travel: No Home Medications - Allergies Allergies/Adverse Reactions: Allergies Allergy/AdvReac Type Severity Reaction Status Date / Time aspirin Allergy Verified 12/19/17 15:05 Penicillins Allergy Verified 12/19/17 15:05 - Home Medications Home Medications: Ambulatory Orders Citalopram Hydrobromide [Celexa -] 10 mg PO DAILY 10/09/17 Docusate Sodium [Colace] 300 mg PO DAILY 10/09/17 Folic Acid 1 mg PO DAILY 10/09/17 Multivitamin [Poly-Vitamin] 1 each PO DAILY 10/09/17 Amiodarone HCl [Cordarone -] 200 mg PO DAILY tablet 11/21/17 Atorvastatin Ca [Lipitor] 80 mg PO HS tablet 11/21/17 Metoprolol Succinate [Toprol XL -] 25 mg PO DAILY 12/19/17 Olanzapine [Zyprexa -] 5 mg PO HS 12/19/17 Family Disease History - Family Disease History Family History: Denies Review of Systems - Review of Systems Constitutional: reports: Lethargy, Weakness. denies: No Symptoms, Chills, Diaphoresis, Fever, Loss of Appetite, Malaise, Night Sweats, Unintentional Wgt. Loss, Other Eyes: denies: No Symptoms, Blind Spots, Blurred Vision, Double Vision, Eye Pain , Floaters, Photophobia, Recent Change in Vision, Other HENT: denies: No Symptoms, Difficult Swallowing, Ear Discharge, Ear Pain, Epistaxis, Gingival Bleeding, Hearing Loss, Mouth Swelling, Nasal Congestion, Ocular Prosthesis, Throat Pain, Toothache, Ringing in Ears, Other Neck: denies: No Symptoms, Decreased ROM, Lumps, Pain on Movement, Stiffness, Swollen Glands, Tenderness, Other Cardiovascular: denies: No Symptoms, Chest Pain, Edema, Palpitations, Shortness of Breath, Other Respiratory: reports: Cough. denies: No Symptoms, Exercise Intolerance, Hemoptysis, Orthopnea, PND, Snoring, SOB, SOB on Exertion, Wheezing, Other Gastrointestinal: denies: No Symptoms, Abdominal Pain, Bloating, Constipation, Diarrhea, Dysphagia, Indigestion, Melena, Nausea, Rectal Bleeding, Vomiting, Vomiting Blood, Other Genitourinary: denies: No Symptoms, Burning, Discharge, Dysuria, Flank Pain, Frequency, Hematuria, Incontinence, Lesions, Menses, Pain, Testicular Mass, Testicular Pain, Testicular Swelling, Urgency, Vaginal Bleeding, Other Breasts: denies: No Symptoms Reported, See HPI, Breast Implants, Discharge from Nipple, Lumps, Pain, Skin Changes, Other Musculoskeletal: denies: No Symptoms, Back Pain, Crepitus, Decreased ROM, Extremity Pain, Joint Pain, Joint Swelling, Muscle Pain, Muscle Cramps, Muscle Weakness, Other Integumentary: denies: No Symptoms, Blister, Bruising, Change in Color, Eczema, Erythema, Incision, Lesions, Lump, Pallor, Pruritis, Rash, Wound, Other Neurological: reports: Change in LOC, Confusion. denies: No Symptoms, Change in Speech, Dizziness, Headache, Incoordination, Numbness, Parasthesia, Pre- Existing Deficit, Seizure, Syncope, Tremors, Unsteady Gait, Weakness, Other Endocrine: denies: No Symptoms, Excessive Sweating, Flushing, Increased Hunger, Increased Thirst, Intolerance to Cold, Intolerance to Heat, Unexplained Weight Gain, Unexplained Weight Loss, Other Hematology/Lymphatic: denies: No Symptoms, Easily Bruised, Excessive Bleeding, Swollen Glands, Other Psychiatric: denies: No Symptoms, Altered Sleep Pattern, Anxiety, Depression, Hallucinations, Panic, Paranoia, Suicidal, Other - Risk Factors Known Risk Factors: Yes: Diabetes Mellitus, Hypercholesterolemia, Hypertension Vital Signs: Vital Signs Temperature 97.2 F L 12/19/17 20:10 Pulse Rate 71 12/20/17 06:21 Respiratory Rate 20 12/20/17 06:21 Blood Pressure 117/60 12/20/17 06:21 O2 Sat by Pulse Oximetry (%) 98 12/20/17 06:21 Constitutional: Yes: No Distress, Calm Eyes: Yes: Conjunctiva Clear, EOM Intact HENT: Yes: Atraumatic, Normocephalic Neck: Yes: Supple, Trachea Midline Respiratory: Yes: Regular, Diminished, Rhonchi. No: Rales, SOB, Wheezes Gastrointestinal: Yes: Normal Bowel Sounds, Soft Cardiovascular: Yes: Pulse Irregular. No: Regular Rate and Rhythm, Bradycardia , Tachycardia, Gallop, Rub, Varicosities JVD: No Carotid Bruit: No PMI: Non-Displaced Heart Sounds: Yes: S1, S2. No: Split S2, S3, S4, Clicks, Gallop, Rub, Bruit Murmur: Yes: Systolic Murmur. No: Diastolic Murmur Musculoskeletal: Yes: WNL Extremities: Yes: WNL Edema: No Peripheral Pulses WNL: Yes Peripheral Pulses: 2+ Left Doralis Pedis, 2+ Right Dorsalis Pedis Neurological: Yes: Alert. No: Oriented Psychiatric: Yes: Alert. No: Oriented - Other Data Labs, Other Data: CBC, BMP 12/20/17 07:10 12/20/17 07:10 INR, PTT INR 0.92 (0.83-1.09) 12/19/17 15:26 Troponin, BNP 12/19/17 12/20/17 15:26 07:10 Troponin I 0.15 H 0.18 H Troponin, BNP 12/19/17 12/20/17 15:26 07:10 Troponin I 0.15 H 0.18 H pending Echo: Report Reviewed Prior Cardiac Procedures: PTCA with Stent Imaging - Results Chest X-ray: Report Reviewed, Image Reviewed EKG: Report Reviewed, Image Reviewed Other: Report Reviewed, Image Reviewed Assessment/Plan 77 year old woman with a history of CAD s/p CO 1986 s/p PCI x 3 in past (RCA) likely ischemic cardiomyopathy, progressive Alzheimers dementia, h/o sustained VT that required Cardioversion by EMS, then transferred to [facility] where she underwent a cardiac cath showing diffuse RCA disease that did not require revascularization and moderate mLAD disease that was not significant on FFR thus no revascularization was performed. She was felt to have Vt from old inferior scar and due to sustained VT and moderate LV dysfunction underwent ICD implantation (medtronic). Also, after cardioversion for her VT she was in atrial fibrillation thus underwent an elective cardioversion after cardiac cath that restored NSR. She was thus discharged on eliquis. She subsequently went back into afib which has been chronic now and she was taken off anticoagulation in the past due to GI and bleeding. At this point the main issue has been the progression of her Alzheimers and proper medication dosing. She has been on seroquel as outpatient but has had a recent admission with unresponsiveness and hypotension in setting of too much seroquel in addition to Toprol 25. Recent admission with reported syncope, ICD interrogation showed a tachycardia that appears c/w Afib with RVR for which she received ATP x1 followed by possible degeneration to VT then 1 shock. Similar event 06/2017. Now in NSR A recent echocardiogram showed normal LV and RV function. Now admitted with lethargy and cough. pt seen and examined today in nad. awake alert disoriented. at baseline. Cough/AMS -imaging c/w pna -on Abx -no sign decompensated CHF -hold off on lasix for now Dementia-stable -consider outpatient meds Afib- HR adequate -toprol 12.5mg daily -cont amiodarone now that she is in NSR, as may help prevent inappropriate shocks for Afib with RVR in the future -cont amiodarone 200mg daily for now -not on AC due to bleeding CAD/VT ICD cardiomyopathy -in the past unclear if VT episode or AFib with RVR based on ICD interrogation -cont amiodarone as above
--- NOTE | 2017-12-20 12:36 | CON.ID ---
Consult Consult Specialty:: infectious diseases Reason for Consultation:: pneumonia - History of Present Illness Chief Complaint: cough,lethargy,weakness History of Present Illness: 77 y/o woman from [facility] with a past medical history of Dementia, HTN, Afib , CHF, AICD, COPD, MDD, UTIs, Cerebral Infarction, Frequent Falls, Dysphagia, UTIs. came to the ED via ambulance for increased AMS Patient has Dementia unable to provide HPI. Her who was at bedside reports that the patient was not responding to him, no eye contact, non verbal. 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 Cardio/Vascular: Yes: AFIB, CAD, CHF, HTN, Hyperlipdemia, [place], Other (episode of sustained ventricular tachycardia requiring cardioversion, s/p ICD) Gastrointestinal: Yes: Diverticulosis - Past Surgical History Past Surgical History: Yes: AICD, - Alcohol/Substance Use Hx Alcohol Use: No History of Substance Use: reports: None - Smoking History Smoking history: Former smoker Have you smoked in the past 12 months: No If you are a former smoker, when did you quit?: 1986 - Social History Usual Living Arrangement: [facility] ADL: Support Services History of Recent Travel: No Home Medications - Allergies Allergies/Adverse Reactions: Allergies Allergy/AdvReac Type Severity Reaction Status Date / Time aspirin Allergy Verified 12/19/17 15:05 Penicillins Allergy Verified 12/19/17 15:05 - Home Medications Home Medications: Ambulatory Orders Citalopram Hydrobromide [Celexa -] 10 mg PO DAILY 10/09/17 Docusate Sodium [Colace] 300 mg PO DAILY 10/09/17 Folic Acid 1 mg PO DAILY 10/09/17 Multivitamin [Poly-Vitamin] 1 each PO DAILY 10/09/17 Amiodarone HCl [Cordarone -] 200 mg PO DAILY tablet 11/21/17 Atorvastatin Ca [Lipitor] 80 mg PO HS tablet 11/21/17 Metoprolol Succinate [Toprol XL -] 25 mg PO DAILY 12/19/17 Olanzapine [Zyprexa -] 5 mg PO HS 12/19/17 Review of Systems - Review of Systems Constitutional: reports: No Symptoms Eyes: reports: No Symptoms HENT: reports: No Symptoms Neck: reports: No Symptoms Cardiovascular: reports: No Symptoms Respiratory: reports: Cough Gastrointestinal: reports: No Symptoms Genitourinary: reports: No Symptoms Musculoskeletal: reports: No Symptoms Integumentary: reports: No Symptoms Neurological: reports: Other Endocrine: reports: No Symptoms Hematology/Lymphatic: reports: No Symptoms Psychiatric: reports: No Symptoms Physical Exam Vital Signs: Vital Signs Temperature 97.2 F L 12/19/17 20:10 Pulse Rate 71 12/20/17 06:21 Respiratory Rate 20 12/20/17 06:21 Blood Pressure 117/60 12/20/17 06:21 O2 Sat by Pulse Oximetry (%) 98 12/20/17 06:21 Constitutional: Yes: Well Nourished, No Distress, Calm Cardiovascular: Yes: Regular Rate and Rhythm Respiratory: Yes: Regular, Poor Air Entry, Rhonchi Gastrointestinal: Yes: Normal Bowel Sounds, Soft Musculoskeletal: Yes: WNL Extremities: Yes: WNL Neurological: Yes: Confusion, Other (dementia) Psychiatric: Yes: Alert Labs: CBC, BMP 12/20/17 07:10 12/20/17 07:10 Imaging - Results Chest X-ray: Report Reviewed, Image Reviewed Cat Scan: Report Reviewed, Image Reviewed Assessment/Plan Problem List - Problems (1) Altered mental status Code(s): R41.82 - ALTERED MENTAL STATUS, UNSPECIFIED Qualifiers: Altered mental status type: unspecified Qualified Code(s): R41.82 - Altered mental status, unspecified (2) Pneumonia Code(s): J18.9 - PNEUMONIA, UNSPECIFIED ORGANISM Qualifiers: Pneumonia type: due to unspecified organism Laterality: unspecified laterality Lung location: unspecified part of lung Qualified Code(s): J18.9 - Pneumonia, unspecified organism (3) Toxic metabolic encephalopathy Code(s): G92 - TOXIC ENCEPHALOPATHY (4) UTI (urinary tract infection) Code(s): N39.0 - URINARY TRACT INFECTION, SITE NOT SPECIFIED Qualifiers: Urinary tract infection type: site unspecified Hematuria presence: without hematuria Qualified Code(s): N39.0 - Urinary tract infection, site not specified (5) Paroxysmal atrial fibrillation Code(s): I48.0 - PAROXYSMAL ATRIAL FIBRILLATION (6) Dementia Code(s): F03.90 - UNSPECIFIED DEMENTIA WITHOUT BEHAVIORAL DISTURBANCE Qualifiers: patient has received ceftriaxone plan we will continue ceftriaxone hydration await for cx reports rest as per the team
--- NOTE | 2017-12-20 16:32 | EKG ---
Test Reason : Blood Pressure : / mmHG Vent. Rate : 061 BPM Atrial Rate : 061 BPM P-R Int : 118 ms QRS Dur : 102 ms QT Int : 446 ms P-R-T Axes : 085 011 -01 degrees QTc Int : 448 ms POOR DATA QUALITY, INTERPRETATION MAY BE ADVERSELY AFFECTED NORMAL SINUS RHYTHM POSSIBLE INFERIOR INFARCT , AGE UNDETERMINED ABNORMAL ECG WHEN COMPARED WITH ECG OF 18-NOV-2017 17:32, PREMATURE VENTRICULAR COMPLEXES ARE NO LONGER PRESENT Confirmed by MD Renetta, Lane ([id number]) on 12/20/2017 4:32:11 PM Referred By: Confirmed By:Lane Jackson MD
[2017-12-20] MEDS: CITALOPRAM HYDROBROMIDE 10 MG TABLET (FP) PO SCH (17:45)
[2017-12-20] MEDS: ATORVASTATIN CA 80 MG TABLET (FP) PO SCH (17:45)
[2017-12-20] MEDS: OLANZapine 5 MG TABLET PO SCH (17:46)
[2017-12-20] MEDS: MELATONIN 1 MG TABLET PO PRN (18:23)
[2017-12-20] MEDS ORDERED: MELATONIN 1 MG TABLET PO PRN ×2 (19:00→22:00)
[2017-12-20] MEDS ORDERED: OLANZapine 5 MG TABLET PO SCH (19:00)
[2017-12-20] MEDS ORDERED: ATORVASTATIN CA 80 MG TABLET (FP) PO SCH (19:00)
[2017-12-21] MEDS: metoPROLOL SUCCINATE 25 MG TAB.SR.24H (FP) PO SCH (09:24)
[2017-12-21] MEDS: AMIODARONE HCL 200 MG TABLET (FP) PO SCH (09:24)
[2017-12-21] MEDS: DOCUSATE SODIUM 100 MG CAPSULE (FP) PO SCH (09:32)
[2017-12-21] MEDS: MULTIVITAMINS (DAILY MVI) TABLET (FP) PO SCH (09:33)
[2017-12-21] MEDS: FOLIC ACID 1 MG TABLET (FP) PO SCH (09:33)
[2017-12-21] MEDS: HEPARIN NA (PORCINE) 5,000 UNITS/ML 1ML VIAL SQ SCH ×2 (09:33→21:30)
--- NOTE | 2017-12-21 12:55 | PN ---
Progress Note, Physician History of Present Illness: stable doing well no complaints breathing better - Current Medication List Current Medications: Active Medications Amiodarone HCl (Cordarone -) 200 mg PO DAILY [facility] Last Admin: 12/21/17 09:24 Dose: Not Given Atorvastatin Calcium (Lipitor -) 80 mg PO 1700 [facility] Last Admin: 12/20/17 17:45 Dose: 80 mg Citalopram Hydrobromide (Celexa -) 10 mg PO 1700 [facility] Last Admin: 12/20/17 17:45 Dose: 10 mg Docusate Sodium (Colace -) 300 mg PO DAILY [facility] Last Admin: 12/21/17 09:32 Dose: 300 mg Folic Acid (Folic Acid -) 1 mg PO DAILY [facility] Last Admin: 12/21/17 09:33 Dose: 1 mg Heparin Sodium (Porcine) (Heparin -) 5,000 unit SQ BID [facility] Last Admin: 12/21/17 09:33 Dose: 5,000 unit Levofloxacin (Levaquin 500 Mg Premixed Ivpb -) 500 mg in 100 mls @ 100 mls/hr IVPB DAILY [facility]; Protocol Last Admin: 12/21/17 09:34 Dose: 100 mls/hr Melatonin (Melatonin) 3 mg PO 1700 PRN PRN Reason: INSOMNIA Last Admin: 12/20/17 18:23 Dose: 3 mg Metoprolol Succinate (Toprol Xl -) 12.5 mg PO DAILY [facility] Last Admin: 12/21/17 09:24 Dose: Not Given Multivitamins/Minerals/Vitamin C (Tab-A-Vit -) 1 tab PO DAILY [facility] Last Admin: 12/21/17 09:33 Dose: 1 tab Olanzapine (Zyprexa -) 5 mg PO 1700 [facility] Last Admin: 12/20/17 17:46 Dose: 5 mg - Objective Vital Signs: Vital Signs Temperature 98.1 F 12/21/17 06:00 Pulse Rate 64 12/21/17 06:00 Respiratory Rate 16 12/21/17 06:00 Blood Pressure 146/80 12/21/17 06:00 O2 Sat by Pulse Oximetry (%) 94 L 12/20/17 21:00 Constitutional: Yes: No Distress, Calm Neck: Yes: Supple Cardiovascular: Yes: Regular Rate and Rhythm Respiratory: Yes: Regular, Poor Air Entry (bases), Rhonchi Gastrointestinal: Yes: Normal Bowel Sounds Musculoskeletal: Yes: WNL Extremities: Yes: WNL Neurological: Yes: Alert, Oriented Psychiatric: Yes: Alert, Oriented Labs: CBC, BMP 12/20/17 07:10 12/20/17 07:10 INR, PTT INR 0.92 (0.83-1.09) 12/19/17 15:26 Assessment/Plan Problem List - Problems (1) Altered mental status Code(s): R41.82 - ALTERED MENTAL STATUS, UNSPECIFIED Qualifiers: Altered mental status type: unspecified Qualified Code(s): R41.82 - Altered mental status, unspecified (2) Pneumonia Code(s): J18.9 - PNEUMONIA, UNSPECIFIED ORGANISM Qualifiers: Pneumonia type: due to unspecified organism Laterality: unspecified laterality Lung location: unspecified part of lung Qualified Code(s): J18.9 - Pneumonia, unspecified organism (3) Toxic metabolic encephalopathy Code(s): G92 - TOXIC ENCEPHALOPATHY (4) UTI (urinary tract infection) Code(s): N39.0 - URINARY TRACT INFECTION, SITE NOT SPECIFIED Qualifiers: Urinary tract infection type: site unspecified Hematuria presence: without hematuria Qualified Code(s): N39.0 - Urinary tract infection, site not specified (5) Paroxysmal atrial fibrillation Code(s): I48.0 - PAROXYSMAL ATRIAL FIBRILLATION (6) Dementia Code(s): F03.90 - UNSPECIFIED DEMENTIA WITHOUT BEHAVIORAL DISTURBANCE Qualifiers: 7 uti plan we will conitinue current mgmt once patient stable will switch to oral abx incentive liyah rest as per the team
--- NOTE | 2017-12-21 13:17 | PN ---
Progress Note (short form) - Note Progress Note: Pt is awake no distress confused Vital Signs - 24 hr 12/20/17 12/20/17 12/20/17 14:27 16:37 18:00 Temperature 99.0 F 97.7 F 97.9 F Pulse Rate 60 63 Pulse Rate [ 58 L Right Radial] Respiratory 18 18 18 Rate Blood Pressure 131/87 97/54 L Blood Pressure 125/53 L [Right Arm] O2 Sat by Pulse 95 95 Oximetry (%) 12/20/17 12/20/17 12/21/17 20:00 21:00 06:00 Temperature 97.6 F 98.1 F Pulse Rate 63 64 Pulse Rate [ Right Radial] Respiratory 16 16 Rate Blood Pressure 123/76 146/80 Blood Pressure [Right Arm] O2 Sat by Pulse 94 L Oximetry (%) 12/21/17 10:00 Temperature Pulse Rate Pulse Rate [ Right Radial] Respiratory 16 Rate Blood Pressure Blood Pressure [Right Arm] O2 Sat by Pulse 96 Oximetry (%) Current Medications Generic Name Dose Route Start Last Admin Trade Name Freq PRN Reason Stop Dose Admin Amiodarone HCl 200 mg 12/20/17 10:00 12/21/17 09:24 Cordarone - PO Not Given DAILY PENG Atorvastatin Calcium 80 mg 12/20/17 17:23 12/20/17 17:45 Lipitor - PO 80 mg 1700 PENG Administration Citalopram Hydrobromide 10 mg 12/20/17 17:24 12/20/17 17:45 Celexa - PO 10 mg 1700 PENG Administration Docusate Sodium 300 mg 12/20/17 10:00 12/21/17 09:32 Colace - PO 300 mg DAILY PENG Administration Folic Acid 1 mg 12/20/17 10:00 12/21/17 09:33 Folic Acid - PO 1 mg DAILY PENG Administration Heparin Sodium (Porcine) 5,000 unit 12/20/17 10:00 12/21/17 09:33 Heparin - SQ 5,000 unit BID PENG Administration Levofloxacin 500 mg in 100 mls @ 100 mls/hr 12/20/17 10:00 12/21/17 09:34 Levaquin 500 Mg Premixed Ivpb - IVPB 100 mls/hr DAILY PENG Administration Protocol Melatonin 3 mg 12/20/17 17:39 12/20/17 18:23 Melatonin PO 3 mg 1700 PRN Administration INSOMNIA Metoprolol Succinate 12.5 mg 12/20/17 10:00 12/21/17 09:24 Toprol Xl - PO Not Given DAILY PENG Multivitamins/Minerals/Vitamin C 1 tab 12/20/17 10:00 12/21/17 09:33 Tab-A-Vit - PO 1 tab DAILY PENG Administration Olanzapine 5 mg 12/20/17 17:30 12/20/17 17:46 Zyprexa - PO 5 mg 1700 PENG Administration S1 S2 RRR Lungs decreased Abd- soft, NT No edema PLAN IV antibiotics blood cultures negative check urine cultures continue with meds Cardiology eval noted Problem List - Problems (1) Altered mental status Code(s): R41.82 - ALTERED MENTAL STATUS, UNSPECIFIED Qualifiers: Altered mental status type: unspecified Qualified Code(s): R41.82 - Altered mental status, unspecified (2) Pneumonia Code(s): J18.9 - PNEUMONIA, UNSPECIFIED ORGANISM Qualifiers: Pneumonia type: due to unspecified organism Laterality: unspecified laterality Lung location: unspecified part of lung Qualified Code(s): J18.9 - Pneumonia, unspecified organism (3) Toxic metabolic encephalopathy Code(s): G92 - TOXIC ENCEPHALOPATHY (4) UTI (urinary tract infection) Code(s): N39.0 - URINARY TRACT INFECTION, SITE NOT SPECIFIED Qualifiers: Urinary tract infection type: site unspecified Hematuria presence: without hematuria Qualified Code(s): N39.0 - Urinary tract infection, site not specified (5) Paroxysmal atrial fibrillation Code(s): I48.0 - PAROXYSMAL ATRIAL FIBRILLATION (6) Dementia Code(s): F03.90 - UNSPECIFIED DEMENTIA WITHOUT BEHAVIORAL DISTURBANCE Qualifiers:
--- NOTE | 2017-12-21 16:04 | PN ---
Progress Note, Physician History of Present Illness: seen and examined today in nad. awake and alert, confused. dry cough. - Current Medication List Current Medications: Active Medications Amiodarone HCl (Cordarone -) 200 mg PO DAILY [facility] Last Admin: 12/21/17 09:24 Dose: Not Given Atorvastatin Calcium (Lipitor -) 80 mg PO 1700 [facility] Last Admin: 12/20/17 17:45 Dose: 80 mg Citalopram Hydrobromide (Celexa -) 10 mg PO 1700 [facility] Last Admin: 12/20/17 17:45 Dose: 10 mg Docusate Sodium (Colace -) 300 mg PO DAILY [facility] Last Admin: 12/21/17 09:32 Dose: 300 mg Folic Acid (Folic Acid -) 1 mg PO DAILY [facility] Last Admin: 12/21/17 09:33 Dose: 1 mg Heparin Sodium (Porcine) (Heparin -) 5,000 unit SQ BID [facility] Last Admin: 12/21/17 09:33 Dose: 5,000 unit Levofloxacin (Levaquin 500 Mg Premixed Ivpb -) 500 mg in 100 mls @ 100 mls/hr IVPB DAILY [facility]; Protocol Last Admin: 12/21/17 09:34 Dose: 100 mls/hr Melatonin (Melatonin) 3 mg PO 1700 PRN PRN Reason: INSOMNIA Last Admin: 12/20/17 18:23 Dose: 3 mg Metoprolol Succinate (Toprol Xl -) 12.5 mg PO DAILY [facility] Last Admin: 12/21/17 09:24 Dose: Not Given Multivitamins/Minerals/Vitamin C (Tab-A-Vit -) 1 tab PO DAILY [facility] Last Admin: 12/21/17 09:33 Dose: 1 tab Olanzapine (Zyprexa -) 5 mg PO 1700 [facility] Last Admin: 12/20/17 17:46 Dose: 5 mg - Objective Vital Signs: Vital Signs Temperature 97.8 F 12/21/17 14:43 Pulse Rate 68 12/21/17 14:43 Respiratory Rate 16 12/21/17 14:43 Blood Pressure 94/48 L 12/21/17 14:43 O2 Sat by Pulse Oximetry (%) 96 12/21/17 10:00 Constitutional: Yes: No Distress, Calm Eyes: Yes: Conjunctiva Clear, EOM Intact HENT: Yes: Atraumatic, Normocephalic Neck: Yes: Supple Cardiovascular: Yes: Regular Rate and Rhythm, Murmur, S1, S2. No: Bradycardia, Tachycardia, Pulse Irregular, Bruit, JVD, Gallop, Rub, S3, S4, Varicosities Respiratory: Yes: Regular, Cough, Diminished, On Nasal O2, Rhonchi. No: Rales, SOB, Wheezes Gastrointestinal: Yes: Normal Bowel Sounds, Soft Extremities: Yes: WNL Edema: No Peripheral Pulses WNL: Yes Peripheral Pulses: Left Doralis Pedis: 2+, Right Dorsalis Pedis: 2+ Neurological: Yes: Alert. No: Oriented Psychiatric: Yes: Alert. No: Oriented Labs: CBC, BMP 12/20/17 07:10 12/20/17 07:10 INR, PTT INR 0.92 (0.83-1.09) 12/19/17 15:26 - ....Imaging Chest X-ray: Report Reviewed, Image Reviewed EKG: Report Reviewed, Image Reviewed Other: Report Reviewed, Image Reviewed (tele-nsr, pvcs, not currently on tele) Assessment/Plan Now admitted with lethargy and cough. Cough/AMS -imaging c/w pna possible recurrent UTI -on Abx -no sign decompensated CHF -hold off on lasix for now Dementia-stable -cont outpatient meds Afib- HR adequate -toprol 12.5mg daily -cont amiodarone 200mg daily -not on AC due to bleeding CAD/VT ICD cardiomyopathy -in the past unclear if VT episode or AFib with RVR based on ICD interrogation -cont amiodarone as above
[2017-12-21] MEDS ORDERED: PT OWN MED DRAWER 7, Y5N ONE (17:12)
[2017-12-21] MEDS: CITALOPRAM HYDROBROMIDE 10 MG TABLET (FP) PO SCH (17:30)
[2017-12-21] MEDS: OLANZapine 5 MG TABLET PO SCH (17:30)
[2017-12-21] MEDS: MELATONIN 1 MG TABLET PO PRN (17:31)
[2017-12-21] MEDS: ATORVASTATIN CA 80 MG TABLET (FP) PO SCH (17:31)
--- NOTE | 2017-12-22 09:46 | PN ---
Progress Note, Physician History of Present Illness: still says she has some dry cough mentally looks like back to baseline awake and alert comfortable - Current Medication List Current Medications: Active Medications Amiodarone HCl (Cordarone -) 200 mg PO DAILY [facility] Last Admin: 12/21/17 09:24 Dose: Not Given Atorvastatin Calcium (Lipitor -) 80 mg PO 1700 [facility] Last Admin: 12/21/17 17:31 Dose: 80 mg Citalopram Hydrobromide (Celexa -) 10 mg PO 1700 [facility] Last Admin: 12/21/17 17:30 Dose: 10 mg Docusate Sodium (Colace -) 300 mg PO DAILY [facility] Last Admin: 12/21/17 09:32 Dose: 300 mg Folic Acid (Folic Acid -) 1 mg PO DAILY [facility] Last Admin: 12/21/17 09:33 Dose: 1 mg Heparin Sodium (Porcine) (Heparin -) 5,000 unit SQ BID [facility] Last Admin: 12/21/17 21:30 Dose: 5,000 unit Levofloxacin (Levaquin 500 Mg Premixed Ivpb -) 500 mg in 100 mls @ 100 mls/hr IVPB DAILY [facility]; Protocol Last Admin: 12/21/17 09:34 Dose: 100 mls/hr Melatonin (Melatonin) 3 mg PO 1700 PRN PRN Reason: INSOMNIA Last Admin: 12/21/17 17:31 Dose: 3 mg Metoprolol Succinate (Toprol Xl -) 12.5 mg PO DAILY [facility] Last Admin: 12/21/17 09:24 Dose: Not Given Multivitamins/Minerals/Vitamin C (Tab-A-Vit -) 1 tab PO DAILY [facility] Last Admin: 12/21/17 09:33 Dose: 1 tab Olanzapine (Zyprexa -) 5 mg PO 1700 [facility] Last Admin: 12/21/17 17:30 Dose: 5 mg - Objective Vital Signs: Vital Signs Temperature 97.8 F 12/22/17 06:42 Pulse Rate 64 12/22/17 06:42 Respiratory Rate 20 12/22/17 06:42 Blood Pressure 144/80 12/22/17 06:42 O2 Sat by Pulse Oximetry (%) 96 12/21/17 10:00 Constitutional: Yes: No Distress, Calm Cardiovascular: Yes: Regular Rate and Rhythm Respiratory: Yes: Regular, CTA Bilaterally Gastrointestinal: Yes: Normal Bowel Sounds, Soft Musculoskeletal: Yes: WNL Extremities: Yes: WNL Neurological: Yes: Alert Psychiatric: Yes: Alert Labs: CBC, BMP 12/20/17 07:10 12/20/17 07:10 INR, PTT INR 0.92 (0.83-1.09) 12/19/17 15:26 Assessment/Plan Problem List - Problems (1) Altered mental status Code(s): R41.82 - ALTERED MENTAL STATUS, UNSPECIFIED Qualifiers: Altered mental status type: unspecified Qualified Code(s): R41.82 - Altered mental status, unspecified (2) Pneumonia Code(s): J18.9 - PNEUMONIA, UNSPECIFIED ORGANISM Qualifiers: Pneumonia type: due to unspecified organism Laterality: unspecified laterality Lung location: unspecified part of lung Qualified Code(s): J18.9 - Pneumonia, unspecified organism (3) Toxic metabolic encephalopathy Code(s): G92 - TOXIC ENCEPHALOPATHY (4) UTI (urinary tract infection) Code(s): N39.0 - URINARY TRACT INFECTION, SITE NOT SPECIFIED Qualifiers: Urinary tract infection type: site unspecified Hematuria presence: without hematuria Qualified Code(s): N39.0 - Urinary tract infection, site not specified (5) Paroxysmal atrial fibrillation Code(s): I48.0 - PAROXYSMAL ATRIAL FIBRILLATION (6) Dementia Code(s): F03.90 - UNSPECIFIED DEMENTIA WITHOUT BEHAVIORAL DISTURBANCE Qualifiers: still congested,dry cough present plan continue abx nutrition rest as per the team comfortable
[2017-12-22] MEDS: DOCUSATE SODIUM 100 MG CAPSULE (FP) PO SCH (09:50)
[2017-12-22] MEDS: metoPROLOL SUCCINATE 25 MG TAB.SR.24H (FP) PO SCH (09:50)
[2017-12-22] MEDS: AMIODARONE HCL 200 MG TABLET (FP) PO SCH (09:51)
[2017-12-22] MEDS: HEPARIN NA (PORCINE) 5,000 UNITS/ML 1ML VIAL SQ SCH ×2 (09:51→21:55)
[2017-12-22] MEDS: MULTIVITAMINS (DAILY MVI) TABLET (FP) PO SCH (09:51)
[2017-12-22] MEDS: FOLIC ACID 1 MG TABLET (FP) PO SCH (09:51)
--- NOTE | 2017-12-22 12:01 | PN ---
Progress Note (short form) - Note Progress Note: Pt is awake no distress calm Vital Signs - 24 hr 12/21/17 12/21/17 12/21/17 14:43 18:00 20:47 Temperature 97.8 F 98.2 F 97.8 F Pulse Rate 68 62 68 Respiratory 16 7 L 20 Rate Blood Pressure 94/48 L 93/46 L 96/50 L 12/22/17 12/22/17 06:00 06:42 Temperature 98.6 F 97.8 F Pulse Rate 74 64 Respiratory 18 20 Rate Blood Pressure 112/56 L 144/80 Current Medications Generic Name Dose Route Start Last Admin Trade Name Freq PRN Reason Stop Dose Admin Amiodarone HCl 200 mg 12/20/17 10:00 12/22/17 09:51 Cordarone - PO 200 mg DAILY PENG Administration Atorvastatin Calcium 80 mg 12/20/17 17:23 12/21/17 17:31 Lipitor - PO 80 mg 1700 PENG Administration Citalopram Hydrobromide 10 mg 12/20/17 17:24 12/21/17 17:30 Celexa - PO 10 mg 1700 PENG Administration Docusate Sodium 300 mg 12/20/17 10:00 12/22/17 09:50 Colace - PO 300 mg DAILY PENG Administration Folic Acid 1 mg 12/20/17 10:00 12/22/17 09:51 Folic Acid - PO 1 mg DAILY PENG Administration Heparin Sodium (Porcine) 5,000 unit 12/20/17 10:00 12/22/17 09:51 Heparin - SQ 5,000 unit BID PENG Administration Levofloxacin 500 mg in 100 mls @ 100 mls/hr 12/20/17 10:00 12/22/17 09:51 Levaquin 500 Mg Premixed Ivpb - IVPB 100 mls/hr DAILY PENG Administration Protocol Melatonin 3 mg 12/20/17 17:39 12/21/17 17:31 Melatonin PO 3 mg 1700 PRN Administration INSOMNIA Metoprolol Succinate 12.5 mg 12/20/17 10:00 12/22/17 09:50 Toprol Xl - PO 12.5 mg DAILY PENG Administration Multivitamins/Minerals/Vitamin C 1 tab 12/20/17 10:00 12/22/17 09:51 Tab-A-Vit - PO 1 tab DAILY PENG Administration Olanzapine 5 mg 12/20/17 17:30 12/21/17 17:30 Zyprexa - PO 5 mg 1700 PENG Administration S1 S2 RRR Lungs decreased, no ronchi Abd- soft, NT No edema PLAN IV antibiotics says she has dry cough clinically better blood cultures negative unable to do urine cultures- pt is not cooperative continue with meds dc planning tomorrow Problem List - Problems (1) Altered mental status Code(s): R41.82 - ALTERED MENTAL STATUS, UNSPECIFIED Qualifiers: Altered mental status type: unspecified Qualified Code(s): R41.82 - Altered mental status, unspecified (2) Pneumonia Code(s): J18.9 - PNEUMONIA, UNSPECIFIED ORGANISM Qualifiers: Pneumonia type: due to unspecified organism Laterality: unspecified laterality Lung location: unspecified part of lung Qualified Code(s): J18.9 - Pneumonia, unspecified organism (3) Toxic metabolic encephalopathy Code(s): G92 - TOXIC ENCEPHALOPATHY (4) UTI (urinary tract infection) Code(s): N39.0 - URINARY TRACT INFECTION, SITE NOT SPECIFIED Qualifiers: Urinary tract infection type: site unspecified Hematuria presence: without hematuria Qualified Code(s): N39.0 - Urinary tract infection, site not specified (5) Paroxysmal atrial fibrillation Code(s): I48.0 - PAROXYSMAL ATRIAL FIBRILLATION (6) Dementia Code(s): F03.90 - UNSPECIFIED DEMENTIA WITHOUT BEHAVIORAL DISTURBANCE Qualifiers:
[2017-12-22] MEDS ORDERED: PT OWN MED DRAWER 7, Y5N ONE (16:48)
[2017-12-22] MEDS: ATORVASTATIN CA 80 MG TABLET (FP) PO SCH (17:32)
[2017-12-22] MEDS: CITALOPRAM HYDROBROMIDE 10 MG TABLET (FP) PO SCH (17:32)
[2017-12-22] MEDS: OLANZapine 5 MG TABLET PO SCH (17:33)
[2017-12-23] MEDS: metoPROLOL SUCCINATE 25 MG TAB.SR.24H (FP) PO SCH (09:28)
[2017-12-23] MEDS: AMIODARONE HCL 200 MG TABLET (FP) PO SCH (09:28)
[2017-12-23] MEDS: MULTIVITAMINS (DAILY MVI) TABLET (FP) PO SCH (09:28)
[2017-12-23] MEDS: HEPARIN NA (PORCINE) 5,000 UNITS/ML 1ML VIAL SQ SCH ×2 (09:29→21:35)
[2017-12-23] MEDS: FOLIC ACID 1 MG TABLET (FP) PO SCH (09:29)
[2017-12-23] MEDS: DOCUSATE SODIUM 100 MG CAPSULE (FP) PO SCH (09:29)
--- NOTE | 2017-12-23 09:39 | PN ---
Progress Note, Physician History of Present Illness: stable doing well 'no complaints - Current Medication List Current Medications: Active Medications Amiodarone HCl (Cordarone -) [address] [facility] Last Admin: 12/23/17 09:28 Dose: 200 mg Atorvastatin Calcium (Lipitor -) [address] [facility] Last Admin: 12/22/17 17:32 Dose: 80 mg Citalopram Hydrobromide (Celexa -) [address] [facility] Last Admin: 12/22/17 17:32 Dose: 10 mg Docusate Sodium (Colace -) [address] [facility] Last Admin: 12/23/17 09:29 Dose: 300 mg Folic Acid (Folic Acid -) [address] [facility] Last Admin: 12/23/17 09:29 Dose: 1 mg Heparin Sodium (Porcine) (Heparin -) 5,[address] [facility] Last Admin: 12/23/17 09:29 Dose: 5,000 unit Levofloxacin (Levaquin -) 500 mg PO DAILY@0600 [facility] Melatonin (Melatonin) 3 mg PO 1700 PRN PRN Reason: INSOMNIA Last Admin: 12/21/17 17:31 Dose: 3 mg Metoprolol Succinate (Toprol Xl -) 12.[address] [facility] Last Admin: 12/23/17 09:28 Dose: 12.5 mg Multivitamins/Minerals/Vitamin C (Tab-A-Vit -) [address] [facility] Last Admin: 12/23/17 09:28 Dose: 1 tab Olanzapine (Zyprexa -) [address] [facility] Last Admin: 12/22/17 17:33 Dose: 5 mg - Objective Vital Signs: Vital Signs Temperature 98.3 F 12/23/17 06:57 Pulse Rate 62 12/23/17 06:57 Respiratory Rate 20 12/23/17 06:57 Blood Pressure 122/62 12/23/17 06:57 O2 Sat by Pulse Oximetry (%) 96 12/22/17 21:00 Constitutional: Yes: No Distress, Calm Cardiovascular: Yes: Regular Rate and Rhythm Respiratory: Yes: Regular, CTA Bilaterally Gastrointestinal: Yes: Normal Bowel Sounds, Soft Musculoskeletal: Yes: WNL Extremities: Yes: WNL Neurological: Yes: Alert, Oriented Psychiatric: Yes: Alert, Oriented Labs: CBC, BMP 12/20/17 07:10 12/20/17 07:10 INR, PTT INR 0.92 (0.83-1.09) 12/19/17 15:26 Assessment/Plan Problem List - Problems (1) Altered mental status Code(s): R41.82 - ALTERED MENTAL STATUS, UNSPECIFIED Qualifiers: Altered mental status type: unspecified Qualified Code(s): R41.82 - Altered mental status, unspecified (2) Pneumonia Code(s): J18.9 - PNEUMONIA, UNSPECIFIED ORGANISM Qualifiers: Pneumonia type: due to unspecified organism Laterality: unspecified laterality Lung location: unspecified part of lung Qualified Code(s): J18.9 - Pneumonia, unspecified organism (3) Toxic metabolic encephalopathy Code(s): G92 - TOXIC ENCEPHALOPATHY (4) UTI (urinary tract infection) Code(s): N39.0 - URINARY TRACT INFECTION, SITE NOT SPECIFIED Qualifiers: Urinary tract infection type: site unspecified Hematuria presence: without hematuria Qualified Code(s): N39.0 - Urinary tract infection, site not specified (5) Paroxysmal atrial fibrillation Code(s): I48.0 - PAROXYSMAL ATRIAL FIBRILLATION (6) Dementia Code(s): F03.90 - UNSPECIFIED DEMENTIA WITHOUT BEHAVIORAL DISTURBANCE Qualifiers: still congested,dry cough present plan patient can be changed to oral levaquin to give it for 5 more days incentive liyah rest as per the team
[2017-12-23] MEDS ORDERED: PT OWN MED DRAWER 7, Y5N ONE ×2 (10:35→17:40)
--- NOTE | 2017-12-23 11:05 | DS ---
Physical Examination Vital Signs: Vital Signs Temperature 98.3 F 12/23/17 06:57 Pulse Rate 62 12/23/17 06:57 Respiratory Rate 20 12/23/17 06:57 Blood Pressure 122/62 12/23/17 06:57 O2 Sat by Pulse Oximetry (%) 96 12/22/17 21:00 Findings/Remarks: pt seen/ examined chart reviewed awake/ comfortable no distress mood pleasant at bedside Constitutional: Yes: No Distress, Calm Eyes: Yes: Conjunctiva Clear Neck: Yes: Supple Cardiovascular: Yes: Regular Rate and Rhythm Respiratory: Yes: CTA Bilaterally Gastrointestinal: Yes: Soft Edema: No Neurological: Yes: Alert Psychiatric: Yes: Alert Labs: CBC, BMP 12/20/17 07:10 12/20/17 07:10 Discharge Summary Reason For Visit: Altered Mental Status,UTI,PNEUMONIA Current Active Problems Altered mental status (Acute) Pneumonia (Acute) Toxic metabolic encephalopathy (Acute) UTI (urinary tract infection) (Chronic) Hospital Course: Thus is a 77 y/o woman from [facility] with a past medical history of Dementia, HTN, Afib, CHF, AICD, COPD, MDD, UTIs, Cerebral Infarction, Frequent Falls, Dysphagia, UTIs. Who presents to the ED via ambulance for increased AMS Pt treated with emperic abx cxr-- likley left lower infiltrate p blood cultures -ve u/c could not be taken now doing well will d/c back to retirement -- abx x 5 more days Discussed with nursing staff Discussed with pts also in detail- agree with plan. repeat cxr in 3-4 weeks Discharge time 40 min in examining /documenting and coordating care Condition: Stable - Instructions Diet, Activity, Other Instructions: repeat Chest xray om 3 weeks to follow up w resolution of pneumonia Referrals: Avery Eduardo [Primary Care Provider] - Disposition: RETIREMENT FACILITY - Home Medications Comprehensive Discharge Medication List: Ambulatory Orders Citalopram Hydrobromide [Celexa -] 10 mg PO DAILY 10/09/17 Docusate Sodium [Colace] 300 mg PO DAILY 10/09/17 Folic Acid 1 mg PO DAILY 10/09/17 Multivitamin [Poly-Vitamin] 1 each PO DAILY 10/09/17 Amiodarone HCl [Cordarone -] 200 mg PO DAILY tablet 11/21/17 Atorvastatin Ca [Lipitor] 80 mg PO HS tablet 11/21/17 Metoprolol Succinate [Toprol XL -] 25 mg PO DAILY 12/19/17 Olanzapine [Zyprexa -] 5 mg PO HS 12/19/17 levoFLOXacin [Levaquin -] 500 mg PO DAILY #3 tablet 12/22/17
[2017-12-23] MEDS: CITALOPRAM HYDROBROMIDE 10 MG TABLET (FP) PO SCH (17:43)
[2017-12-23] MEDS: ATORVASTATIN CA 80 MG TABLET (FP) PO SCH (17:43)
[2017-12-23] MEDS: OLANZapine 5 MG TABLET PO SCH (17:43)
[2017-12-23 22:29] VITALS: TEMP 98.2
[2017-12-24] MEDS: AMIODARONE HCL 200 MG TABLET (FP) PO SCH (09:51)
[2017-12-24] MEDS: HEPARIN NA (PORCINE) 5,000 UNITS/ML 1ML VIAL SQ SCH (09:51)
[2017-12-24] MEDS: DOCUSATE SODIUM 100 MG CAPSULE (FP) PO SCH (09:51)
[2017-12-24] MEDS: MULTIVITAMINS (DAILY MVI) TABLET (FP) PO SCH (09:51)
[2017-12-24] MEDS: FOLIC ACID 1 MG TABLET (FP) PO SCH (09:51)
[2017-12-24] MEDS: metoPROLOL SUCCINATE 25 MG TAB.SR.24H (FP) PO SCH (09:52)
[2017-12-24 10:26] VITALS: BP 98/55; PULSE 57
== END 2017-12-24 10:50 | DRG 193 ==
LOC: JER 14:50 → JERBED 19:43 → J4S 12-20 15:04 → J8W 12-22 04:36
PROVIDERS: ADMIT Internal Medicine; ATTEND Internal Medicine
DX: J18.9 Pneumonia, unspecified organism (principal); G92 Toxic encephalopathy; N39.0 Urinary tract infection, site not specified; I50.22 Chronic systolic (congestive) heart failure; I25.10 Atherosclerotic heart disease of native coronary artery without angina pectoris; E78.5 Hyperlipidemia, unspecified; G30.9 Alzheimer's disease, unspecified; F02.80 Dementia in other diseases classified elsewhere, unspecified severity, without behavioral disturbance, psychotic disturbance, mood disturbance, and anxiety; Z87.440 Personal history of urinary (tract) infections; J44.9 Chronic obstructive pulmonary disease, unspecified; R29.6 Repeated falls; R13.10 Dysphagia, unspecified; Z88.0 Allergy status to penicillin; I11.0 Hypertensive heart disease with heart failure; I48.0 Paroxysmal atrial fibrillation; Z95.810 Presence of automatic (implantable) cardiac defibrillator; I25.5 Ischemic cardiomyopathy; I25.2 Old myocardial infarction
CPT/HCPCS: 36415; 70450-TC; 71045-TC-FY; 80048; 80053; 81003; 81015; 82550; 83605; 84484; 85025; 85610; 85730; 87040; 93005; 93010; 99285-25; J1644

== ENCOUNTER 2018-02-04 21:13 | Inpatient (IN) | payer OTHER ==
[2018-02-04 21:22] VITALS: BMI 21.4
--- NOTE | 2018-02-04 21:40 | PDOC ---
History of Present Illness - General History Source: Patient Exam Limitations: No Limitations - History of Present Illness Initial Comments: 02/04/18 22:47 The patient is a 77 year old female with a history of Dementia, HTN, HLD, CAD, Pacemaker and defibrillator placement, UTIs, who presents for labored breathing , wheezing, and nonproductive cough today. at bedside states the patient is becoming short of breath after walking short distances, which is not usual for her. Patient also had a loss of appetite yesterday, but was eating and drinking normally today. Patient did have her flu vaccine. As per the at bedside, other patients at the retirement are sick and he was concerned prompting them to come to the ED for further evaluation. Patient was seen here on 12/19/17 and was admitted for a pneumonia. Patient admits to diarrhea as she is currently on Colace but denies fevers, chills, nausea, vomiting, or urinary symptoms. . Allergies: aspirin, penicillins Past surgical history: None reported. Social history: No reported alcohol, drug or cigarette use. <Trina Hodge - Last Filed: 02/04/18 22:56> <Kamilla Scott - Last Filed: 02/05/18 01:46> - General Chief Complaint: Respiratory Stated Complaint: COUGH Time Seen by Provider: 02/04/18 21:16 Past History <Trina Hodge - Last Filed: 02/04/18 22:56> - Past Medical History Anemia: No Asthma: No Cancer: No Cardiac Disorders: Yes (A-FIB) CVA: Yes COPD: No CHF: Yes Dementia: Yes Diabetes: No GI Disorders: No Disorders: Yes HTN: Yes Hypercholesterolemia: Yes Thyroid Disease: No - Surgical History Cardiac Surgery: Yes (STENTS, DEFIB) - Immunization History Immunization Up to Date: No - Suicide/Smoking/Psychosocial Hx Smoking History: Unknown if ever smoked Have you smoked in the past 12 months: No If you are a former smoker, when did you quit?: 1986 Hx Alcohol Use: No Drug/Substance Use Hx: No Substance Use Type: None Hx Substance Use Treatment: No <Kamilla Scott - Last Filed: 02/05/18 01:46> - Past Medical History Allergies/Adverse Reactions: Allergies Allergy/AdvReac Type Severity Reaction Status Date / Time aspirin Allergy Verified 12/19/17 15:05 Penicillins Allergy Verified 12/19/17 15:05 Home Medications: Ambulatory Orders Citalopram Hydrobromide [Celexa -] 10 mg PO DAILY 10/09/17 Docusate Sodium [Colace] 300 mg PO DAILY 10/09/17 Folic Acid 1 mg PO DAILY 10/09/17 Multivitamin [Poly-Vitamin] 1 each PO DAILY 10/09/17 Amiodarone HCl [Cordarone -] 200 mg PO DAILY tablet 11/21/17 Atorvastatin Ca [Lipitor] 80 mg PO HS tablet 11/21/17 Metoprolol Succinate [Toprol XL -] 15.5 mg PO DAILY 12/19/17 Olanzapine [Zyprexa -] 5 mg PO HS 12/19/17 Cran/Vitc/Mannose/Fos/Bromeln [Uti-Stat Liquid] 30 ml PO DAILY 02/04/18 Cyanocobalamin (Vitamin B-12) [Cyanocobalamin Injection] 1,000 mcg IJ MONTHLY Nutritional Supplement [Hi-Jeovany] 120 ml PO TID 02/04/18 Review of Systems - Review of Systems Able to Perform ROS?: Yes Comments:: 02/04/18 22:45 ADULT ROS GENERAL/CONSTITUTIONAL: No fever or chills. No weakness. HEAD, EYES, EARS, NOSE AND THROAT: No change in vision. No ear pain or discharge. No sore throat. CARDIOVASCULAR: No chest pain or shortness of breath. RESPIRATORY: (+) Dry cough. (+) Wheezing. (+) Labored breathing. No hemoptysis. GASTROINTESTINAL: No nausea, vomiting, diarrhea or constipation. GENITOURINARY: No dysuria, frequency, or change in urination. MUSCULOSKELETAL: No joint or muscle pain. No neck or back pain. (+) Swelling, warmth, and redness to the left foot. SKIN: No rash NEUROLOGIC: No headache, vertigo, loss of consciousness, or change in strength/ sensation. ENDOCRINE: No increased thirst. No abnormal weight change. HEMATOLOGIC/LYMPHATIC: No anemia, easy bleeding, or history of blood clots. ALLERGIC/IMMUNOLOGIC: No hives or skin allergy. <Trina Hodge - Last Filed: 02/04/18 22:56> *Physical Exam - Vital Signs Last Vital Signs Temp Pulse Resp BP Pulse Ox 98.5 F 64 18 136/77 99 02/04/18 21:15 02/04/18 21:15 02/04/18 21:15 02/04/18 21:15 02/04/18 21:15 - Physical Exam Comments: 02/04/18 22:45 ADULT EXAM GENERAL: Awake, alert, and fully oriented, in no acute distress NECK: Normal ROM, supple, no lymphadenopathy, JVD, or masses LUNGS: (+) Bilateral inspiratory crackles at the bases. Bilateral rare expiratory wheezing at the bases. HEART: Regular rate and rhythm, normal S1 and S2, no murmurs, rubs or gallops ABDOMEN: Soft, nontender, normoactive bowel sounds. No guarding, no rebound. No masses EXTREMITIES: Normal range of motion.No clubbing or cyanosis. No cords, erythema , or tenderness. (+) 1+ edema to the left lower leg from the foot to the ankle. 3cx6cm erythematous area that is warm to the tough on the medial portion of the proximal foot and the medial malleolus. No streaking. No open wounds. NEUROLOGICAL: Cranial nerves II through XII grossly intact. Normal speech, normal gait SKIN: Warm, Dry, normal turgor, no rashes or lesions noted. <Trina Hodge - Last Filed: 02/04/18 22:56> - Vital Signs Last Vital Signs Temp Pulse Resp BP Pulse Ox 98.5 F 64 18 136/77 99 02/04/18 21:15 02/04/18 21:15 02/04/18 21:15 02/04/18 21:15 02/04/18 21:15 <Kamilla Scott - Last Filed: 02/05/18 01:46> Moderate Sedation - Procedure Monitoring Vital Signs: Procedure Monitoring Vital Signs Temperature 98.5 F 02/04/18 21:15 Pulse Rate 64 02/04/18 21:15 Respiratory Rate 18 02/04/18 21:15 Blood Pressure 136/77 02/04/18 21:15 O2 Sat by Pulse Oximetry (%) 99 02/04/18 21:15 <Trina Hodge - Last Filed: 02/04/18 22:56> - Procedure Monitoring Vital Signs: Procedure Monitoring Vital Signs Temperature 98.5 F 02/04/18 21:15 Pulse Rate 64 02/04/18 21:15 Respiratory Rate 18 02/04/18 21:15 Blood Pressure 136/77 02/04/18 21:15 O2 Sat by Pulse Oximetry (%) 99 02/04/18 21:15 <Kamilla Scott - Last Filed: 02/05/18 01:46> ED Treatment Course - LABORATORY CBC & Chemistry Diagram: 02/04/18 23:00 02/04/18 23:00 - RADIOLOGY Radiology Studies Ordered: Category Date Time Status CHEST X-RAY PORTABLE* [RAD] Stat Radiology 02/04/18 21:37 Ordered <Kamilla Scott - Last Filed: 02/05/18 01:46> Progress Note - Progress Note Progress Note: Documentation has been prepared under my direction and personally reviewed by me in its entirety. I attest that this documented accurately reflects all work, treatment, procedures and medical decision making performed by me. <Kamilla Scott - Last Filed: 02/05/18 01:46> Medical Decision Making - Medical Decision Making As noted above, this 78-year-old woman with a history of CAD/HLD/HTN/dementia and pneumonia in December of this year is brought in by ambulance from [facility] ( [facility]) with a few day history of nonproductive cough and dyspnea on exertion. Patient is accompanied by her who provides history. According to the , the patient is much more dyspneic with labored breathing after limited exertion (e.g., walking short distances) for the last few days. No known fever/ chills. Patient has had loose stools for the last few days. No history of chest pain; also, she has left ankle/foot edema with erythema and increased warmth. No known history of trauma or skin breakage in the area. No previous history of cellulitis. Exam as noted Portable chest x-ray is somewhat limited (left base obscured by pacemaker) but bibasilar infiltrates cannot be ruled out Twelve-lead electrocardiogram is performed: Preliminary interpretation-normal sinus rhythm at 70 bpm; axis, intervals and wave forms are all normal and unchanged from previous 12-lead electrocardiogram tracing dated 12/19/17. No evidence of acute ST or T-wave abnormalities. No evidence of acute cardiac arrhythmia Laboratory evaluation including CBC/chemistry profile: White blood cell count 9200; patient has mild anemia (9.5/29; essentially unchanged from previously). Chemistry profile notable for BUN of 33 and creatinine 1.3. Troponin is nonelevated at 0.03 Patient received Levaquin for pneumonia/UTI during her hospitalization in December of this year, without adverse effects With evidence of left ankle/foot cellulitis and possible pneumonia, IV antibiotics are indicated currently Levaquin 500 mg IV will be administered here in ER. Admission for further treatment and observation is warranted. 02/05/18 01:[address] Driver's service <Kamilla Scott - Last Filed: 02/05/18 01:46> *DC/Admit/Observation/Transfer - Attestations Scribe Attestion: 02/04/18 22:45 Documentation prepared by Trina Hodge, acting as medical records clerk for Kamilla Scott MD. <Trina Hodge - Last Filed: 02/04/18 22:56> - Discharge Dispostion Decision to Admit order: Yes <Kamilla Scott - Last Filed: 02/05/18 01:46> Diagnosis at time of Disposition: Cellulitis Qualifiers: Site of cellulitis: extremity Site of cellulitis of extremity: lower extremity Laterality: left Qualified Code(s): L03.116 - Cellulitis of left lower limb Pneumonia Qualifiers: Pneumonia type: due to unspecified organism Laterality: unspecified laterality Lung location: lower lobe of lung Qualified Code(s): J18.1 - Lobar pneumonia, unspecified organism - Discharge Dispostion Condition at time of disposition: Guarded
[2018-02-04 23:10] LABS: BASO % 1.2 % (0-2.0); EOS % 6.7 % (0-4.5); HEMATOCRIT 29.5 % (32.4-45.2); HEMOGLOBIN 9.4 GM/dl (10.7-15.3); LYMPH % 12.3 % (8-40); MEAN CELL VOLUME 87.4 fl (80-96); MEAN PLT VOLUME 8.1 fl (7.5-11.1); MONO % 13.1 % (3.8-10.2); NEUT % 66.7 % (42.8-82.8); PLATELET COUNT 394 K/MM3 (134-434); RBC 3.37 M/mm3 (3.60-5.2); WHITE BLOOD COUNT 9.2 K/mm3 (4.0-10.8)
[2018-02-04 23:24] LABS: ALBUMIN 2.7 g/dl (3.5-5.0); ALK PHOS 119 U/L (32-92); ANION GAP 6 MMOL/L (8-16); BILIRUBIN,TOTAL 0.5 mg/dl (0.2-1.0); BLOOD UREA NITROGEN 33 mg/dl (7-18); CALCIUM 8.6 mg/dl (8.4-10.2); CHLORIDE 106 mmol/L (98-107); CO2 25 mmol/L (22-28); CREATININE 1.3 mg/dl (0.6-1.3); GLUCOSE,RANDOM 99 mg/dl (74-106); POTASSIUM 5.1 mmol/L (3.5-5.1); SGOT/AST 26 U/L (10-42); SGPT/ALT 17 U/L (10-40); SODIUM 137 mmol/L (136-145)
[2018-02-05 02:01] LABS: URINE APPEARANCE CLOUDY; URINE BILIRUBIN NEGATIVE (<2.0 mg/dL); URINE COLOR YELLOW; URINE GLUCOSE (UA) NEGATIVE (NEGATIVE); URINE KETONE NEGATIVE (NEGATIVE); URINE LEUK ESTERASE 3+ (NEGATIVE); URINE NITRITE POSITIVE (NEGATIVE); URINE PROTEIN 1+ (NEGATIVE); URINE UROBILINOGEN NEGATIVE mg/dL (0.2-1.0)
[2018-02-05 02:09] LABS: EPI CELLS RARE /HPF (FEW); URINE BACTERIA MANY /hpf (NONE SEEN); URINE MUCUS RARE
[2018-02-05 09:17] LABS: ANION GAP 8 MMOL/L (8-16); BLOOD UREA NITROGEN 26 mg/dl (7-18); CALCIUM 8.6 mg/dl (8.4-10.2); CHLORIDE 107 mmol/L (98-107); CO2 23 mmol/L (22-28); CREATININE 1.1 mg/dl (0.6-1.3); GLUCOSE,RANDOM 87 mg/dl (74-106); MAGNESIUM 2.1 mg/dL (1.8-2.4); POTASSIUM 4.4 mmol/L (3.5-5.1); SODIUM 138 mmol/L (136-145)
[2018-02-05 09:19] LABS: BASO % 0.9 % (0-2.0); EOS % 7.3 % (0-4.5); HEMATOCRIT 26.7 % (32.4-45.2); HEMOGLOBIN 8.4 GM/dl (10.7-15.3); LYMPH % 17.5 % (8-40); MCH 27.2 pg (25.7-33.7); MCHC 31.5 g/dl (32.0-36.0); MEAN CELL VOLUME 86.2 fl (80-96); MEAN PLT VOLUME 8.2 fl (7.5-11.1); MONO % 13.3 % (3.8-10.2); PLATELET COUNT 356 K/MM3 (134-434); WHITE BLOOD COUNT 7.8 K/mm3 (4.0-10.8)
[2018-02-05] MEDS: HEPARIN NA (PORCINE) 5,000 UNITS/ML 1ML VIAL SQ SCH ×2 (09:50→21:26)
[2018-02-05] MEDS ORDERED: DOXYCYCLINE HYCLATE 100 MG CAPSULE PO SCH (10:00)
--- NOTE | 2018-02-05 10:27 | HP ---
CHIEF COMPLAINT: Shortness of breath PCP: Dr. Eduardo HISTORY OF PRESENT ILLNESS: The patient is a 77 year old female with a history of dementia, HTN, HLD, CAD, Afib s/p PPM/AICD (no AC secondary to history of GIB ), UTIs, admitted from the ED with labored breathing, wheezing, and nonproductive cough. at bedside stated the patient was becoming short of breath after walking short distances, which is not usual for her. She was admitted in December for PNA and was treated with Levofloxacin at that time. ER course was notable for: (1) CXR: Left base infiltrate (2) WBC with 365 WBCs and positive nitrites (3) Left foot erythema on ED exam Recent Travel: None PAST MEDICAL HISTORY: As above PAST SURGICAL HISTORY: None reported Social History: SNF resident, Smoking: None Alcohol: None Drugs: None Family History: Non-contributory Allergies: ASA, PCNs aspirin Allergy (Verified 12/19/17 15:05) Penicillins Allergy (Verified 12/19/17 15:05) HOME MEDICATIONS: Home Medications Medication Instructions Recorded Citalopram Hydrobromide [Celexa -] 10 mg PO DAILY 10/09/17 Docusate Sodium [Colace] 300 mg PO DAILY 10/09/17 Folic Acid 1 mg PO DAILY 10/09/17 Multivitamin [Poly-Vitamin] 1 each PO DAILY 10/09/17 Amiodarone HCl [Cordarone -] 200 mg PO DAILY tablet 11/21/17 Atorvastatin Ca [Lipitor] 80 mg PO HS tablet 11/21/17 Metoprolol Succinate [Toprol XL -] 15.5 mg PO DAILY 12/19/17 Olanzapine [Zyprexa -] 5 mg PO HS 12/19/17 Cran/Vitc/Mannose/Fos/Bromeln 30 ml PO DAILY 02/04/18 [Uti-Stat Liquid] Cyanocobalamin (Vitamin B-12) 1,000 mcg IJ MONTHLY 02/04/18 [Cyanocobalamin Injection] Nutritional Supplement [Hi-Jeovany] 120 ml PO TID 02/04/18 REVIEW OF SYSTEMS: Patient is unable to participate meaningfully. She denies pain or shortness of breath. PHYSICAL EXAMINATION Vital Signs - 24 hr 02/04/18 02/05/18 02/05/18 21:15 01:27 07:09 Temperature 98.5 F 98.4 F 98.7 F Pulse Rate 64 80 71 Respiratory 18 18 18 Rate Blood Pressure 136/77 149/77 128/56 L O2 Sat by Pulse 99 97 Oximetry (%) 02/05/18 07:18 Temperature Pulse Rate Respiratory Rate Blood Pressure O2 Sat by Pulse 98 Oximetry (%) GENERAL: Awake, alert, pleasant, follows commands, oriented to name only. HEAD: Normal with no signs of trauma. EYES: Pupils equal, round and reactive to light, extraocular movements intact, sclera anicteric, conjunctiva clear. No lid lag. EARS, NOSE, THROAT: Ears normal, nares patent, oropharynx clear without exudates. Moist mucous membranes. NECK: Normal range of motion, supple without lymphadenopathy, JVD, or masses. LUNGS: Breath sounds equal, clear to auscultation bilaterally. No wheezes, and no crackles. No accessory muscle use. HEART: Regular rate and rhythm, normal S1 and S2 without murmur, rub or gallop. ABDOMEN: Soft, nontender, not distended, normoactive bowel sounds, no guarding, no rebound, no masses. No hepatomegaly or splenomegaly. MUSCULOSKELETAL: Normal range of motion at all joints. No bony deformities or tenderness. No CVA tenderness. UPPER EXTREMITIES: 2+ pulses, warm, well-perfused. No cyanosis. No clubbing. No peripheral edema. LOWER EXTREMITIES: 2+ pulses, warm, well-perfused. No calf tenderness. No peripheral edema. Mild erythema left mid-foot. NEUROLOGICAL: Cranial nerves II-XII intact. Normal speech. Gait deferred. PSYCHIATRIC: Cooperative. Good eye contact. Appropriate mood and affect. SKIN: Warm, dry, normal turgor, normal capillary refill. Laboratory Results - last 24 hr 02/04/18 02/04/18 02/04/18 23:00 23:00 23:00 WBC 9.2 RBC 3.37 L Hgb 9.4 L Hct 29.5 L MCV 87.4 MCH 28.0 MCHC 32.0 RDW 16.0 H D Plt Count 394 MPV 8.1 Absolute Neuts (auto) 6.2 Neutrophils % 66.7 Lymphocytes % 12.3 Monocytes % 13.1 H Eosinophils % 6.7 H Basophils % 1.2 ESR Sodium 137 Potassium 5.1 D Chloride 106 Carbon Dioxide 25 Anion Gap 6 L BUN 33 H Creatinine 1.3 Creat Clearance w eGFR 39.41 Random Glucose 99 Calcium 8.6 Magnesium Total Bilirubin 0.5 AST 26 D ALT 17 D Alkaline Phosphatase 119 H Creatine Kinase 87 Troponin I 0.03 C-Reactive Protein B-Natriuretic Peptide Total Protein 7.0 Albumin 2.7 L Urine Color Urine Appearance Urine pH Ur Specific [place] Urine Protein Urine Glucose (UA) Urine Ketones Urine Blood Urine Nitrite Urine Bilirubin Urine Urobilinogen Ur Leukocyte Esterase Urine WBC (Auto) Urine RBC (Auto) Ur Epithelial Cells Urine Bacteria Urine Mucus 02/05/18 02/05/18 02/05/18 00:30 06:40 06:40 WBC RBC Hgb Hct MCV MCH MCHC RDW Plt Count MPV Absolute Neuts (auto) Neutrophils % Lymphocytes % Monocytes % Eosinophils % Basophils % ESR Sodium 138 Potassium 4.4 Chloride 107 Carbon Dioxide 23 Anion Gap 8 BUN 26 H Creatinine 1.1 Creat Clearance w eGFR 47.79 Random Glucose 87 Calcium 8.6 Magnesium 2.1 Total Bilirubin AST ALT Alkaline Phosphatase Creatine Kinase Troponin I 0.03 C-Reactive Protein B-Natriuretic Peptide Total Protein Albumin Urine Color Yellow Urine Appearance Cloudy Urine pH 6.0 Ur Specific [place] 1.023 Urine Protein 1+ H Urine Glucose (UA) Negative Urine Ketones Negative Urine Blood 2+ H Urine Nitrite Positive Urine Bilirubin Negative Urine Urobilinogen Negative Ur Leukocyte Esterase 3+ H Urine WBC (Auto) 365 Urine RBC (Auto) 64 Ur Epithelial Cells Rare Urine Bacteria Many Urine Mucus Rare 02/05/18 02/05/18 02/05/18 06:40 06:40 06:40 WBC 7.8 RBC 3.10 L Hgb 8.4 L Hct 26.7 L MCV 86.2 MCH 27.2 MCHC 31.5 L RDW 16.0 H Plt Count 356 MPV 8.2 Absolute Neuts (auto) 4.7 Neutrophils % 61.0 Lymphocytes % 17.5 Monocytes % 13.3 H Eosinophils % 7.3 H Basophils % 0.9 ESR 135 H Sodium Potassium Chloride Carbon Dioxide Anion Gap BUN Creatinine Creat Clearance w eGFR Random Glucose Calcium Magnesium Total Bilirubin AST ALT Alkaline Phosphatase Creatine Kinase Troponin I C-Reactive Protein 5.8 H B-Natriuretic Peptide Total Protein Albumin Urine Color Urine Appearance Urine pH Ur Specific [place] Urine Protein Urine Glucose (UA) Urine Ketones Urine Blood Urine Nitrite Urine Bilirubin Urine Urobilinogen Ur Leukocyte Esterase Urine WBC (Auto) Urine RBC (Auto) Ur Epithelial Cells Urine Bacteria Urine Mucus 02/05/18 06:40 WBC RBC Hgb Hct MCV MCH MCHC RDW Plt Count MPV Absolute Neuts (auto) Neutrophils % Lymphocytes % Monocytes % Eosinophils % Basophils % ESR Sodium Potassium Chloride Carbon Dioxide Anion Gap BUN Creatinine Creat Clearance w eGFR Random Glucose Calcium Magnesium Total Bilirubin AST ALT Alkaline Phosphatase Creatine Kinase Troponin I C-Reactive Protein B-Natriuretic Peptide 1874.9 H Total Protein Albumin Urine Color Urine Appearance Urine pH Ur Specific [place] Urine Protein Urine Glucose (UA) Urine Ketones Urine Blood Urine Nitrite Urine Bilirubin Urine Urobilinogen Ur Leukocyte Esterase Urine WBC (Auto) Urine RBC (Auto) Ur Epithelial Cells Urine Bacteria Urine Mucus ASSESSMENT/PLAN: 78-year-old female with cough and dyspnea likely secondary to PNA, also with evidence of UTI and cellulitis. 1. PNA -Multiple RFs for MDR, including SNF residence and recent hospitalization (45 days ago) with IV abx (levofloxacin); ID consultation requested for approval -Concomitant UTI (history of MDR organisms including ESBL E coli) and cellulitis -Will treat with levofloxacin 750mg q48h (CrCl 37) + Aztreonam 2g q8h (PCN allergy) -DuoNebs prn wheezing -Obtain influenza swab, urine antigens for PNA 2. UTI -Follow up urine culture -Abx as above 3. Cellulitis -Mild, seems to be improving when compared with ER documentation -Abx as above 4. Afib -Continue amiodarone, Toprol -Chronic and rate-controlled, can dc tele 5. Dementia -Fall precautions -Continue Zyprexa hs 6. Ppx -Heparin 5000 units sq bid Problem List - Problem (1) Cellulitis Code(s): L03.90 - CELLULITIS, UNSPECIFIED Qualifiers: Site of cellulitis: extremity Site of cellulitis of extremity: lower extremity Laterality: left Qualified Code(s): L03.116 - Cellulitis of left lower limb (2) Pneumonia Code(s): J18.9 - PNEUMONIA, UNSPECIFIED ORGANISM Qualifiers: Pneumonia type: due to unspecified organism Laterality: unspecified laterality Lung location: lower lobe of lung Qualified Code(s): J18.1 - Lobar pneumonia, unspecified organism (3) HTN (hypertension) Code(s): I10 - ESSENTIAL (PRIMARY) HYPERTENSION (4) Paroxysmal atrial fibrillation Code(s): I48.0 - PAROXYSMAL ATRIAL FIBRILLATION (5) Penicillin allergy Code(s): Z88.0 - ALLERGY STATUS TO PENICILLIN (6) UTI (urinary tract infection) Code(s): N39.0 - URINARY TRACT INFECTION, SITE NOT SPECIFIED Qualifiers: Urinary tract infection type: site unspecified Hematuria presence: without hematuria Qualified Code(s): N39.0 - Urinary tract infection, site not specified (7) DVT prophylaxis Code(s): STW2519 - Visit type - Emergency Visit Emergency Visit: Yes ED Registration Date: 02/05/18 Care time: The patient presented to the Emergency Department on the above date and was hospitalized for further evaluation of their emergent condition. - New Patient This patient is new to me today: Yes Date on this admission: 02/05/18 - Critical Care Critical Care patient: No
[2018-02-05] MEDS ORDERED: AZTREONAM 2 GM in DEXTROSE 5%-WATER 100 ML IVPB SCH ×2 (11:00→13:00)
[2018-02-05] MEDS: metoPROLOL SUCCINATE 25 MG TAB.SR.24H (FP) PO SCH (11:15)
[2018-02-05] MEDS ORDERED: metoPROLOL SUCCINATE 25 MG TAB.SR.24H (FP) PO SCH (11:15)
[2018-02-05] MEDS: CITALOPRAM HYDROBROMIDE 10 MG TABLET (FP) PO SCH (11:30)
[2018-02-05] MEDS: AMIODARONE HCL 200 MG TABLET (FP) PO SCH (11:30)
[2018-02-05] MEDS: FOLIC ACID 1 MG TABLET (FP) PO SCH (11:30)
[2018-02-05] MEDS: MULTIVITAMINS (DAILY MVI) TABLET (FP) PO SCH (11:30)
[2018-02-05] MEDS: OLANZapine 5 MG TABLET PO SCH ×2 (16:41→21:28)
[2018-02-05] MEDS: ATORVASTATIN CA 80 MG TABLET (FP) PO SCH ×2 (16:41→21:27)
[2018-02-05] MEDS: AZTREONAM 2 GM in DEXTROSE 5%-WATER 100 ML IVPB SCH (21:27)
[2018-02-05] MEDS ORDERED: OLANZapine 5 MG TABLET PO SCH (22:00)
[2018-02-05] MEDS ORDERED: ATORVASTATIN CA 80 MG TABLET (FP) PO SCH (22:00)
[2018-02-06] MEDS: AZTREONAM 2 GM in DEXTROSE 5%-WATER 100 ML IVPB SCH (05:52)
[2018-02-06 06:59] LABS: BASO % 0.8 % (0-2.0); EOS % 8.6 % (0-4.5); HEMATOCRIT 28.7 % (32.4-45.2); LYMPH % 22.4 % (8-40); MCH 27.3 pg (25.7-33.7); MCHC 31.4 g/dl (32.0-36.0); MEAN PLT VOLUME 8.4 fl (7.5-11.1); MONO % 12.1 % (3.8-10.2); NEUT % 56.1 % (42.8-82.8); PLATELET COUNT 362 K/MM3 (134-434); RDW 15.6 % (11.6-15.6); WHITE BLOOD COUNT 7.4 K/mm3 (4.0-10.8)
[2018-02-06 07:22] LABS: ANION GAP 8 MMOL/L (8-16); BLOOD UREA NITROGEN 25 mg/dl (7-18); CALCIUM 8.7 mg/dl (8.4-10.2); CHLORIDE 110 mmol/L (98-107); CO2 22 mmol/L (22-28); CREATININE 1.2 mg/dl (0.6-1.3); GLUCOSE,RANDOM 89 mg/dl (74-106); POTASSIUM 4.4 mmol/L (3.5-5.1); SODIUM 140 mmol/L (136-145)
--- NOTE | 2018-02-06 08:55 | PN ---
Physical Exam: SUBJECTIVE: Patient seen and examined. present. OBJECTIVE: Vital Signs Period Temp Pulse Resp BP Sys/Bundy Pulse Ox Last 24 Hr 97.4 F-98.8 F 63-68 16-18 99-150/50-67 97-98 GENERAL/NEURO: A&Ox1. Holding stuffed animal and referring to as a person. Speech is fluent but nonsensical. Knows 's name is Dannie. LUNGS: Patient refused auscultation; no audible wheezing, no accessory muscle use, speaks in complete sentences HEART: Refused auscultation ABDOMEN:Refused exam EXTREMITIES: 2+ pulses, warm, well-perfused. LEFT 1+ edema extending from toes to knee; no erythema, no warmth, no tenderness SKIN: Warm, dry, normal turgor Laboratory Results - last 24 hr 02/05/18 02/05/18 02/05/18 06:40 06:40 06:40 WBC 7.8 RBC 3.10 L Hgb 8.4 L Hct 26.7 L MCV 86.2 MCH 27.2 MCHC 31.5 L RDW 16.0 H Plt Count 356 MPV 8.2 Absolute Neuts (auto) 4.7 Neutrophils % 61.0 Lymphocytes % 17.5 Monocytes % 13.3 H Eosinophils % 7.3 H Basophils % 0.9 ESR Sodium 138 Potassium 4.4 Chloride 107 Carbon Dioxide 23 Anion Gap 8 BUN 26 H Creatinine 1.1 Creat Clearance w eGFR 47.79 Random Glucose 87 Calcium 8.6 Magnesium 2.1 Troponin I 0.03 C-Reactive Protein B-Natriuretic Peptide 02/05/18 02/05/18 02/05/18 06:40 06:40 06:40 WBC RBC Hgb Hct MCV MCH MCHC RDW Plt Count MPV Absolute Neuts (auto) Neutrophils % Lymphocytes % Monocytes % Eosinophils % Basophils % ESR 135 H Sodium Potassium Chloride Carbon Dioxide Anion Gap BUN Creatinine Creat Clearance w eGFR Random Glucose Calcium Magnesium Troponin I C-Reactive Protein 5.8 H B-Natriuretic Peptide 1874.9 H 02/06/18 02/06/18 06:30 06:30 WBC 7.4 RBC 3.30 L Hgb 9.0 L Hct 28.7 L MCV 87.0 MCH 27.3 MCHC 31.4 L RDW 15.6 Plt Count 362 MPV 8.4 Absolute Neuts (auto) 4.1 Neutrophils % 56.1 Lymphocytes % 22.4 Monocytes % 12.1 H Eosinophils % 8.6 H Basophils % 0.8 ESR Sodium 140 Potassium 4.4 Chloride 110 H Carbon Dioxide 22 Anion Gap 8 BUN 25 H Creatinine 1.2 Creat Clearance w eGFR 43.23 Random Glucose 89 Calcium 8.7 Magnesium Troponin I C-Reactive Protein B-Natriuretic Peptide Active Medications Generic Name Dose Route Start Last Admin Trade Name Freq PRN Reason Stop Dose Admin Amiodarone HCl 200 mg 02/05/18 11:15 02/05/18 11:30 Cordarone - PO 200 mg DAILY PENG Administration Atorvastatin Calcium 80 mg 02/05/18 17:00 02/05/18 21:27 Lipitor - PO Not Given HS [facility] Citalopram Hydrobromide 10 mg 02/05/18 11:15 02/05/18 11:30 Celexa - PO 10 mg DAILY PENG Administration Folic Acid 1 mg 02/05/18 11:15 02/05/18 11:30 Folic Acid - PO 1 mg DAILY PENG Administration Heparin Sodium (Porcine) 5,000 unit 02/05/18 10:00 02/05/18 21:26 Heparin - SQ 5,000 unit BID PENG Administration Aztreonam 2 gm/ Dextrose 100 mls @ 100 mls/hr 02/05/18 11:00 IVPB Q8H-IV PENG Protocol Levofloxacin 750 mg in 150 mls @ 100 mls/hr 02/06/18 22:00 Levaquin 750 Mg Premixed Ivpb - IVPB Q48H PENG Protocol Metoprolol Succinate 12.5 mg 02/05/18 11:15 02/05/18 11:15 Toprol Xl - PO 12.5 mg DAILY PENG Administration Multivitamins/Minerals/Vitamin C 1 tab 02/05/18 11:15 02/05/18 11:30 Tab-A-Vit - PO 1 tab DAILY PENG Administration Olanzapine 5 mg 02/05/18 17:00 02/05/18 21:28 Zyprexa - PO Not Given HS [facility] ASSESSMENT/PLAN 78 year-old female with a PMH significant for HTN, HLD, CAD, afib not on a/c, recurrent UTIs, and dementia. Admitted for SOB, found to have UTI. Shortness of breath --afebrile, no leukocytosis, CXR does not r/o possible infiltrate -- states two other patients at DC recently of pneumonia and he was concerned patient had pneumonia also --treating empirically for pneumonia, ertapenem (day #1) and vanc (day #1) UTI --pyuria --culture (+) GNR --continue ertapenam Left lower extremity edema --mild pedal edema extending to knee --no erythema, no warmth, no tenderness -- states leg was more swollen and was tender --US to r/o DVT Atrial fibrillation --rate well-controlled, continue Toprol, amiodarone --not on anti-coagulation Dementia --at baseline functioning --continue celexa, Zyprexa FEN Fluids: PO intake adequate Electrolytes: replete as indicated Nutrition: regular diet DVT prophylaxis: subq heparin Physical therapy Dispo: continues to require inpatient care. Full code. Visit type - Emergency Visit Emergency Visit: Yes ED Registration Date: 02/05/18 Care time: The patient presented to the Emergency Department on the above date and was hospitalized for further evaluation of their emergent condition. - New Patient This patient is new to me today: Yes Date on this admission: 02/06/18 - Critical Care Critical Care patient: No
[2018-02-06] MEDS: ALBUTEROL SO4 2.5/IPRATROPIUM 0.5 INH SOL 3 ML VIAL.NEB. NEB SCH ×3 (09:10→21:20)
[2018-02-06] MEDS: CITALOPRAM HYDROBROMIDE 10 MG TABLET (FP) PO SCH (09:44)
[2018-02-06] MEDS: metoPROLOL SUCCINATE 25 MG TAB.SR.24H (FP) PO SCH (09:44)
[2018-02-06] MEDS: FOLIC ACID 1 MG TABLET (FP) PO SCH (09:44)
[2018-02-06] MEDS: AMIODARONE HCL 200 MG TABLET (FP) PO SCH (09:44)
[2018-02-06] MEDS: MULTIVITAMINS (DAILY MVI) TABLET (FP) PO SCH (09:44)
--- NOTE | 2018-02-06 10:08 | PN ---
Progress Note (short form) - Note Progress Note: ID Consult dictated Possible HCAP LLL UTI R/O sepsis secondary to UTI Hx ESBL PCN allergy L ankle swelling ? cellulitis ? sepstic arthritis Await sepsis w/u Empiric ertapenem + vancomycin Ortho evaluation Contact precautions
[2018-02-06] MEDS: HEPARIN NA (PORCINE) 5,000 UNITS/ML 1ML VIAL SQ SCH ×2 (10:25→21:20)
[2018-02-06] MEDS: ERTAPENEM SODIUM - 1 GRAM 1 GM/50 ML BAG IVPB SCH (10:30)
[2018-02-06] MEDS: VANCOMYCIN 1 GRAM (PRE-DOCKED) 1,000 MG/250 ML BAG IVPB SCH (11:05)
--- NOTE | 2018-02-06 12:06 | CONS ---
DATE OF CONSULTATION: DATE OF DICTATION: 02/06/2018 HISTORY: The patient is an 78-year-old female who was evaluated for sepsis. History was obtained from the chart as well as the who was present at the time of examination. She suffers from dementia and cannot offer a history. The patient is a resident of [facility]. The reports that over the past several days she has had worsening increasing shortness of breath on exertion associated with wheeze and nonproductive cough. She had also had poor oral intake. According to the , there were several residents at the care home who had similar respiratory tract illnesses. She was evaluated in the emergency room where a chest x-ray showed atelectasis versus infiltrate left lower lobe. She was also noted to have pyuria and left ankle swelling and redness. She was empirically treated with Levaquin and Azactam. The patient is out of bed to chair. She is confused. Unable to offer any additional details. Her breathing is nonlabored; however, she is noted to have a cough. The patient received influenza vaccine this year. She received the pneumococcal vaccine 2 years ago, however, had an adverse reaction consisting of fever and localized swelling. She was hospitalized in December 2017 at which time she was treated with Levaquin for pneumonia. PAST MEDICAL HISTORY: Positive for dementia, atrial fibrillation, hypertension, hyperlipidemia, coronary artery disease, history of recurrent urinary tract infections including ESBL. PAST SURGICAL HISTORY: Status post permanent pacemaker. ALLERGIES: ASPIRIN and PENICILLIN. is unaware of the nature of the allergy. He states it happened many years ago. No documented history of anaphylaxis. She has tolerated cephalosporins in the past. MEDICATIONS: Celexa, Colace, folic acid, Lipitor, Tylenol, Zyprexa, amiodarone. SOCIAL HISTORY: [facility] in a [facility]. Former smoker. SYSTEMS REVIEW: Neurologic: Positive for dementia. No loss of consciousness, seizure activity, focal weakness. Cardiac: Negative chest pain or palpitations. Respiratory: As per HPI. Gastrointestinal: Negative vomiting or diarrhea. Genitourinary: As per HPI. LABORATORY DATA: White count 7.5, hematocrit 28.7, platelet count 362. Urinalysis 365 white cells, creatinine 1.2, ESR 135, C-reactive protein 5.8. PHYSICAL EXAMINATION: General: She is awake and alert. She is out of bed to chair. Breathing is nonlabored. Positive cough. Vital Signs: Temperature 97.4, blood pressure 133/62, pulse 63 and regular, respirations 18 per minute. HEENT: Sclerae anicteric. Heart: Sounds S1, S2. Lungs: Crepitations at the right base. Decreased breath sounds at the left base. Abdomen: Soft. No tenderness elicited. No suprapubic or flank tenderness. Extremities: Swelling of the left ankle with erythema noted on the dorsum of the foot and medial aspect of the ankle. No warmth or tenderness. IMPRESSION: 1. Possible healthcare-acquired pneumonia left lower lobe. 2. Urinary tract infection, rule out sepsis secondary to urinary tract infection. 3. History of extended-spectrum beta-lactamase in the urine. 4. PENICILLIN allergy. 5. Left ankle swelling, rule out cellulitis versus septic arthritis. PLAN: Await cultures. Await sputum culture, urine Legionella antigen. Empiric antibiotic coverage. Pulmonary and urinary tract pathogens with ertapenem. We will add vancomycin for possible cellulitis of the left ankle versus septic arthritis. Orthopaedic evaluation. Contact precautions. Case discussed with the patient's present at the time of the examination. Thank you for the kind referral. JOANNA GALLEGO M.D. [id number]
--- NOTE | 2018-02-06 12:22 | EKG ---
Test Reason : Blood Pressure : / mmHG Vent. Rate : 070 BPM Atrial Rate : 070 BPM P-R Int : 116 ms QRS Dur : 092 ms QT Int : 412 ms P-R-T Axes : 080 003 -24 degrees QTc Int : 444 ms NORMAL SINUS RHYTHM POSSIBLE INFERIOR INFARCT (CITED ON OR BEFORE 23-OCT-1999) ANTERIOR INFARCT , AGE UNDETERMINED ABNORMAL ECG WHEN COMPARED WITH ECG OF 19-DEC-2017 15:35, T WAVE VARIATION Confirmed by GARY VILLAVICENCIO MD ([id number]) on 02/06/2018 12:22:00 PM Referred By: CORA Confirmed By:GARY VILLAVICENCIO MD
--- NOTE | 2018-02-06 15:47 | ECHO ---
Name: YIVIRIDIANASILVIAMONICA Exam:Adult Echocardiogram Study Date: 02/06/2018 01:25 PM Age: 78 yrs Reason For Study: CHF Height: 64 in Weight: 126 lb BSA: 1.6 m2 MMode/2D Measurements & Calculations IVSd: 1.2 cm Ao root diam: 2.9 cm LVIDd: 4.6 cm LA dimension: 5.3 cm LVIDs: 3.3 cm LVPWd: 0.90 cm EDV(Teich): 97.4 ml ESV(Teich): 43.2 ml Doppler Measurements & Calculations MR max rick: 349.9 cm/sec TR max rick: 255.6 cm/sec MR max P.0 mmHg TR max P.1 mmHg PI end-d rick: 61.5 cm/sec Procedure A complete two-dimensional transthoracic echocardiogram was performed (2D, M-mode, Doppler and color flow Doppler). Left Ventricle The left ventricle is normal in size. There is mild concentric left ventricular hypertrophy. Left wandy tricular systolic function is normal. Ejection Fraction = 60-65%. No regional wall motion abnormalities noted. Right Ventricle The right ventricle is not well visualized. There is a pacemaker lead in the right ventricle. Atria The left atrium is moderately dilated. Right atrial size is normal. Mitral Valve There is mild mitral annular calcification. There is mild to moderate mitral regurgitation. Tricuspid Valve The tricuspid valve is normal in structure and function. There is mild tricuspid regurgitation. Right ventricular systolic pressure is normal. Aortic Valve The aortic valve is normal in structure and function. No aortic regurgitation is present. Pulmonic Valve The pulmonic valve is not well visualized. Great Vessels The aortic root is normal size. Pericardium/Pleura There is no pericardial effusion. Interpretation Summary The left ventricle is normal in size. There is mild concentric left ventricular hypertrophy. Left ventricular systolic function is normal. No regional wall motion abnormalities noted. Ejection Fraction = 60-65%. There is a pacemaker lead in the right ventricle. The right ventricle is not well visualized. The left atrium is moderately dilated. Right atrial size is normal. There is mild mitral annular calcification. There is mild to moderate mitral regurgitation. There is mild tricuspid regurgitation. Right ventricular systolic pressure is normal. There is no pericardial effusion. Previous study is not available for comparison Aleks Hahn MD 02/06/2018 03:46 PM
[2018-02-06] MEDS: OLANZapine 5 MG TABLET PO SCH (21:19)
[2018-02-06] MEDS: ATORVASTATIN CA 80 MG TABLET (FP) PO SCH (21:19)
[2018-02-07] MEDS: ALBUTEROL SO4 2.5/IPRATROPIUM 0.5 INH SOL 3 ML VIAL.NEB. NEB SCH ×4 (03:00→21:34)
[2018-02-07] MEDS: ERTAPENEM SODIUM - 1 GRAM 1 GM/50 ML BAG IVPB SCH (09:05)
--- NOTE | 2018-02-07 09:56 | PN ---
Physical Exam: SUBJECTIVE: Patient seen and examined OBJECTIVE: Vital Signs Period Temp Pulse Resp BP Sys/Bundy Pulse Ox Last 24 Hr 98.3 F-98.4 F 59-60 17-48 102-129/45-63 97-99 GENERAL/NEURO: A&Ox1. Speech is fluent but nonsensical. LUNGS: Patient again refused auscultation; no audible wheezing, no accessory muscle use, speaks in complete sentences HEART: Refused auscultation ABDOMEN:Refused exam LLE: swelling has resolved; no erythema, no warmth, mild tenderness around ankle SKIN: Warm, dry, normal turgor CBCD WBC 7.4 K/mm3 (4.0-10.8) 02/07/18 08:30 RBC 3.28 M/mm3 (3.60-5.2) L 02/07/18 08:30 Hgb 8.8 GM/dl (10.7-15.3) L 02/07/18 08:30 Hct 28.4 % (32.4-45.2) L 02/07/18 08:30 MCV 86.6 fl (80-96) 02/07/18 08:30 MCHC 30.9 g/dl (32.0-36.0) L 02/07/18 08:30 RDW 16.1 % (11.6-15.6) H 02/07/18 08:30 Plt Count 378 K/MM3 (134-434) 02/07/18 08:30 MPV 8.7 fl (7.5-11.1) 02/07/18 08:30 CMP Sodium 140 mmol/L (136-145) 02/06/18 06:30 Potassium 4.4 mmol/L (3.5-5.1) 02/06/18 06:30 Chloride 110 mmol/L (98-107) H 02/06/18 06:30 Carbon Dioxide 22 mmol/L (22-28) 02/06/18 06:30 Anion Gap 8 MMOL/L (8-16) 02/06/18 06:30 BUN 25 mg/dl (7-18) H 02/06/18 06:30 Creatinine 1.2 mg/dl (0.6-1.3) 02/06/18 06:30 Creat Clearance w eGFR 43.23 (>60) 02/06/18 06:30 Calcium 8.7 mg/dl (8.4-10.2) 02/06/18 06:30 Total Bilirubin 0.5 mg/dl (0.2-1.0) 02/04/18 23:00 AST 26 U/L (10-42) D 02/04/18 23:00 ALT 17 U/L (10-40) D 02/04/18 23:00 Alkaline Phosphatase 119 U/L (32-92) H 02/04/18 23:00 Total Protein 7.0 g/dl (6.4-8.3) 02/04/18 23:00 Albumin 2.7 g/dl (3.5-5.0) L 02/04/18 23:00 Active Medications Generic Name Dose Route Start Last Admin Trade Name Freq PRN Reason Stop Dose Admin Albuterol/Ipratropium 1 amp 02/06/18 09:00 02/07/18 03:00 Duoneb - NEB 1 amp Q6H PENG Administration Amiodarone HCl 200 mg 02/05/18 11:15 02/06/18 09:44 Cordarone - PO 200 mg DAILY PENG Administration Atorvastatin Calcium 80 mg 02/05/18 17:00 02/06/18 21:19 Lipitor - PO 80 mg HS PENG Administration Citalopram Hydrobromide 10 mg 02/05/18 11:15 02/06/18 09:44 Celexa - PO 10 mg DAILY PENG Administration Folic Acid 1 mg 02/05/18 11:15 02/06/18 09:44 Folic Acid - PO 1 mg DAILY PENG Administration Heparin Sodium (Porcine) 5,000 unit 02/05/18 10:00 02/06/18 21:20 Heparin - SQ 5,000 unit BID PENG Administration Ertapenem 1 gm in 50 mls @ 100 mls/hr 02/06/18 10:30 02/06/18 10:30 Invanz (Pre-Docked) IVPB 100 mls/hr DAILY PENG Administration Protocol Vancomycin HCl 1,000 mg in 250 mls @ 166.667 mls/hr 02/06/18 11:00 02/06/18 11:05 Vancomycin (Pre-Docked) IVPB 166.667 mls/hr Q24H PENG Administration Protocol Metoprolol Succinate 12.5 mg 02/05/18 11:15 02/06/18 09:44 Toprol Xl - PO 12.5 mg DAILY PENG Administration Multivitamins/Minerals/Vitamin C 1 tab 02/05/18 11:15 02/06/18 09:44 Tab-A-Vit - PO 1 tab DAILY PENG Administration Olanzapine 5 mg 02/05/18 17:00 02/06/18 21:19 Zyprexa - PO 5 mg HS PENG Administration Microbiology 02/05/18 00:30 Urine - Urine - Catheterized Urine Culture - Final Escherichia Coli 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 02/06/18 06:00 Blood - Peripheral Venous Blood Culture - Preliminary NO GROWTH OBTAINED AFTER 24 HOURS, INCUBATION TO CONTINUE FOR 4 DAYS. ASSESSMENT/PLAN: 78 year-old female with a PMH significant for HTN, HLD, CAD, afib not on a/c, recurrent UTIs, and dementia. Admitted for SOB, found to have UTI. Shortness of breath --afebrile, no leukocytosis, CXR unremarkable -- states two other patients at [place] recently of pneumonia and he was concerned patient had pneumonia also --treating empirically for pneumonia, ertapenem (day #2) and vanc (day #2) E. coli ESBL UTI --continue ertapenam Left lower extremity edema, resolved --swelling has resolved --no erythema, no warmth, mild tenderness around ankle --able to weight bear and ambulate --US negative for DVT Atrial fibrillation --rate well-controlled, continue Toprol, amiodarone --not on anti-coagulation Dementia --at baseline functioning --continue celexa, Zyprexa FEN Fluids: PO intake adequate Electrolytes: replete as indicated Nutrition: regular diet DVT prophylaxis: subq heparin Physical therapy Dispo: continues to require inpatient care. Full code. Visit type - Emergency Visit Emergency Visit: Yes ED Registration Date: 02/05/18 Care time: The patient presented to the Emergency Department on the above date and was hospitalized for further evaluation of their emergent condition. - New Patient This patient is new to me today: No - Critical Care Critical Care patient: No
[2018-02-07 10:07] LABS: BASO % 0.8 % (0-2.0); EOS % 10.8 % (0-4.5); HEMATOCRIT 28.4 % (32.4-45.2); HEMOGLOBIN 8.8 GM/dl (10.7-15.3); LYMPH % 21.5 % (8-40); MCH 26.8 pg (25.7-33.7); MCHC 30.9 g/dl (32.0-36.0); MEAN CELL VOLUME 86.6 fl (80-96); MEAN PLT VOLUME 8.7 fl (7.5-11.1); MONO % 11.3 % (3.8-10.2); NEUT % 55.6 % (42.8-82.8); PLATELET COUNT 378 K/MM3 (134-434); RBC 3.28 M/mm3 (3.60-5.2); RDW 16.1 % (11.6-15.6); WHITE BLOOD COUNT 7.4 K/mm3 (4.0-10.8)
[2018-02-07] MEDS: CITALOPRAM HYDROBROMIDE 10 MG TABLET (FP) PO SCH (10:07)
[2018-02-07] MEDS: MULTIVITAMINS (DAILY MVI) TABLET (FP) PO SCH (10:09)
[2018-02-07] MEDS: AMIODARONE HCL 200 MG TABLET (FP) PO SCH (10:09)
[2018-02-07] MEDS: FOLIC ACID 1 MG TABLET (FP) PO SCH (10:09)
[2018-02-07] MEDS: metoPROLOL SUCCINATE 25 MG TAB.SR.24H (FP) PO SCH (10:09)
[2018-02-07] MEDS: HEPARIN NA (PORCINE) 5,000 UNITS/ML 1ML VIAL SQ SCH ×2 (10:10→21:34)
[2018-02-07] MEDS: VANCOMYCIN 1 GRAM (PRE-DOCKED) 1,000 MG/250 ML BAG IVPB SCH (10:10)
[2018-02-07] MEDS: OLANZapine 5 MG TABLET PO SCH ×2 (16:54→21:33)
[2018-02-07] MEDS: ATORVASTATIN CA 80 MG TABLET (FP) PO SCH (21:34)
[2018-02-08] MEDS: ALBUTEROL SO4 2.5/IPRATROPIUM 0.5 INH SOL 3 ML VIAL.NEB. NEB SCH ×4 (03:00→21:36)
[2018-02-08] MEDS: FOLIC ACID 1 MG TABLET (FP) PO SCH (09:47)
[2018-02-08] MEDS: metoPROLOL SUCCINATE 25 MG TAB.SR.24H (FP) PO SCH (09:47)
[2018-02-08] MEDS: HEPARIN NA (PORCINE) 5,000 UNITS/ML 1ML VIAL SQ SCH ×2 (09:47→21:36)
[2018-02-08] MEDS: MULTIVITAMINS (DAILY MVI) TABLET (FP) PO SCH (09:47)
[2018-02-08] MEDS: AMIODARONE HCL 200 MG TABLET (FP) PO SCH (09:47)
[2018-02-08] MEDS: CITALOPRAM HYDROBROMIDE 10 MG TABLET (FP) PO SCH (09:47)
[2018-02-08] MEDS: ERTAPENEM SODIUM - 1 GRAM 1 GM/50 ML BAG IVPB SCH (09:48)
[2018-02-08] MEDS: VANCOMYCIN 1 GRAM (PRE-DOCKED) 1,000 MG/250 ML BAG IVPB SCH (11:00)
--- NOTE | 2018-02-08 11:34 | DS ---
Physical Exam: SUBJECTIVE: Patient seen and examined OBJECTIVE: Vital Signs Period Temp Pulse Resp BP Sys/Bundy Pulse Ox Last 24 Hr 97.3 F-98.8 F 59-68 18-18 110-141/41-74 93-96 PHYSICAL EXAM GENERAL: The patient is awake, alert, and fully oriented, in no acute distress. HEAD: Normal with no signs of trauma. EYES: PERRL, extraocular movements intact, sclera anicteric, conjunctiva clear. ENT: Ears normal, nares patent, oropharynx clear without exudates, moist mucous membranes. NECK: Trachea midline, full range of motion, supple. LUNGS: Breath sounds equal, clear to auscultation bilaterally, no wheezes, no crackles, no accessory muscle use. HEART: Regular rate and rhythm, S1, S2 without murmur, rub or gallop. ABDOMEN: Soft, nontender, nondistended, normoactive bowel sounds, no guarding, no rebound, no hepatosplenomegaly, no masses. EXTREMITIES: 2+ pulses, warm, well-perfused, no edema. NEUROLOGICAL: Cranial nerves II through XII grossly intact. Normal speech, gait not observed. PSYCH: Normal mood, normal affect. SKIN: Warm, dry, normal turgor, no rashes or lesions noted. LABS Laboratory Results - last 24 hr 02/05/18 18:10 Influenza A (Rapid) Cancelled Influenza B (Rapid) Cancelled HOSPITAL COURSE: Date of Admission:02/05/18 Date of Discharge: 02/08/18 Minutes to complete discharge: 35 Discharge Summary Reason For Visit: CELLULITIS/PNEUMONIA Current Active Problems Cellulitis (Acute) DVT prophylaxis (Acute) Pneumonia (Acute) Condition: Guarded - Instructions Referrals: Avery Eduardo [Primary Care Provider] - - Home Medications Comprehensive Discharge Medication List: Ambulatory Orders Citalopram Hydrobromide [Celexa -] 10 mg PO DAILY 10/09/17 Docusate Sodium [Colace] 300 mg PO DAILY 10/09/17 Folic Acid 1 mg PO DAILY 10/09/17 Multivitamin [Poly-Vitamin] 1 each PO DAILY 10/09/17 Amiodarone HCl [Cordarone -] 200 mg PO DAILY tablet 11/21/17 Atorvastatin Ca [Lipitor] 80 mg PO HS tablet 11/21/17 Metoprolol Succinate [Toprol XL -] 15.5 mg PO DAILY 12/19/17 Olanzapine [Zyprexa -] 5 mg PO HS 12/19/17 Cran/Vitc/Mannose/Fos/Bromeln [Uti-Stat Liquid] 30 ml PO DAILY 02/04/18 Cyanocobalamin (Vitamin B-12) [Cyanocobalamin Injection] 1,000 mcg IJ MONTHLY Nutritional Supplement [Hi-Jeovany] 120 ml PO TID 02/04/18 This patient is new to me today: No Emergency Visit: Yes ED Registration Date: 02/05/18 Care time: The patient presented to the Emergency Department on the above date and was hospitalized for further evaluation of their emergent condition. Critical Care patient: No - Discharge Referral Referred to [facility] No
[2018-02-08] MEDS ORDERED: ATORVASTATIN CA 80 MG TABLET (FP) PO SCH ×2 (17:00→18:00)
[2018-02-08] MEDS ORDERED: OLANZapine 5 MG TABLET PO SCH (18:00)
[2018-02-09] MEDS: ALBUTEROL SO4 2.5/IPRATROPIUM 0.5 INH SOL 3 ML VIAL.NEB. NEB SCH (03:31)
[2018-02-09 07:57] VITALS: BP 124/52; PULSE 84; TEMP 98.3
--- NOTE | 2018-02-09 09:16 | PN ---
Progress Note, Physician History of Present Illness: OOB in chair Confused Offers no complaints + cough Breathing non-labored WBC WNL BC (-) - Current Medication List Current Medications: Active Medications Albuterol/Ipratropium (Duoneb -) 1 amp NEB Q6H [facility] Last Admin: 02/09/18 03:31 Dose: Not Given Amiodarone HCl (Cordarone -) 200 mg PO DAILY [facility] Last Admin: 02/08/18 09:47 Dose: 200 mg Atorvastatin Calcium (Lipitor -) 80 mg PO DAILY@1700 [facility] Last Admin: 02/08/18 18:03 Dose: 80 mg Citalopram Hydrobromide (Celexa -) 10 mg PO DAILY [facility] Last Admin: 02/08/18 09:47 Dose: 10 mg Folic Acid (Folic Acid -) 1 mg PO DAILY [facility] Last Admin: 02/08/18 09:47 Dose: 1 mg Heparin Sodium (Porcine) (Heparin -) 5,000 unit SQ BID [facility] Last Admin: 02/08/18 21:36 Dose: 5,000 unit Ertapenem (Invanz (Pre-Docked)) 1 gm in 50 mls @ 100 mls/hr IVPB DAILY [facility]; Protocol Last Admin: 02/08/18 09:48 Dose: 100 mls/hr Vancomycin HCl (Vancomycin (Pre-Docked)) 1,000 mg in 250 mls @ 166.667 mls/hr IVPB Q24H [facility]; Protocol Last Admin: 02/08/18 11:00 Dose: 166.667 mls/hr Metoprolol Succinate (Toprol Xl -) 12.5 mg PO DAILY [facility] Last Admin: 02/08/18 09:47 Dose: 12.5 mg Multivitamins/Minerals/Vitamin C (Tab-A-Vit -) 1 tab PO DAILY [facility] Last Admin: 02/08/18 09:47 Dose: 1 tab Olanzapine (Zyprexa -) 5 mg PO DAILY@1700 [facility] Last Admin: 02/08/18 18:03 Dose: 5 mg - Objective Vital Signs: Vital Signs Temperature 98.3 F 02/09/18 07:56 Pulse Rate 84 02/09/18 07:56 Respiratory Rate 19 02/09/18 07:56 Blood Pressure 124/52 L 02/09/18 07:56 O2 Sat by Pulse Oximetry (%) 95 02/09/18 05:47 Constitutional: Yes: No Distress Cardiovascular: Yes: Regular Rate and Rhythm, S1, S2 Respiratory: Yes: CTA Bilaterally Gastrointestinal: Yes: Normal Bowel Sounds, Soft. No: Tenderness Extremities: Yes: Other (L ankle swelling almost completely resolved) Labs: CBC, BMP 02/07/18 08:30 02/06/18 06:30 Assessment/Plan ESBL UTI PCN allergy ? LLL infiltrate v. atelectasis Day 5 IV antibiotics Substitute macrobid 100mg po bid x 7d
== END 2018-02-09 09:10 | DRG 689 ==
LOC: FER 21:13 → FM/S 02-05 01:27 → OBSVTOIN 02-05 07:09
PROVIDERS: ADMIT Internal Medicine; ATTEND Nurse Practitioner Acute Care
DX: N39.0 Urinary tract infection, site not specified (principal); J18.9 Pneumonia, unspecified organism; L03.116 Cellulitis of left lower limb; J98.11 Atelectasis; B96.20 Unspecified Escherichia coli [E. coli] as the cause of diseases classified elsewhere; I25.10 Atherosclerotic heart disease of native coronary artery without angina pectoris; I10 Essential (primary) hypertension; R06.02 Shortness of breath; I48.0 Paroxysmal atrial fibrillation; E78.5 Hyperlipidemia, unspecified; F03.90 Unspecified dementia, unspecified severity, without behavioral disturbance, psychotic disturbance, mood disturbance, and anxiety; Z95.810 Presence of automatic (implantable) cardiac defibrillator; Z88.0 Allergy status to penicillin; Z95.5 Presence of coronary angioplasty implant and graft
CPT/HCPCS: 36415; 71045-TC-FY; 80048; 80053; 81003; 81015; 82550; 83735; 83880; 84484; 85025; 85027; 85651; 86140; 87040; 87086; 87186; 87804; 93005; 93306-TC; 93971-TC; 94640; 97116-GP; 97161-GP; 99282-25; G0378; J1644

== ENCOUNTER 2018-06-14 15:19 | Inpatient (IN) | payer OTHER ==
--- NOTE | 2018-06-14 16:06 | PDOC ---
History of Present Illness - General Chief Complaint: Shortness of Breath Stated Complaint: RESPIRATORY Time Seen by Provider: 06/14/18 16:05 History Source: Family Exam Limitations: Dementia - History of Present Illness Initial Comments: 06/14/18 18:19 78-year-old female with advanced dementia, A. fib, hypertension brought in from [facility] for weakness, lethargy, shortness of breath and cough. Patient is unable to cooperate with a detailed H&P due to clinical condition. There is no history of sick contacts, no history of vomiting or diarrhea is reported. 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 REVIEW OF SYSTEMS CONSTITUTIONAL: No fever, no chills, no fatigue EYES: No visual changes ENT: No ear pain, no sore throat CARDIOVASCULAR: No chest pain, no palpitations RESPIRATORY: + cough, + SOB GI: No abdominal pain, no nausea, no vomiting, no constipation, no diarrhea GENITOURINARY: No dysuria, no frequency, no hematuria MUSKULOSKELETAL: No backpain, no joint pain, no myalgias SKIN: No rash NEURO: No headache, + lethargy EXAMINATION CONSTITUTIONAL: Patient is lethargic but easily arousable to verbal stimuli, frail-appearing, follows simple commands HEAD: Normocephalic; atraumatic EYES: PERRL; EOM intact; no scleral icterus ENMT: External appears normal; mucous membranes are dry NECK: Supple; non-tender; no JVD CARD: Normal S1, S2; 3/6 systolic murmurs, no rubs, or gallops RESP: Normal chest excursion with respiration; bilateral rhonchi, expiratory wheezing in all lung chakraborty, crackles at the right base ABD: Soft, non-distended; non-tender; no palpable organomegaly, no palpable hernias EXT: Normal passive ROM in all four extremities; non-tender to palpation; distal pulses intact SKIN: Warm, dry, no rash NEURO: Lethargic but arousable, follows simple commands, oriented to self only Past History - Past Medical History Allergies/Adverse Reactions: Allergies Allergy/AdvReac Type Severity Reaction Status Date / Time aspirin Allergy Verified 12/19/17 15:05 Penicillins Allergy Verified 12/19/17 15:05 Home Medications: Ambulatory Orders Citalopram Hydrobromide [Celexa -] 10 mg PO DAILY 10/09/17 Docusate Sodium [Colace] 300 mg PO DAILY 10/09/17 Folic Acid 1 mg PO DAILY 10/09/17 Multivitamin [Poly-Vitamin] 1 each PO DAILY 10/09/17 Amiodarone HCl [Cordarone -] 200 mg PO DAILY tablet 11/21/17 Metoprolol Succinate [Toprol XL -] 12.5 mg PO DAILY 12/19/17 Olanzapine [Zyprexa -] 5 mg PO 1630 12/19/17 Cyanocobalamin (Vitamin B-12) [Cyanocobalamin Injection] 1,000 mcg IJ MONTHLY Acetaminophen 650 mg PO Q4H PRN 06/14/18 Albuterol 2.5/Ipratropium 0.5 [Duoneb -] 1 amp NEB Q6H PRN 06/14/18 Ferrous Sulfate 325 mg PO DAILY 06/14/18 Guaifenesin Dm [Robitussin Dm -] 10 ml PO Q6H PRN 06/14/18 Anemia: No Asthma: No Cancer: No Cardiac Disorders: Yes (A-FIB) CVA: Yes COPD: No CHF: Yes Dementia: Yes Diabetes: No GI Disorders: No Disorders: Yes HTN: Yes Hypercholesterolemia: Yes Thyroid Disease: No - Surgical History Cardiac Surgery: Yes (STENTS, DEFIB) - Immunization History Immunization Up to Date: No - Suicide/Smoking/Psychosocial Hx Smoking History: Never smoked Have you smoked in the past 12 months: No If you are a former smoker, when did you quit?: 1986 Information on smoking cessation initiated: No Hx Alcohol Use: No Drug/Substance Use Hx: No Substance Use Type: None Hx Substance Use Treatment: No *Physical Exam - Vital Signs Last Vital Signs Temp Pulse Resp BP Pulse Ox 99 F 75 18 127/74 06/14/18 15:39 06/14/18 15:39 06/14/18 15:39 06/14/18 15:39 ED Treatment Course - LABORATORY CBC & Chemistry Diagram: 06/14/18 16:15 06/14/18 16:15 Medical Decision Making - Medical Decision Making 06/14/18 18:23 78-year-old female with multiple comorbidities presents to the ER with signs and symptoms of acute COPD exacerbation likely associated with an aspiration pneumonia. CBC reveals leukocytosis with predominance of neutrophils. CMP reveals elevated BUN to creatinine ratio consistent with mild dehydration. Chest x-ray reveals right lower lobe infiltrate as well as borderline cardiomegaly. We will judiciously resuscitated with normal saline. Blood and urine cultures obtained. We'll cover with Invanz and vancomycin. Will consult cardiology and ID. Will admit. *DC/Admit/Observation/Transfer Diagnosis at time of Disposition: Acute exacerbation of chronic obstructive pulmonary disease (COPD) Pneumonia Qualifiers: Pneumonia type: due to unspecified organism Laterality: unspecified laterality Lung location: lower lobe of lung Qualified Code(s): J18.1 - Lobar pneumonia, unspecified organism - Discharge Dispostion Condition at time of disposition: Fair Decision to Admit order: Yes - Referrals - Patient Instructions - Post Discharge Activity
[2018-06-14] MEDS ORDERED: ALBUTEROL SO4 2.5/IPRATROPIUM 0.5 INH SOL 3 ML VIAL.NEB. NEB ONE ×2 (16:14→16:40)
[2018-06-14] MEDS ORDERED: SODIUM CHLORIDE 500 ML IV STA (16:15)
--- NOTE | 2018-06-14 16:17 | CON.CARD ---
Consult Consult Specialty:: Cardiology Referred by:: ER Reason for Consultation:: SOB - History of Present Illness Chief Complaint: SOB History of Present Illness: 78 year old woman with a history of CAD s/p ME 1986 s/p PCI x 3 in past (RCA) likely ischemic cardiomyopathy, progressive Alzheimers dementia, h/o sustained VT that required Cardioversion by EMS, then transferred to [facility] where she underwent a cardiac cath showing diffuse RCA disease that did not require revascularization and moderate mLAD disease that was not significant on FFR thus no revascularization was performed. She was felt to have Vt from old inferior scar and due to sustained VT and moderate LV dysfunction underwent ICD implantation (medtronic). Also, after cardioversion for her VT she was in atrial fibrillation thus underwent an elective cardioversion after cardiac cath that restored NSR. She was thus discharged on eliquis. She subsequently went back into afib which has been chronic now and she was taken off anticoagulation in the past due to GI and bleeding. Prior admissions with reported syncope, ICD interrogation showed a tachycardia that appeared c/w Afib with RVR for which she received ATP x1 followed by possible degeneration to VT then 1 shock. Similar event 06/2017. At this point the main issue has been the progression of her Alzheimers and proper medication dosing. She has been on zyprexa alone recently with improved control of her agitation. She was sent from [facility] today after found this am to be sob, tachypneic and hypoxic with low grade fever. she was seen and examined in the ER in [facility]. at bedside who states she is improved since EMS increased her Supp O2 to 4L (was given 2L this am at ID but not usually on home O2) currently comfortable, lying flat. 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 Cardio/Vascular: Yes: AFIB, CAD, CHF, HTN, Hyperlipdemia, ME, Other (episode of sustained ventricular tachycardia requiring cardioversion, s/p ICD) Gastrointestinal: Yes: Diverticulosis - Past Surgical History Past Surgical History: Yes: AICD, - Alcohol/Substance Use Hx Alcohol Use: No History of Substance Use: reports: None - Smoking History Smoking history: Never smoked Have you smoked in the past 12 months: No If you are a former smoker, when did you quit?: 1986 - Social History Usual Living Arrangement: Skilled Nursing ADL: Support Services History of Recent Travel: No Home Medications - Allergies Allergies/Adverse Reactions: Allergies Allergy/AdvReac Type Severity Reaction Status Date / Time aspirin Allergy Verified 12/19/17 15:05 Penicillins Allergy Verified 12/19/17 15:05 - Home Medications Home Medications: Ambulatory Orders Citalopram Hydrobromide [Celexa -] 10 mg PO DAILY 10/09/17 Docusate Sodium [Colace] 300 mg PO DAILY 10/09/17 Folic Acid 1 mg PO DAILY 10/09/17 Multivitamin [Poly-Vitamin] 1 each PO DAILY 10/09/17 Amiodarone HCl [Cordarone -] 200 mg PO DAILY tablet 11/21/17 Atorvastatin Ca [Lipitor] 80 mg PO HS tablet 11/21/17 Metoprolol Succinate [Toprol XL -] 15.5 mg PO DAILY 12/19/17 Olanzapine [Zyprexa -] 5 mg PO HS 12/19/17 Cran/Vitc/Mannose/Fos/Bromeln [Uti-Stat Liquid] 30 ml PO DAILY 02/04/18 Cyanocobalamin (Vitamin B-12) [Cyanocobalamin Injection] 1,000 mcg IJ MONTHLY Nutritional Supplement [Hi-Jeovany] 120 ml PO TID 02/04/18 Ertapenem Sodium [Ertapenem] 1 gm IV DAILY #10 vial 02/08/18 Family Disease History - Family Disease History Family History: Denies Review of Systems - Review of Systems Constitutional: reports: Malaise, Weakness. denies: No Symptoms, Chills, Diaphoresis, Fever, Lethargy, Loss of Appetite, Night Sweats, Unintentional Wgt. Loss, Other Eyes: denies: No Symptoms, Blind Spots, Blurred Vision, Double Vision, Eye Pain , Floaters, Photophobia, Recent Change in Vision, Other HENT: denies: No Symptoms, Difficult Swallowing, Ear Discharge, Ear Pain, Epistaxis, Gingival Bleeding, Hearing Loss, Mouth Swelling, Nasal Congestion, Ocular Prosthesis, Throat Pain, Toothache, Ringing in Ears, Other Neck: denies: No Symptoms, Decreased ROM, Lumps, Pain on Movement, Stiffness, Swollen Glands, Tenderness, Other Cardiovascular: reports: Shortness of Breath. denies: No Symptoms, Chest Pain, Edema, Palpitations, Other Respiratory: reports: Cough, SOB. denies: No Symptoms, Exercise Intolerance, Hemoptysis, Orthopnea, PND, Snoring, SOB on Exertion, Wheezing, Other Gastrointestinal: denies: No Symptoms, Abdominal Pain, Bloating, Constipation, Diarrhea, Dysphagia, Indigestion, Melena, Nausea, Rectal Bleeding, Vomiting, Vomiting Blood, Other Genitourinary: denies: No Symptoms, Burning, Discharge, Dysuria, Flank Pain, Frequency, Hematuria, Incontinence, Lesions, Menses, Pain, Testicular Mass, Testicular Pain, Testicular Swelling, Urgency, Vaginal Bleeding, Other Breasts: denies: No Symptoms Reported, See HPI, Breast Implants, Discharge from Nipple, Lumps, Pain, Skin Changes, Other Musculoskeletal: denies: No Symptoms, Back Pain, Crepitus, Decreased ROM, Extremity Pain, Joint Pain, Joint Swelling, Muscle Pain, Muscle Cramps, Muscle Weakness, Other Integumentary: denies: No Symptoms, Blister, Bruising, Change in Color, Eczema, Erythema, Incision, Lesions, Lump, Pallor, Pruritis, Rash, Wound, Other Neurological: reports: Confusion, Pre-Existing Deficit, Weakness. denies: No Symptoms, Change in LOC, Change in Speech, Dizziness, Headache, Incoordination, Numbness, Parasthesia, Seizure, Syncope, Tremors, Unsteady Gait, Other Endocrine: denies: No Symptoms, Excessive Sweating, Flushing, Increased Hunger, Increased Thirst, Intolerance to Cold, Intolerance to Heat, Unexplained Weight Gain, Unexplained Weight Loss, Other Hematology/Lymphatic: denies: No Symptoms, Easily Bruised, Excessive Bleeding, Swollen Glands, Other Psychiatric: denies: No Symptoms, Altered Sleep Pattern, Anxiety, Depression, Hallucinations, Panic, Paranoia, Suicidal, Other - Risk Factors Known Risk Factors: Yes: Age, Hypercholesterolemia, Hypertension, Prior ME /Emb Stroke, Smoking Vital Signs: Vital Signs Temperature 99 F 06/14/18 15:39 Pulse Rate 75 06/14/18 15:39 Respiratory Rate 18 06/14/18 15:39 Blood Pressure 127/74 06/14/18 15:39 O2 Sat by Pulse Oximetry (%) Constitutional: Yes: No Distress, Calm Eyes: Yes: Conjunctiva Clear, EOM Intact, PERRL HENT: Yes: Atraumatic, Normocephalic Neck: Yes: Supple, Trachea Midline Respiratory: Yes: Regular, Cough, Diminished, On Nasal O2, Rhonchi, SOB, Wheezes. No: Rales Gastrointestinal: Yes: Normal Bowel Sounds, Soft. No: Distention, Tenderness Cardiovascular: Yes: Regular Rate and Rhythm. No: Bradycardia, Tachycardia, Pulse Irregular, Gallop, Rub, Varicosities JVD: No Carotid Bruit: No PMI: Non-Displaced Heart Sounds: Yes: S1, S2. No: Split S2, S3, S4, Clicks, Gallop, Rub, Bruit Murmur: No: Systolic Murmur, Diastolic Murmur Musculoskeletal: Yes: Muscle Weakness Extremities: Yes: WNL Edema: No Peripheral Pulses WNL: Yes Neurological: Yes: Alert. No: Oriented Psychiatric: Yes: Alert. No: Oriented - Other Data pending Echo: Report Reviewed Prior Cardiac Procedures: Cardiac Catheterization, Cardioversion, PTCA with Stent Imaging - Results Chest X-ray: Report Reviewed, Image Reviewed EKG: Report Reviewed, Image Reviewed Other: Report Reviewed, Image Reviewed Assessment/Plan 78 year old woman with a history of CAD s/p ME 1986 s/p PCI x 3 in past (RCA) likely ischemic cardiomyopathy, progressive Alzheimers dementia, h/o sustained VT that required Cardioversion by EMS, then transferred to [facility] where she underwent a cardiac cath showing diffuse RCA disease that did not require revascularization and moderate mLAD disease that was not significant on FFR thus no revascularization was performed. She was felt to have Vt from old inferior scar and due to sustained VT and moderate LV dysfunction underwent ICD implantation (medtronic). Also, after cardioversion for her VT she was in atrial fibrillation thus underwent an elective cardioversion after cardiac cath that restored NSR. She was thus discharged on eliquis. She subsequently went back into afib which has been chronic now and she was taken off anticoagulation in the past due to GI and bleeding. Prior admissions with reported syncope, ICD interrogation showed a tachycardia that appeared c/w Afib with RVR for which she received ATP x1 followed by possible degeneration to VT then 1 shock. Similar event 06/2017. At this point the main issue has been the progression of her Alzheimers and proper medication dosing. She has been on zyprexa alone recently with improved control of her agitation. She was sent from [place] today after found this am to be sob, tachypneic and hypoxic with low grade fever. she was seen and examined in the ER in [place]. at bedside who states she is improved since EMS increased her Supp O2 to 4L (was given 2L this am at ID but not usually on home O2) currently comfortable, lying flat. SOB/cough -concern for PNA vs AE COPD -fup Cxray -labs including blood work -supp O2 -does not appear to be in decompensated CHF -if needed can given IVF -Abx as per PMD -does not require telemetry monitoring Extensive cardiac history as above -stable -cont outpatient medical regimen
[2018-06-14 16:39] LABS: BASO % 0.7 % (0-2.0); HEMATOCRIT 29.8 % (32.4-45.2); HEMOGLOBIN 9.5 GM/dL (10.7-15.3); LYMPH % 4.2 % (8-40); MCH 27.7 pg (25.7-33.7); MCHC 31.9 g/dl (32.0-36.0); MEAN PLT VOLUME 8.8 fl (7.5-11.1); MONO % 9.3 % (3.8-10.2); NEUT % 85.8 % (42.8-82.8); PLATELET COUNT 364 K/MM3 (134-434); RBC 3.42 M/mm3 (3.60-5.2); RDW 16.2 % (11.6-15.6); WHITE BLOOD COUNT 15.8 K/mm3 (4.0-10.0)
[2018-06-14 17:06] LABS: INR 1.13 (0.83-1.09); PROTHROMBIN TIME (PATIENT) 13.3 SEC (9.7-13.0)
[2018-06-14 17:07] LABS: ALBUMIN 2.6 g/dl (3.4-5.0); BILIRUBIN,TOTAL 0.4 mg/dL (0.2-1); POTASSIUM 4.4 mmol/L (3.5-5.1); TOT PROT 7.7 g/dl (6.4-8.2)
[2018-06-14 17:09] LABS: ACTIVATED PTT 29.4 SECONDS (25.2-36.5)
[2018-06-14 17:22] LABS: EPI CELLS 2.7 /HPF (0-5/HPF); PH,URINE 5.5 (5.0-8.0); URINE APPEARANCE CLOUDY; URINE BACTERIA 5705.5 /hpf (NEGATIVE); URINE BILIRUBIN NEGATIVE (NEGATIVE); URINE CASTS 148 /lpf (0-8); URINE COLOR YELLOW; URINE GLUCOSE (UA) NEGATIVE (NEGATIVE); URINE KETONE NEGATIVE (NEGATIVE); URINE LEUK ESTERASE 2+ (NEGATIVE); URINE NITRITE POSITIVE (NEGATIVE); URINE PROTEIN 1+ (NEGATIVE); URINE RBC 10 /hpf (0-4); URINE WBC 127 /hpf (0-5)
[2018-06-14] MEDS ORDERED: VANCOMYCIN HCL 1,250 MG in DEXTROSE 5%-WATER - 250 ML IVPB ONE (17:32)
[2018-06-14] MEDS ORDERED: ERTAPENEM SODIUM 0.5 GM in SODIUM CHLORIDE 50 ML IVPB ONE (17:32)
[2018-06-14] MEDS ORDERED: ERTAPENEM SODIUM 1 GM in SODIUM CHLORIDE 50 ML IVPB ONE (17:41)
[2018-06-14] MEDS ORDERED: ERTAPENEM SODIUM 1 GM VIAL ONE (17:52)
[2018-06-14] MEDS ORDERED: methylPREDNISolone NA SUCC 125 MG/2 ML VIAL IVPB ONE (17:55)
[2018-06-14] MEDS ORDERED: methylPREDNISolone NA SUCC 40 MG/1 ML VIAL ONE (18:05)
[2018-06-14] MEDS: DEXTROSE 5%-0.45% SALINE 1,000 ML IV SCH (18:13)
[2018-06-14] MEDS ORDERED: OLANZapine 2.5 MG TABLET PO ONE (18:16)
[2018-06-14] MEDS ORDERED: guaiFENesin/D-METHORPHAN HB 10 ML UNIT-DOSE CUPS PO PRN (18:18)
--- NOTE | 2018-06-14 18:27 | HP ---
Admitting History and Physical - Admission Chief Complaint: AMS, cough History of Present Illness: 78 year old female with advanced dementia/alzheimers on zyprexa, A. fib (off AC d/t GI and bleeding), CAD s/p [place] 1986 PCO x3, ICD placement (medtronic) HTN brought in from [facility] for lethargy, AMS, tachypnea, sob, and cough worsening this AM. Cough began yesterday per at bedside, giving history. 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 History Source: Family Member Limitations to Obtaining History: Dementia - Past Medical History DUMPER BULK SYSTEM: Yes: Alzheimer's, CVA, Dementia Cardiovascular: Yes: AFIB, CAD, CHF, HTN, Hyperlipdemia, NM, Other (episode of sustained ventricular tachycardia requiring cardioversion, s/p ICD) Pulmonary: Yes: COPD Gastrointestinal: Yes: Diverticulosis - Past Surgical History Past Surgical History: Yes: AICD, - Smoking History Smoking history: Never smoked Have you smoked in the past 12 months: No If you are a former smoker, when did you quit?: 1986 - Alcohol/Substance Use Hx Alcohol Use: No History of Substance Use: reports: None - Social History Usual Living Arrangement: Yes: Assisted Living ADL: Support Services History of Recent Travel: No Home Medications - Allergies Allergies/Adverse Reactions: Allergies Allergy/AdvReac Type Severity Reaction Status Date / Time aspirin Allergy Verified 12/19/17 15:05 Penicillins Allergy Verified 12/19/17 15:05 - Home Medications Home Medications: Ambulatory Orders Citalopram Hydrobromide [Celexa -] 10 mg PO DAILY 10/09/17 Docusate Sodium [Colace] 300 mg PO DAILY 10/09/17 Folic Acid 1 mg PO DAILY 10/09/17 Multivitamin [Poly-Vitamin] 1 each PO DAILY 10/09/17 Amiodarone HCl [Cordarone -] 200 mg PO DAILY tablet 11/21/17 Metoprolol Succinate [Toprol XL -] 12.5 mg PO DAILY 12/19/17 Olanzapine [Zyprexa -] 5 mg PO 1630 12/19/17 Cyanocobalamin (Vitamin B-12) [Cyanocobalamin Injection] 1,000 mcg IJ MONTHLY Acetaminophen 650 mg PO Q4H PRN 06/14/18 Albuterol 2.5/Ipratropium 0.5 [Duoneb -] 1 amp NEB Q6H PRN 06/14/18 Ferrous Sulfate 325 mg PO DAILY 06/14/18 Guaifenesin Dm [Robitussin Dm -] 10 ml PO Q6H PRN 06/14/18 Review of Systems - Review of Systems Constitutional: reports: Fever, Lethargy, Weakness Eyes: reports: Recent Change in Vision HENT: reports: No Symptoms Neck: reports: No Symptoms Cardiovascular: reports: Shortness of Breath Respiratory: reports: Cough, SOB Gastrointestinal: reports: No Symptoms Genitourinary: reports: No Symptoms Musculoskeletal: reports: No Symptoms Integumentary: reports: No Symptoms Neurological: reports: Change in LOC, Pre-Existing Deficit, Weakness Endocrine: reports: No Symptoms Hematology/Lymphatic: reports: No Symptoms Psychiatric: reports: No Symptoms Physical Examination Vital Signs: Vital Signs Temperature 99.1 F 06/14/18 16:59 Pulse Rate 75 06/14/18 15:39 Respiratory Rate 18 06/14/18 15:39 Blood Pressure 127/74 06/14/18 15:39 O2 Sat by Pulse Oximetry (%) 96 06/14/18 15:45 Constitutional: Yes: Well Nourished Eyes: Yes: Conjunctiva Clear HENT: Yes: Other (no teeth) Cardiovascular: Yes: Pulse Irregular, S1, S2 Respiratory: Yes: On Nasal O2, Rhonchi, Wheezes Renal/: Yes: WNL Musculoskeletal: Yes: WNL Extremities: Yes: WNL Edema: No Peripheral Pulses WNL: Yes Integumentary: Yes: WNL Neurological: Yes: Lethargy Labs: CBC, BMP 06/14/18 16:15 06/14/18 16:15 Imaging - Results Chest X-ray: Image Reviewed (RLL infiltrate) Problem List - Problems (1) Acute exacerbation of chronic obstructive pulmonary disease (COPD) Code(s): J44.1 - CHRONIC OBSTRUCTIVE PULMONARY DISEASE W (ACUTE) EXACERBATION (2) Pneumonia Code(s): J18.9 - PNEUMONIA, UNSPECIFIED ORGANISM Qualifiers: Pneumonia type: due to unspecified organism Laterality: unspecified laterality Lung location: lower lobe of lung Qualified Code(s): J18.1 - Lobar pneumonia, unspecified organism (3) Altered mental status Code(s): R41.82 - ALTERED MENTAL STATUS, UNSPECIFIED Qualifiers: Altered mental status type: unspecified Qualified Code(s): R41.82 - Altered mental status, unspecified (4) ESBL E. coli carrier Code(s): Z22.39 - CARRIER OF OTHER SPECIFIED BACTERIAL DISEASES Assessment/Plan Assessment: 78 year old female from [facility] presented to ED with AMS, SOB, cough. Plan: 1. HAP, possibly aspiration - Hx of klebsiella - Started Ertapenem and vanco - Follow blood and urine cx - Gentle IVF hydration - Cont nebs - Medrol 60mg given in ED - Start medrol 40mg q8h - Consider Pulm in AM - ID following 2. A fib - Amiodarone 200mg daily - Off ac d/t hx of gi gu bleeding - Can be off tele per cards - No need to trend trops per cardiology - Cards following 3. Progressive Alzheimer - Zyprexa 2.5mg daily at 1630 4. UTI - Positive UA - Urine cx pending - Abx as above 5. DVT ppx - Lovenox 40mg Visit type - Emergency Visit Emergency Visit: Yes Care time: The patient presented to the Emergency Department on the above date and was hospitalized for further evaluation of their emergent condition. - New Patient This patient is new to me today: Yes Date on this admission: 06/14/18 - Critical Care Critical Care patient: No
[2018-06-15] MEDS: methylPREDNISolone NA SUCC 40 MG/1 ML VIAL IVPUSH SCH ×2 (01:39→09:36)
[2018-06-15] MEDS: DEXTROSE 5%-0.45% SALINE 1,000 ML IV SCH (06:11)
[2018-06-15 07:32] LABS: BASO % 0.2 % (0-2.0); HEMATOCRIT 27.8 % (32.4-45.2); LYMPH % 3.9 % (8-40); MCH 27.8 pg (25.7-33.7); MCHC 32.4 g/dl (32.0-36.0); MEAN CELL VOLUME 85.8 fl (80-96); MEAN PLT VOLUME 8.2 fl (7.5-11.1); MONO % 3.6 % (3.8-10.2); NEUT % 92.3 % (42.8-82.8); PLATELET COUNT 342 K/MM3 (134-434); RBC 3.24 M/mm3 (3.60-5.2); RDW 15.5 % (11.6-15.6); WHITE BLOOD COUNT 14.4 K/mm3 (4.0-10.0)
[2018-06-15 07:57] LABS: ALBUMIN 2.4 g/dl (3.4-5.0); BILIRUBIN,TOTAL 0.3 mg/dL (0.2-1); CALCIUM 8.8 mg/dL (8.5-10.1); CREATININE 0.9 mg/dL (0.55-1.3); MAGNESIUM 2.2 mg/dL (1.8-2.4); PHOSPHOROUS 2.8 mg/dL (2.5-4.9); POTASSIUM 3.6 mmol/L (3.5-5.1)
[2018-06-15] MEDS: CITALOPRAM HYDROBROMIDE 10 MG TABLET (FP) PO SCH (09:35)
[2018-06-15] MEDS: PANTOPRAZOLE 40 MG TABLET (FP) PO SCH (09:35)
[2018-06-15] MEDS: ENOXAPARIN NA (PORCINE) 40 MG/0.4 ML DISP.SYRIN SQ SCH (09:36)
[2018-06-15] MEDS: metoPROLOL SUCCINATE 25 MG TAB.SR.24H (FP) PO SCH (09:36)
[2018-06-15] MEDS: AMIODARONE HCL 200 MG TABLET (FP) PO SCH (09:36)
[2018-06-15] MEDS: FOLIC ACID 1 MG TABLET (FP) PO SCH (09:36)
[2018-06-15] MEDS ORDERED: OLANZapine 2.5 MG TABLET PO ONE (11:03)
[2018-06-15 11:21] LABS: ANISOCYTOSIS 1+; MACROCYTOSIS 0; PLATELET ESTIMATE NORMAL
[2018-06-15] MEDS ORDERED: ERTAPENEM SODIUM 0.5 GM in SODIUM CHLORIDE 50 ML IVPB SCH (14:45)
[2018-06-15] MEDS ORDERED: PT OWN MED DRAWER 7, Y5N ONE (15:00)
--- NOTE | 2018-06-15 16:17 | PN ---
Progress Note (short form) - Note Progress Note: at bedside Patient is awake and alert She ate diet without any difficulty Vital Signs - 24 hr 06/14/18 06/14/18 06/14/18 16:59 18:16 18:20 Temperature 99.1 F 98.9 F Pulse Rate 103 H Pulse Rate [ 85 Left] Respiratory 20 20 Rate Blood Pressure 119/75 Blood Pressure 129/66 [Left Arm] O2 Sat by Pulse 96 Oximetry (%) 06/14/18 06/15/18 06/15/18 19:00 02:00 06:04 Temperature 98.5 F 98.4 F Pulse Rate 86 88 Pulse Rate [ Left] Respiratory 20 20 20 Rate Blood Pressure 137/69 132/64 Blood Pressure [Left Arm] O2 Sat by Pulse 96 Oximetry (%) 06/15/18 06/15/18 09:00 10:00 Temperature 97.8 F Pulse Rate 83 Pulse Rate [ Left] Respiratory 19 19 Rate Blood Pressure 146/74 Blood Pressure [Left Arm] O2 Sat by Pulse 95 Oximetry (%) Current Medications Generic Name Dose Route Start Last Admin Trade Name Freq PRN Reason Stop Dose Admin Albuterol/Ipratropium 1 amp 06/14/18 18:18 Duoneb - NEB Q6H PRN SHORT OF BREATH/WHEEZING Amiodarone HCl 200 mg 06/15/18 10:00 06/15/18 09:36 Cordarone - PO 200 mg DAILY PENG Administration Citalopram Hydrobromide 10 mg 06/15/18 10:00 06/15/18 09:35 Celexa - PO 10 mg DAILY PENG Administration Enoxaparin Sodium 40 mg 06/15/18 10:00 06/15/18 09:36 Lovenox - SQ 40 mg DAILY PENG Administration Folic Acid 1 mg 06/15/18 10:00 06/15/18 09:36 Folic Acid - PO 1 mg DAILY PENG Administration Guaifenesin 10 ml 06/14/18 18:18 Robitussin Dm - PO Q6H PRN COUGH Ertapenem 0.5 gm/ Sodium 50 mls @ 100 mls/hr 06/15/18 15:30 Chloride IVPB DAILY PENG Metoprolol Succinate 12.5 mg 06/15/18 10:00 06/15/18 09:36 Toprol Xl - PO 12.5 mg DAILY PENG Administration Olanzapine 2.5 mg 06/15/18 17:00 Zyprexa - PO DAILY PENG Pantoprazole Sodium 40 mg 06/15/18 10:00 06/15/18 09:35 Protonix - PO 40 mg DAILY PENG Administration Laboratory Results - last 24 hr 06/14/18 06/14/18 06/14/18 16:15 16:15 16:15 WBC RBC Hgb Hct MCV MCH MCHC RDW Plt Count MPV Absolute Neuts (auto) Neutrophils % Neutrophils % (Manual) Band Neutrophils % Lymphocytes % Lymphocytes % (Manual) Monocytes % Monocytes % (Manual) Eosinophils % Eosinophils % (Manual) Basophils % Basophils % (Manual) Myelocytes % (Man) Promyelocytes % (Man) Blast Cells % (Manual) Nucleated RBC % Metamyelocytes Hypochromia Platelet Estimate Polychromasia Poikilocytosis Anisocytosis Microcytosis Macrocytosis PT with INR 13.30 H INR 1.13 H PTT (Actin FS) 29.4 Sodium 137 Potassium 4.4 Chloride 107 Carbon Dioxide 19 L Anion Gap 11 BUN 31 H Creatinine 1.0 Est GFR (CKD-EPI)AfAm 61.62 Est GFR (CKD-EPI)NonAf 53.17 Random Glucose 126 H Lactic Acid 0.8 Calcium 9.0 Phosphorus Magnesium Total Bilirubin 0.4 AST 24 ALT 15 Alkaline Phosphatase 119 H Troponin I Total Protein 7.7 Albumin 2.6 L Urine Color Urine Appearance Urine pH Ur Specific Seale Urine Protein Urine Glucose (UA) Urine Ketones Urine Blood Urine Nitrite Urine Bilirubin Urine Urobilinogen Ur Leukocyte Esterase Urine WBC (Auto) Urine RBC (Auto) Urine Casts (Auto) U Epithel Cells (Auto) Urine Bacteria (Auto) 06/14/18 06/14/18 06/15/18 16:15 17:00 06:10 WBC 14.4 H RBC 3.24 L Hgb 9.0 L Hct 27.8 L MCV 85.8 MCH 27.8 MCHC 32.4 RDW 15.5 Plt Count 342 MPV 8.2 Absolute Neuts (auto) 13.3 H Neutrophils % 92.3 H Neutrophils % (Manual) 91.0 H Band Neutrophils % 0.0 Lymphocytes % 3.9 L Lymphocytes % (Manual) 6.0 L D Monocytes % 3.6 L Monocytes % (Manual) 3 L D Eosinophils % 0.0 Eosinophils % (Manual) 0.0 D Basophils % 0.2 Basophils % (Manual) 0.0 Myelocytes % (Man) 0 Promyelocytes % (Man) 0 Blast Cells % (Manual) 0 Nucleated RBC % 0 Metamyelocytes 0 Hypochromia 0 Platelet Estimate Normal Polychromasia 0 Poikilocytosis 0 Anisocytosis 1+ Microcytosis 1+ Macrocytosis 0 PT with INR INR PTT (Actin FS) Sodium Potassium Chloride Carbon Dioxide Anion Gap BUN Creatinine Est GFR (CKD-EPI)AfAm Est GFR (CKD-EPI)NonAf Random Glucose Lactic Acid Calcium Phosphorus Magnesium Total Bilirubin AST ALT Alkaline Phosphatase Troponin I 0.06 H Total Protein Albumin Urine Color Yellow Urine Appearance Cloudy Urine pH 5.5 Ur Specific Seale 1.023 Urine Protein 1+ H Urine Glucose (UA) Negative Urine Ketones Negative Urine Blood 2+ H Urine Nitrite Positive H Urine Bilirubin Negative Urine Urobilinogen 1.0 Ur Leukocyte Esterase 2+ H Urine WBC (Auto) 127 Urine RBC (Auto) 10 Urine Casts (Auto) 148 U Epithel Cells (Auto) 2.7 Urine Bacteria (Auto) 5705.5 06/15/18 06:10 WBC RBC Hgb Hct MCV MCH MCHC RDW Plt Count MPV Absolute Neuts (auto) Neutrophils % Neutrophils % (Manual) Band Neutrophils % Lymphocytes % Lymphocytes % (Manual) Monocytes % Monocytes % (Manual) Eosinophils % Eosinophils % (Manual) Basophils % Basophils % (Manual) Myelocytes % (Man) Promyelocytes % (Man) Blast Cells % (Manual) Nucleated RBC % Metamyelocytes Hypochromia Platelet Estimate Polychromasia Poikilocytosis Anisocytosis Microcytosis Macrocytosis PT with INR INR PTT (Actin FS) Sodium 139 Potassium 3.6 Chloride 109 H Carbon Dioxide 22 Anion Gap 9 BUN 23 H Creatinine 0.9 Est GFR (CKD-EPI)AfAm 69.99 Est GFR (CKD-EPI)NonAf 60.39 Random Glucose 157 H Lactic Acid Calcium 8.8 Phosphorus 2.8 Magnesium 2.2 Total Bilirubin 0.3 AST 13 L ALT 11 L Alkaline Phosphatase 109 Troponin I Total Protein 7.0 Albumin 2.4 L Urine Color Urine Appearance Urine pH Ur Specific Seale Urine Protein Urine Glucose (UA) Urine Ketones Urine Blood Urine Nitrite Urine Bilirubin Urine Urobilinogen Ur Leukocyte Esterase Urine WBC (Auto) Urine RBC (Auto) Urine Casts (Auto) U Epithel Cells (Auto) Urine Bacteria (Auto) S1 and S2 regular Lungs decreased breath sounds, no rhonchi heard Abdomen soft, nontender No edema Plan Swallow evaluation, rule out aspiration IV antibiotics Discontinue slightly Medrol Nebulizer treatments as needed Cardiology evaluation noted PT eval Problem List - Problems (1) Pneumonia Code(s): J18.9 - PNEUMONIA, UNSPECIFIED ORGANISM Qualifiers: Pneumonia type: due to unspecified organism Laterality: unspecified laterality Lung location: lower lobe of lung Qualified Code(s): J18.1 - Lobar pneumonia, unspecified organism (2) Altered mental status Code(s): R41.82 - ALTERED MENTAL STATUS, UNSPECIFIED Qualifiers: Altered mental status type: unspecified Qualified Code(s): R41.82 - Altered mental status, unspecified (3) HTN (hypertension) Code(s): I10 - ESSENTIAL (PRIMARY) HYPERTENSION (4) CAD (coronary artery disease) Code(s): I25.10 - ATHSCL HEART DISEASE OF [place] CORONARY ARTERY W/O ANG PCTRS (5) Dementia Code(s): F03.90 - UNSPECIFIED DEMENTIA WITHOUT BEHAVIORAL DISTURBANCE Qualifiers:
[2018-06-15] MEDS: OLANZapine 2.5 MG TABLET PO SCH (16:29)
[2018-06-15] MEDS ORDERED: OLANZapine 2.5 MG TABLET PO SCH ×2 (16:30→22:00)
--- NOTE | 2018-06-15 17:00 | PN ---
Progress Note, Physician History of Present Illness: seen and examined today in [facility]. sitting in chair, awake, alert, baseline confused, calm. - Current Medication List Current Medications: Active Medications Albuterol/Ipratropium (Duoneb -) 1 amp NEB Q6H PRN PRN Reason: SHORT OF BREATH/WHEEZING Amiodarone HCl (Cordarone -) 200 mg PO DAILY [facility] Last Admin: 06/15/18 09:36 Dose: 200 mg Citalopram Hydrobromide (Celexa -) 10 mg PO DAILY [facility] Last Admin: 06/15/18 09:35 Dose: 10 mg Enoxaparin Sodium (Lovenox -) 40 mg SQ DAILY [facility] Last Admin: 06/15/18 09:36 Dose: 40 mg Folic Acid (Folic Acid -) 1 mg PO DAILY [facility] Last Admin: 06/15/18 09:36 Dose: 1 mg Guaifenesin (Robitussin Dm -) 10 ml PO Q6H PRN PRN Reason: COUGH Ertapenem 0.5 gm/ Sodium (Chloride) 50 mls @ 100 mls/hr IVPB DAILY [facility] Metoprolol Succinate (Toprol Xl -) 12.5 mg PO DAILY [facility] Last Admin: 06/15/18 09:36 Dose: 12.5 mg Olanzapine (Zyprexa -) 2.5 mg PO DAILY [facility] Pantoprazole Sodium (Protonix -) 40 mg PO DAILY [facility] Last Admin: 06/15/18 09:35 Dose: 40 mg - Objective Vital Signs: Vital Signs Temperature 97.8 F 06/15/18 10:00 Pulse Rate 83 06/15/18 10:00 Respiratory Rate 19 06/15/18 10:00 Blood Pressure 146/74 06/15/18 10:00 O2 Sat by Pulse Oximetry (%) 95 06/15/18 09:00 Constitutional: Yes: No Distress, Calm Eyes: Yes: Conjunctiva Clear, EOM Intact, PERRL HENT: Yes: Atraumatic, Normocephalic Neck: Yes: Supple, Trachea Midline Cardiovascular: Yes: Regular Rate and Rhythm, S1, S2. No: Bradycardia, Tachycardia, Pulse Irregular, Bruit, JVD, Gallop, Murmur, Rub, S3, S4, Varicosities Respiratory: Yes: Regular, Diminished, Rhonchi. No: CTA Bilaterally, Rales, SOB , Wheezes Gastrointestinal: Yes: Normal Bowel Sounds, Soft. No: Distention, Tenderness Musculoskeletal: Yes: Muscle Weakness Extremities: Yes: WNL Edema: No Peripheral Pulses WNL: Yes Neurological: Yes: Alert. No: Oriented Psychiatric: Yes: Alert. No: Oriented Labs: CBC, BMP 06/15/18 06:10 06/15/18 06:10 INR, PTT INR 1.13 (0.83-1.09) H 06/14/18 16:15 - ....Imaging Chest X-ray: Report Reviewed, Image Reviewed Assessment/Plan She was sent from [facility] after found to be sob, tachypneic and hypoxic with low grade fever. SOB/cough -improving -concern for PNA vs AE COPD -receiving abx -no signs of acute decomp CHF -if needed can given IVF -speech and swallow to evaluate for possible aspiration although she appears to be tolerating food today Extensive cardiac history as above -stable -cont outpatient medical regimen No inpatient cardiac work up needed at this time. Please call with any additional questions.
--- NOTE | 2018-06-15 17:18 | EKG ---
Test Reason : Blood Pressure : / mmHG Vent. Rate : 074 BPM Atrial Rate : 074 BPM P-R Int : 224 ms QRS Dur : 100 ms QT Int : 378 ms P-R-T Axes : 119 016 -21 degrees QTc Int : 419 ms POOR DATA QUALITY, INTERPRETATION MAY BE ADVERSELY AFFECTED SINUS RHYTHM WITH 1ST DEGREE A-V BLOCK POSSIBLE INFERIOR INFARCT (CITED ON OR BEFORE 23-OCT-1999) ABNORMAL ECG WHEN COMPARED WITH ECG OF 04-FEB-2018 21:44, [place] INTERVAL HAS INCREASED Confirmed by CYRIL VELASCO MD ([id number]) on 06/15/2018 5:18:06 PM Referred By: Confirmed By:CYRIL VELASCO MD
[2018-06-15] MEDS: ERTAPENEM SODIUM 0.5 GM in SODIUM CHLORIDE 50 ML IVPB SCH (17:23)
[2018-06-16] MEDS: FOLIC ACID 1 MG TABLET (FP) PO SCH (10:01)
[2018-06-16] MEDS: CITALOPRAM HYDROBROMIDE 10 MG TABLET (FP) PO SCH (10:01)
[2018-06-16] MEDS: OLANZapine 2.5 MG TABLET PO SCH (10:01)
[2018-06-16] MEDS: PANTOPRAZOLE 40 MG TABLET (FP) PO SCH (10:01)
[2018-06-16] MEDS: ENOXAPARIN NA (PORCINE) 40 MG/0.4 ML DISP.SYRIN SQ SCH (10:01)
[2018-06-16] MEDS: metoPROLOL SUCCINATE 25 MG TAB.SR.24H (FP) PO SCH (10:01)
[2018-06-16] MEDS: AMIODARONE HCL 200 MG TABLET (FP) PO SCH (10:01)
[2018-06-16] MEDS: ERTAPENEM SODIUM 0.5 GM in SODIUM CHLORIDE 50 ML IVPB SCH (10:02)
--- NOTE | 2018-06-16 11:43 | CONSULT ---
Admitting History and Physical - Primary Care Physician PCP: Mary Edge - Admission History of Present Illness: 78 year old female with advanced dementia/alzheimers on zyprexa, A. fib,, CAD s/ p [place] 1986 PCO x3, ICD , HTN brought in from [facility] for lethargy, AMS, tachypnea, sob, and cough Selected Entries 06/15/18 06/15/18 06/15/18 02:00 06:04 10:00 Breakfast Lunch Supper Temperature 98.5 F 98.4 F 97.8 F 06/15/18 06/15/18 06/15/18 11:06 14:31 22:44 Breakfast 25% Lunch 75% Supper 50% Temperature 06/16/18 10:00 Breakfast Lunch Supper Temperature 98.0 F Laboratory Tests 06/14/18 06/15/18 16:15 06:10 WBC 15.8 H 14.4 H Seen by me November,, tolerated Minced food and thin liquids. At [facility], Per transfer summary,pt was on a pureed diet, with select soft mechanical foods, and thin liquid. Pt's said she was upgraded to [facility] Soft diet within the last month. Pt on soft, regular diet here with reportedly good tolerance. Pt eats well when fed by her devoted , who cuts or mashes all food with extra gravy. 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: Alzheimer's, CVA, Dementia Cardiovascular: Yes: AFIB, CAD, CHF, HTN, Hyperlipdemia, [place], Other (episode of sustained ventricular tachycardia requiring cardioversion, s/p ICD) Pulmonary: Yes: COPD Gastrointestinal: Yes: Diverticulosis - Past Surgical History Past Surgical History: Yes: AICD, - Advance Directives Advance Directives: Yes: Health Care Proxy - Smoking History Smoking history: Never smoked Have you smoked in the past 12 months: No If you are a former smoker, when did you quit?: 1986 - Alcohol/Substance Use Hx Alcohol Use: No History of Substance Use: reports: None - Social History ADL: Support Services History of Recent Travel: No History - Admission Reason For Visit: PNEUMONIA - Diagnostics X-ray: Report Reviewed - General Mental Status: Awake and Alert, Able to Follow Commands, Forgetful, Vague, Confused Attention: Distractible Ability to Follow Directions: Fair Head/Neck Control: Good - Hearing Hearing: Normal Speech Evaluation - Communication Primary Language: BERMUDIAN Communication: Yes: Simple Responses (rambles at times. Language of confusion.) Oral Expression Ability: Yes: Moderate Impairment - Speech Production Able to Make Needs Known: Yes: Moderately Impaired Intelligibility: Yes: WNL - Speech Characteristics Voice Loudness: Normal Voice Pitch: Yes: Normal Voice Phonatory-based Quality: Yes: Normal Speech Pattern: Normal Speech Clarity: < 100% Nasal Resonance: Normal Articulation: Yes: Imprecise (per pt's boyfriend, "tongue is heavy") - Language/Auditory Comprehension Follows: Yes: 1 Stage Simple Commands Observation: Comprehends Conversational Speech: Yes (simple) - Language/Verbal Expression Aphasia: Yes: Anomia, Paraphrasic Errors, Neologisms Functional Communication Status: Yes: Moderately Impaired - Swallow Evaluation/Bedside Assessment Current Nutritional Intake: Soft, Thin Liquids Oral Secretions: Yes: WFL Dentition: Yes: Edentulous Facial Symmetry at Rest: Symmetrical Against Resistance Opening: Normal Against Resistance Closing: Normal Pucker Lips: Normal Smile: Normal Lingual Movement: Normal, Symmetric Lingual Speed of Movement: Normal Lingual Movement Strgth Against Opposition: Normal Lingual Movement Characteristics: Normal Velopharyngeal Movement: Normal Laryngeal Movement: Able to Palpate Rate of Intake: WFL Bolus Size: Small Labial Seal: WFL Chewing: Impaired Oral Prep Time: Increased Pocketing: Present Bilaterally (intermittent) Coughing/Throat Clear: No Change in Voice: No Recommendations - Speech Evaluation, Impression/Plan Impression: Pt on soft, regular diet here with reportedly good tolerance. Pt eats well when fed by her devoted , who cuts or mashes all food with extra gravy - Disposition Discharge to: Custodial Facility - Dysphagia Impressions/Plan Dysphagia Impressions: Mild Impairment, Risk of Aspiration *Silent aspiration: cannot be R/O at bedside Dysphagia Treatment Plan: Small Bites, Chin Tuck/Down, Clear Pocket Food, Facilitative Feeding, Safe Rate, 1/2 tsp. at a time, Elevate HOB during feed - Recommendations Diet Consistency: 1 - 2 Soft Items, Other (chopped) Liquids: Thin Liquids Supplement: Magic Cup
--- NOTE | 2018-06-16 11:46 | PN ---
Progress Note (short form) - Note Progress Note: pt seen/ examined chart reviewed awake/ comfortable. at bedside Vital Signs Temp 98.0 F 06/16/18 10:00 Pulse 73 06/16/18 10:00 Resp 20 06/16/18 10:00 BP 153/73 06/16/18 10:00 Pulse Ox 95 06/16/18 09:00 Intake & Output 06/15/18 06/15/18 06/16/18 11:59 23:59 11:59 Intake Total 1075 1795 120 Balance 1075 1795 120 Weight 144 lb 145 lb 6 oz Intake: IV 1000 900 D5-1/2Ns - 1,000 ml @ 85 1000 900 mls/hr IV ASDIR PENG Rx#: [id number] IVPB 50 Oral 75 845 120 Other: Voiding Method Incontinent Incontinent Incontinent # Unmeasured Voids Void 1 4 Bowel Movement Yes Yes Yes # Bowel Movements 1 1 1 Weight Measurement Method [facility] Active Medications Albuterol/Ipratropium (Duoneb -) 1 amp NEB Q6H PRN PRN Reason: SHORT OF BREATH/WHEEZING Amiodarone HCl (Cordarone -) 200 mg PO DAILY [facility] Last Admin: 06/16/18 10:01 Dose: 200 mg Citalopram Hydrobromide (Celexa -) 10 mg PO DAILY [facility] Last Admin: 06/16/18 10:01 Dose: 10 mg Enoxaparin Sodium (Lovenox -) 40 mg SQ DAILY [facility] Last Admin: 06/16/18 10:01 Dose: 40 mg Folic Acid (Folic Acid -) 1 mg PO DAILY [facility] Last Admin: 06/16/18 10:01 Dose: 1 mg Guaifenesin (Robitussin Dm -) 10 ml PO Q6H PRN PRN Reason: COUGH Ertapenem 0.5 gm/ Sodium (Chloride) 50 mls @ 100 mls/hr IVPB DAILY [facility] Last Admin: 06/16/18 10:02 Dose: 100 mls/hr Metoprolol Succinate (Toprol Xl -) 12.5 mg PO DAILY [facility] Last Admin: 06/16/18 10:01 Dose: 12.5 mg Olanzapine (Zyprexa -) 2.5 mg PO DAILY [facility] Last Admin: 06/16/18 10:01 Dose: 2.5 mg Pantoprazole Sodium (Protonix -) 40 mg PO DAILY [facility] Last Admin: 06/16/18 10:01 Dose: 40 mg CBC, BMP 06/15/18 06:10 06/15/18 06:10 Microbiology 06/14/18 17:00 Urine Culture - Preliminary Urine - Urine Clean Catch Lactose Fermenting Neg Bacilli Streptococcus Viridans 06/14/18 16:00 Blood Culture - Preliminary Blood - Peripheral Venous NO GROWTH OBTAINED AFTER 24 HOURS, INCUBATION TO CONTINUE FOR 4 DAYS. 06/14/18 16:00 Blood Culture - Preliminary Blood - Peripheral Venous NO GROWTH OBTAINED AFTER 24 HOURS, INCUBATION TO CONTINUE FOR 4 DAYS. Physical Exam S1 and S2 regular Lungs decreased breath sounds Abdomen soft, non tender No edema Plan better IV antibiotics continue present care I/D on case will follow Problem List - Problems (1) Pneumonia Code(s): J18.9 - PNEUMONIA, UNSPECIFIED ORGANISM Qualifiers: Pneumonia type: due to unspecified organism Laterality: unspecified laterality Lung location: lower lobe of lung Qualified Code(s): J18.1 - Lobar pneumonia, unspecified organism (2) Altered mental status Code(s): R41.82 - ALTERED MENTAL STATUS, UNSPECIFIED Qualifiers: Altered mental status type: unspecified Qualified Code(s): R41.82 - Altered mental status, unspecified (3) HTN (hypertension) Code(s): I10 - ESSENTIAL (PRIMARY) HYPERTENSION (4) CAD (coronary artery disease) Code(s): I25.10 - ATHSCL HEART DISEASE OF [place] CORONARY ARTERY W/O ANG PCTRS (5) Dementia Code(s): F03.90 - UNSPECIFIED DEMENTIA WITHOUT BEHAVIORAL DISTURBANCE Qualifiers:
--- NOTE | 2018-06-16 14:24 | PN ---
Progress Note (short form) - Note Progress Note: ID CONSULT DICTATED RLL PNEUMONIA ?ASP ?HCAP UTI HX ESBL PCN ALLERGY OBS PENDING C/S EMPIRIC ERTAPENEM/ VANCOMYCIN
[2018-06-16] MEDS: VANCOMYCIN 1 GRAM (PRE-DOCKED) 1,000 MG/250 ML BAG IVPB SCH (15:00)
--- NOTE | 2018-06-16 15:17 | CONS ---
INFECTIOUS DISEASE CONSULTATION DATE OF CONSULTATION: DATE OF DICTATION: 06/15/2018 HISTORY OF PRESENT ILLNESS: The patient is an 78-year-old female evaluated for pneumonia. History was obtained from the chart, as well as the patient's who is present at the time of the examination. She suffers from advanced dementia and cannot give any history. She was admitted to the hospital from the correction, on June 14, 2018, with worsening lethargy, generalized weakness, dyspnea, and cough. She was found to be tachypneic and tachycardiac. She was evaluated in the emergency room, where she was diagnosed with acute exacerbation COPD, possible aspiration pneumonia. Chest x-ray shows an infiltrate at the right base. She was empirically treated with ertapenem and vancomycin. The patient is unable to give any additional history. According to the , she has had a dry cough, no sputum production or hemoptysis. She did not complain of chest pain. No reported fever or chills. Patient has a history of PENICILLIN allergy, the nature of which is unknown. She also has a history of ESBL in her urine, which was treated on a hospitalization in February of this year. PAST MEDICAL HISTORY: Positive for dementia, atrial fibrillation, hypertension, coronary artery disease, myocardial infarction, ESBL urinary tract infection. PAST SURGICAL HISTORY: Status post coronary artery stent, permanent pacemaker. ALLERGIES: ASPIRIN; PENICILLIN. MEDICATIONS: Celexa, Colace, Cordarone, Toprol, Zyprexa, Lipitor. SOCIAL HISTORY: She resides in a group home facility. She is dependent in activities of daily living. No active tobacco or alcohol use. SYSTEMS REVIEW: Neurologic: Positive for dementia. Cardiac: Negative chest pain or palpitations. Respiratory: As per HPI. Gastrointestinal: Negative vomiting or diarrhea. Genitourinary: Positive for urinary tract infection. LABORATORY DATA: White count on admission 15.8, presently 14.4, neutrophils 92, lymphocytes 4, monocytes 4, hematocrit 27.8, platelet count 342. Creatinine 0.9. Urinalysis: White cells 127. Blood cultures preliminarily negative. Urine culture, from January 2018, positive for ESBL. Chest x-ray shows increased markings at the right base. PHYSICAL EXAMINATION: General: On physical examination, she is awake, but confused. Vital Signs: Temperature 98.0, blood pressure 153/73, pulse 73 regular, respirations 20 per minute. Eyes: Sclerae are anicteric. Heart: Heart sounds S1, S2. Lungs: Diminished breath sounds at the bases bilaterally. Abdomen: Soft. No tenderness elicited. No mass, rebound or rigidity. Extremities: Negative for edema. IMPRESSION: 1. Right lower lobe pneumonia. Rule out healthcare-acquired pneumonia versus aspiration. 2. Urinary tract infection. 3. History of extended-spectrum beta-lactamase in the urine. 4. PENICILLIN allergy. 5. Dementia. Pending cultures, empiric antibiotic coverage ertapenem and vancomycin. Aspiration precautions. Case discussed with patient's present at the time of the examination. Thank you for the kind referral. JOANNA GALLEGO M.D. [id number]
[2018-06-16] MEDS: ALBUTEROL SO4 2.5/IPRATROPIUM 0.5 INH SOL 3 ML VIAL.NEB. NEB PRN (20:59)
[2018-06-17] MEDS: ALBUTEROL SO4 2.5/IPRATROPIUM 0.5 INH SOL 3 ML VIAL.NEB. NEB PRN (05:19)
[2018-06-17] MEDS: metoPROLOL SUCCINATE 25 MG TAB.SR.24H (FP) PO SCH (09:52)
[2018-06-17] MEDS: PANTOPRAZOLE 40 MG TABLET (FP) PO SCH (09:52)
[2018-06-17] MEDS: OLANZapine 2.5 MG TABLET PO SCH (09:53)
[2018-06-17] MEDS: ENOXAPARIN NA (PORCINE) 40 MG/0.4 ML DISP.SYRIN SQ SCH (09:53)
[2018-06-17] MEDS: FOLIC ACID 1 MG TABLET (FP) PO SCH (09:53)
[2018-06-17] MEDS: AMIODARONE HCL 200 MG TABLET (FP) PO SCH (09:53)
[2018-06-17] MEDS: CITALOPRAM HYDROBROMIDE 10 MG TABLET (FP) PO SCH (09:53)
[2018-06-17] MEDS: ERTAPENEM SODIUM 0.5 GM in SODIUM CHLORIDE 50 ML IVPB SCH (09:57)
--- NOTE | 2018-06-17 12:27 | PN ---
Progress Note (short form) - Note Progress Note: Patient is awake and alert She ate diet without any difficulty Vital Signs - 24 hr 06/16/18 06/16/18 06/16/18 18:00 21:00 22:00 Temperature 98.6 F 98.2 F Pulse Rate 64 72 Respiratory 20 20 20 Rate Blood Pressure 138/70 136/72 O2 Sat by Pulse 95 Oximetry (%) 06/17/18 06/17/18 06/17/18 02:00 07:01 09:00 Temperature 98 F 98.7 F Pulse Rate 68 70 Respiratory 20 20 Rate Blood Pressure 140/72 128/68 O2 Sat by Pulse 95 Oximetry (%) 06/17/18 09:07 Temperature 97.9 F Pulse Rate 68 Respiratory 18 Rate Blood Pressure 154/80 O2 Sat by Pulse Oximetry (%) Current Medications Generic Name Dose Route Start Last Admin Trade Name Freq PRN Reason Stop Dose Admin Albuterol/Ipratropium 1 amp 06/14/18 18:18 06/17/18 05:19 Duoneb - NEB 1 amp Q6H PRN Administration SHORT OF BREATH/WHEEZING Amiodarone HCl 200 mg 06/15/18 10:00 06/17/18 09:53 Cordarone - PO 200 mg DAILY PENG Administration Citalopram Hydrobromide 10 mg 06/15/18 10:00 06/17/18 09:53 Celexa - PO 10 mg DAILY PENG Administration Enoxaparin Sodium 40 mg 06/15/18 10:00 06/17/18 09:53 Lovenox - SQ 40 mg DAILY PENG Administration Folic Acid 1 mg 06/15/18 10:00 06/17/18 09:53 Folic Acid - PO 1 mg DAILY PENG Administration Guaifenesin 10 ml 06/14/18 18:18 Robitussin Dm - PO Q6H PRN COUGH Ertapenem 0.5 gm/ Sodium 50 mls @ 100 mls/hr 06/15/18 15:30 06/17/18 09:57 Chloride IVPB 100 mls/hr DAILY PENG Administration Vancomycin HCl 1,000 mg in 250 mls @ 166.667 mls/hr 06/16/18 14:30 06/16/18 15:00 Vancomycin (Pre-Docked) IVPB 166.667 mls/hr Q24H PENG Administration Protocol Metoprolol Succinate 12.5 mg 06/15/18 10:00 06/17/18 09:52 Toprol Xl - PO 12.5 mg DAILY PENG Administration Olanzapine 2.5 mg 06/15/18 17:00 06/17/18 09:53 Zyprexa - PO 2.5 mg DAILY PENG Administration Pantoprazole Sodium 40 mg 06/15/18 10:00 06/17/18 09:52 Protonix - PO 40 mg DAILY PENG Administration S1 and S2 regular Lungs decreased breath sounds, no rhonchi heard Abdomen soft, nontender No edema Plan Swallow evaluation noted IV antibiotics Nebulizer treatments as needed Cardiology evaluation noted PT eval Problem List - Problems (1) Pneumonia Code(s): J18.9 - PNEUMONIA, UNSPECIFIED ORGANISM Qualifiers: Pneumonia type: due to unspecified organism Laterality: unspecified laterality Lung location: lower lobe of lung Qualified Code(s): J18.1 - Lobar pneumonia, unspecified organism (2) Altered mental status Code(s): R41.82 - ALTERED MENTAL STATUS, UNSPECIFIED Qualifiers: Altered mental status type: unspecified Qualified Code(s): R41.82 - Altered mental status, unspecified (3) HTN (hypertension) Code(s): I10 - ESSENTIAL (PRIMARY) HYPERTENSION (4) CAD (coronary artery disease) Code(s): I25.10 - ATHSCL HEART DISEASE OF [place] CORONARY ARTERY W/O ANG PCTRS (5) Dementia Code(s): F03.90 - UNSPECIFIED DEMENTIA WITHOUT BEHAVIORAL DISTURBANCE Qualifiers:
[2018-06-17] MEDS: VANCOMYCIN 1 GRAM (PRE-DOCKED) 1,000 MG/250 ML BAG IVPB SCH (14:46)
[2018-06-18 08:29] LABS: EOS % 4.1 % (0-4.5); HEMATOCRIT 30.2 % (32.4-45.2); HEMOGLOBIN 9.7 GM/dL (10.7-15.3); LYMPH % 16.6 % (8-40); MCH 27.6 pg (25.7-33.7); MEAN CELL VOLUME 86.1 fl (80-96); MEAN PLT VOLUME 8.1 fl (7.5-11.1); MONO % 12.1 % (3.8-10.2); NEUT % 66.2 % (42.8-82.8); PLATELET COUNT 355 K/MM3 (134-434); RDW 15.5 % (11.6-15.6); WHITE BLOOD COUNT 8.9 K/mm3 (4.0-10.0)
[2018-06-18 09:04] LABS: BILIRUBIN,TOTAL 0.4 mg/dL (0.2-1); CALCIUM 8.4 mg/dL (8.5-10.1); CREATININE 0.9 mg/dL (0.55-1.3); POTASSIUM 3.6 mmol/L (3.5-5.1); TOT PROT 5.9 g/dl (6.4-8.2)
[2018-06-18] MEDS: ERTAPENEM SODIUM 0.5 GM in SODIUM CHLORIDE 50 ML IVPB SCH (09:30)
[2018-06-18] MEDS: OLANZapine 2.5 MG TABLET PO SCH (09:30)
[2018-06-18] MEDS: CITALOPRAM HYDROBROMIDE 10 MG TABLET (FP) PO SCH (09:30)
[2018-06-18] MEDS: FOLIC ACID 1 MG TABLET (FP) PO SCH (09:30)
[2018-06-18] MEDS: metoPROLOL SUCCINATE 25 MG TAB.SR.24H (FP) PO SCH (09:30)
[2018-06-18] MEDS: ENOXAPARIN NA (PORCINE) 40 MG/0.4 ML DISP.SYRIN SQ SCH (09:30)
[2018-06-18] MEDS: AMIODARONE HCL 200 MG TABLET (FP) PO SCH (09:31)
[2018-06-18] MEDS: PANTOPRAZOLE 40 MG TABLET (FP) PO SCH (09:31)
--- NOTE | 2018-06-18 10:24 | PN ---
Progress Note (short form) - Note Progress Note: Patient is awake and alert She ate diet without any difficulty no distress Vital Signs - 24 hr 06/17/18 06/17/18 06/18/18 20:24 21:43 06:30 Temperature 98.4 F 98.6 F Pulse Rate 98 H 67 Respiratory 18 20 20 Rate Blood Pressure 130/80 134/64 O2 Sat by Pulse 96 Oximetry (%) 06/18/18 08:54 Temperature 98.5 F Pulse Rate 67 Respiratory 20 Rate Blood Pressure 151/75 O2 Sat by Pulse Oximetry (%) Current Medications Generic Name Dose Route Start Last Admin Trade Name Freq PRN Reason Stop Dose Admin Albuterol/Ipratropium 1 amp 06/14/18 18:18 06/17/18 05:19 Duoneb - NEB 1 amp Q6H PRN Administration SHORT OF BREATH/WHEEZING Amiodarone HCl 200 mg 06/15/18 10:00 06/18/18 09:31 Cordarone - PO 200 mg DAILY PENG Administration Citalopram Hydrobromide 10 mg 06/15/18 10:00 06/18/18 09:30 Celexa - PO 10 mg DAILY PENG Administration Enoxaparin Sodium 40 mg 06/15/18 10:00 06/18/18 09:30 Lovenox - SQ 40 mg DAILY PENG Administration Folic Acid 1 mg 06/15/18 10:00 06/18/18 09:30 Folic Acid - PO 1 mg DAILY [facility] Administration Guaifenesin 10 ml 06/14/18 18:18 Robitussin Dm - PO Q6H PRN COUGH Vancomycin HCl 1,000 mg in 250 mls @ 166.667 mls/hr 06/16/18 14:30 06/18/18 15:01 Vancomycin (Pre-Docked) IVPB 166.667 mls/hr Q24H PENG Administration Protocol Meropenem 500 mg/ Dextrose 100 mls @ 200 mls/hr 06/18/18 14:30 06/18/18 15:00 IVPB Not Given Q8H-IV PENG Metoprolol Succinate 12.5 mg 06/15/18 10:00 06/18/18 09:30 Toprol Xl - PO 12.5 mg DAILY PENG Administration Olanzapine 2.5 mg 06/15/18 17:00 06/18/18 09:30 Zyprexa - PO 2.5 mg DAILY PENG Administration Pantoprazole Sodium 40 mg 06/15/18 10:00 06/18/18 09:31 Protonix - PO 40 mg DAILY PENG Administration Laboratory Results - last 24 hr 06/18/18 06/18/18 07:50 07:50 WBC 8.9 RBC 3.50 L Hgb 9.7 L Hct 30.2 L MCV 86.1 MCH 27.6 MCHC 32.0 RDW 15.5 Plt Count 355 MPV 8.1 Absolute Neuts (auto) 5.9 Neutrophils % 66.2 D Neutrophils % (Manual) 60.0 Band Neutrophils % 0.0 Lymphocytes % 16.6 D Lymphocytes % (Manual) 28.0 D Monocytes % 12.1 H D Monocytes % (Manual) 7 D Eosinophils % 4.1 D Eosinophils % (Manual) 2.0 D Basophils % 1.0 D Basophils % (Manual) 0.0 Myelocytes % (Man) 1 D Promyelocytes % (Man) 0 Blast Cells % (Manual) 0 Nucleated RBC % 0 Metamyelocytes 1 D Hypochromia 0 Platelet Estimate Normal Platelet Comment Present Polychromasia 1+ Poikilocytosis 1+ Anisocytosis 2+ Microcytosis 1+ Macrocytosis 0 Spherocytes 1+ Tear Drop Cells 1+ Ovalocytes 1+ Sodium 141 Potassium 3.6 Chloride 110 H Carbon Dioxide 23 Anion Gap 8 BUN 23 H Creatinine 0.9 Est GFR (CKD-EPI)AfAm 69.99 Est GFR (CKD-EPI)NonAf 60.39 Random Glucose 87 Calcium 8.4 L Total Bilirubin 0.4 AST 16 ALT 24 Alkaline Phosphatase 102 Total Protein 5.9 L Albumin 2.0 L S1 and S2 regular Lungs decreased breath sounds, no rhonchi heard Abdomen soft, nontender No edema Plan Swallow evaluation noted - urine cultures noted-- ESBL-- pt is on Meropenum IV antibiotics Nebulizer treatments as needed Cardiology evaluation noted PT eval Problem List - Problems (1) Pneumonia Code(s): J18.9 - PNEUMONIA, UNSPECIFIED ORGANISM Qualifiers: Pneumonia type: due to unspecified organism Laterality: unspecified laterality Lung location: lower lobe of lung Qualified Code(s): J18.1 - Lobar pneumonia, unspecified organism (2) Altered mental status Code(s): R41.82 - ALTERED MENTAL STATUS, UNSPECIFIED Qualifiers: Altered mental status type: unspecified Qualified Code(s): R41.82 - Altered mental status, unspecified (3) HTN (hypertension) Code(s): I10 - ESSENTIAL (PRIMARY) HYPERTENSION (4) CAD (coronary artery disease) Code(s): I25.10 - ATHSCL HEART DISEASE OF [place] CORONARY ARTERY W/O ANG PCTRS (5) Dementia Code(s): F03.90 - UNSPECIFIED DEMENTIA WITHOUT BEHAVIORAL DISTURBANCE Qualifiers:
[2018-06-18 13:17] LABS: ANISOCYTOSIS 2+; MACROCYTOSIS 0; OVALOCYTE 1+; PLATELET ESTIMATE NORMAL; TEAR DROP CELLS 1+
[2018-06-18] MEDS: MEROPENEM 500 MG in DEXTROSE 5%-WATER 100 ML IVPB SCH ×2 (15:00→17:33)
[2018-06-18] MEDS: VANCOMYCIN 1 GRAM (PRE-DOCKED) 1,000 MG/250 ML BAG IVPB SCH (15:01)
[2018-06-19] MEDS: MEROPENEM 500 MG in DEXTROSE 5%-WATER 100 ML IVPB SCH ×3 (01:18→17:38)
[2018-06-19] MEDS ORDERED: PT OWN MED DRAWER 7, Y5N ONE ×2 (09:50→17:37)
[2018-06-19] MEDS: OLANZapine 2.5 MG TABLET PO SCH (09:53)
[2018-06-19] MEDS: CITALOPRAM HYDROBROMIDE 10 MG TABLET (FP) PO SCH (09:53)
[2018-06-19] MEDS: PANTOPRAZOLE 40 MG TABLET (FP) PO SCH (09:53)
[2018-06-19] MEDS: AMIODARONE HCL 200 MG TABLET (FP) PO SCH (09:53)
[2018-06-19] MEDS: ENOXAPARIN NA (PORCINE) 40 MG/0.4 ML DISP.SYRIN SQ SCH (09:53)
[2018-06-19] MEDS: metoPROLOL SUCCINATE 25 MG TAB.SR.24H (FP) PO SCH (09:53)
[2018-06-19] MEDS: FOLIC ACID 1 MG TABLET (FP) PO SCH (09:53)
--- NOTE | 2018-06-19 11:01 | PN ---
Progress Note (short form) - Note Progress Note: pt seen/ examined awake/ comfortable at bedside Vital Signs Temp 97.6 F 06/19/18 09:31 Pulse 64 06/19/18 09:31 Resp 20 06/19/18 09:31 BP 102/56 L 06/19/18 09:31 Pulse Ox 93 L 06/19/18 09:00 Intake & Output 06/18/18 06/18/18 06/19/18 11:59 23:59 11:59 Intake Total 150 705 120 Balance 150 705 120 Weight 146 lb 1 oz 140 lb 5 oz Intake: IVPB 350 Oral 150 355 120 Other: Voiding Method Incontinent Incontinent Incontinent # Unmeasured Voids Void 1 2 1 Bowel Movement Yes No No # Bowel Movements 1 Weight Measurement Method Built in Bedscale Built in Bedscale Active Medications Albuterol/Ipratropium (Duoneb -) 1 amp NEB Q6H PRN PRN Reason: SHORT OF BREATH/WHEEZING Last Admin: 06/17/18 05:19 Dose: 1 amp Amiodarone HCl (Cordarone -) 200 mg PO DAILY [facility] Last Admin: 06/19/18 09:53 Dose: 200 mg Citalopram Hydrobromide (Celexa -) 10 mg PO DAILY [facility] Last Admin: 06/19/18 09:53 Dose: 10 mg Enoxaparin Sodium (Lovenox -) 40 mg SQ DAILY [facility] Last Admin: 06/19/18 09:53 Dose: 40 mg Folic Acid (Folic Acid -) 1 mg PO DAILY [facility] Last Admin: 06/19/18 09:53 Dose: 1 mg Guaifenesin (Robitussin Dm -) 10 ml PO Q6H PRN PRN Reason: COUGH Vancomycin HCl (Vancomycin (Pre-Docked)) 1,000 mg in 250 mls @ 166.667 mls/hr IVPB Q24H [facility]; Protocol Last Admin: 06/18/18 15:01 Dose: 166.667 mls/hr Meropenem 500 mg/ Dextrose 100 mls @ 200 mls/hr IVPB Q8H-IV [facility] Last Admin: 06/19/18 09:53 Dose: 200 mls/hr Metoprolol Succinate (Toprol Xl -) 12.5 mg PO DAILY [facility] Last Admin: 06/19/18 09:53 Dose: 12.5 mg Olanzapine (Zyprexa -) 2.5 mg PO DAILY [facility] Last Admin: 06/19/18 09:53 Dose: 2.5 mg Pantoprazole Sodium (Protonix -) 40 mg PO DAILY [facility] Last Admin: 06/19/18 09:53 Dose: 40 mg CBC, BMP 06/18/18 07:50 06/18/18 07:50 Microbiology 06/14/18 16:00 Blood Culture - Preliminary Blood - Peripheral Venous NO GROWTH OBTAINED AFTER 96 HOURS, INCUBATION TO CONTINUE FOR 1 DAYS. 06/14/18 16:00 Blood Culture - Preliminary Blood - Peripheral Venous NO GROWTH OBTAINED AFTER 96 HOURS, INCUBATION TO CONTINUE FOR 1 DAYS. 06/14/18 17:00 Urine Culture - Preliminary Urine - Urine Clean Catch Escherichia Coli Esbl Egg Processing Supervisor Streptococcus Viridans Physical Exam S1 and S2 regular Lungs decreased breath sounds Abdomen soft, non tender No edema Plan better IV antibiotics esbl precautions continue present care I/D on case-- i/d to folloe will follow discussed with pts also Problem List - Problems (1) Pneumonia Code(s): J18.9 - PNEUMONIA, UNSPECIFIED ORGANISM Qualifiers: Pneumonia type: due to unspecified organism Laterality: unspecified laterality Lung location: lower lobe of lung Qualified Code(s): J18.1 - Lobar pneumonia, unspecified organism (2) Altered mental status Code(s): R41.82 - ALTERED MENTAL STATUS, UNSPECIFIED Qualifiers: Altered mental status type: unspecified Qualified Code(s): R41.82 - Altered mental status, unspecified (3) HTN (hypertension) Code(s): I10 - ESSENTIAL (PRIMARY) HYPERTENSION (4) CAD (coronary artery disease) Code(s): I25.10 - ATHSCL HEART DISEASE OF [place] CORONARY ARTERY W/O ANG PCTRS (5) Dementia Code(s): F03.90 - UNSPECIFIED DEMENTIA WITHOUT BEHAVIORAL DISTURBANCE Qualifiers:
--- NOTE | 2018-06-19 12:30 | PN ---
Progress Note, CROP AND SOIL TECHNICIAN - Note Progress Note: Selected Entries 06/17/18 06/17/18 06/17/18 02:00 07:01 09:07 Breakfast Lunch Supper Temperature 98 F 98.7 F 97.9 F 06/17/18 06/17/18 06/17/18 10:14 13:52 21:43 Breakfast 25% Lunch 50% Supper 25% Temperature 98.4 F 06/18/18 06/18/18 06/18/18 06:30 08:54 09:59 Breakfast 50% Lunch Supper Temperature 98.6 F 98.5 F 06/18/18 06/18/18 06/19/18 14:16 22:20 02:00 Breakfast Lunch 75% Supper 75% Temperature 98.5 F 99.0 F 06/19/18 06/19/18 06:00 09:31 Breakfast Lunch Supper Temperature 99.7 F H 97.6 F Pt eats best with her , who mashes her food and adds gravy. Pt on soft diet thin liquid, receiving whole string beans, bread. She is edentulous, and benefits from chopped or mashed food, with some soft whole foods such as quiche, fish with gravy, muffin. Suggest downgrade Diet Consistency: chopped diet with 1 - 2 Soft Items, Liquids: Thin Liquids Supplement: Magic Cup
[2018-06-19] MEDS: VANCOMYCIN 1 GRAM (PRE-DOCKED) 1,000 MG/250 ML BAG IVPB SCH (14:05)
[2018-06-19 19:52] VITALS: BMI 22.6
[2018-06-20] MEDS: MEROPENEM 500 MG in DEXTROSE 5%-WATER 100 ML IVPB SCH ×3 (02:38→17:55)
[2018-06-20] MEDS ORDERED: PT OWN MED DRAWER 7, Y5N ONE (09:41)
[2018-06-20] MEDS: FOLIC ACID 1 MG TABLET (FP) PO SCH (09:43)
[2018-06-20] MEDS: AMIODARONE HCL 200 MG TABLET (FP) PO SCH (09:43)
[2018-06-20] MEDS: OLANZapine 2.5 MG TABLET PO SCH (09:43)
[2018-06-20] MEDS: PANTOPRAZOLE 40 MG TABLET (FP) PO SCH (09:43)
[2018-06-20] MEDS: metoPROLOL SUCCINATE 25 MG TAB.SR.24H (FP) PO SCH (09:43)
[2018-06-20] MEDS: CITALOPRAM HYDROBROMIDE 10 MG TABLET (FP) PO SCH (09:43)
[2018-06-20] MEDS: ENOXAPARIN NA (PORCINE) 40 MG/0.4 ML DISP.SYRIN SQ SCH (09:43)
--- NOTE | 2018-06-20 12:01 | PN ---
Progress Note, ADMINISTRATIVE RECEPTIONIST - Note Progress Note: Selected Entries 06/19/18 06/19/18 06/19/18 02:00 06:00 09:31 Breakfast Lunch Supper Temperature 99.0 F 99.7 F H 97.6 F 06/19/18 06/19/18 06/19/18 14:00 17:00 21:00 Breakfast 25% Lunch 25% Supper Temperature 98.4 F 98.0 F 06/19/18 06/20/18 06/20/18 22:00 02:00 06:00 Breakfast Lunch Supper 75% Temperature 99.2 F 98.5 F 06/20/18 09:00 Breakfast Lunch Supper Temperature 99.2 F Laboratory Tests 06/18/18 07:50 WBC 8.9 Pt's agreed to diet modification. Suggest downgrade Diet Consistency: chopped diet with 1 - 2 Soft Items, Liquids: Thin Liquids Supplement: Magic Cu
[2018-06-20] MEDS ORDERED: ALBUTEROL SO4 2.5/IPRATROPIUM 0.5 INH SOL 3 ML VIAL.NEB. NEB PRN (13:34)
--- NOTE | 2018-06-20 13:34 | PN ---
Progress Note (short form) - Note Progress Note: Patient is awake at bedside She ate diet without any difficulty no distress Vital Signs - 24 hr 06/19/18 06/19/18 06/20/18 17:00 21:00 02:00 Temperature 98.4 F 98.0 F 99.2 F Pulse Rate 60 61 60 Respiratory 20 20 20 Rate Blood Pressure 130/63 117/69 114/55 L O2 Sat by Pulse 96 Oximetry (%) 06/20/18 06/20/18 06:00 09:00 Temperature 98.5 F 99.2 F Pulse Rate 62 62 Respiratory 20 20 Rate Blood Pressure 147/74 145/76 O2 Sat by Pulse 95 Oximetry (%) Current Medications Generic Name Dose Route Start Last Admin Trade Name Freq PRN Reason Stop Dose Admin Amiodarone HCl 200 mg 06/15/18 10:00 06/20/18 09:43 Cordarone - PO 200 mg DAILY PENG Administration Citalopram Hydrobromide 10 mg 06/15/18 10:00 06/20/18 09:43 Celexa - PO 10 mg DAILY PENG Administration Enoxaparin Sodium 40 mg 06/15/18 10:00 06/20/18 09:43 Lovenox - SQ 40 mg DAILY PENG Administration Folic Acid 1 mg 06/15/18 10:00 06/20/18 09:43 Folic Acid - PO 1 mg DAILY PENG Administration Guaifenesin 10 ml 06/14/18 18:18 Robitussin Dm - PO Q6H PRN COUGH Vancomycin HCl 1,000 mg in 250 mls @ 166.667 mls/hr 06/16/18 14:30 06/19/18 14:05 Vancomycin (Pre-Docked) IVPB 166.667 mls/hr Q24H PENG Administration Protocol Meropenem 500 mg/ Dextrose 100 mls @ 200 mls/hr 06/18/18 14:30 06/20/18 09:42 IVPB 200 mls/hr Q8H-IV PENG Administration Metoprolol Succinate 12.5 mg 06/15/18 10:00 06/20/18 09:43 Toprol Xl - PO 12.5 mg DAILY PENG Administration Olanzapine 2.5 mg 06/15/18 17:00 06/20/18 09:43 Zyprexa - PO 2.5 mg DAILY PENG Administration Pantoprazole Sodium 40 mg 06/15/18 10:00 06/20/18 09:43 Protonix - PO 40 mg DAILY PENG Administration S1 and S2 regular Lungs decreased breath sounds, ronchi heard Abdomen soft, nontender No edema Plan Swallow evaluation noted - urine cultures noted-- ESBL-- pt is on Meropenum IV antibiotics Nebulizer treatments as needed PT eval Problem List - Problems (1) Pneumonia Code(s): J18.9 - PNEUMONIA, UNSPECIFIED ORGANISM Qualifiers: Pneumonia type: due to unspecified organism Laterality: unspecified laterality Lung location: lower lobe of lung Qualified Code(s): J18.1 - Lobar pneumonia, unspecified organism (2) Altered mental status Code(s): R41.82 - ALTERED MENTAL STATUS, UNSPECIFIED Qualifiers: Altered mental status type: unspecified Qualified Code(s): R41.82 - Altered mental status, unspecified (3) HTN (hypertension) Code(s): I10 - ESSENTIAL (PRIMARY) HYPERTENSION (4) CAD (coronary artery disease) Code(s): I25.10 - ATHSCL HEART DISEASE OF [place] CORONARY ARTERY W/O ANG PCTRS (5) Dementia Code(s): F03.90 - UNSPECIFIED DEMENTIA WITHOUT BEHAVIORAL DISTURBANCE Qualifiers:
[2018-06-20] MEDS: VANCOMYCIN 1 GRAM (PRE-DOCKED) 1,000 MG/250 ML BAG IVPB SCH (14:35)
--- NOTE | 2018-06-20 15:51 | PN ---
Progress Note, Physician History of Present Illness: SLEEPY BUT AROUSABLE NO ACUTE DISTRESS BREATHING NON LABORED AFEBRILE WBC WNL - Current Medication List Current Medications: Active Medications Albuterol/Ipratropium (Duoneb -) 1 amp NEB Q6H PRN PRN Reason: SHORTNESS OF BREATH Amiodarone HCl (Cordarone -) 200 mg PO DAILY [facility] Last Admin: 06/20/18 09:43 Dose: 200 mg Citalopram Hydrobromide (Celexa -) 10 mg PO DAILY [facility] Last Admin: 06/20/18 09:43 Dose: 10 mg Enoxaparin Sodium (Lovenox -) 40 mg SQ DAILY [facility] Last Admin: 06/20/18 09:43 Dose: 40 mg Folic Acid (Folic Acid -) 1 mg PO DAILY [facility] Last Admin: 06/20/18 09:43 Dose: 1 mg Guaifenesin (Robitussin Dm -) 10 ml PO Q6H PRN PRN Reason: COUGH Vancomycin HCl (Vancomycin (Pre-Docked)) 1,000 mg in 250 mls @ 166.667 mls/hr IVPB Q24H [facility]; Protocol Last Admin: 06/20/18 14:35 Dose: 166.667 mls/hr Meropenem 500 mg/ Dextrose 100 mls @ 200 mls/hr IVPB Q8H-IV [facility] Last Admin: 06/20/18 09:42 Dose: 200 mls/hr Metoprolol Succinate (Toprol Xl -) 12.5 mg PO DAILY [facility] Last Admin: 06/20/18 09:43 Dose: 12.5 mg Olanzapine (Zyprexa -) 2.5 mg PO DAILY [facility] Last Admin: 06/20/18 09:43 Dose: 2.5 mg Pantoprazole Sodium (Protonix -) 40 mg PO DAILY [facility] Last Admin: 06/20/18 09:43 Dose: 40 mg - Objective Vital Signs: Vital Signs Temperature 99.2 F 06/20/18 09:00 Pulse Rate 62 06/20/18 09:00 Respiratory Rate 20 06/20/18 09:00 Blood Pressure 145/76 06/20/18 09:00 O2 Sat by Pulse Oximetry (%) 95 06/20/18 09:00 Constitutional: Yes: No Distress Eyes: Yes: Conjunctiva Clear Cardiovascular: Yes: Regular Rate and Rhythm, S1, S2 Respiratory: Yes: Diminished Gastrointestinal: Yes: Normal Bowel Sounds, Soft. No: Tenderness Edema: No Labs: CBC, BMP 06/18/18 07:50 06/18/18 07:50 INR, PTT INR 1.13 (0.83-1.09) H 06/14/18 16:15 Assessment/Plan UTI ESBL RLL PNEUMONIA POSSIBLE ASP PCN ALLERGY CONTINUE IV ANTIBIOTICS X 24H SUBSTITUTE MACROBID 100MG PO BID X 3D IN AM
[2018-06-21] MEDS ORDERED: PT OWN MED DRAWER 7, Y5N ONE (02:30)
[2018-06-21] MEDS: MEROPENEM 500 MG in DEXTROSE 5%-WATER 100 ML IVPB SCH ×3 (02:35→18:11)
[2018-06-21] MEDS: ENOXAPARIN NA (PORCINE) 40 MG/0.4 ML DISP.SYRIN SQ SCH (09:14)
[2018-06-21] MEDS: CITALOPRAM HYDROBROMIDE 10 MG TABLET (FP) PO SCH (09:15)
[2018-06-21] MEDS: FOLIC ACID 1 MG TABLET (FP) PO SCH (09:15)
[2018-06-21] MEDS: AMIODARONE HCL 200 MG TABLET (FP) PO SCH (09:15)
[2018-06-21] MEDS: PANTOPRAZOLE 40 MG TABLET (FP) PO SCH (09:15)
[2018-06-21] MEDS: metoPROLOL SUCCINATE 25 MG TAB.SR.24H (FP) PO SCH (09:15)
[2018-06-21] MEDS: OLANZapine 2.5 MG TABLET PO SCH (09:15)
--- NOTE | 2018-06-21 11:05 | PN ---
Progress Note, INDUSTRIAL ENG - Note Progress Note: Diet Consistency: chopped diet with 1 - 2 Soft Items, Liquids: Thin Liquids Supplement: Magic Cup Pt received all pureed food in cups and was unhappy. I explained that the food she received was not ordered and I placed a call to Dietary to clarify. Pt's requested MBS which will be done today.
--- NOTE | 2018-06-21 12:12 | DS ---
Physical Examination Vital Signs: Vital Signs Temperature 98.4 F 06/21/18 08:48 Pulse Rate 62 06/21/18 08:48 Respiratory Rate 18 06/21/18 08:48 Blood Pressure 118/54 L 06/21/18 08:48 O2 Sat by Pulse Oximetry (%) 97 06/21/18 09:00 Constitutional: Yes: No Distress, Calm Cardiovascular: Yes: Regular Rate and Rhythm Respiratory: Yes: CTA Bilaterally Gastrointestinal: Yes: Normal Bowel Sounds, Soft. No: Tenderness Edema: No Labs: CBC, BMP 06/18/18 07:50 06/18/18 07:50 Discharge Summary Reason For Visit: PNEUMONIA Current Active Problems Acute exacerbation of chronic obstructive pulmonary disease (COPD) (Acute) Pneumonia (Acute) Hospital Course: Pt admitted for metabolic encephalopathy, Possible aspiration pneumonia, UTI-- ESBL Seen by ID Blood cultures negative urine cultures positive for ESBL Pt was on iv antibiotics completed 7 days total of IV ertapenum/ meropenum evaluated by swallow therapist Had Modified barium swallow today Stable for dc to NH on PO Macrobid x 3days will need rehab -- short term Condition: Fair - Instructions Diet, Activity, Other Instructions: start PO Macrobid x 3days will need rehab -- short term Disposition: [facility] - Home Medications Comprehensive Discharge Medication List: Ambulatory Orders Citalopram Hydrobromide [Celexa -] 10 mg PO DAILY 10/09/17 Docusate Sodium [Colace] 300 mg PO DAILY 10/09/17 Folic Acid 1 mg PO DAILY 10/09/17 Multivitamin [Poly-Vitamin] 1 each PO DAILY 10/09/17 Amiodarone HCl [Cordarone -] 200 mg PO DAILY tablet 11/21/17 Metoprolol Succinate [Toprol XL -] 12.5 mg PO DAILY 12/19/17 Olanzapine [Zyprexa -] 5 mg PO 1630 12/19/17 Cyanocobalamin (Vitamin B-12) [Cyanocobalamin Injection] 1,000 mcg IJ MONTHLY Acetaminophen 650 mg PO Q4H PRN 06/14/18 Albuterol 2.5/Ipratropium 0.5 [Duoneb -] 1 amp NEB Q6H PRN 06/14/18 Ferrous Sulfate 325 mg PO DAILY 06/14/18 Guaifenesin Dm [Robitussin Dm -] 10 ml PO Q6H PRN 06/14/18
[2018-06-21] MEDS ORDERED: ACETAMINOPHEN 325 MG TABLET (FP) PO ONE (14:30)
[2018-06-21] MEDS: VANCOMYCIN 1 GRAM (PRE-DOCKED) 1,000 MG/250 ML BAG IVPB SCH (15:11)
[2018-06-22] MEDS ORDERED: PT OWN MED DRAWER 7, Y5N ONE ×3 (02:07→23:52)
[2018-06-22] MEDS: MEROPENEM 500 MG in DEXTROSE 5%-WATER 100 ML IVPB SCH ×3 (02:08→09:38)
[2018-06-22] MEDS: metoPROLOL SUCCINATE 25 MG TAB.SR.24H (FP) PO SCH (09:14)
[2018-06-22] MEDS: FOLIC ACID 1 MG TABLET (FP) PO SCH (09:14)
[2018-06-22] MEDS: AMIODARONE HCL 200 MG TABLET (FP) PO SCH (09:14)
[2018-06-22] MEDS: PANTOPRAZOLE 40 MG TABLET (FP) PO SCH (09:14)
[2018-06-22] MEDS: OLANZapine 2.5 MG TABLET PO SCH (09:14)
[2018-06-22] MEDS: ENOXAPARIN NA (PORCINE) 40 MG/0.4 ML DISP.SYRIN SQ SCH (09:14)
[2018-06-22] MEDS: CITALOPRAM HYDROBROMIDE 10 MG TABLET (FP) PO SCH (09:14)
[2018-06-22] MEDS ORDERED: SODIUM CHLORIDE 500 ML IV ONE (10:30)
--- NOTE | 2018-06-22 11:24 | PN ---
Progress Note (short form) - Note Progress Note: events noted discharge held due to low BP pt not in distress As per my conversation with Supervisor [employer]-- she has these episodes frequently where her BP is low and no cause Receiving IV NS bolus now 06/21/18 06/21/18 06/22/18 14:00 18:00 06:00 Temperature 98.7 F 99.5 F 99.2 F Pulse Rate 62 59 L 66 Respiratory 20 20 20 Rate Blood Pressure 137/71 93/44 L 120/50 L 06/22/18 06/22/18 09:17 10:38 Temperature 99.3 F Pulse Rate 60 63 Respiratory 20 20 Rate Blood Pressure 111/71 94/56 L Current Medications Generic Name Dose Route Start Last Admin Trade Name Freq PRN Reason Stop Dose Admin Albuterol/Ipratropium 1 amp 06/20/18 13:34 Duoneb - NEB Q6H PRN SHORTNESS OF BREATH Amiodarone HCl 200 mg 06/15/18 10:00 06/22/18 09:14 Cordarone - PO 200 mg DAILY PENG Administration Citalopram Hydrobromide 10 mg 06/15/18 10:00 06/22/18 09:14 Celexa - PO 10 mg DAILY PENG Administration Enoxaparin Sodium 40 mg 06/15/18 10:00 06/22/18 09:14 Lovenox - SQ 40 mg DAILY PENG Administration Folic Acid 1 mg 06/15/18 10:00 06/22/18 09:14 Folic Acid - PO 1 mg DAILY PENG Administration Guaifenesin 10 ml 06/14/18 18:18 Robitussin Dm - PO Q6H PRN COUGH Vancomycin HCl 1,000 mg in 250 mls @ 166.667 mls/hr 06/16/18 14:30 06/21/18 15:11 Vancomycin (Pre-Docked) IVPB Not Given Q24H PENG Protocol Meropenem 500 mg/ Dextrose 100 mls @ 200 mls/hr 06/18/18 14:30 06/22/18 02:08 IVPB 200 mls/hr Q8H-IV PENG Administration Metoprolol Succinate 12.5 mg 06/15/18 10:00 06/22/18 09:14 Toprol Xl - PO 12.5 mg DAILY PENG Administration Olanzapine 2.5 mg 06/15/18 17:00 06/22/18 09:14 Zyprexa - PO 2.5 mg DAILY PENG Administration Pantoprazole Sodium 40 mg 06/15/18 10:00 06/22/18 09:14 Protonix - PO 40 mg DAILY PENG Administration S1 and S2 regular Lungs decreased breath sounds,decreased ronchi no crackles Abdomen soft, nontender No edema Plan Swallow evaluation noted - urine cultures noted-- ESBL-- pt is on Meropenum -- will dc it as per ID-- and start Macrobid -- NS bolus -- she is on meds for rate control Nebulizer treatments as needed PT eval Problem List - Problems (1) Pneumonia Code(s): J18.9 - PNEUMONIA, UNSPECIFIED ORGANISM Qualifiers: Pneumonia type: due to unspecified organism Laterality: unspecified laterality Lung location: lower lobe of lung Qualified Code(s): J18.1 - Lobar pneumonia, unspecified organism (2) Altered mental status Code(s): R41.82 - ALTERED MENTAL STATUS, UNSPECIFIED Qualifiers: Altered mental status type: unspecified Qualified Code(s): R41.82 - Altered mental status, unspecified (3) HTN (hypertension) Code(s): I10 - ESSENTIAL (PRIMARY) HYPERTENSION (4) CAD (coronary artery disease) Code(s): I25.10 - ATHSCL HEART DISEASE OF [place] CORONARY ARTERY W/O ANG PCTRS (5) Dementia Code(s): F03.90 - UNSPECIFIED DEMENTIA WITHOUT BEHAVIORAL DISTURBANCE Qualifiers:
--- NOTE | 2018-06-22 11:55 | PN ---
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 Discharged postponed. Intermittent PO acceptance is common for this pt. She refused to eat with her yesterday but did accept trials needed during MBS. Encourage PO intake/hydration.
--- NOTE | 2018-06-22 13:57 | PN ---
Progress Note, Physician Chief Complaint: Reconsult for hypotension before discharge. The patient is awake and alert. No reported mental status changes. History of Present Illness: 78 year old woman with a history of CAD s/p MS 1987 s/p PCI x 3 in past (RCA) likely ischemic cardiomyopathy, progressive Alzheimers dementia, h/o sustained VT that required cardioversion by EMS, s/p ICD implantation, non-obstructive CAD , moderate LV dysfunction with recovered LV systolic function (LVEF 60-65% from echo on 02/06/2018), paroxysmal atrial fibrillation, s/p elective cardioversion , off anticoagulation in the past due to GI and bleeding admitted 06/14/[address] [facility] after found to be sob, tachypneic and hypoxic with low grade fever. She has been treated with improvement and ready to be discharged when she was found to have asymptomatic hypotension (94/56), received IV NS bolus with improvement. No reported mental status changes. Echo 02/06/2019: Mild concentric LVH with normal systolic function. LVEF = 60-65 %. Normal RV. Moderate LA dilatation. Mild to moderate MR. ECG 06/14/2018: Sinus rhythm. - Current Medication List Current Medications: Active Medications Albuterol/Ipratropium (Duoneb -) 1 amp NEB Q6H PRN PRN Reason: SHORTNESS OF BREATH Amiodarone HCl (Cordarone -) 200 mg PO DAILY [facility] Last Admin: 06/22/18 09:14 Dose: 200 mg Citalopram Hydrobromide (Celexa -) 10 mg PO DAILY [facility] Last Admin: 06/22/18 09:14 Dose: 10 mg Enoxaparin Sodium (Lovenox -) 40 mg SQ DAILY [facility] Last Admin: 06/22/18 09:14 Dose: 40 mg Folic Acid (Folic Acid -) 1 mg PO DAILY [facility] Last Admin: 06/22/18 09:14 Dose: 1 mg Guaifenesin (Robitussin Dm -) 10 ml PO Q6H PRN PRN Reason: COUGH Metoprolol Succinate (Toprol Xl -) 12.5 mg PO DAILY [facility] Last Admin: 06/22/18 09:14 Dose: 12.5 mg Nitrofurantoin Macrocrystals (Macrodantin -) 50 mg PO Q6HPO [facility] Olanzapine (Zyprexa -) 2.5 mg PO DAILY [facility] Last Admin: 06/22/18 09:14 Dose: 2.5 mg Pantoprazole Sodium (Protonix -) 40 mg PO DAILY [facility] Last Admin: 06/22/18 09:14 Dose: 40 mg - Objective Vital Signs: Vital Signs Temperature 99.3 F 06/22/18 09:17 Pulse Rate 63 06/22/18 10:38 Respiratory Rate 20 06/22/18 10:38 Blood Pressure 94/56 L 06/22/18 10:38 O2 Sat by Pulse Oximetry (%) 96 06/22/18 09:00 General: Well developed. Fairly nourished. No acute distress. Head: Normocephalic. Atraumatic, Eyes: PERRLA, EOMI. Sclerae anicteric. Conjunctivae clear. Neck: Supple. No JVD. No bruits. Heart: Normal S1, S2: Regular rhythm and rate. II/ CANDIE. No gallop or rub. Lungs: Symmetrical air entry. No crackles. No wheezing or rhonchi. Abdomen: Soft. Bowel sound positive. Non tender. No masses. Extremities: No edema. Labs: CBC, BMP 06/18/18 07:50 06/18/18 07:50 INR, PTT INR 1.13 (0.83-1.09) H 06/14/18 16:15 Assessment/Plan 78 year old woman with a history of CAD s/p MS 1987 s/p PCI x 3 in past (RCA) likely ischemic cardiomyopathy, progressive Alzheimers dementia, h/o sustained VT that required cardioversion by EMS, s/p ICD implantation, non-obstructive CAD , moderate LV dysfunction with recovered LV systolic function (LVEF 60-65% from echo on 02/06/2018), paroxysmal atrial fibrillation, s/p elective cardioversion , off anticoagulation in the past due to GI and bleeding admitted 06/14/[address] [facility] after found to be sob, tachypneic and hypoxic with low grade fever. She has been treated with improvement and ready to be discharged when she was found to have asymptomatic hypotension (94/56), received IV NS bolus with improvement. No reported mental status changes. Echo 02/06/2019: Mild concentric LVH with normal systolic function. LVEF = 60-65 %. Normal RV. Moderate LA dilatation. Mild to moderate MR. ECG 06/14/2018: Sinus rhythm. 1) Transient hypotension of unclear etiology, unlikely sepsis. Discontinue Metoprolol Liberate salt intake and encourage oral hydration (She has normal LV systolic function). 2) Paroxysmal afib, in sinus now. Continue amiodarone for rhythm control. Please do not hesitate to call us for reconsult at any time if any further questions or additional issue arises regarding this patient.
[2018-06-22] MEDS: NITROFURANTOIN MACROCRYSTAL 50 MG CAPSULE (FP) PO SCH ×2 (15:13→18:49)
[2018-06-23] MEDS: NITROFURANTOIN MACROCRYSTAL 50 MG CAPSULE (FP) PO SCH ×3 (00:36→11:16)
[2018-06-23 08:49] VITALS: PULSE 66
[2018-06-23] MEDS ORDERED: PT OWN MED DRAWER 7, Y5N ONE ×2 (09:14→11:06)
[2018-06-23] MEDS: metoPROLOL SUCCINATE 25 MG TAB.SR.24H (FP) PO SCH (09:24)
[2018-06-23] MEDS: FOLIC ACID 1 MG TABLET (FP) PO SCH (09:25)
[2018-06-23] MEDS: ENOXAPARIN NA (PORCINE) 40 MG/0.4 ML DISP.SYRIN SQ SCH (09:25)
[2018-06-23] MEDS: CITALOPRAM HYDROBROMIDE 10 MG TABLET (FP) PO SCH (09:25)
[2018-06-23] MEDS: PANTOPRAZOLE 40 MG TABLET (FP) PO SCH (09:25)
[2018-06-23] MEDS: AMIODARONE HCL 200 MG TABLET (FP) PO SCH (09:25)
[2018-06-23] MEDS: OLANZapine 2.5 MG TABLET PO SCH (09:25)
--- NOTE | 2018-06-23 10:24 | PN ---
Progress Note (short form) - Note Progress Note: pt seen/ examined comfortable events noted at bedside Vital Signs Temp 98.0 F 06/23/18 08:49 Pulse 66 06/23/18 08:49 Resp 18 06/23/18 08:49 BP 112/58 L 06/23/18 08:49 Pulse Ox 96 06/22/18 21:00 Intake & Output 06/22/18 06/22/18 06/23/18 11:59 23:59 11:59 Intake Total 100 1380 Balance 100 1380 Weight 140 lb 141 lb Intake: IV 500 Normal Saline - 500 ml @ 500 1000 mls/hr IV ONCE ONE Rx#:[id number] IVPB 100 Oral 520 Oral Supplement 360 Other: Voiding Method Incontinent Incontinent # Unmeasured Voids Void 3 2 2 Bowel Movement No No No # Bowel Movements 1 Weight Measurement Method Built in Bedscale Built in Bedscale Active Medications Albuterol/Ipratropium (Duoneb -) 1 amp NEB Q6H PRN PRN Reason: SHORTNESS OF BREATH Amiodarone HCl (Cordarone -) 200 mg PO DAILY [facility] Last Admin: 06/23/18 09:25 Dose: 200 mg Citalopram Hydrobromide (Celexa -) 10 mg PO DAILY [facility] Last Admin: 06/23/18 09:25 Dose: 10 mg Enoxaparin Sodium (Lovenox -) 40 mg SQ DAILY [facility] Last Admin: 06/23/18 09:25 Dose: 40 mg Folic Acid (Folic Acid -) 1 mg PO DAILY [facility] Last Admin: 06/23/18 09:25 Dose: 1 mg Guaifenesin (Robitussin Dm -) 10 ml PO Q6H PRN PRN Reason: COUGH Metoprolol Succinate (Toprol Xl -) 12.5 mg PO DAILY [facility] Last Admin: 06/23/18 09:24 Dose: 12.5 mg Nitrofurantoin Macrocrystals (Macrodantin -) 50 mg PO Q6HPO [facility] Last Admin: 06/23/18 06:26 Dose: 50 mg Olanzapine (Zyprexa -) 2.5 mg PO DAILY [facility] Last Admin: 06/23/18 09:25 Dose: 2.5 mg Pantoprazole Sodium (Protonix -) 40 mg PO DAILY [facility] Last Admin: 06/23/18 09:25 Dose: 40 mg CBC, BMP 06/18/18 07:50 06/18/18 07:50 Physical exam S1 and S2 regular Lungs decreased breath sounds,decreased ronchi no crackles Abdomen soft, non tender No edema neuro--awake Plan stable Blood pressure also stable Discussed with nursing staff Discharge back to custodial today discussed with patient's also
[2018-06-23 12:13] VITALS: BP 98/56; TEMP 97.8
== END 2018-06-23 12:22 | DRG 177 ==
LOC: JER 15:19 → JERBED 18:16 → J6S 18:56
PROVIDERS: ADMIT Internal Medicine; ATTEND Internal Medicine
DX: J69.0 Pneumonitis due to inhalation of food and vomit (principal); G93.41 Metabolic encephalopathy; J44.1 Chronic obstructive pulmonary disease with (acute) exacerbation; N39.0 Urinary tract infection, site not specified; I25.10 Atherosclerotic heart disease of native coronary artery without angina pectoris; B96.20 Unspecified Escherichia coli [E. coli] as the cause of diseases classified elsewhere; I25.5 Ischemic cardiomyopathy; G30.9 Alzheimer's disease, unspecified; F02.80 Dementia in other diseases classified elsewhere, unspecified severity, without behavioral disturbance, psychotic disturbance, mood disturbance, and anxiety; I48.91 Unspecified atrial fibrillation; E78.5 Hyperlipidemia, unspecified; R09.02 Hypoxemia; I11.0 Hypertensive heart disease with heart failure; I25.2 Old myocardial infarction; I48.0 Paroxysmal atrial fibrillation; K57.90 Diverticulosis of intestine, part unspecified, without perforation or abscess without bleeding; I95.9 Hypotension, unspecified; J44.9 Chronic obstructive pulmonary disease, unspecified; R41.82 Altered mental status, unspecified; Z95.5 Presence of coronary angioplasty implant and graft; Z86.73 Personal history of transient ischemic attack (TIA), and cerebral infarction without residual deficits; Z22.39 Carrier of other specified bacterial diseases; Z88.0 Allergy status to penicillin
CPT/HCPCS: 36415; 71045-TC-FY; 74230-TC-FY; 80053; 81003; 82962; 83605; 83735; 84100; 84484; 85025; 85610; 85730; 87040; 87077; 87086; 87186; 92611-GN; 93005; 93010; 94640; 97116-GP; 97163-GP; 99285-25

== ENCOUNTER 2018-10-30 14:23 | Inpatient (IN) | payer OTHER ==
[2018-10-30] MEDS ORDERED: SODIUM CHLORIDE 1,000 ML IV STA (15:23)
[2018-10-30] MEDS ORDERED: methylPREDNISolone NA SUCC 125 MG/2 ML VIAL IVPUSH ONE (15:33)
[2018-10-30] MEDS ORDERED: ALBUTEROL SO4 2.5/IPRATROPIUM 0.5 INH SOL 3 ML VIAL.NEB. NEB ONE ×2 (15:33→16:34)
--- NOTE | 2018-10-30 15:50 | PDOC ---
History of Present Illness - General Chief Complaint: Shortness of Breath Stated Complaint: Shortness of Breath Time Seen by Provider: 10/30/18 15:16 History Source: Spouse, Fdc Records, Old Records Exam Limitations: Dementia - History of Present Illness Initial Comments: 10/30/18 15:47 78yo F with PMH of CAD s/p stenting, [place] 1987, AICD, HF, COPD not on home O2, Afib, Alzheimer's Dementia presenting to ED from [facility] for cough and SOB. states that he has noticed patient has been coughing more than usual productive of white phlegm for the past few days and SOB today. He saw that patient seemed to be having a harder time breathing and saw that her saturations were in the 80s. Patient is otherwise at baseline and does not seem to be in any discomfort per . Pt has history of dementia and is unable to provide history. PMD: Cards: Wan PMH: see hpi PSH: see hpi Meds: see med rec Allergies: PCN Past History - Past Medical History Allergies/Adverse Reactions: Allergies Allergy/AdvReac Type Severity Reaction Status Date / Time aspirin Allergy Verified 10/30/18 16:55 Penicillins Allergy Verified 10/30/18 16:55 Home Medications: Ambulatory Orders Docusate Sodium [Colace] 300 mg PO DAILY 10/09/17 Folic Acid 1 mg PO DAILY 10/09/17 Multivitamin [Poly-Vitamin] 1 each PO DAILY 10/09/17 Amiodarone HCl [Cordarone -] 200 mg PO DAILY tablet 11/21/17 Metoprolol Succinate [Toprol XL -] 12.5 mg PO DAILY 12/19/17 Olanzapine [Zyprexa -] 5 mg PO 1630 12/19/17 Cyanocobalamin (Vitamin B-12) [Cyanocobalamin Injection] 1,000 mcg IJ MONTHLY Acetaminophen 650 mg PO Q4H PRN 06/14/18 Albuterol 2.5/Ipratropium 0.5 [Duoneb -] 1 amp NEB Q6H PRN 06/14/18 Ferrous Sulfate 325 mg PO DAILY 06/14/18 Guaifenesin Dm [Robitussin Dm -] 10 ml PO Q6H PRN 06/14/18 Anemia: No Asthma: No Cancer: No Cardiac Disorders: Yes (A-FIB) CVA: Yes COPD: No CHF: Yes Dementia: Yes Diabetes: No GI Disorders: No Disorders: Yes HTN: Yes Hypercholesterolemia: Yes Thyroid Disease: No - Surgical History Cardiac Surgery: Yes (STENTS, DEFIB) - Immunization History Immunization Up to Date: No - Suicide/Smoking/Psychosocial Hx Smoking History: Never smoked Have you smoked in the past 12 months: No If you are a former smoker, when did you quit?: 1986 Information on smoking cessation initiated: No Hx Alcohol Use: No Drug/Substance Use Hx: No Substance Use Type: None Hx Substance Use Treatment: No Review of Systems - Review of Systems Able to Perform ROS?: No *Physical Exam - Vital Signs Last Vital Signs Temp Pulse Resp BP Pulse Ox 97.1 F L 86 20 102/42 L 94 L 10/30/18 14:27 10/30/18 14:27 10/30/18 14:27 10/30/18 14:27 10/30/18 14:27 - Physical Exam General Appearance: Yes: Nourished, Appropriately Dressed. No: Apparent Distress HEENT: positive: EOMI, IVA, Pharynx Normal Neck: positive: Trachea midline, Supple. negative: Lymphadenopathy (R), Lymphadenopathy (L) Respiratory/Chest: positive: Wheezing. negative: Chest Tender, Accessory Muscle Use, Labored Respiration, Crackles, Rales, Rhonchi Cardiovascular: positive: Regular Rhythm, Regular Rate, S1, S2. negative: Edema , JVD, Murmur Vascular Pulses: Carotid (R): 2+, Carotid (L): 2+, Dorsalis-Pedis (R): 2+, Doralis-Pedis (L): 2+ Gastrointestinal/Abdominal: positive: Normal Bowel Sounds, Soft. negative: Tender, Guarding Musculoskeletal: negative: CVA Tenderness Extremity: positive: Normal Capillary Refill. negative: Pedal Edema, Swelling, Calf Tenderness Integumentary: positive: Normal Color, Dry, Warm Neurologic: positive: Alert, Motor Strength 5/5. negative: Fully Oriented ( baseline) Heart Score/ECG Review - ECG Intrepretation Rhythm: Regular Rhythm - [place]: Normal - ST and T Early Repolarization: No - ECG Impressions Normal ECG: No Non-specific ST Elevation: No Ischemic Changes: No ED Treatment Course - LABORATORY CBC & Chemistry Diagram: 10/30/18 16:45 10/30/18 16:45 - RADIOLOGY Radiology Studies Ordered: Category Date Time Status CHEST X-RAY PORTABLE* [RAD] Stat Radiology 10/30/18 15:21 Ordered Medical Decision Making - Medical Decision Making 10/30/18 16:32 78yo F with PMH of CAD, Afib, COPD, Dementia, HF presenting with SOB. not on home O2, currently on 4L. wheezing breath sounds. ddx includes but not limited to copd exacerbation, chf, ptx, pna, pneumomediastinum, pe, acs patient does not appear to be in distress, no chest pain no syncope. low suspicion for pe likely copd exacerbation will give breathing treatments, solumedrol. ekg, cxr, labs. low bp, will give fluids. recal temp 99.8 reassess 10/30/18 18:38 ekg: nsr? at 96npm pr 150 qtc 452. no jac or depressions. similar to prior EKG June 2018. Dr. Blas consulted, does not want to perform cath or repeat troponins. cxr: congestion, bnp 4000, will give lasix. adding azithromycin for copd. UA positive for infection, previous cultures grew ESBL, susceptible to macrobid. copd v. chf exacerbation. will admit patient; patient is requiring oxygen by [place] when she is not on home O2 and cxr demonstrates congestion. accepted by hospitalist 10/30/18 19:40 *DC/Admit/Observation/Transfer Diagnosis at time of Disposition: SOB (shortness of breath), Troponin level elevated CHF (congestive heart failure) Qualifiers: Heart failure type: unspecified Heart failure chronicity: unspecified Qualified Code(s): I50.9 - Heart failure, unspecified COPD (chronic obstructive pulmonary disease) Qualifiers: COPD type: unspecified COPD Qualified Code(s): J44.9 - Chronic obstructive pulmonary disease, unspecified - Discharge Dispostion Condition at time of disposition: Good Decision to Admit order: Yes - Referrals Referrals: Avery Eduardo [Primary Care Provider] - - Patient Instructions - Post Discharge Activity
[2018-10-30] MEDS ORDERED: methylPREDNISolone NA SUCC 125 MG/2 ML VIAL ONE (16:34)
[2018-10-30 17:12] LABS: BASO % 0.5 % (0-2.0); EOS % 0.3 % (0-4.5); HEMATOCRIT 35.3 % (32.4-45.2); HEMOGLOBIN 11.2 GM/dL (10.7-15.3); LYMPH % 6.3 % (8-40); MCH 28.4 pg (25.7-33.7); MCHC 31.7 g/dl (32.0-36.0); MEAN CELL VOLUME 89.8 fl (80-96); MEAN PLT VOLUME 7.6 fl (7.5-11.1); MONO % 7.6 % (3.8-10.2); NEUT % 85.3 % (42.8-82.8); PLATELET COUNT 333 K/MM3 (134-434); RBC 3.93 M/mm3 (3.60-5.2); RDW 15.6 % (11.6-15.6)
[2018-10-30 17:14] LABS: VENOUS PC02 42.8 mmHg (38-52); VENOUS PH 7.33 (7.31-7.41)
[2018-10-30 17:15] LABS: VENOUS PO2 < 49 mmHg (28-48)
--- NOTE | 2018-10-30 17:15 | PDOC ---
Attending Attestation - Resident Resident Name: Sa Elizabethira - ED Attending Attestation I have performed the following: I have examined & evaluated the patient, The case was reviewed & discussed with the resident, I agree w/resident's findings & plan, Exceptions are as noted - HPI HPI: 10/30/18 17:13 78 F with h/o CAD/stents, [place], AICD, CHF, COPD, Afib, alzheimer's dementia, presenting to ED with cough and SOB. Per , pt has had worsening cough for several days. She was getting nebulizer treatments at [facility] with minimal relief. Today, pt was found to be satting 80s on RA. Pt does not use O2 normally. No fevers noted. - Physicial Exam PE: 10/30/18 17:14 GENERAL: Awake, alert, in no acute distress. HEAD: No signs of trauma EYES: PERRLA, EOMI, sclera anicteric, conjunctiva clear ENT: Auricles normal inspection, hearing grossly normal, nares patent, oropharynx clear without exudates. Moist mucosa NECK: Nontender, no stepoffs, Normal ROM, supple, no lymphadenopathy, JVD, or masses LUNGS: + diffuse expiratory wheezes HEART: Regular rate and rhythm, normal S1 and S2, no murmurs, rubs or gallops ABDOMEN: Soft, nontender, normoactive bowel sounds. No guarding, no rebound. No masses EXTREMITIES: Normal range of motion, no edema. No clubbing or cyanosis. No cords, erythema, or tenderness \NEUROLOGICAL: Cranial nerves II through XII intact SKIN: Warm, Dry, normal turgor, no rashes or lesions noted. - Critical Care Time Total Critical Care Time: 60 Critical Care Statement: The care of this patient involved high complexity decision making to prevent further life threatening deterioration of the patient 's condition and/or to evaluate & treat vital organ system(s) failure or risk of failure. - Medical Decision Making 10/30/18 17:15 78 F with SOB and cough. Likely COPD exacerbation, possibly 2/2 infectious process. No fevers, but possible PNA. No evidence of volume overload on exam. - Labs, trop - CXR - Nebs, steroids 10/30/18 18:20 CXR with mild congestion, no infiltrate Labs notable for trop 0.55 EKG does not appear changed since prior Discussed with Dr. Blas, who notes that pt is not a candidate for cath, does not recommend repeating troponin. Will admit for further treatment for likely COPD flare.
[2018-10-30 17:16] LABS: EPI CELLS 0.4 /HPF (0-5/HPF); HYALINE CASTS 10 /lpf (0-8); URINE APPEARANCE CLOUDY; URINE BACTERIA 475.4 /hpf (NEGATIVE); URINE BILIRUBIN NEGATIVE (NEGATIVE); URINE COLOR YELLOW; URINE GLUCOSE (UA) NEGATIVE (NEGATIVE); URINE KETONE NEGATIVE (NEGATIVE); URINE LEUK ESTERASE 2+ (NEGATIVE); URINE NITRITE POSITIVE (NEGATIVE); URINE PROTEIN 2+ (NEGATIVE); URINE RBC 4 /hpf (0-4); URINE UROBILINOGEN 0.2 mg/dL (0.2-1.0); URINE WBC 139 /hpf (0-5)
[2018-10-30] MEDS ORDERED: NITROFURANTOIN MACROCRYSTAL 50 MG CAPSULE (FP) PO SCH (17:30)
[2018-10-30 17:39] LABS: ALBUMIN 2.9 g/dl (3.4-5.0); BILIRUBIN,TOTAL 0.3 mg/dL (0.2-1); BLOOD UREA NITROGEN 29.4 mg/dL (7-18); CALCIUM 9.2 mg/dL (8.5-10.1); CREATININE 1.1 mg/dL (0.55-1.3); POTASSIUM 4.3 mmol/L (3.5-5.1); TOT PROT 7.1 g/dl (6.4-8.2)
[2018-10-30 17:40] LABS: MAGNESIUM 2.3 mg/dL (1.8-2.4)
[2018-10-30] MEDS ORDERED: NITROFURANTOIN MACROCRYSTAL 50 MG CAPSULE (FP) ONE (17:47)
[2018-10-30 17:56] LABS: INR 1.13 (0.83-1.09); PROTHROMBIN TIME (PATIENT) 13.3 SEC (9.7-13.0)
[2018-10-30] MEDS ORDERED: FUROSEMIDE 40 MG/4 ML INJECTABLE VIAL IVPUSH ONE (18:07)
[2018-10-30] MEDS ORDERED: AZITHROMYCIN IVPB 500 MG in DEXTROSE 5%-WATER - 250 ML IVPB ONE (18:32)
[2018-10-30] MEDS ORDERED: FUROSEMIDE 40 MG/4 ML INJECTABLE VIAL ONE (18:35)
[2018-10-30] MEDS ORDERED: AZITHROMYCIN IVPB 500 MG/250 ML BAG IVPB ONE (18:35)
[2018-10-30] MEDS ORDERED: OLANZapine 5 MG TABLET PO ONE (20:18)
--- NOTE | 2018-10-30 20:42 | HP ---
Admitting History and Physical - Primary Care Physician PCP: Dr. Edge - Admission Chief Complaint: SOB History of Present Illness: 78 year old female with PMH of CAD s/p stenting, [place] (1986), AICD, HF, COPD, A- fib, Alzheimer's and Dementia arrived to ED from [facility] for cough and SOB. As per at bedside reports patient has been having productive cough for the past few days and today had episode of severe SOB. [place] staff checked vitals and noted patient with spo2 in the 80s and was brought to the ER for further evaluation. Patient with history of dementia, unable to provide history. 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, Dementia Cardiovascular: Yes: AFIB, CAD, CHF, HTN, Hyperlipdemia, [place], Other (episode of sustained ventricular tachycardia requiring cardioversion, s/p ICD) Pulmonary: Yes: COPD Gastrointestinal: Yes: Diverticulosis - Past Surgical History Past Surgical History: Yes: AICD, - Smoking History Smoking history: Former smoker Have you smoked in the past 12 months: No If you are a former smoker, when did you quit?: 1986 - Alcohol/Substance Use Hx Alcohol Use: No History of Substance Use: reports: None - Social History ADL: Support Services History of Recent Travel: No Home Medications - Allergies Allergies/Adverse Reactions: Allergies Allergy/AdvReac Type Severity Reaction Status Date / Time aspirin Allergy Verified 10/30/18 16:55 Penicillins Allergy Verified 10/30/18 16:55 - Home Medications Home Medications: Ambulatory Orders Docusate Sodium [Colace] 300 mg PO DAILY 10/09/17 Folic Acid 1 mg PO DAILY 10/09/17 Multivitamin [Poly-Vitamin] 1 each PO DAILY 10/09/17 Amiodarone HCl [Cordarone -] 200 mg PO DAILY tablet 11/21/17 Metoprolol Succinate [Toprol XL -] 12.5 mg PO DAILY 12/19/17 Olanzapine [Zyprexa -] 5 mg PO 1630 12/19/17 Cyanocobalamin (Vitamin B-12) [Cyanocobalamin Injection] 1,000 mcg IJ MONTHLY Acetaminophen 650 mg PO Q4H PRN 06/14/18 Albuterol 2.5/Ipratropium 0.5 [Duoneb -] 1 amp NEB Q6H PRN 06/14/18 Ferrous Sulfate 325 mg PO DAILY 06/14/18 Guaifenesin Dm [Robitussin Dm -] 10 ml PO Q6H PRN 06/14/18 Family Medical History Family Hx Cardiac Disorders: Father ( early of cardaic disease not sure what ) Family Hx Dementia: Mother Review of Systems Unable to obtain ROS, reason: dementia, Alzheimer's Physical Examination Vital Signs: Vital Signs Temperature 99.8 F H 10/30/18 18:36 Pulse Rate 96 H 10/30/18 18:36 Respiratory Rate 22 H 10/30/18 18:36 Blood Pressure 151/94 10/30/18 18:36 O2 Sat by Pulse Oximetry (%) 100 10/30/18 18:36 Constitutional: Yes: Anxious, Mild Distress Eyes: Yes: Conjunctiva Clear, EOM Intact HENT: Yes: Atraumatic, Normocephalic Neck: Yes: Supple, Trachea Midline Cardiovascular: Yes: Regular Rate and Rhythm Respiratory: Yes: Regular, CTA Bilaterally, Wheezes Gastrointestinal: Yes: Normal Bowel Sounds, Soft Musculoskeletal: Yes: WNL Extremities: Yes: WNL Edema: No Neurological: Yes: Confusion Labs: CBC, BMP 10/30/18 16:45 10/30/18 16:45 Imaging - Results Chest X-ray: Report Reviewed (Possible mild congestion BNP:4632.3) EKG: Report Reviewed (NSR, no s/t elevation) Other: Report Reviewed (Trops: 0.[address] Blas, pt is not a candidate for cath, does not recommend repeating troponin. UA is positive for infection, follow culture) Problem List - Problems (1) Acute exacerbation of chronic obstructive pulmonary disease (COPD) Code(s): J44.1 - CHRONIC OBSTRUCTIVE PULMONARY DISEASE W (ACUTE) EXACERBATION (2) UTI (urinary tract infection) Code(s): N39.0 - URINARY TRACT INFECTION, SITE NOT SPECIFIED Qualifiers: Urinary tract infection type: site unspecified Hematuria presence: without hematuria Qualified Code(s): N39.0 - Urinary tract infection, site not specified (3) Troponin level elevated Code(s): R74.8 - ABNORMAL LEVELS OF OTHER SERUM ENZYMES (4) CHF (congestive heart failure) Code(s): I50.9 - HEART FAILURE, UNSPECIFIED Qualifiers: Heart failure type: unspecified Heart failure chronicity: unspecified Qualified Code(s): I50.9 - Heart failure, unspecified (5) HTN (hypertension) Code(s): I10 - ESSENTIAL (PRIMARY) HYPERTENSION (6) A-fib Code(s): I48.91 - UNSPECIFIED ATRIAL FIBRILLATION (7) CAD (coronary artery disease) Code(s): I25.10 - ATHSCL HEART DISEASE OF [place] CORONARY ARTERY W/O ANG PCTRS (8) Dementia Code(s): F03.90 - UNSPECIFIED DEMENTIA WITHOUT BEHAVIORAL DISTURBANCE Qualifiers: (9) ICD (implantable cardioverter-defibrillator) in place Code(s): Z95.810 - PRESENCE OF AUTOMATIC (IMPLANTABLE) CARDIAC DEFIBRILLATOR (10) Constipation Code(s): K59.00 - CONSTIPATION, UNSPECIFIED Qualifiers: Constipation type: slow transit constipation Qualified Code(s): K59.01 - Slow transit constipation Assessment/Plan 78 year old female with PMH of CAD s/p stenting, [place] (1986), AICD, HF, COPD, A- fib, Alzheimer's and Dementia arrived to ED from [facility] for cough and SOB. # Acute COPD exacerbation # Elevated trops # UTI - trops 0.[address] Blas does not want to trend not a candidate for cath - EGK: NSR, no acute s/t changes - CXR with mild congestion, no infiltrate - wbc: 14.0, UA posistive - In ED given IL NS, antibiotics: Azithromycin, nitrofurantoin and recieved methylprednisone and albuterol nebs - follow up urine culture - follow up CBC, BMP in AM - continue with o2 via NC - Continue with Duoneb q 6 hours - continue with methylprednisone 40 mg BID - continue with Levaquin 750 mg IV daily - follow up ID # CHF CXR: mild congestion, no infiltrate ( however no edema appreciated on exam, no crackles noted) BNP: 4632.3 - lasix 40mg x1 given in ED - follow up cardiology # A-fib, CAD, HTN - Continue with Amiodarone HCl 200 mg PO DAILY - Continue with Metoprolol Succinate 12.5 mg PO DAILY # constipation - continue with Colace 300 mg at night #Anemia - continue with ferrous sulfate - continue with folic acid # Dementia - Continue with Zyprexa 5 mg PO HS - safety/fall precaution Visit type - Emergency Visit Emergency Visit: Yes Care time: The patient presented to the Emergency Department on the above date and was hospitalized for further evaluation of their emergent condition. - New Patient This patient is new to me today: Yes Date on this admission: 10/30/18 - Critical Care Critical Care patient: No
[2018-10-30] MEDS ORDERED: ACETAMINOPHEN 650 MG PO PRN (21:26)
[2018-10-30] MEDS ORDERED: DOCUSATE SODIUM 100 MG CAPSULE (FP) PO SCH (22:00)
[2018-10-30] MEDS ORDERED: ALBUTEROL SO4 2.5/IPRATROPIUM 0.5 INH SOL 3 ML VIAL.NEB. NEB STA (22:29)
[2018-10-30] MEDS ORDERED: ACETAMINOPHEN 325 MG TABLET (FP) PO PRN (22:33)
[2018-10-30] MEDS: methylPREDNISolone NA SUCC 40 MG/1 ML VIAL IVPUSH SCH (22:49)
[2018-10-30] MEDS: HEPARIN NA (PORCINE) 5,000 UNITS/ML 1ML VIAL SQ SCH (22:49)
[2018-10-31 07:04] LABS: HEMATOCRIT 33.1 % (32.4-45.2); HEMOGLOBIN 10.9 GM/dL (10.7-15.3); MCH 28.9 pg (25.7-33.7); MCHC 33.1 g/dl (32.0-36.0); MEAN CELL VOLUME 87.5 fl (80-96); MEAN PLT VOLUME 7.8 fl (7.5-11.1); PLATELET COUNT 336 K/MM3 (134-434); RBC 3.78 M/mm3 (3.60-5.2); RDW 15.2 % (11.6-15.6); WHITE BLOOD COUNT 21.8 K/mm3 (4.0-10.0)
[2018-10-31 07:24] LABS: BLOOD UREA NITROGEN 24.8 mg/dL (7-18); CALCIUM 9.1 mg/dL (8.5-10.1); CREATININE 0.9 mg/dL (0.55-1.3); POTASSIUM 3.4 mmol/L (3.5-5.1)
[2018-10-31] MEDS ORDERED: AMIODARONE HCL 200 MG TABLET (FP) PO SCH (10:00)
[2018-10-31] MEDS ORDERED: PATIENT'S OWN MEDICATION (NON-FORMULARY) (Ferrous Sulfate [Ferrous Sulfate] 325 MG) PO SCH (10:00)
[2018-10-31] MEDS ORDERED: FOLIC ACID 1 MG TABLET (FP) PO SCH (10:00)
[2018-10-31] MEDS ORDERED: metoPROLOL SUCCINATE 25 MG TAB.SR.24H (FP) PO SCH (10:00)
[2018-10-31] MEDS ORDERED: FERROUS SO4 325 MG TABLET (FP) PO SCH (10:00)
--- NOTE | 2018-10-31 10:17 | CON.CARD ---
Consult Consult Specialty:: Cardiology Referred by:: Dr. Bishop/Minesh Reason for Consultation:: SOB - History of Present Illness Chief Complaint: Sent from [facility] for SOB, hypoxia History of Present Illness: 78 year old woman with a history of CAD s/p TX 1986 s/p PCI x 3 in past (RCA) likely ischemic cardiomyopathy, progressive Alzheimers dementia, h/o sustained VT that required Cardioversion by EMS, then transferred to [facility] where she underwent a cardiac cath showing diffuse RCA disease that did not require revascularization and moderate mLAD disease that was not significant on FFR thus no revascularization was performed. She was felt to have Vt from old inferior scar and due to sustained VT and moderate LV dysfunction underwent ICD implantation (medtronic). Also, after cardioversion for her VT she was in atrial fibrillation thus underwent an elective cardioversion after cardiac cath that restored NSR. She was thus discharged on eliquis. She subsequently went back into afib which has been chronic now and she was taken off anticoagulation in the past due to GI and bleeding. Prior admissions with reported syncope, ICD interrogation showed a tachycardia that appeared c/w Afib with RVR for which she received ATP x1 followed by possible degeneration to VT then 1 shock. Similar event 06/2017. Prior admissions for sob, hypoxia, evaluated for possible aspiration and pneumonia. H/o COPD and chronic systolic CHF. [facility] for sob, noted to be hypoxic. Given supp O2, steroids , Abx, bronchodilators in ER with improvement. seen and examined today in nad. sleeping, lying flat, comfortable. Baseline confused and unable to provide a history. 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, CVA, Dementia Cardio/Vascular: Yes: AFIB, CAD, CHF, HTN, Hyperlipdemia, [place], Other (episode of sustained ventricular tachycardia requiring cardioversion, s/p ICD) Pulmonary: Yes: COPD Gastrointestinal: Yes: Diverticulosis - Past Surgical History Past Surgical History: Yes: AICD, - Alcohol/Substance Use Hx Alcohol Use: No History of Substance Use: reports: None - Smoking History Smoking history: Former smoker Have you smoked in the past 12 months: No If you are a former smoker, when did you quit?: 1986 - Social History Usual Living Arrangement: Long-Term ADL: Support Services History of Recent Travel: No Home Medications - Allergies Allergies/Adverse Reactions: Allergies Allergy/AdvReac Type Severity Reaction Status Date / Time aspirin Allergy Verified 10/30/18 16:55 Penicillins Allergy Verified 10/30/18 16:55 - Home Medications Home Medications: Ambulatory Orders Docusate Sodium [Colace] 300 mg PO DAILY 10/09/17 Folic Acid 1 mg PO DAILY 10/09/17 Multivitamin [Poly-Vitamin] 1 each PO DAILY 10/09/17 Amiodarone HCl [Cordarone -] 200 mg PO DAILY tablet 11/21/17 Metoprolol Succinate [Toprol XL -] 12.5 mg PO DAILY 12/19/17 Olanzapine [Zyprexa -] 5 mg PO 1630 12/19/17 Cyanocobalamin (Vitamin B-12) [Cyanocobalamin Injection] 1,000 mcg IJ MONTHLY Acetaminophen 650 mg PO Q4H PRN 06/14/18 Albuterol 2.5/Ipratropium 0.5 [Duoneb -] 1 amp NEB Q6H PRN 06/14/18 Ferrous Sulfate 325 mg PO DAILY 06/14/18 Guaifenesin Dm [Robitussin Dm -] 10 ml PO Q6H PRN 06/14/18 Review of Systems - Review of Systems Constitutional: denies: No Symptoms, Chills, Diaphoresis, Fever, Lethargy, Loss of Appetite, Malaise, Night Sweats, Unintentional Wgt. Loss, Weakness, Other Eyes: denies: No Symptoms, Blind Spots, Blurred Vision, Double Vision, Eye Pain , Floaters, Photophobia, Recent Change in Vision, Other HENT: denies: No Symptoms, Difficult Swallowing, Ear Discharge, Ear Pain, Epistaxis, Gingival Bleeding, Hearing Loss, Mouth Swelling, Nasal Congestion, Ocular Prosthesis, Throat Pain, Toothache, Ringing in Ears, Other Neck: denies: No Symptoms, Decreased ROM, Lumps, Pain on Movement, Stiffness, Swollen Glands, Tenderness, Other Cardiovascular: reports: Shortness of Breath. denies: No Symptoms, Chest Pain, Edema, Palpitations, Other Respiratory: reports: SOB. denies: No Symptoms, Cough, Exercise Intolerance, Hemoptysis, Orthopnea, PND, Snoring, SOB on Exertion, Wheezing, Other Gastrointestinal: denies: No Symptoms, Abdominal Pain, Bloating, Constipation, Diarrhea, Dysphagia, Indigestion, Melena, Nausea, Rectal Bleeding, Vomiting, Vomiting Blood, Other Genitourinary: denies: No Symptoms, Burning, Discharge, Dysuria, Flank Pain, Frequency, Hematuria, Incontinence, Lesions, Menses, Pain, Testicular Mass, Testicular Pain, Testicular Swelling, Urgency, Vaginal Bleeding, Other Breasts: denies: No Symptoms Reported, See HPI, Breast Implants, Discharge from Nipple, Lumps, Pain, Skin Changes, Other Musculoskeletal: denies: No Symptoms, Back Pain, Crepitus, Decreased ROM, Extremity Pain, Joint Pain, Joint Swelling, Muscle Pain, Muscle Cramps, Muscle Weakness, Other Integumentary: denies: No Symptoms, Blister, Bruising, Change in Color, Eczema, Erythema, Incision, Lesions, Lump, Pallor, Pruritis, Rash, Wound, Other Neurological: denies: No Symptoms, Change in LOC, Change in Speech, Confusion, Dizziness, Headache, Incoordination, Numbness, Parasthesia, Pre-Existing Deficit , Seizure, Syncope, Tremors, Unsteady Gait, Weakness, Other Endocrine: denies: No Symptoms, Excessive Sweating, Flushing, Increased Hunger, Increased Thirst, Intolerance to Cold, Intolerance to Heat, Unexplained Weight Gain, Unexplained Weight Loss, Other Hematology/Lymphatic: denies: No Symptoms, Easily Bruised, Excessive Bleeding, Swollen Glands, Other Psychiatric: denies: No Symptoms, Altered Sleep Pattern, Anxiety, Depression, Hallucinations, Panic, Paranoia, Suicidal, Other - Risk Factors Known Risk Factors: Yes: Age, Hypercholesterolemia, Hypertension, Prior TX /Emb Stroke, Smoking Vital Signs: Vital Signs Temperature 98.7 F 10/31/18 06:22 Pulse Rate 91 H 10/31/18 06:22 Respiratory Rate 19 10/31/18 06:22 Blood Pressure 162/87 10/31/18 06:22 O2 Sat by Pulse Oximetry (%) 95 10/31/18 06:22 Constitutional: Yes: No Distress, Calm Eyes: Yes: Conjunctiva Clear, EOM Intact HENT: Yes: Atraumatic, Normocephalic Neck: Yes: Supple, Trachea Midline Respiratory: Yes: Regular, On Nasal O2, Rhonchi, Wheezes. No: Rales, SOB Gastrointestinal: Yes: Normal Bowel Sounds, Soft Cardiovascular: Yes: Regular Rate and Rhythm. No: Bradycardia, Tachycardia, Pulse Irregular, Gallop, Rub, Varicosities JVD: No Carotid Bruit: No PMI: Non-Displaced Heart Sounds: Yes: S1, S2. No: Split S2, S3, S4, Clicks, Gallop, Rub, Bruit Murmur: Yes: Systolic Murmur. No: Diastolic Murmur Extremities: Yes: WNL Edema: No Peripheral Pulses WNL: Yes Neurological: No: Alert, Oriented Psychiatric: No: Alert, Oriented - Other Data Labs, Other Data: CBC, BMP 10/31/18 06:00 10/31/18 06:00 INR, PTT INR 1.13 (0.83-1.09) H 10/30/18 16:45 Troponin, BNP 10/30/18 10/30/18 16:45 16:45 Troponin I 0.55 H B-Natriuretic Peptide 4632.3 H Troponin, BNP 10/30/18 10/30/18 16:45 16:45 Troponin I 0.55 H B-Natriuretic Peptide 4632.3 H nsr 96bpm, nsst Echo: Report Reviewed Imaging - Results Chest X-ray: Report Reviewed, Image Reviewed EKG: Report Reviewed, Image Reviewed Other: Report Reviewed, Image Reviewed Assessment/Plan 78 year old woman with a history of CAD s/p TX 1987 s/p PCI x 3 in past (RCA) likely ischemic cardiomyopathy, progressive Alzheimers dementia, h/o sustained VT that required Cardioversion by EMS, then transferred to [facility] where she underwent a cardiac cath showing diffuse RCA disease that did not require revascularization and moderate mLAD disease that was not significant on FFR thus no revascularization was performed. She was felt to have Vt from old inferior scar and due to sustained VT and moderate LV dysfunction underwent ICD implantation (medtronic). Also, after cardioversion for her VT she was in atrial fibrillation thus underwent an elective cardioversion after cardiac cath that restored NSR. She was thus discharged on eliquis. She subsequently went back into afib which has been chronic now and she was taken off anticoagulation in the past due to GI and bleeding. Prior admissions with reported syncope, ICD interrogation showed a tachycardia that appeared c/w Afib with RVR for which she received ATP x1 followed by possible degeneration to VT then 1 shock. Similar event 06/2017. Prior admissions for sob, hypoxia, evaluated for possible aspiration and pneumonia. H/o COPD and chronic systolic CHF. Sent from [place] 10/30/18 for sob, noted to be hypoxic. Given supp O2, steroids , Abx, bronchodilators in ER with improvement. seen and examined today in nad. sleeping, lying flat, comfortable. SOB/hypoxia -multiple possible etiologies -do not suspect significant acute on chronic systolic CHF -more likely AE COPD, possible PNA -improving with tx of COPD -cont supp O2 -cont nebulizers prn -Abx and steroids as per PMD -hold additional diuretics as this time. -does not require tele monitoring, can be admitted to med surg -not a candidate for further invasive cardiac testing thus would not monitor cardiac enzymes and no additional cardiac testing is needed at this time. Extensive cardiac history as above -stable -cont outpatient medical regimen Please call with any additional questions.
[2018-10-31] MEDS: methylPREDNISolone NA SUCC 40 MG/1 ML VIAL IVPUSH SCH ×2 (10:30→22:18)
--- NOTE | 2018-10-31 10:32 | PN ---
Progress Note (short form) - Note Progress Note: Events noted No distress at bedside Vital Signs - 24 hr 10/30/18 10/30/18 10/30/18 14:27 15:48 15:50 Temperature 97.1 F L 99.8 F H Pulse Rate 86 94 H Pulse Rate [ 94 H Right Radial] Respiratory 20 22 H Rate Blood Pressure 102/42 L Blood Pressure 129/81 [Left Arm] O2 Sat by Pulse 94 L 96 96 Oximetry (%) 10/30/18 10/30/18 10/31/18 18:36 19:30 01:09 Temperature 99.8 F H Pulse Rate Pulse Rate [ 96 H 93 H 95 H Right Radial] Respiratory 22 H 19 19 Rate Blood Pressure Blood Pressure 151/94 134/98 153/95 [Left Arm] O2 Sat by Pulse 100 95 Oximetry (%) 10/31/18 10/31/18 10/31/18 06:22 07:05 10:00 Temperature 98.7 F Pulse Rate Pulse Rate [ 91 H 89 Right Radial] Respiratory 19 24 H Rate Blood Pressure Blood Pressure 162/87 138/82 [Left Arm] O2 Sat by Pulse 95 95 95 Oximetry (%) Current Medications Generic Name Dose Route Start Last Admin Trade Name Freq PRN Reason Stop Dose Admin Acetaminophen 650 mg 10/30/18 22:33 Tylenol - PO Q4H PRN PAIN LEVEL 1-5 Amiodarone HCl 200 mg 10/31/18 10:00 10/31/18 10:30 Cordarone - PO 200 mg DAILY PENG Administration Docusate Sodium 300 mg 10/30/18 22:00 10/30/18 22:49 Colace - PO 300 mg HS PENG Administration Ferrous Sulfate 325 mg 10/31/18 10:00 10/31/18 10:30 Feosol - PO 325 mg DAILY PENG Administration Folic Acid 1 mg 10/31/18 10:00 10/31/18 10:30 Folic Acid - PO 1 mg DAILY PENG Administration Heparin Sodium (Porcine) 5,000 unit 10/30/18 22:00 10/31/18 10:58 Heparin - SQ 5,000 unit BID PENG Administration Ertapenem 1 gm/ Sodium 50 mls @ 100 mls/hr 10/31/18 13:00 Chloride IVPB DAILY [facility] Methylprednisolone Sodium Succinate 40 mg 10/30/18 22:00 10/31/18 10:30 Solu-Medrol - IVPUSH 40 mg BID PENG Administration Metoprolol Succinate 12.5 mg 10/31/18 10:00 10/31/18 10:30 Toprol Xl - PO 12.5 mg DAILY PENG Administration Olanzapine 5 mg 10/31/18 16:30 Zyprexa - PO 1630 PENG Laboratory Results - last 24 hr 10/30/18 10/30/18 10/30/18 16:45 16:45 16:45 WBC 14.0 H RBC 3.93 Hgb 11.2 Hct 35.3 D MCV 89.8 MCH 28.4 MCHC 31.7 L RDW 15.6 Plt Count 333 MPV 7.6 Absolute Neuts (auto) 11.9 H Neutrophils % 85.3 H D Lymphocytes % 6.3 L D Monocytes % 7.6 Eosinophils % 0.3 D Basophils % 0.5 Nucleated RBC % 0 PT with INR INR VBG pH POC VBG pCO2 POC VBG pO2 VBG HCO3 VBG O2 Sat (Gertrude) VBG Base Excess Sodium 139 Potassium 4.3 Chloride 108 H Carbon Dioxide 22 Anion Gap 10 BUN 29.4 H Creatinine 1.1 Est GFR (CKD-EPI)AfAm 54.91 Est GFR (CKD-EPI)NonAf 47.38 Random Glucose 126 H Calcium 9.2 Magnesium 2.3 Total Bilirubin 0.3 AST 24 ALT 18 Alkaline Phosphatase 104 Troponin I 0.55 H B-Natriuretic Peptide Total Protein 7.1 Albumin 2.9 L Urine Color Urine Appearance Urine pH Ur Specific [place] Urine Protein Urine Glucose (UA) Urine Ketones Urine Blood Urine Nitrite Urine Bilirubin Urine Urobilinogen Ur Leukocyte Esterase Urine WBC (Auto) Urine RBC (Auto) Urine Casts (Auto) U Epithel Cells (Auto) Urine Bacteria (Auto) 10/30/18 10/30/18 10/30/18 16:45 16:45 16:45 WBC RBC Hgb Hct MCV MCH MCHC RDW Plt Count MPV Absolute Neuts (auto) Neutrophils % Lymphocytes % Monocytes % Eosinophils % Basophils % Nucleated RBC % PT with INR 13.30 H INR 1.13 H VBG pH 7.33 POC VBG pCO2 42.8 POC VBG pO2 < 49 H VBG HCO3 22.1 L VBG O2 Sat (Gertrude) 35.3 L VBG Base Excess -3.1 L Sodium Potassium Chloride Carbon Dioxide Anion Gap BUN Creatinine Est GFR (CKD-EPI)AfAm Est GFR (CKD-EPI)NonAf Random Glucose Calcium Magnesium Total Bilirubin AST ALT Alkaline Phosphatase Troponin I B-Natriuretic Peptide Total Protein Albumin Urine Color Yellow Urine Appearance Cloudy Urine pH 6.0 Ur Specific [place] 1.021 Urine Protein 2+ H Urine Glucose (UA) Negative Urine Ketones Negative Urine Blood 2+ H Urine Nitrite Positive H Urine Bilirubin Negative Urine Urobilinogen 0.2 Ur Leukocyte Esterase 2+ H Urine WBC (Auto) 139 Urine RBC (Auto) 4 Urine Casts (Auto) 10 U Epithel Cells (Auto) 0.4 Urine Bacteria (Auto) 475.4 10/30/18 10/31/18 10/31/18 16:45 06:00 06:00 WBC 21.8 H RBC 3.78 Hgb 10.9 Hct 33.1 MCV 87.5 MCH 28.9 MCHC 33.1 RDW 15.2 Plt Count 336 MPV 7.8 Absolute Neuts (auto) Neutrophils % Lymphocytes % Monocytes % Eosinophils % Basophils % Nucleated RBC % PT with INR INR VBG pH POC VBG pCO2 POC VBG pO2 VBG HCO3 VBG O2 Sat (Gertrude) VBG Base Excess Sodium 139 Potassium 3.4 L Chloride 105 Carbon Dioxide 21 Anion Gap 14 BUN 24.8 H Creatinine 0.9 Est GFR (CKD-EPI)AfAm 69.99 Est GFR (CKD-EPI)NonAf 60.39 Random Glucose 192 H Calcium 9.1 Magnesium Total Bilirubin AST ALT Alkaline Phosphatase Troponin I B-Natriuretic Peptide 4632.3 H Total Protein Albumin Urine Color Urine Appearance Urine pH Ur Specific [place] Urine Protein Urine Glucose (UA) Urine Ketones Urine Blood Urine Nitrite Urine Bilirubin Urine Urobilinogen Ur Leukocyte Esterase Urine WBC (Auto) Urine RBC (Auto) Urine Casts (Auto) U Epithel Cells (Auto) Urine Bacteria (Auto) S1 s2 RRR Lungs decreased+ ronchi+ Abd- soft, NT no edema PLAN IV solumedrol -- iv antibiotics nebs O2 OOB daily Cardiology eval noted Pulmonary consult/ID Problem List - Problems (1) CHF (congestive heart failure) Code(s): I50.9 - HEART FAILURE, UNSPECIFIED Qualifiers: Heart failure type: unspecified Heart failure chronicity: unspecified Qualified Code(s): I50.9 - Heart failure, unspecified (2) COPD (chronic obstructive pulmonary disease) Code(s): J44.9 - CHRONIC OBSTRUCTIVE PULMONARY DISEASE, UNSPECIFIED Qualifiers: COPD type: unspecified COPD Qualified Code(s): J44.9 - Chronic obstructive pulmonary disease, unspecified (3) Troponin level elevated Code(s): R74.8 - ABNORMAL LEVELS OF OTHER SERUM ENZYMES (4) Acute exacerbation of chronic obstructive pulmonary disease (COPD) Code(s): J44.1 - CHRONIC OBSTRUCTIVE PULMONARY DISEASE W (ACUTE) EXACERBATION (5) HTN (hypertension) Code(s): I10 - ESSENTIAL (PRIMARY) HYPERTENSION
[2018-10-31] MEDS: HEPARIN NA (PORCINE) 5,000 UNITS/ML 1ML VIAL SQ SCH ×3 (10:58→22:23)
--- NOTE | 2018-10-31 11:00 | EKG ---
Test Reason : Blood Pressure : / mmHG Vent. Rate : 096 BPM Atrial Rate : 097 BPM P-R Int : 150 ms QRS Dur : 084 ms QT Int : 358 ms P-R-T Axes : 055 041 -33 degrees QTc Int : 452 ms POOR DATA QUALITY, INTERPRETATION MAY BE ADVERSELY AFFECTED NORMAL SINUS RHYTHM ABNORMAL ECG WHEN COMPARED WITH ECG OF 14-JUN-2018 16:27, [place] INTERVAL HAS DECREASED ST ELEVATION NOW PRESENT IN INFERIOR LEADS Confirmed by Brad Prado ([id number]) on 10/31/2018 11:00:08 AM Referred By: Confirmed By:Brad Prado
--- NOTE | 2018-10-31 12:44 | PN ---
Progress Note (short form) - Note Progress Note: ID CONSULT DICTATED ACUTE EXACERBATION COPD R/O HCAP UTI HX ESBL UTI PCN ALLERGY AWAIT C/S EMPIRIC ERTAPENEM
--- NOTE | 2018-10-31 13:03 | CON.PULM ---
Consult Consult Specialty:: PULMONARY Referred by:: Dr Bishop Reason for Consultation:: shortness of breath - History of Present Illness Chief Complaint: shortness of breath History of Present Illness: 78yo female with h/o CAD, COPD, LV systolic dysfunction, atrial fibrillation, h/ o VT s/p ICD, advanced dementia who was admitted from the senior living for shortness of breath and hypoxia. Pt unable to provide further history at this time, history obtained from at bedside. Denies choking or coughing while eating pureed diet. No recent fevers. She does have history of COPD, was a remote smoker, uses nebulizer treatments at the senior living. 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, CVA, Dementia Cardio/Vascular: Yes: AFIB, CAD, CHF, HTN, Hyperlipdemia, DC, Other (episode of sustained ventricular tachycardia requiring cardioversion, s/p ICD) Pulmonary: Yes: COPD Gastrointestinal: Yes: Diverticulosis - Past Surgical History Past Surgical History: Yes: AICD, - Alcohol/Substance Use Hx Alcohol Use: No History of Substance Use: reports: None - Smoking History Smoking history: Former smoker Have you smoked in the past 12 months: No If you are a former smoker, when did you quit?: 1986 - Social History Usual Living Arrangement: Senior Living ADL: Support Services History of Recent Travel: No Home Medications - Allergies Allergies/Adverse Reactions: Allergies Allergy/AdvReac Type Severity Reaction Status Date / Time aspirin Allergy Verified 10/30/18 16:55 Penicillins Allergy Verified 10/30/18 16:55 - Home Medications Home Medications: Ambulatory Orders Docusate Sodium [Colace] 300 mg PO DAILY 10/09/17 Folic Acid 1 mg PO DAILY 10/09/17 Multivitamin [Poly-Vitamin] 1 each PO DAILY 10/09/17 Amiodarone HCl [Cordarone -] 200 mg PO DAILY tablet 11/21/17 Metoprolol Succinate [Toprol XL -] 12.5 mg PO DAILY 12/19/17 Olanzapine [Zyprexa -] 5 mg PO 1630 12/19/17 Cyanocobalamin (Vitamin B-12) [Cyanocobalamin Injection] 1,000 mcg IJ MONTHLY Acetaminophen 650 mg PO Q4H PRN 06/14/18 Albuterol 2.5/Ipratropium 0.5 [Duoneb -] 1 amp NEB Q6H PRN 06/14/18 Ferrous Sulfate 325 mg PO DAILY 06/14/18 Guaifenesin Dm [Robitussin Dm -] 10 ml PO Q6H PRN 06/14/18 Review of Systems Unable to obtain ROS, reason: pt nonverbal Physical Exam Vital Sings: Vital Signs Temperature 98.7 F 10/31/18 06:22 Pulse Rate 89 10/31/18 10:00 Respiratory Rate 24 H 10/31/18 10:00 Blood Pressure 138/82 10/31/18 10:00 O2 Sat by Pulse Oximetry (%) 95 10/31/18 10:00 Constitutional: Yes: Other (mildly tachypneic at rest) Eyes: Yes: Conjunctiva Clear, EOM Intact HENT: Yes: Atraumatic, Normocephalic, Other (dry mucous membranes) Neck: Yes: Supple, Trachea Midline Cardiovascular: Yes: Regular Rate and Rhythm Respiratory: Yes: Rales (left base) ...Clubbing: No Gastrointestinal: Yes: Normal Bowel Sounds, Soft. No: Tenderness Edema: No Neurological: Yes: Lethargy Labs: CBC, BMP 10/31/18 06:00 10/31/18 06:00 Imaging - Results Chest X-ray: Report Reviewed, Image Reviewed (possible retrocardiac infiltrate, scoliosis, dilated bowel loops) Problem List - Problems (1) Acute exacerbation of chronic obstructive pulmonary disease (COPD) Code(s): J44.1 - CHRONIC OBSTRUCTIVE PULMONARY DISEASE W (ACUTE) EXACERBATION Assessment/Plan Acute Hypoxic Respiratory Failure improving Acute COPD Exacerbation r/o Aspiration Pneumonia UTI CAD LV Systolic Dysfunction Atrial Fibrillation VT s/p ICD Advanced Dementia - IV medrol - inhaled bronchodilators standing and PRN - antibiotics - f/u cultures - IVF - monitor urine output - O2 to keep SpO2 >90% - rate control - aspiration precautions - DVT prophylaxis Thank you for this consult Luis Enrique Coleman MD
--- NOTE | 2018-10-31 13:41 | CONS ---
INFECTIOUS DISEASE CONSULTATION DATE OF CONSULTATION: DATE OF DICTATION: 10/31/2018 HISTORY OF PRESENT ILLNESS: The patient is an 78-year-old, female who is evaluated for pneumonia and urinary tract infection. History obtained from the chart, as well as the patient's who is present at the time of the examination. She is a care home resident. She suffers from dementia. She is dependent in activities of daily living. Over the past several days, the reports, she had become increasingly short of breath and had been coughing. She was transferred to the emergency room, where she was noted to have low-grade fever and an elevated white blood cell count. Chest x-ray showed cardiomegaly, possible infiltrate. She was empirically treated with Zithromax, Macrobid, and steroids. At the present time, she is lethargic, somnolent. She is slightly short of breath at rest on nasal cannula oxygen. She has been coughing with difficulty expectorating. The patient was last hospitalized in June of this year. She has a history of ESBL urinary tract infections. PAST MEDICAL HISTORY: Positive for dementia, coronary artery disease, myocardial infarction, COPD, atrial fibrillation. PAST SURGICAL HISTORY: Status post coronary artery stent. ALLERGIES: ASPIRIN; PENICILLIN. MEDICATIONS: Include Tylenol, albuterol, amiodarone, folic acid, Lasix, Zyprexa. SOCIAL HISTORY: She resides in a alf facility. No active tobacco use. She is dependent in activities of daily living. SYSTEMS REVIEW: Neurologic: Positive for dementia. Cardiac: Negative chest pain or palpitations. Respiratory: As per HPI. Gastrointestinal: Negative vomiting or diarrhea. Genitourinary: Positive for recurrent urinary tract infections. LABORATORY DATA: White count 21.8, hematocrit 33.1, platelets 336. BUN 24, creatinine 0.9. Urinalysis: White cells 139. PHYSICAL EXAMINATION: General: On physical examination, she is lethargic, somnolent, supine in bed, slightly short of breath on nasal cannula O2. Vital Signs: Temperature 98.7, T-maximum 99.8, blood pressure 138/82, pulse 89 regular, respirations 24 per minute. Heart: Heart sounds distant S1, S2. Lungs: Diminished breath sounds bilaterally. Poor inspiratory effort. Abdomen: Soft and nontender. Extremities: Negative for edema. Negative Homans sign. IMPRESSION: 1. Acute exacerbation chronic obstructive pulmonary disease. 2. Rule out healthcare-acquired pneumonia. 3. History of extended-spectrum beta-lactamase urinary tract infection. 4. Urinary tract infection. 5. PENICILLIN allergy. Await cultures. Empiric antibiotic coverage with ertapenem. Obtain sputum culture, urine legionella and pneumococcal antigens. Contact precautions for ESBL. Case discussed with patient's present at the time of examination. Thank you for the kind referral. JOANNA GALLEGO M.D. [id number]
[2018-10-31] MEDS ORDERED: ACETAMINOPHEN 325 MG TABLET (FP) PO PRN (16:13)
[2018-10-31] MEDS ORDERED: OLANZapine 2.5 MG TABLET PO SCH (16:30)
[2018-10-31] MEDS: OLANZapine 2.5 MG TABLET PO SCH (17:40)
[2018-10-31] MEDS: DOCUSATE SODIUM 100 MG CAPSULE (FP) PO SCH ×2 (17:40→22:21)
[2018-10-31] MEDS: ERTAPENEM SODIUM 1 GM in SODIUM CHLORIDE 50 ML IVPB SCH (19:47)
[2018-10-31] MEDS ORDERED: DOCUSATE SODIUM 100 MG CAPSULE (FP) PO SCH (22:00)
[2018-10-31] MEDS ORDERED: HEPARIN NA (PORCINE) 5,000 UNITS/ML 1ML VIAL SQ SCH (22:00)
[2018-11-01] MEDS: FOLIC ACID 1 MG TABLET (FP) PO SCH (10:15)
[2018-11-01] MEDS: FERROUS SO4 325 MG TABLET (FP) PO SCH (10:15)
[2018-11-01] MEDS: AMIODARONE HCL 200 MG TABLET (FP) PO SCH (10:15)
[2018-11-01] MEDS: methylPREDNISolone NA SUCC 40 MG/1 ML VIAL IVPUSH SCH ×2 (10:15→22:36)
[2018-11-01] MEDS: HEPARIN NA (PORCINE) 5,000 UNITS/ML 1ML VIAL SQ SCH ×2 (10:15→22:37)
[2018-11-01] MEDS: ERTAPENEM SODIUM 1 GM in SODIUM CHLORIDE 50 ML IVPB SCH (10:15)
[2018-11-01] MEDS: metoPROLOL SUCCINATE 25 MG TAB.SR.24H (FP) PO SCH (10:16)
--- NOTE | 2018-11-01 11:03 | PN ---
Progress Note (short form) - Note Progress Note: not in distress Vital Signs - 24 hr 10/31/18 10/31/18 10/31/18 15:02 15:08 16:33 Temperature 97.8 F Pulse Rate 87 Pulse Rate [ 90 Right Radial] Respiratory 19 22 H Rate Blood Pressure 141/65 Blood Pressure 136/89 [Left Arm] O2 Sat by Pulse 94 L 94 L Oximetry (%) 10/31/18 10/31/18 10/31/18 16:45 21:00 23:00 Temperature 97.9 F Pulse Rate 83 Pulse Rate [ Right Radial] Respiratory 18 Rate Blood Pressure 147/78 Blood Pressure [Left Arm] O2 Sat by Pulse 96 96 Oximetry (%) 11/01/18 06:00 Temperature 98.3 F Pulse Rate 86 Pulse Rate [ Right Radial] Respiratory 18 Rate Blood Pressure 136/92 Blood Pressure [Left Arm] O2 Sat by Pulse Oximetry (%) Current Medications Generic Name Dose Route Start Last Admin Trade Name Freq PRN Reason Stop Dose Admin Acetaminophen 650 mg 10/31/18 16:13 Tylenol - PO Q4H PRN PAIN LEVEL 1-5 Amiodarone HCl 200 mg 11/01/18 10:00 11/01/18 10:15 Cordarone - PO 200 mg DAILY PENG Administration Docusate Sodium 300 mg 10/31/18 17:00 10/31/18 22:21 Colace - PO Not Given HS [facility] Ferrous Sulfate 325 mg 11/01/18 10:00 11/01/18 10:15 Feosol - PO 325 mg DAILY PENG Administration Folic Acid 1 mg 11/01/18 10:00 11/01/18 10:15 Folic Acid - PO 1 mg DAILY PENG Administration Heparin Sodium (Porcine) 5,000 unit 10/31/18 18:00 11/01/18 10:15 Heparin - SQ 5,000 unit BID PENG Administration Ertapenem 1 gm/ Sodium 50 mls @ 100 mls/hr 10/31/18 14:15 11/01/18 10:15 Chloride IVPB 100 mls/hr DAILY PENG Administration Methylprednisolone Sodium Succinate 40 mg 10/31/18 22:00 11/01/18 10:15 Solu-Medrol - IVPUSH 40 mg BID PENG Administration Metoprolol Succinate 12.5 mg 11/01/18 10:00 11/01/18 10:16 Toprol Xl - PO 12.5 mg DAILY PENG Administration Olanzapine 5 mg 10/31/18 16:30 10/31/18 17:40 Zyprexa - PO 5 mg 1630 PENG Administration S1 s2 RRR Lungs decreased+ ronchi+ Abd- soft, NT no edema PLAN IV solumedrol -- iv antibiotics nebs O2 OOB daily Cardiology eval noted Pulmonary consult/ID appreciated Problem List - Problems (1) CHF (congestive heart failure) Code(s): I50.9 - HEART FAILURE, UNSPECIFIED Qualifiers: Heart failure type: unspecified Heart failure chronicity: unspecified Qualified Code(s): I50.9 - Heart failure, unspecified (2) COPD (chronic obstructive pulmonary disease) Code(s): J44.9 - CHRONIC OBSTRUCTIVE PULMONARY DISEASE, UNSPECIFIED Qualifiers: COPD type: unspecified COPD Qualified Code(s): J44.9 - Chronic obstructive pulmonary disease, unspecified (3) Troponin level elevated Code(s): R74.8 - ABNORMAL LEVELS OF OTHER SERUM ENZYMES (4) Acute exacerbation of chronic obstructive pulmonary disease (COPD) Code(s): J44.1 - CHRONIC OBSTRUCTIVE PULMONARY DISEASE W (ACUTE) EXACERBATION (5) HTN (hypertension) Code(s): I10 - ESSENTIAL (PRIMARY) HYPERTENSION
--- NOTE | 2018-11-01 13:49 | PN ---
Progress Note (short form) - Note Progress Note: PULMONARY Pt nonverbal. No fevers recorded. Vital Signs Period Temp Pulse Resp BP Sys/Bundy Pulse Ox Last 24 Hr 97.8 F-98.3 F 83-90 18-22 136-147/65-92 94-96 Gen: NAD at rest Heart: RRR Lung: decreased breath sounds at the bases Abd: soft, nontender Ext: no edema CBC, BMP 10/31/18 06:00 10/31/18 06:00 Active Medications Acetaminophen (Tylenol -) 650 mg PO Q4H PRN PRN Reason: PAIN LEVEL 1-5 Amiodarone HCl (Cordarone -) 200 mg PO DAILY [facility] Last Admin: 11/01/18 10:15 Dose: 200 mg Docusate Sodium (Colace -) 300 mg PO HS [facility] Last Admin: 10/31/18 22:21 Dose: Not Given Ferrous Sulfate (Feosol -) 325 mg PO DAILY [facility] Last Admin: 11/01/18 10:15 Dose: 325 mg Folic Acid (Folic Acid -) 1 mg PO DAILY [facility] Last Admin: 11/01/18 10:15 Dose: 1 mg Heparin Sodium (Porcine) (Heparin -) 5,000 unit SQ BID [facility] Last Admin: 11/01/18 10:15 Dose: 5,000 unit Ertapenem 1 gm/ Sodium (Chloride) 50 mls @ 100 mls/hr IVPB DAILY [facility] Last Admin: 11/01/18 10:15 Dose: 100 mls/hr Methylprednisolone Sodium Succinate (Solu-Medrol -) 40 mg IVPUSH BID [facility] Last Admin: 11/01/18 10:15 Dose: 40 mg Metoprolol Succinate (Toprol Xl -) 12.5 mg PO DAILY [facility] Last Admin: 11/01/18 10:16 Dose: 12.5 mg Olanzapine (Zyprexa -) 5 mg PO 1630 [facility] Last Admin: 10/31/18 17:40 Dose: 5 mg A/P Acute Hypoxic Respiratory Failure improving Acute COPD Exacerbation r/o Aspiration Pneumonia UTI CAD LV Systolic Dysfunction Atrial Fibrillation VT s/p ICD Advanced Dementia - continue medrol, can likely change to PO prednisone 40mg daily in AM - inhaled bronchodilators standing and PRN - antibiotics - f/u cultures - IVF - monitor urine output - O2 to keep SpO2 >90% - rate control - aspiration precautions - DVT prophylaxis Problem List - Problems (1) Acute exacerbation of chronic obstructive pulmonary disease (COPD) Code(s): J44.1 - CHRONIC OBSTRUCTIVE PULMONARY DISEASE W (ACUTE) EXACERBATION
[2018-11-01] MEDS: KCL 10 MEQ IVPB 10 MEQ/100 ML INFUS.BAG IVPB SCH ×3 (14:42→18:42)
--- NOTE | 2018-11-01 16:04 | PN ---
Progress Note, Physician History of Present Illness: AWAKE BUT CONFUSED NO ACUTE DISTRESS AFEBRILE BC (-) URINE C/S NLF - Current Medication List Current Medications: Active Medications Acetaminophen (Tylenol -) 650 mg PO Q4H PRN PRN Reason: PAIN LEVEL 1-5 Amiodarone HCl (Cordarone -) 200 mg PO DAILY [facility] Last Admin: 11/01/18 10:15 Dose: 200 mg Docusate Sodium (Colace -) 300 mg PO HS [facility] Last Admin: 10/31/18 22:21 Dose: Not Given Ferrous Sulfate (Feosol -) 325 mg PO DAILY [facility] Last Admin: 11/01/18 10:15 Dose: 325 mg Folic Acid (Folic Acid -) 1 mg PO DAILY [facility] Last Admin: 11/01/18 10:15 Dose: 1 mg Heparin Sodium (Porcine) (Heparin -) 5,000 unit SQ BID [facility] Last Admin: 11/01/18 10:15 Dose: 5,000 unit Ertapenem 1 gm/ Sodium (Chloride) 50 mls @ 100 mls/hr IVPB DAILY [facility] Last Admin: 11/01/18 10:15 Dose: 100 mls/hr Potassium Chloride (Potassium Chloride 10 Meq Premix Ivpb -) 10 meq in 100 mls @ 100 mls/hr IVPB Q60M [facility] Stop: 11/01/18 16:59 Last Admin: 11/01/18 14:42 Dose: 100 mls/hr Methylprednisolone Sodium Succinate (Solu-Medrol -) 40 mg IVPUSH BID [facility] Last Admin: 11/01/18 10:15 Dose: 40 mg Metoprolol Succinate (Toprol Xl -) 12.5 mg PO DAILY [facility] Last Admin: 11/01/18 10:16 Dose: 12.5 mg Olanzapine (Zyprexa -) 5 mg PO 1630 [facility] Last Admin: 10/31/18 17:40 Dose: 5 mg - Objective Vital Signs: Vital Signs Temperature 97.8 F 11/01/18 14:00 Pulse Rate 82 11/01/18 14:00 Respiratory Rate 20 11/01/18 14:00 Blood Pressure 145/86 11/01/18 14:00 O2 Sat by Pulse Oximetry (%) 96 11/01/18 09:00 Constitutional: Yes: No Distress Cardiovascular: Yes: Regular Rate and Rhythm, S1, S2 Respiratory: Yes: Diminished Gastrointestinal: Yes: Normal Bowel Sounds, Soft. No: Tenderness Labs: CBC, BMP 10/31/18 06:00 10/31/18 06:00 INR, PTT INR 1.13 (0.83-1.09) H 10/30/18 16:45 Assessment/Plan ACUTE EXACERBATION COPD ? PNEUMONIA UTI LEUKOCYTOSIS PCN ALLERGY HX ESBL AWAIT C/S CONTINUE ERTAPENEM
[2018-11-01 16:20] VITALS: BMI 22.6
[2018-11-01] MEDS: OLANZapine 2.5 MG TABLET PO SCH (18:41)
[2018-11-01] MEDS: DOCUSATE SODIUM 100 MG CAPSULE (FP) PO SCH ×2 (22:37→22:40)
[2018-11-02 09:04] LABS: BASO % 0.2 % (0-2.0); HEMATOCRIT 34.4 % (32.4-45.2); HEMOGLOBIN 10.8 GM/dL (10.7-15.3); LYMPH % 5.4 % (8-40); MCH 28.7 pg (25.7-33.7); MCHC 31.4 g/dl (32.0-36.0); MEAN CELL VOLUME 91.4 fl (80-96); MEAN PLT VOLUME 8.6 fl (7.5-11.1); MONO % 3.9 % (3.8-10.2); NEUT % 90.5 % (42.8-82.8); PLATELET COUNT 331 K/MM3 (134-434); RBC 3.76 M/mm3 (3.60-5.2); RDW 15.9 % (11.6-15.6); WHITE BLOOD COUNT 12.1 K/mm3 (4.0-10.0)
[2018-11-02 09:06] LABS: ALBUMIN 2.6 g/dl (3.4-5.0); BILIRUBIN,TOTAL 0.3 mg/dL (0.2-1); BLOOD UREA NITROGEN 37.4 mg/dL (7-18); CALCIUM 9.6 mg/dL (8.5-10.1); POTASSIUM 4.1 mmol/L (3.5-5.1)
--- NOTE | 2018-11-02 09:53 | PN ---
Progress Note (short form) - Note Progress Note: PULMONARY More alert, awake today. Answering some questions. No current complaints. No fevers recorded. Vital Signs Period Temp Pulse Resp BP Sys/Bundy Pulse Ox Last 24 Hr 97.8 F-98.9 F 72-85 18-20 109-153/62-92 98 Gen: NAD at rest Heart: RRR Lung: decreased breath sounds at the bases Abd: soft, nontender Ext: no edema CBC, BMP 11/02/18 06:50 Active Medications Acetaminophen (Tylenol -) 650 mg PO Q4H PRN PRN Reason: PAIN LEVEL 1-5 Amiodarone HCl (Cordarone -) 200 mg PO DAILY [facility] Last Admin: 11/01/18 10:15 Dose: 200 mg Docusate Sodium (Colace -) 300 mg PO HS [facility] Last Admin: 11/01/18 22:40 Dose: Not Given Ferrous Sulfate (Feosol -) 325 mg PO DAILY [facility] Last Admin: 11/01/18 10:15 Dose: 325 mg Folic Acid (Folic Acid -) 1 mg PO DAILY [facility] Last Admin: 11/01/18 10:15 Dose: 1 mg Heparin Sodium (Porcine) (Heparin -) 5,000 unit SQ BID [facility] Last Admin: 11/01/18 22:37 Dose: 5,000 unit Ertapenem 1 gm/ Sodium (Chloride) 50 mls @ 100 mls/hr IVPB DAILY [facility] Last Admin: 11/01/18 10:15 Dose: 100 mls/hr Methylprednisolone Sodium Succinate (Solu-Medrol -) 40 mg IVPUSH BID [facility] Last Admin: 11/01/18 22:36 Dose: 40 mg Metoprolol Succinate (Toprol Xl -) 12.5 mg PO DAILY [facility] Last Admin: 11/01/18 10:16 Dose: 12.5 mg Olanzapine (Zyprexa -) 5 mg PO 1630 [facility] Last Admin: 11/01/18 18:41 Dose: 5 mg A/P Acute Hypoxic Respiratory Failure improving Acute COPD Exacerbation r/o Aspiration Pneumonia UTI CAD LV Systolic Dysfunction Atrial Fibrillation VT s/p ICD Advanced Dementia - will change steroids to PO prednisone 40mg daily - inhaled bronchodilators standing and PRN - antibiotics - f/u cultures - IVF - monitor urine output - O2 to keep SpO2 >90% - rate control - aspiration precautions - DVT prophylaxis Problem List - Problems (1) Acute exacerbation of chronic obstructive pulmonary disease (COPD) Code(s): J44.1 - CHRONIC OBSTRUCTIVE PULMONARY DISEASE W (ACUTE) EXACERBATION
[2018-11-02] MEDS ORDERED: PT OWN MED DRAWER 7, Y5N ONE ×2 (10:56→23:21)
[2018-11-02] MEDS: ERTAPENEM SODIUM 1 GM in SODIUM CHLORIDE 50 ML IVPB SCH (11:05)
[2018-11-02] MEDS: metoPROLOL SUCCINATE 25 MG TAB.SR.24H (FP) PO SCH (11:05)
[2018-11-02] MEDS: FOLIC ACID 1 MG TABLET (FP) PO SCH (11:06)
[2018-11-02] MEDS: AMIODARONE HCL 200 MG TABLET (FP) PO SCH (11:06)
[2018-11-02] MEDS: predniSONE 20 MG TABLET (UD) PO SCH (11:06)
[2018-11-02] MEDS: FERROUS SO4 325 MG TABLET (FP) PO SCH (11:06)
[2018-11-02] MEDS: HEPARIN NA (PORCINE) 5,000 UNITS/ML 1ML VIAL SQ SCH ×2 (11:07→22:40)
[2018-11-02] MEDS ORDERED: guaiFENesin 200 MG/10 ML 10 ML UNIT-DOSE CUPS PO PRN (12:55)
--- NOTE | 2018-11-02 12:55 | PN ---
Progress Note (short form) - Note Progress Note: not in distress has occasional coughing episodes Vital Signs - 24 hr 11/01/18 11/01/18 11/01/18 14:00 17:30 21:00 Temperature 97.8 F 98.9 F 98.1 F Pulse Rate 82 82 72 Respiratory 20 20 18 Rate Blood Pressure 145/86 109/62 128/76 O2 Sat by Pulse 98 Oximetry (%) 11/02/18 11/02/18 03:53 06:00 Temperature 98.4 F 98.1 F Pulse Rate 85 83 Respiratory 18 18 Rate Blood Pressure 144/89 153/92 O2 Sat by Pulse Oximetry (%) Current Medications Generic Name Dose Route Start Last Admin Trade Name Freq PRN Reason Stop Dose Admin Acetaminophen 650 mg 10/31/18 16:13 Tylenol - PO Q4H PRN PAIN LEVEL 1-5 Amiodarone HCl 200 mg 11/01/18 10:00 11/02/18 11:06 Cordarone - PO 200 mg DAILY PENG Administration Docusate Sodium 300 mg 10/31/18 17:00 11/01/18 22:40 Colace - PO Not Given HS PENG Ferrous Sulfate 325 mg 11/01/18 10:00 11/02/18 11:06 Feosol - PO 325 mg DAILY PENG Administration Folic Acid 1 mg 11/01/18 10:00 11/02/18 11:06 Folic Acid - PO 1 mg DAILY PENG Administration Heparin Sodium (Porcine) 5,000 unit 10/31/18 18:00 11/02/18 11:07 Heparin - SQ 5,000 unit BID PENG Administration Ertapenem 1 gm/ Sodium 50 mls @ 100 mls/hr 10/31/18 14:15 11/02/18 11:05 Chloride IVPB 100 mls/hr DAILY PENG Administration Metoprolol Succinate 12.5 mg 11/01/18 10:00 11/02/18 11:05 Toprol Xl - PO 12.5 mg DAILY PENG Administration Olanzapine 5 mg 10/31/18 16:30 11/01/18 18:41 Zyprexa - PO 5 mg 1630 PENG Administration Prednisone 40 mg 11/02/18 10:00 11/02/18 11:06 Deltasone - PO 40 mg DAILY PENG Administration Laboratory Results - last 24 hr 11/02/18 06:50 Sodium 145 Potassium 4.1 Chloride 114 H Carbon Dioxide 21 Anion Gap 11 BUN 37.4 H Creatinine 1.0 Est GFR (CKD-EPI)AfAm 61.62 Est GFR (CKD-EPI)NonAf 53.17 Random Glucose 114 H Calcium 9.6 Total Bilirubin 0.3 AST 24 ALT 27 Alkaline Phosphatase 99 Total Protein 7.0 Albumin 2.6 L S1 s2 RRR Lungs decreased+ ronchi+ Abd- soft, NT no edema PLAN IV solumedrol-->changed to po prednisone -- iv antibiotics nebs O2 as needed OOB daily Cardiology eval noted Pulmonary consult/ID appreciated Problem List - Problems (1) CHF (congestive heart failure) Code(s): I50.9 - HEART FAILURE, UNSPECIFIED Qualifiers: Heart failure type: unspecified Heart failure chronicity: unspecified Qualified Code(s): I50.9 - Heart failure, unspecified (2) COPD (chronic obstructive pulmonary disease) Code(s): J44.9 - CHRONIC OBSTRUCTIVE PULMONARY DISEASE, UNSPECIFIED Qualifiers: COPD type: unspecified COPD Qualified Code(s): J44.9 - Chronic obstructive pulmonary disease, unspecified (3) Troponin level elevated Code(s): R74.8 - ABNORMAL LEVELS OF OTHER SERUM ENZYMES (4) Acute exacerbation of chronic obstructive pulmonary disease (COPD) Code(s): J44.1 - CHRONIC OBSTRUCTIVE PULMONARY DISEASE W (ACUTE) EXACERBATION (5) HTN (hypertension) Code(s): I10 - ESSENTIAL (PRIMARY) HYPERTENSION
[2018-11-02 13:07] LABS: HEMATOCRIT 35.5 % (32.4-45.2); MCH 28.2 pg (25.7-33.7); MCHC 31.1 g/dl (32.0-36.0); MEAN CELL VOLUME 90.6 fl (80-96); MEAN PLT VOLUME 8.3 fl (7.5-11.1); PLATELET COUNT 325 K/MM3 (134-434); RBC 3.91 M/mm3 (3.60-5.2); RDW 15.5 % (11.6-15.6); WHITE BLOOD COUNT 14.6 K/mm3 (4.0-10.0)
[2018-11-02] MEDS: OLANZapine 2.5 MG TABLET PO SCH (18:09)
[2018-11-02] MEDS: DOCUSATE SODIUM 100 MG CAPSULE (FP) PO SCH (22:39)
[2018-11-03 08:18] LABS: HEMATOCRIT 36.6 % (32.4-45.2); HEMOGLOBIN 11.9 GM/dL (10.7-15.3); MCHC 32.6 g/dl (32.0-36.0); MEAN PLT VOLUME 8.7 fl (7.5-11.1); PLATELET COUNT 341 K/MM3 (134-434); RBC 4.11 M/mm3 (3.60-5.2); RDW 15.2 % (11.6-15.6); WHITE BLOOD COUNT 12.8 K/mm3 (4.0-10.0)
[2018-11-03 08:44] LABS: BLOOD UREA NITROGEN 42.3 mg/dL (7-18); CALCIUM 9.6 mg/dL (8.5-10.1); CREATININE 0.9 mg/dL (0.55-1.3); POTASSIUM 4.5 mmol/L (3.5-5.1)
[2018-11-03] MEDS ORDERED: PT OWN MED DRAWER 7, Y5N ONE ×3 (09:45→17:44)
[2018-11-03] MEDS: AMIODARONE HCL 200 MG TABLET (FP) PO SCH (09:50)
[2018-11-03] MEDS: metoPROLOL SUCCINATE 25 MG TAB.SR.24H (FP) PO SCH (09:50)
[2018-11-03] MEDS: FERROUS SO4 325 MG TABLET (FP) PO SCH (09:51)
[2018-11-03] MEDS: ERTAPENEM SODIUM 1 GM in SODIUM CHLORIDE 50 ML IVPB SCH (09:51)
[2018-11-03] MEDS: HEPARIN NA (PORCINE) 5,000 UNITS/ML 1ML VIAL SQ SCH ×2 (09:51→22:18)
[2018-11-03] MEDS: FOLIC ACID 1 MG TABLET (FP) PO SCH (09:51)
[2018-11-03] MEDS: predniSONE 20 MG TABLET (UD) PO SCH (09:51)
--- NOTE | 2018-11-03 11:12 | PN ---
Progress Note, Physician History of Present Illness: MORE AWAKE SUPINE IN BED NO ACUTE DISTRESS BREATHING NON-LABORED NO COUGH NOTED AFEBRILE BC (-) URINE C/S [facility] SP - Current Medication List Current Medications: Active Medications Acetaminophen (Tylenol -) 650 mg PO Q4H PRN PRN Reason: PAIN LEVEL 1-5 Amiodarone HCl (Cordarone -) 200 mg PO DAILY [facility] Last Admin: 11/03/18 09:50 Dose: 200 mg Docusate Sodium (Colace -) 300 mg PO HS [facility] Last Admin: 11/02/18 22:39 Dose: 300 mg Ferrous Sulfate (Feosol -) 325 mg PO DAILY [facility] Last Admin: 11/03/18 09:51 Dose: 325 mg Folic Acid (Folic Acid -) 1 mg PO DAILY [facility] Last Admin: 11/03/18 09:51 Dose: 1 mg Guaifenesin (Robitussin -) 10 ml PO Q4H PRN PRN Reason: COUGH Heparin Sodium (Porcine) (Heparin -) 5,000 unit SQ BID [facility] Last Admin: 11/03/18 09:51 Dose: 5,000 unit Ertapenem 1 gm/ Sodium (Chloride) 50 mls @ 100 mls/hr IVPB DAILY [facility] Last Admin: 11/03/18 09:51 Dose: 100 mls/hr Metoprolol Succinate (Toprol Xl -) 12.5 mg PO DAILY [facility] Last Admin: 11/03/18 09:50 Dose: 12.5 mg Olanzapine (Zyprexa -) 5 mg PO 1630 [facility] Last Admin: 11/02/18 18:09 Dose: 5 mg Prednisone (Deltasone -) 40 mg PO DAILY [facility] Last Admin: 11/03/18 09:51 Dose: 40 mg - Objective Vital Signs: Vital Signs Temperature 97.7 F 11/03/18 06:00 Pulse Rate 80 11/03/18 06:00 Respiratory Rate 20 11/03/18 06:00 Blood Pressure 160/99 11/03/18 06:00 O2 Sat by Pulse Oximetry (%) 98 11/02/18 21:00 Constitutional: Yes: No Distress Eyes: Yes: Conjunctiva Clear Cardiovascular: Yes: Regular Rate and Rhythm, S1, S2 Respiratory: Yes: Diminished Gastrointestinal: Yes: Normal Bowel Sounds, Soft. No: Tenderness Edema: No Labs: CBC, BMP 11/03/18 07:13 11/03/18 07:13 INR, PTT INR 1.13 (0.83-1.09) H 10/30/18 16:45 Assessment/Plan ACUTE EXACERBATION COPD ? 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
--- NOTE | 2018-11-03 12:42 | PN ---
Progress Note (short form) - Note Progress Note: pt seen/ examined chart reviewed comfortable at bedside Vital Signs Temp 97.7 F 11/03/18 06:00 Pulse 80 11/03/18 06:00 Resp 20 11/03/18 06:00 BP 160/99 11/03/18 06:00 Pulse Ox 98 11/02/18 21:00 Intake & Output 11/02/18 11/03/18 11/03/18 23:59 11:59 23:59 Intake Total 0 0 Balance 0 0 Weight 134 lb 8 oz Intake: IVPB 0 0 Other: Voiding Method Incontinent # Unmeasured Voids Void 2 Bowel Movement Yes # Bowel Movements 1 [facility] Medications Acetaminophen (Tylenol -) 650 mg PO Q4H PRN PRN Reason: PAIN LEVEL 1-5 Amiodarone HCl (Cordarone -) 200 mg PO DAILY [facility] Last Admin: 11/03/18 09:50 Dose: 200 mg Docusate Sodium (Colace -) 300 mg PO HS [facility] Last Admin: 11/02/18 22:39 Dose: 300 mg Ferrous Sulfate (Feosol -) 325 mg PO DAILY [facility] Last Admin: 11/03/18 09:51 Dose: 325 mg Folic Acid (Folic Acid -) 1 mg PO DAILY [facility] Last Admin: 11/03/18 09:51 Dose: 1 mg Guaifenesin (Robitussin -) 10 ml PO Q4H PRN PRN Reason: COUGH Heparin Sodium (Porcine) (Heparin -) 5,000 unit SQ BID [facility] Last Admin: 11/03/18 09:51 Dose: 5,000 unit Ertapenem 1 gm/ Sodium (Chloride) 50 mls @ 100 mls/hr IVPB DAILY [facility] Last Admin: 11/03/18 09:51 Dose: 100 mls/hr Metoprolol Succinate (Toprol Xl -) 12.5 mg PO DAILY [facility] Last Admin: 11/03/18 09:50 Dose: 12.5 mg Olanzapine (Zyprexa -) 5 mg PO 1630 [facility] Last Admin: 11/02/18 18:09 Dose: 5 mg Prednisone (Deltasone -) 40 mg PO DAILY [facility] Last Admin: 11/03/18 09:51 Dose: 40 mg CBC, BMP 11/03/18 07:13 11/03/18 07:13 Microbiology 10/31/18 19:30 Blood Culture - Preliminary Blood - Peripheral Venous NO GROWTH OBTAINED AFTER 48 HOURS, INCUBATION TO CONTINUE FOR 3 DAYS. 10/31/18 19:20 Blood Culture - Preliminary Blood - Peripheral Venous NO GROWTH OBTAINED AFTER 48 HOURS, INCUBATION TO CONTINUE FOR 3 DAYS. 10/30/18 16:45 Urine Culture - Final Urine - Urine - Catheterized Kita Mercado Physical Exam S1 s2 RRR Lungs decreased+ ronchi+ Abd- soft, NT no edema PLAN IV solumedrol-->changed to po prednisone -- iv antibiotics nebs O2 as needed OOB daily Cardiology eval noted Pulmonary consult/ID appreciated f/u cultures D/w pts in detail will follow Problem List - Problems (1) CHF (congestive heart failure) Code(s): I50.9 - HEART FAILURE, UNSPECIFIED Qualifiers: Heart failure type: unspecified Heart failure chronicity: unspecified Qualified Code(s): I50.9 - Heart failure, unspecified (2) COPD (chronic obstructive pulmonary disease) Code(s): J44.9 - CHRONIC OBSTRUCTIVE PULMONARY DISEASE, UNSPECIFIED Qualifiers: COPD type: unspecified COPD Qualified Code(s): J44.9 - Chronic obstructive pulmonary disease, unspecified (3) Troponin level elevated Code(s): R74.8 - ABNORMAL LEVELS OF OTHER SERUM ENZYMES (4) Acute exacerbation of chronic obstructive pulmonary disease (COPD) Code(s): J44.1 - CHRONIC OBSTRUCTIVE PULMONARY DISEASE W (ACUTE) EXACERBATION (5) HTN (hypertension) Code(s): I10 - ESSENTIAL (PRIMARY) HYPERTENSION
--- NOTE | 2018-11-03 14:47 | PN ---
Progress Note (short form) - Note Progress Note: PULMONARY TMAX 99 LESS RESPONSIVE TODAY PALE/ANICTERIC/DRY ORAL MUCOSA DISTANT BREATH SOUNDS B/L ANTERIOR S1S2 BS+ SCD'S BILATERAL LABS/MEDS/NOTES/IMAGES REVIEWED A/P Acute Hypoxic Respiratory Failure improved Acute COPD Exacerbation resolving ?Aspiration Pneumonia UTI CAD LV Systolic Dysfunction Atrial Fibrillation VT s/p ICD Advanced Dementia - steroids to taper - inhaled bronchodilators standing and PRN - antibiotics as per ID - blood cultures negative - IVF as needed - monitor urine output - O2 to keep SpO2 >90% - rate control - aspiration precautions - DVT prophylaxis Yasmine GREER MD
[2018-11-03] MEDS: OLANZapine 2.5 MG TABLET PO SCH (17:13)
[2018-11-03] MEDS: DOCUSATE SODIUM 100 MG CAPSULE (FP) PO SCH (22:31)
[2018-11-04] MEDS ORDERED: PT OWN MED DRAWER 7, Y5N ONE (09:35)
[2018-11-04] MEDS: ERTAPENEM SODIUM 1 GM in SODIUM CHLORIDE 50 ML IVPB SCH (09:42)
[2018-11-04] MEDS: metoPROLOL SUCCINATE 25 MG TAB.SR.24H (FP) PO SCH (09:42)
[2018-11-04] MEDS: FOLIC ACID 1 MG TABLET (FP) PO SCH (09:42)
[2018-11-04] MEDS: FERROUS SO4 325 MG TABLET (FP) PO SCH (09:42)
[2018-11-04] MEDS: predniSONE 20 MG TABLET (UD) PO SCH (09:42)
[2018-11-04] MEDS: AMIODARONE HCL 200 MG TABLET (FP) PO SCH (09:42)
[2018-11-04] MEDS: HEPARIN NA (PORCINE) 5,000 UNITS/ML 1ML VIAL SQ SCH ×2 (09:43→21:57)
--- NOTE | 2018-11-04 11:12 | PN ---
Progress Note (short form) - Note Progress Note: not in distress has occasional coughing episodes no sob at bedside Vital Signs - 24 hr 11/03/18 11/03/18 11/03/18 14:00 16:30 20:00 Temperature 98.2 F 98.1 F 98 F Pulse Rate 96 H 80 84 Respiratory 20 18 17 Rate Blood Pressure 152/97 110/61 124/84 O2 Sat by Pulse Oximetry (%) 11/03/18 11/04/18 11/04/18 21:00 00:00 04:00 Temperature 98.1 F 97.6 F Pulse Rate 72 76 Respiratory 17 Rate Blood Pressure 137/72 164/96 O2 Sat by Pulse 98 Oximetry (%) 11/04/18 11/04/18 08:00 09:00 Temperature 97.6 F Pulse Rate 79 Respiratory 18 Rate Blood Pressure 108/65 O2 Sat by Pulse 98 Oximetry (%) Current Medications Generic Name Dose Route Start Last Admin Trade Name Freq PRN Reason Stop Dose Admin Acetaminophen 650 mg 10/31/18 16:13 Tylenol - PO Q4H PRN PAIN LEVEL 1-5 Amiodarone HCl 200 mg 11/01/18 10:00 11/04/18 09:42 Cordarone - PO 200 mg DAILY [facility] Administration Docusate Sodium 300 mg 10/31/18 17:00 11/03/18 22:31 Colace - PO 300 mg HS [facility] Administration Ferrous Sulfate 325 mg 11/01/18 10:00 11/04/18 09:42 Feosol - PO 325 mg DAILY [facility] Administration Folic Acid 1 mg 11/01/18 10:00 11/04/18 09:42 Folic Acid - PO 1 mg DAILY [facility] Administration Guaifenesin 10 ml 11/02/18 12:55 Robitussin - PO Q4H PRN COUGH Heparin Sodium (Porcine) 5,000 unit 10/31/18 18:00 11/04/18 09:43 Heparin - SQ 5,000 unit BID [facility] Administration Ertapenem 1 gm/ Sodium 50 mls @ 100 mls/hr 10/31/18 14:15 11/04/18 09:42 Chloride IVPB 100 mls/hr DAILY [facility] Administration Metoprolol Succinate 12.5 mg 11/01/18 10:00 11/04/18 09:42 Toprol Xl - PO 12.5 mg DAILY [facility] Administration Olanzapine 5 mg 10/31/18 16:30 11/03/18 17:13 Zyprexa - PO 5 mg 1630 [facility] Administration Prednisone 40 mg 11/02/18 10:00 11/04/18 09:42 Deltasone - PO 40 mg DAILY [facility] Administration S1 s2 RRR Lungs decreased+ ronchi+ Abd- soft, NT no edema PLAN IV solumedrol-->changed to po prednisone-->taper -- iv antibiotics nebs O2 as needed OOB daily Cardiology eval noted Pulmonary consult/ID appreciated clinically improving Problem List - Problems (1) CHF (congestive heart failure) Code(s): I50.9 - HEART FAILURE, UNSPECIFIED Qualifiers: Heart failure type: unspecified Heart failure chronicity: unspecified Qualified Code(s): I50.9 - Heart failure, unspecified (2) COPD (chronic obstructive pulmonary disease) Code(s): J44.9 - CHRONIC OBSTRUCTIVE PULMONARY DISEASE, UNSPECIFIED Qualifiers: COPD type: unspecified COPD Qualified Code(s): J44.9 - Chronic obstructive pulmonary disease, unspecified (3) Troponin level elevated Code(s): R74.8 - ABNORMAL LEVELS OF OTHER SERUM ENZYMES (4) Acute exacerbation of chronic obstructive pulmonary disease (COPD) Code(s): J44.1 - CHRONIC OBSTRUCTIVE PULMONARY DISEASE W (ACUTE) EXACERBATION (5) HTN (hypertension) Code(s): I10 - ESSENTIAL (PRIMARY) HYPERTENSION
--- NOTE | 2018-11-04 11:59 | PN ---
Progress Note (short form) - Note Progress Note: PULMONARY Pt nonverbal. No fevers recorded. Vital Signs Period Temp Pulse Resp BP Sys/Bundy Pulse Ox Last 24 Hr 97.6 F-98.2 F 72-96 17-20 108-164/61-97 98-98 Gen: NAD at rest Heart: RRR Lung: decreased breath sounds at the bases Abd: soft, nontender Ext: no edema CBC, BMP 11/03/18 07:13 11/03/18 07:13 Active Medications Acetaminophen (Tylenol -) 650 mg PO Q4H PRN PRN Reason: PAIN LEVEL 1-5 Amiodarone HCl (Cordarone -) 200 mg PO DAILY [facility] Last Admin: 11/04/18 09:42 Dose: 200 mg Docusate Sodium (Colace -) 300 mg PO HS [facility] Last Admin: 11/03/18 22:31 Dose: 300 mg Ferrous Sulfate (Feosol -) 325 mg PO DAILY [facility] Last Admin: 11/04/18 09:42 Dose: 325 mg Folic Acid (Folic Acid -) 1 mg PO DAILY [facility] Last Admin: 11/04/18 09:42 Dose: 1 mg Guaifenesin (Robitussin -) 10 ml PO Q4H PRN PRN Reason: COUGH Heparin Sodium (Porcine) (Heparin -) 5,000 unit SQ BID [facility] Last Admin: 11/04/18 09:43 Dose: 5,000 unit Ertapenem 1 gm/ Sodium (Chloride) 50 mls @ 100 mls/hr IVPB DAILY [facility] Last Admin: 11/04/18 09:42 Dose: 100 mls/hr Metoprolol Succinate (Toprol Xl -) 12.5 mg PO DAILY [facility] Last Admin: 11/04/18 09:42 Dose: 12.5 mg Olanzapine (Zyprexa -) 5 mg PO 1630 [facility] Last Admin: 11/03/18 17:13 Dose: 5 mg Prednisone (Deltasone -) 30 mg PO DAILY [facility] A/P Acute Hypoxic Respiratory Failure improving Acute COPD Exacerbation r/o Aspiration Pneumonia UTI CAD LV Systolic Dysfunction Atrial Fibrillation VT s/p ICD Advanced Dementia - prednisone taper - inhaled bronchodilators standing and PRN - antibiotics - monitor urine output - O2 to keep SpO2 >90% - rate control - aspiration precautions - DVT prophylaxis Problem List - Problems (1) Acute exacerbation of chronic obstructive pulmonary disease (COPD) Code(s): J44.1 - CHRONIC OBSTRUCTIVE PULMONARY DISEASE W (ACUTE) EXACERBATION
[2018-11-04] MEDS: OLANZapine 2.5 MG TABLET PO SCH (17:18)
[2018-11-04] MEDS: DOCUSATE SODIUM 100 MG CAPSULE (FP) PO SCH (21:57)
--- NOTE | 2018-11-05 10:39 | PN ---
Progress Note (short form) - Note Progress Note: not in distress has occasional coughing episodes no sob at bedside Vital Signs - 24 hr 11/04/18 11/05/18 11/05/18 21:00 01:00 05:00 Temperature 97.8 F 97.8 F 98.1 F Pulse Rate 56 L 66 70 Respiratory 20 Rate Blood Pressure 102/68 155/83 158/85 O2 Sat by Pulse 96 Oximetry (%) 11/05/18 11/05/18 11/05/18 09:00 13:00 17:13 Temperature 98.0 F 98.2 F 97.9 F Pulse Rate 71 65 64 Respiratory 18 18 20 Rate Blood Pressure 131/75 122/69 110/62 O2 Sat by Pulse 96 Oximetry (%) Current Medications Generic Name Dose Route Start Last Admin Trade Name Freq PRN Reason Stop Dose Admin Acetaminophen 650 mg 10/31/18 16:13 Tylenol - PO Q4H PRN PAIN LEVEL 1-5 Amiodarone HCl 200 mg 11/01/18 10:00 11/05/18 11:37 Cordarone - PO 200 mg DAILY [facility] Administration Docusate Sodium 300 mg 10/31/18 17:00 11/04/18 21:57 Colace - PO 300 mg HS [facility] Administration Ferrous Sulfate 325 mg 11/01/18 10:00 11/05/18 11:37 Feosol - PO 325 mg DAILY [facility] Administration Folic Acid 1 mg 11/01/18 10:00 11/05/18 11:37 Folic Acid - PO 1 mg DAILY [facility] Administration Guaifenesin 10 ml 11/02/18 12:55 11/05/18 11:37 Robitussin - PO 10 ml Q4H PRN Administration COUGH Heparin Sodium (Porcine) 5,000 unit 10/31/18 18:00 11/05/18 11:36 Heparin - SQ 5,000 unit BID [facility] Administration Ertapenem 1 gm/ Sodium 50 mls @ 100 mls/hr 10/31/18 14:15 11/05/18 11:37 Chloride IVPB 100 mls/hr DAILY [facility] Administration Metoprolol Succinate 12.5 mg 11/01/18 10:00 11/05/18 11:37 Toprol Xl - PO 12.5 mg DAILY [facility] Administration Olanzapine 5 mg 10/31/18 16:30 11/05/18 17:31 Zyprexa - PO 5 mg 1630 [facility] Administration Prednisone 30 mg 11/05/18 10:00 11/05/18 11:37 Deltasone - PO 30 mg DAILY [facility] Administration S1 s2 RRR Lungs decreased+ ronchi+ Abd- soft, NT no edema PLAN IV solumedrol-->changed to po prednisone-->taper -- iv antibiotics -->change to po in AM-- will dc pt in AM nebs O2 as needed OOB daily Cardiology eval noted Pulmonary consult/ID appreciated clinically improving Problem List - Problems (1) CHF (congestive heart failure) Code(s): I50.9 - HEART FAILURE, UNSPECIFIED Qualifiers: Heart failure type: unspecified Heart failure chronicity: unspecified Qualified Code(s): I50.9 - Heart failure, unspecified (2) COPD (chronic obstructive pulmonary disease) Code(s): J44.9 - CHRONIC OBSTRUCTIVE PULMONARY DISEASE, UNSPECIFIED Qualifiers: COPD type: unspecified COPD Qualified Code(s): J44.9 - Chronic obstructive pulmonary disease, unspecified (3) Troponin level elevated Code(s): R74.8 - ABNORMAL LEVELS OF OTHER SERUM ENZYMES (4) Acute exacerbation of chronic obstructive pulmonary disease (COPD) Code(s): J44.1 - CHRONIC OBSTRUCTIVE PULMONARY DISEASE W (ACUTE) EXACERBATION (5) HTN (hypertension) Code(s): I10 - ESSENTIAL (PRIMARY) HYPERTENSION
[2018-11-05] MEDS ORDERED: PT OWN MED DRAWER 7, Y5N ONE (11:27)
[2018-11-05] MEDS: HEPARIN NA (PORCINE) 5,000 UNITS/ML 1ML VIAL SQ SCH ×2 (11:36→21:21)
[2018-11-05] MEDS: AMIODARONE HCL 200 MG TABLET (FP) PO SCH (11:37)
[2018-11-05] MEDS: FOLIC ACID 1 MG TABLET (FP) PO SCH (11:37)
[2018-11-05] MEDS: FERROUS SO4 325 MG TABLET (FP) PO SCH (11:37)
[2018-11-05] MEDS: ERTAPENEM SODIUM 1 GM in SODIUM CHLORIDE 50 ML IVPB SCH (11:37)
[2018-11-05] MEDS: metoPROLOL SUCCINATE 25 MG TAB.SR.24H (FP) PO SCH (11:37)
[2018-11-05] MEDS: predniSONE 10 MG TABLET (UD) PO SCH (11:37)
--- NOTE | 2018-11-05 12:00 | PN ---
Progress Note (short form) - Note Progress Note: PULMONARY Pt nonverbal. No fevers recorded. Vital Signs Period Temp Pulse Resp BP Sys/Bundy Pulse Ox Last 24 Hr 97.8 F-99.5 F 56-71 18-20 102-158/62-85 96 Gen: NAD at rest Heart: RRR Lung: decreased breath sounds at the bases Abd: soft, nontender Ext: no edema CBC, BMP 11/03/18 07:13 11/03/18 07:13 Active Medications Acetaminophen (Tylenol -) 650 mg PO Q4H PRN PRN Reason: PAIN LEVEL 1-5 Amiodarone HCl (Cordarone -) 200 mg PO DAILY [facility] Last Admin: 11/05/18 11:37 Dose: 200 mg Docusate Sodium (Colace -) 300 mg PO HS [facility] Last Admin: 11/04/18 21:57 Dose: 300 mg Ferrous Sulfate (Feosol -) 325 mg PO DAILY [facility] Last Admin: 11/05/18 11:37 Dose: 325 mg Folic Acid (Folic Acid -) 1 mg PO DAILY [facility] Last Admin: 11/05/18 11:37 Dose: 1 mg Guaifenesin (Robitussin -) 10 ml PO Q4H PRN PRN Reason: COUGH Last Admin: 11/05/18 11:37 Dose: 10 ml Heparin Sodium (Porcine) (Heparin -) 5,000 unit SQ BID [facility] Last Admin: 11/05/18 11:36 Dose: 5,000 unit Ertapenem 1 gm/ Sodium (Chloride) 50 mls @ 100 mls/hr IVPB DAILY [facility] Last Admin: 11/05/18 11:37 Dose: 100 mls/hr Metoprolol Succinate (Toprol Xl -) 12.5 mg PO DAILY [facility] Last Admin: 11/05/18 11:37 Dose: 12.5 mg Olanzapine (Zyprexa -) 5 mg PO 1630 [facility] Last Admin: 11/04/18 17:18 Dose: 5 mg Prednisone (Deltasone -) 30 mg PO DAILY [facility] Last Admin: 11/05/18 11:37 Dose: 30 mg A/P Acute Hypoxic Respiratory Failure improving Acute COPD Exacerbation r/o Aspiration Pneumonia UTI CAD LV Systolic Dysfunction Atrial Fibrillation VT s/p ICD Advanced Dementia - prednisone taper - inhaled bronchodilators standing and PRN - antibiotics - monitor urine output - O2 to keep SpO2 >90% - rate control - aspiration precautions - DVT prophylaxis Problem List - Problems (1) Acute exacerbation of chronic obstructive pulmonary disease (COPD) Code(s): J44.1 - CHRONIC OBSTRUCTIVE PULMONARY DISEASE W (ACUTE) EXACERBATION
[2018-11-05] MEDS: OLANZapine 2.5 MG TABLET PO SCH (17:31)
[2018-11-05] MEDS: DOCUSATE SODIUM 100 MG CAPSULE (FP) PO SCH (21:21)
[2018-11-06] MEDS ORDERED: PT OWN MED DRAWER 7, Y5N ONE ×3 (08:02→09:48)
[2018-11-06] MEDS: FOLIC ACID 1 MG TABLET (FP) PO SCH (09:41)
[2018-11-06] MEDS: metoPROLOL SUCCINATE 25 MG TAB.SR.24H (FP) PO SCH (09:41)
[2018-11-06] MEDS: FERROUS SO4 325 MG TABLET (FP) PO SCH (09:41)
[2018-11-06] MEDS: AMIODARONE HCL 200 MG TABLET (FP) PO SCH (09:42)
[2018-11-06] MEDS: HEPARIN NA (PORCINE) 5,000 UNITS/ML 1ML VIAL SQ SCH (09:42)
[2018-11-06] MEDS: ERTAPENEM SODIUM 1 GM in SODIUM CHLORIDE 50 ML IVPB SCH (09:42)
--- NOTE | 2018-11-06 09:45 | PN ---
Progress Note (short form) - Note Progress Note: Patient nonverbal. No fevers recorded. Breathing is non-labored. No acute events overnight. Intake & Output 11/03/18 11/04/18 11/05/18 11/06/18 23:59 23:59 23:59 23:59 Intake Total 0 50 300 0 Balance 0 50 300 0 Weight 134 lb 8 oz 133 lb 6.4 oz 132 lb 4.8 oz 130 lb 14.4 oz Last Vital Signs Temp Pulse Resp BP Pulse Ox 97.5 F L 66 20 163/81 94 L 11/06/18 06:00 11/06/18 06:00 11/06/18 06:00 11/06/18 06:00 11/05/18 21:00 Active Medications Acetaminophen (Tylenol -) 650 mg PO Q4H PRN PRN Reason: PAIN LEVEL 1-5 Amiodarone HCl (Cordarone -) 200 mg PO DAILY [facility] Last Admin: 11/05/18 11:37 Dose: 200 mg Docusate Sodium (Colace -) 300 mg PO HS [facility] Last Admin: 11/05/18 21:21 Dose: 300 mg Ferrous Sulfate (Feosol -) 325 mg PO DAILY [facility] Last Admin: 11/05/18 11:37 Dose: 325 mg Folic Acid (Folic Acid -) 1 mg PO DAILY [facility] Last Admin: 11/05/18 11:37 Dose: 1 mg Guaifenesin (Robitussin -) 10 ml PO Q4H PRN PRN Reason: COUGH Last Admin: 11/05/18 11:37 Dose: 10 ml Heparin Sodium (Porcine) (Heparin -) 5,000 unit SQ BID [facility] Last Admin: 11/05/18 21:21 Dose: 5,000 unit Ertapenem 1 gm/ Sodium (Chloride) 50 mls @ 100 mls/hr IVPB DAILY [facility] Last Admin: 11/05/18 11:37 Dose: 100 mls/hr Metoprolol Succinate (Toprol Xl -) 12.5 mg PO DAILY [facility] Last Admin: 11/05/18 11:37 Dose: 12.5 mg Olanzapine (Zyprexa -) 5 mg PO 1630 [facility] Last Admin: 11/05/18 17:31 Dose: 5 mg Prednisone (Deltasone -) 30 mg PO DAILY [facility] Last Admin: 11/05/18 11:37 Dose: 30 mg Gen: NAD at rest Heart: RRR Lung: decreased breath sounds at the bases Abd: soft, nontender Ext: no edema Problem List - Problems (1) Acute exacerbation of chronic obstructive pulmonary disease (COPD) Code(s): J44.1 - CHRONIC OBSTRUCTIVE PULMONARY DISEASE W (ACUTE) EXACERBATION A/P Acute Hypoxic Respiratory Failure improving Acute COPD Exacerbation r/o Aspiration Pneumonia UTI CAD LV Systolic Dysfunction Atrial Fibrillation VT s/p ICD Advanced Dementia - prednisone - inhaled bronchodilators standing and PRN - antibiotics per ID - monitor urine output - O2 to keep SpO2 >90% - rate control - aspiration precautions - DVT prophylaxis Dr Kaur
[2018-11-06] MEDS: predniSONE 10 MG TABLET (UD) PO SCH (09:50)
--- NOTE | 2018-11-06 10:15 | DS ---
Physical Examination Vital Signs: Vital Signs Temperature 97.5 F L 11/06/18 06:00 Pulse Rate 66 11/06/18 06:00 Respiratory Rate 20 11/06/18 06:00 Blood Pressure 163/81 11/06/18 06:00 O2 Sat by Pulse Oximetry (%) 94 L 11/05/18 21:00 Findings/Remarks: PT SEEN/ EXAMINED COMFORTABLE AFEBRILE AT BEDSIDE NON VERBAL Constitutional: Yes: No Distress, Calm Eyes: Yes: Conjunctiva Clear HENT: Yes: Other (MUCOSA MOIST) Neck: Yes: Supple Cardiovascular: Yes: Regular Rate and Rhythm Respiratory: Yes: Diminished Gastrointestinal: Yes: Soft Edema: No Labs: CBC, BMP 11/03/18 07:13 11/03/18 07:13 Discharge Summary Problems reviewed: Yes Reason For Visit: Shortness of Breath, HYPOXEMIA, ELEVATED TROPONIN Current Active Problems CHF (congestive heart failure) (Acute) COPD (chronic obstructive pulmonary disease) (Acute) SOB (shortness of breath) (Acute) Troponin level elevated (Acute) Hospital Course: Admitted for copd exac/ uti treated with steroids/ abx u/s + i/d and pulmonary followed Better eating well d/c back to intermediate f/u labs in intermediate d/w also meds reconcilled Bactrim Acute Hypoxic Respiratory Failure-- Better. Acute COPD Exacerbation UTI CAD LV Systolic Dysfunction Atrial Fibrillation VT s/p ICD Advanced Dementia Condition: Stable - Instructions Diet, Activity, Other Instructions: taper prednisone, use nebs as needed q4h, robitussin as needed, complate bactrim ds x 5 days Disposition: LONG-TERM FACILITY - Home Medications Comprehensive Discharge Medication List: Ambulatory Orders Docusate Sodium [Colace] 300 mg PO DAILY 10/09/17 Folic Acid 1 mg PO DAILY 10/09/17 Multivitamin [Poly-Vitamin] 1 each PO DAILY 10/09/17 Amiodarone HCl [Cordarone -] 200 mg PO DAILY tablet 11/21/17 Metoprolol Succinate [Toprol XL -] 12.5 mg PO DAILY 12/19/17 Olanzapine [Zyprexa -] 5 mg PO 1630 12/19/17 Cyanocobalamin (Vitamin B-12) [Cyanocobalamin Injection] 1,000 mcg IJ MONTHLY Acetaminophen 650 mg PO Q4H PRN 06/14/18 Albuterol 2.5/Ipratropium 0.5 [Duoneb -] 1 amp NEB Q6H PRN 06/14/18 Ferrous Sulfate 325 mg PO DAILY 06/14/18 Guaifenesin Dm [Robitussin Dm -] 10 ml PO Q6H PRN 06/14/18 Sulfamethoxazole/Trimethoprim [Bactrim Ds -] 1 tab PO BID #14 tablet 11/05/18 predniSONE [Deltasone -] See Taper PO DAILY #14 tablet 11/05/18 Acetaminophen [Tylenol .Regular Strength -] 650 mg PO Q4H PRN tablet 11/06/18 Heparin - 5,000 unit SQ BID vial 11/06/18
[2018-11-06 12:31] VITALS: BP 144/90; PULSE 78; TEMP 98.4
[2018-11-06] MEDS ORDERED: INSULIN (NOVOLOG) ASPART 100 UNITS/ML 10ML VIAL ONE (12:36)
== END 2018-11-06 13:52 | DRG 190 ==
LOC: JER 14:23 → JERBED 18:08 → J8W 10-31 15:47
PROVIDERS: ADMIT Internal Medicine; ATTEND Internal Medicine
DX: J44.1 Chronic obstructive pulmonary disease with (acute) exacerbation (principal); J96.01 Acute respiratory failure with hypoxia; J69.0 Pneumonitis due to inhalation of food and vomit; N39.0 Urinary tract infection, site not specified; I50.22 Chronic systolic (congestive) heart failure; I25.10 Atherosclerotic heart disease of native coronary artery without angina pectoris; J44.9 Chronic obstructive pulmonary disease, unspecified; G30.9 Alzheimer's disease, unspecified; I11.0 Hypertensive heart disease with heart failure; F02.80 Dementia in other diseases classified elsewhere, unspecified severity, without behavioral disturbance, psychotic disturbance, mood disturbance, and anxiety; I48.91 Unspecified atrial fibrillation; E78.00 Pure hypercholesterolemia, unspecified; K57.90 Diverticulosis of intestine, part unspecified, without perforation or abscess without bleeding; R74.8 Abnormal levels of other serum enzymes; K59.09 Other constipation; D64.9 Anemia, unspecified; I25.5 Ischemic cardiomyopathy; D72.829 Elevated white blood cell count, unspecified; Z88.0 Allergy status to penicillin; Z95.5 Presence of coronary angioplasty implant and graft; Z95.810 Presence of automatic (implantable) cardiac defibrillator; I25.2 Old myocardial infarction
CPT/HCPCS: 36415; 71045-TC-FY; 80048; 80053; 81003; 82803; 83735; 83880; 84484; 85025; 85027; 85610; 87040; 87086; 87186; 93005; 93010; 99285-25; J1644; J7030

== ENCOUNTER 2019-01-06 09:54 | Emergency (ER) | payer OTHER ==
[2019-01-06] MEDS ORDERED: EPINEPHrine 1:10,000 (P-F SYR) 1 MG/10 ML DISP.SYRIN ONE (10:11)
--- NOTE | 2019-01-06 10:26 | PDOC ---
History of Present Illness - General Stated Complaint: CARDIAC ARREST Time Seen by Provider: 01/06/19 10:12 - History of Present Illness Initial Comments: Serene Hilliard is an 79yo woman with a PMH of CAD s/p [place] (1986), AICD, HF, COPD, a-fib, Alzheimer's who presented in cardiac arrest. Per EMS, Ms Hilliard had an estimated down time of 5 minutes prior to bystander CPR at her SNF. CPR had been underway for 10 minutes when EMS arrived. Paramedics reported that she was initially in asystole, but had periods of PEA as well as vtach. Prior to arriving in the ED, she was given epi x6, bicarb x2, and calcium x1. She was intubated and CPR was ongoing. Past History - Past Medical History Allergies/Adverse Reactions: Allergies Allergy/AdvReac Type Severity Reaction Status Date / Time aspirin Allergy Verified 01/06/19 13:57 Penicillins Allergy Verified 01/06/19 13:57 Home Medications: Ambulatory Orders Docusate Sodium [Colace] 300 mg PO DAILY 10/09/17 Folic Acid 1 mg PO DAILY 10/09/17 Multivitamin [Poly-Vitamin] 1 each PO DAILY 10/09/17 Amiodarone HCl [Cordarone -] 200 mg PO DAILY tablet 11/21/17 Metoprolol Succinate [Toprol XL -] 12.5 mg PO DAILY 12/19/17 Olanzapine [Zyprexa -] 5 mg PO 1630 12/19/17 Cyanocobalamin (Vitamin B-12) [Cyanocobalamin Injection] 1,000 mcg IJ MONTHLY Acetaminophen 650 mg PO Q4H PRN 06/14/18 Albuterol 2.5/Ipratropium 0.5 [Duoneb -] 1 amp NEB Q6H PRN 06/14/18 Ferrous Sulfate 325 mg PO DAILY 06/14/18 Guaifenesin Dm [Robitussin Dm -] 10 ml PO Q6H PRN 06/14/18 Sulfamethoxazole/Trimethoprim [Bactrim Ds -] 1 tab PO BID #14 tablet 11/05/18 predniSONE [Deltasone -] See Taper PO DAILY #14 tablet 11/05/18 Acetaminophen [Tylenol .Regular Strength -] 650 mg PO Q4H PRN tablet 11/06/18 Heparin - 5,000 unit SQ BID vial 11/06/18 Anemia: No Asthma: No Cancer: No Cardiac Disorders: Yes (A-FIB) CVA: Yes COPD: No CHF: Yes Dementia: Yes Diabetes: No GI Disorders: No Disorders: Yes HTN: Yes Hypercholesterolemia: Yes Kidney Stones: No Liver Disease: No Psychiatric Problems: No Seizures: No Thyroid Disease: No Lung CA: No - Surgical History Cardiac Surgery: Yes (STENTS, DEFIB) - Immunization History Immunization Up to Date: No - Psycho Social/Smoking Cessation Hx Smoking History: Former smoker Have you smoked in the past 12 months: No If you are a former smoker, when did you quit?: 1986 Hx Alcohol Use: No Drug/Substance Use Hx: No Substance Use Type: None Hx Substance Use Treatment: No Review of Systems - Review of Systems Comments:: 01/06/19 10:26 n/a. Pt in cardiac arrest *Physical Exam - Physical Exam General: Demetris device in place HEENT: Pupils fixed and dilated Cards: CPR ongoing via Demetris. Pulm: Intubated Ext: Atraumatic. No LE edema. Vasc: Cool extremities Neuro: Unresponsive Medical Decision Making - Medical Decision Making 01/06/19 10:20 Serene Hilliard is an 79yo woman with a PMH of CAD s/p [place] (1988), AICD, HF, COPD, a-fib, Alzheimer's who presented in cardiac arrest. Per EMS, Ms Hilliard had an estimated down time of 5 minutes prior to bystander CPR at her SNF. CPR had been underway for 10 minutes when EMS arrived. Paramedics reported that she was initially in asystole, but had periods of PEA as well as vtach. Prior to arriving in the ED, she was given epi x6, bicarb x2, and calcium x1. She was intubated and CPR was ongoing. On arrival to the ED: - Fingerstick glucose was 150 - Pulse check with asystole - ETT placement was confirmed by Dr Guerra and Dr Estrdaa using a glidescope - Addiitonal epinephrine given x2. - Pt continued to be in asystole during subsequent pulse checks - POCUS was used for evaluation. No cardiac activity was appreciated - Time of was called at 10:03am The patient's was present in the ED and was informed immediately. He requested a tray line supervisor, who was contacted. Per request of family, an attempt was made to contact the patient's video systems engineer. The dental assistant medical assistant was contacted (Case [id number], spoke to inspectr Tata); the ME will not take this case. Seen with Dr Sean Martinez PGY2 Discharge - Discharge Information Problems reviewed: Yes Clinical Impression/Diagnosis: Cardiac arrest Condition: Disposition: - Follow up/Referral Referrals: Avery Eduardo [Primary Care Provider] - - Patient Discharge Instructions - Post Discharge Activity
--- NOTE | 2019-01-06 10:46 | PDOC ---
Attending Attestation - Resident Resident Name: MichelleIrina - ED Attending Attestation I have performed the following: I have examined & evaluated the patient, The case was reviewed & discussed with the resident, I agree w/resident's findings & plan, Exceptions are as noted - HPI HPI: 01/06/19 10:39 79yo F hx CAD/stents, [place], AICD, CHF, COPD, Afib, alzheimer's dementia presents to the emergency department in cardiac arrest. Per EMS, patient was found in her bed at the long[facility]term unresponsive with no pulses. Staff at the long-term perform CPR for about 15 minutes prior to arrival of EMS. EMS arrived, patient was in asystole, intubated the patient without complications and continued CPR. On route, patient received 6 doses of epinephrine, 2 doses of bicarb, and calcium. Patient was shocked by EMS twice for V. tach, but she was otherwise in asystole throughout. Per EMS patient's pupils have been fixed and dilated throughout. Patient had been in her usual state of health prior to cardiac arrest. - Physicial Exam PE: 01/06/19 10:42 GENERAL: Unresponsive, pale HEAD: No signs of trauma EYES: Pupils fixed and dilated b/l ENT: ET tube in place LUNGS: Breath sounds equal, +chest rise with bagging b/l HEART: pulseless, absent cardiac sounds ABDOMEN: Soft, non distended EXTREMITIES: Poor perfusion NEUROLOGICAL: Unresponsive SKIN: Warm, Dry, normal turgor, no rashes or lesions noted. - Medical Decision Making 01/06/19 10:40 79-year-old female with multiple medical problems presents to the emergency department in cardiac arrest. Prior to arrival to the emergency department, downtime was at least 1 hour. Other than 2 episodes of V. tach, patient in asystole throughout per EMS. On arrival to the emergency department ET tube was confirmed with glidescope to have good placement. Fingerstick was found to be 150. CPR was continued for 3 rounds with 2 more doses of epinephrine. Patient remained in asystole. Bedside cardiac ultrasound with cardiac standstill. Due to prolonged downtime and minimal chance of meaningful neurological recovery, time of was called after 3 rounds of CPR in the emergency department. Patient's at the bedside, was notified. [employer] services were called as well for the .
[2019-01-06 13:55] VITALS: BP 0/0; BMI 24.2
== END 2019-01-06 12:00 | disposition expired ==
LOC: JER 09:54
PROC: 5A02216 Assistance with Cardiac Output using Other Pump, Continuous (ICD-10-PCS; principal; 2019-01-06)
PROC: B246ZZZ Ultrasonography of Right and Left Heart (ICD-10-PCS; 2019-01-06)
DX: I25.10 Atherosclerotic heart disease of native coronary artery without angina pectoris (principal); I46.9 Cardiac arrest, cause unspecified; I11.0 Hypertensive heart disease with heart failure; Z95.5 Presence of coronary angioplasty implant and graft; I50.9 Heart failure, unspecified; I25.2 Old myocardial infarction; I48.91 Unspecified atrial fibrillation; Z95.810 Presence of automatic (implantable) cardiac defibrillator; J44.9 Chronic obstructive pulmonary disease, unspecified; G30.8 Other Alzheimer's disease; F02.80 Dementia in other diseases classified elsewhere, unspecified severity, without behavioral disturbance, psychotic disturbance, mood disturbance, and anxiety; Z86.73 Personal history of transient ischemic attack (TIA), and cerebral infarction without residual deficits; Z88.0 Allergy status to penicillin; Z88.6 Allergy status to analgesic agent
CPT/HCPCS: 92950; 93308; 99284-25